=== PATIENT | female | born 1965 | race Caucasian/White ===

== ENCOUNTER → 2016-08-08 | Outpatient (CLI) | payer OTHER ==
[~2016-08-08] MED LIST: ACET-1256 PO; ADVIN25/60 INH; ALBU18002 INH; ASTN NAE; BUSP30TA2 PO; CLN200; CYCL10TA6 PO; EPP3/2 IM; ESCI10TA17 PO; ESCI1TAB18 PO; FLUT0.15 NAE; GABA600T PO; LAMO25TA PO; MULTTAB58 PO; OMEGCAP2 PO; OMEP40CA PO; OXYC-57 PO; QUET1TAB30 PO; QUET1TAB34 PO; QUET5TAB PO; SPRIN/30 INH; SUMA100T15 PO; SYMIN160 INH; TIOTCAP INH; TRAZ50TA35 PO; VALA1TAB31 PO
== END | disposition home or self-care (01) ==
LOC: C.PATHSPEC 17:47
PROVIDERS: ATTEND Obstetrics & Gynecology
DX: N95.0 Postmenopausal bleeding (principal); R87.69 Abnormal cytological findings in specimens from other female genital organs

== ENCOUNTER → 2016-08-27 | Outpatient (CLI) | payer OTHER ==
--- NOTE | 2016-08-27 16:19 | DIAGNOSTIC IMAGING REPORT ---
ABDOMEN 2VIEW W/PA CHEST RTN CLINICAL HISTORY: K59.00 Constipation COMPARISON STUDY: No previous studies for comparison. FINDINGS: The erect chest reveals no free air. There is a right scapular deformity which appears chronic. There are no abnormally dilated loops of large or small bowel. There are no transition zones indicate bowel obstruction. There is mild fecal retention. There is equivocal faint right renal calculus. IMPRESSION: 1. No evidence of bowel obstruction. No evidence of free air 2. Fecal retention 3. Equivocal 3 mm right renal calculus Electronically signed by: Brian Melendrze M.D. 08/27/2016 4:18 PM Dictated Date/Time: 08/27/2016 4:17 PM
== END | disposition home or self-care (01) ==
LOC: C.RAD1850 15:42
PROVIDERS: ATTEND Internal Medicine
DX: K59.00 Constipation, unspecified (principal)

== ENCOUNTER → 2016-08-27 | Outpatient (CLI) | payer OTHER ==
[2016-08-27 17:33] LABS: HEMATOCRIT 39.3 % (37-47); MEAN CORPUSCULAR HEMOGLOBIN 34.3 pg (25-34); MEAN CORPUSCULAR HGB CONC 35.4 g/dl (32-36); MEAN PLATELET VOLUME 9.6 fL (7.4-10.4); PLATELET COUNT 314 K/uL (130-400); RED BLOOD COUNT 4.05 M/uL (4.2-5.4); WHITE BLOOD COUNT 26.96 K/uL (4.8-10.8)
[2016-08-27 18:09] LABS: ALT/SGPT 40 U/L (12-78); AST/SGOT 22 U/L (15-37); BLOOD UREA NITROGEN 28 mg/dl (7-18); BUN/CREATININE RATIO 30.7 (10-20); CALCIUM 9.6 mg/dl (8.5-10.1); CARBON DIOXIDE 25 mmol/L (21-32); CHLORIDE 104 mmol/L (98-107); GLUCOSE 103 mg/dl (70-99); POTASSIUM 3.5 mmol/L (3.5-5.1); SODIUM 140 mmol/L (136-145)
[2016-08-27 18:10] LABS: BASO % 0.1 %; BASO ABS # 0.02 K/uL (0-0.2); COMPLETE YES; IG% 0.6 %; LYMPH % 11.8 %; LYMPH ABS # 3.17 K/uL (1.2-3.4); MONO % 6.2 %; NEUT % 81.3 %; ROULEAUX 1+
[2016-08-27 18:23] LABS: ALB/GLOB RATIO 0.8 (0.9-2); ALKALINE PHOSPHATASE 166 U/L (45-117); THYROID STIMULATING HORMONE 0.884 uIu/ml (0.300-4.500)
== END | disposition home or self-care (01) ==
LOC: C.LAB1850 16:03
PROVIDERS: ATTEND Internal Medicine
DX: K59.00 Constipation, unspecified (principal)

== ENCOUNTER 2016-10-01 09:56 | Observation (INO) | payer OTHER ==
[2016-09-13 14:48] VITALS: BMI 21.0
--- NOTE | 2016-09-13 15:10 | PAT Medication Instructions ---
Service Date Sep 13, 2016. Current Home Medication List Acetaminophen (Tylenol), 2 TAB PO TID PRN for Pain Albuterol Sulfate (Proair Respiclick), 2 PUFF INH TID Azelastine Hcl (Astelin Nasal [place]), 1-2 SPRAYS ROBERTO BID Budesonide/Formoterol Fumarate (Symbicort 160/4.5 Inhaler ), 2 PUFFS INH BID Buspirone Hcl (Buspirone Hcl), 30 MG PO BID Cyclobenzaprine Hcl (Flexeril), 1 TAB PO TID PRN for Pain Epinephrine (Epipen), 0.3 MG IM UD Escitalopram Oxalate (Lexapro), 20 MG PO QAM Fluticasone Propionate (Nasal) (Flonase Allergy Relief), 2 SPRAYS ROBERTO BID Gabapentin (Neurontin), 900 MG PO TID Multiple Vitamin (Multivitamin), 1 TAB PO QAM [place]-3 Fatty Acids (Fish Oil), 1 CAP PO MWF Omeprazole (Prilosec), 40 MG PO QAM Sulindac (Sulindac), BID Sumatriptan Succinate (Imitrex), 1 TAB PO UD PRN for Migraine Tiotropium [place] (Spiriva Handihaler), 1 CAP INH QAM Trazodone Hcl (Trazodone), 50 MG PO HS PRN for Sleep Valacyclovir Hcl (Valtrex), 1 GM PO BID PRN for COLD SORES Medication Instructions For Your Scheduled Surgery - Continue as directed: Epinephrine (Epipen), 0.3 MG IM UD - Hold the following medications 2 weeks prior to surgery: [place]-3 Fatty Acids (Fish Oil), 1 CAP PO MWF - Hold the following medications the morning of surgery: Multiple Vitamin (Multivitamin), 1 TAB PO QAM Sulindac (Sulindac), BID Cyclobenzaprine Hcl (Flexeril), 1 TAB PO TID PRN for Pain - Take the following medications the morning of surgery with a sip of water: Valacyclovir Hcl (Valtrex), 1 GM PO BID PRN for COLD SORES Acetaminophen (Tylenol), 2 TAB PO TID PRN for Pain (may take if needed up to 4 hours prior to surgery) Albuterol Sulfate (Proair Respiclick), 2 PUFF INH TID (use if needed; BRING TO HOSPITAL) Azelastine Hcl (Astelin Nasal [place]), 1-2 SPRAYS ROBERTO BID Budesonide/Formoterol Fumarate (Symbicort 160/4.5 Inhaler ), 2 PUFFS INH BID Escitalopram Oxalate (Lexapro), 20 MG PO QAM Omeprazole (Prilosec), 40 MG PO QAM Fluticasone Propionate (Nasal) (Flonase Allergy Relief), 2 SPRAYS ROBERTO BID Gabapentin (Neurontin), 900 MG PO TID Buspirone Hcl (Buspirone Hcl), 30 MG PO BID Sumatriptan Succinate (Imitrex), 1 TAB PO UD PRN for Migraine Tiotropium [place] (Spiriva Handihaler), 1 CAP INH QAM - Take the following medications as scheduled the night before surgery: Valacyclovir Hcl (Valtrex), 1 GM PO BID PRN for COLD SORES Acetaminophen (Tylenol), 2 TAB PO TID PRN for Pain Albuterol Sulfate (Proair Respiclick), 2 PUFF INH TID Azelastine Hcl (Astelin Nasal [place]), 1-2 SPRAYS ROBERTO BID Budesonide/Formoterol Fumarate (Symbicort 160/4.5 Inhaler ), 2 PUFFS INH BID Fluticasone Propionate (Nasal) (Flonase Allergy Relief), 2 SPRAYS ROBERTO BID Gabapentin (Neurontin), 900 MG PO TID Buspirone Hcl (Buspirone Hcl), 30 MG PO BID Sumatriptan Succinate (Imitrex), 1 TAB PO UD PRN for Migraine Sulindac (Sulindac), BID Trazodone Hcl (Trazodone), 50 MG PO HS PRN for Sleep Cyclobenzaprine Hcl (Flexeril), 1 TAB PO TID PRN for Pain If you have any questions please call us at [phone] or [phone] or [phone]
[2016-09-13 15:55] LABS: HEMATOCRIT 36.2 % (37-47); MEAN CELL VOLUME 94.8 fL (80-100); MEAN CORPUSCULAR HGB CONC 34.8 g/dl (32-36); MEAN PLATELET VOLUME 9.1 fL (7.4-10.4); PLATELET COUNT 270 K/uL (130-400); RED BLOOD COUNT 3.82 M/uL (4.2-5.4); WHITE BLOOD COUNT 8.75 K/uL (4.8-10.8)
--- NOTE | 2016-09-13 15:58 | DIAGNOSTIC IMAGING REPORT ---
CHEST 2 VIEWS ROUTINE CLINICAL HISTORY: pat preoperative evaluation COMPARISON STUDY: 08/27/2016 FINDINGS: The bones soft tissues and hemidiaphragms are normal. The cardiomediastinal silhouette is normal. The lungs are clear. The pulmonary vasculature is normal. IMPRESSION: Negative chest. Electronically signed by: Taras Winters M.D. 09/13/2016 3:57 PM Dictated Date/Time: 09/13/2016 3:56 PM
[2016-09-13 16:17] LABS: BUN/CREATININE RATIO 29.5 (10-20); CREATININE 0.87 mg/dl (0.60-1.20); POTASSIUM 3.9 mmol/L (3.5-5.1)
[2016-09-13 17:03] LABS: BASO % 0.2 %; BASO ABS # 0.02 K/uL (0-0.2); COMPLETE YES; EOS % 1.6 %; IG% 0.6 %; LYMPH ABS # 4.11 K/uL (1.2-3.4); MONO % 8.9 %; NEUT % 41.7 %; TOXIC GRANULATION 1+
[~2016-10-01] VITALS: Ht 154.9 cm; Wt 53.6 kg
[~2016-10-01 09:56] MED LIST changes: -ADVIN25/60 INH; +ATROPINE SULFATE 0.1 MG/ML 5ML SYR IV PRN; +CEFAZOLIN 2000 MG/60 ML D5W 60 ML IV SCH; -ESCI10TA17 PO; +EpHEDrine SULFATE INJ 50 MG/ML AMP IV PRN; +FENTANYL CITRATE INJ 50 MCG/1 ML 2 ML VIAL IV PRN; +HYDROmorphone INJ 1 MG/ML SYR IV PRN; +LABETALOL HCL IV 5 MG/ML 20ML IV PRN; +LACTATED RINGER'S 1000ML IV SCH; -LAMO25TA PO; +MEPERIDINE HCL 25 MG/ML CARP IV PRN; +ONDANSETRON INJ 2 MG/ML 2 ML VIAL IV PRN; -OXYC-57 PO; -QUET1TAB30 PO; -QUET1TAB34 PO; -QUET5TAB PO; -TIOTCAP INH
[2016-10-01] MEDS ORDERED: QUET5TAB PO (10:38)
[2016-10-01] MEDS ORDERED: ADVIN25/60 INH (10:38)
[2016-10-01] MEDS ORDERED: QUET1TAB34 PO (10:38)
[2016-10-01 10:43] VITALS: BP 132/77; PULSE 83; TEMP 36.6; O2SAT 96; Ht 154.9 cm; Wt 53.6 kg
[2016-10-01 11:12] LABS: PREG INTERNAL NEGATIVE QC NEG CLEAR BACKGROUND; PREG INTERNAL POSITIVE QC POS CONTROL LINE
[2016-10-01] MEDS ORDERED: MIDAZOLAM HCL 1 MG/ML 2ML VIAL ONE (12:39)
[2016-10-01] MEDS ORDERED: FENTANYL CITRATE INJ 50 MCG/1 ML 2 ML VIAL ONE ×3 (12:39→16:28)
[2016-10-01] MEDS ORDERED: GLYCOPYRROLATE INJ 0.2 MG/ML VIAL ONE ×2 (12:41→14:44)
[2016-10-01] MEDS ORDERED: ROCURONIUM BROMIDE 10 MG/ML 5 ML VIAL ONE (12:41)
[2016-10-01] MEDS ORDERED: PROPOFOL IV EMULSION 10 MG/ML 20 ML VIAL IV ONE (12:41)
[2016-10-01] MEDS ORDERED: ONDANSETRON INJ 2 MG/ML 2 ML VIAL ONE ×2 (12:41→16:26)
[2016-10-01] MEDS ORDERED: LIDOCAINE HCL 2% 2 ML VIAL (20MG/ML) ONE ×2 (12:41→16:26)
[2016-10-01] MEDS ORDERED: DEXAMETHASONE SOD INJ 4 MG/ML VIAL ONE (12:41)
[2016-10-01] MEDS ORDERED: NEOSTIGMINE METHYLSULFATE 5 MG/5 ML SYR ONE (12:41)
--- NOTE | 2016-10-01 13:38 | History & Physical Bridge Note ---
H&P Re-Evaluation Bridge Note: I have examined the patient, reviewed the History & Physical and in the interval since the performance of the History & Physical I have noted the following changes of clinical significance: No changes noted
[2016-10-01] MEDS ORDERED: METHYLENE BLUE 0.5% 10 ML VIAL ONE (13:40)
[2016-10-01] MEDS ORDERED: BUPIVACAINE 0.5 % 5 MG/1 ML MPF 30ML VIAL ONE (13:40)
--- NOTE | 2016-10-01 14:20 | History & Physical Bridge Note ---
H&P Re-Evaluation Bridge Note: I have examined the patient, reviewed the History & Physical and in the interval since the performance of the History & Physical I have noted the following changes of clinical significance: No changes noted This is a second bridge note. Patient states that she had a laparotomy surrounding one of her prior pregnancies. A 16-20 week demise. She was unable to provide any solid details. I discussed that prior laparotomy might increase risk of adhesions and injury to internal organs. MELANIE
[2016-10-01] MEDS ORDERED: EpHEDrine SULFATE 50MG/5ML SYR ONE (15:08)
[2016-10-01] MEDS ORDERED: PHENYLEPHRINE 100MCG/ML 5ML SYR ONE (15:14)
[2016-10-01] MEDS ORDERED: METHYLENE BLUE 0.5% 10 ML VIAL IV ONE (15:58)
[2016-10-01] MEDS ORDERED: LACTATED RINGER'S 1000ML 1,000 ML IV SCH (16:10)
--- NOTE | 2016-10-01 16:13 | [facility] Post Operative Brief Note ---
Immediate Operative Summary Operative Date Oct 01, 2016. Pre-Operative Diagnosis Pelvic Pain, Postmenopausal Bleeding, Cervical Dysplasia Post-Operative Diagnosis Same as preop Procedure(s) Performed TLH+BSO, lysis of adhesions, cystoscopy, robotic assisted Surgeon Dr. Whitehead Fishing Guide Surgeon(s) Dr. Niño Estimated Blood Loss 20ml Findings anterior abdominal wall adhesions Specimens A. Cervix, Uterus, Bilateral Fallopian Tubes and Ovaries Drains Douglas Anesthesia General Complication(s) None Disposition Recovery Room / PACU
[2016-10-01] MEDS ORDERED: OXYC-57 PO (16:14)
--- NOTE | 2016-10-01 16:14 | Discharge Instructions ---
Discharge Instructions Date of Service Oct 01, 2016. Admission Reason for Admission: Pelvic Pain, PMB Discharge Discharge Diagnosis / Problem: menorrhagia, pelvic pain Discharge Goals Goal(s): Routine recovery after surgery Activity Recommendations Activity Limitations: per Instructions/Follow-up section . Instructions / Follow-Up Instructions / Follow-Up POST OPERATIVE: BOWEL FUNCTION/MEDICATIONS: 1. Constipation pain and discomfort are the most common complaints 5-7 days after surgery. Points 2-6 address the things that can help. 2. Chewing gum can help stimulate the gut and help improve digestion and motility. 3. Milk of Magnesia 1-2 times per day until return of bowel function. 4. Colace is a stool softener that helps. Taking this 2-3 times per day until bowel function returns to normal is highly recommended. 5. Dulcolax is a laxative that may be used if several days have passed without a bowel movement. Alternatively Miralax may be used daily instead. 6. Drink plenty of fluids as this will also reduce constipation. 7. Narcotic pain medications will be prescribed by your physician. They are safe to use and we encourage you to use them. If you are not allergic, ibuprofen will also be prescribed. Many patients will be able to transition off of the narcotic medications to ibuprofen by postoperative day 3. ACTIVITY RECOMMENDATIONS: 1. Get plenty of rest and listen to your body. If you are tired, take a nap. 2. You may shower, but do not take a tub bath until you see your doctor at the 2 week post operative visit. 3. Absolutely NO intercourse and nothing in the vagina until you are examined by your doctor at the 6 week visit. At that visit it will be determined when such activities can be resumed. This can range from 6-12 weeks after your surgery depending on healing time. 4. The main physical activity in the first week should be walking. By the second week you can slowly increase activity. There are no limits on walking up and down stairs. 5. Do not lift more than 5-10 lbs for 4 weeks. Remember the "one-handed rule", i.e. if you can lift something with only one hand it's likely okay. 6. Minimize raise drill operator like vacuuming and exercising for 4 weeks. "Overdoing it" can lead to incisions not healing, pain and vaginal bleeding , so again, listen to your body. 7. Driving can be resumed when you feel able. Do not drive within 24 hours of taking a narcotic medication. EXPECTATIONS: 1. Vaginal spotting, bleeding and discharge are common after surgery. There may even be an odor to the discharge which is often related to sutures used in the vagina. If you experience heavy vaginal bleeding, call the office number day or night [phone]. 2. Bladder discomfort is common after surgery from the catheter. This usually resolves in 1-2 weeks. 3. By the end of the 3rd or 4th week you should be feeling much better. It may take up to 6 weeks for your energy levels to return to normal. 4. Narcotic medications have side effects such as: dizziness, headache, nausea and/or vomiting. If you suspect your pain medication is causing problems, call our office and we may be able to prescribe an alternate medication. 5. The skin incisions are often covered with a liquid bandage. This will gradually peel off over time. CALL THE OFFICE IF YOU HAVE ANY OF THE FOLLOWIN. Temperature of 101 degrees or higher. 2. Severe abdominal or pelvic pain not relieved by pain medication. 3. Persistent nausea or vomiting. 4. Increased pain with urination or difficulty urinating. 5. Bright red bleeding that soaks more than 1 pad per hour. CONTACT PHONE NUMBERS: Main Office: [phone] Surgical Nurse: [phone] extension [phone] Avoid all tobacco products. If you need help to stop smoking, call [place]'s FREE QUITLINE at . This is a free call. Current Hospital Diet Patient's current hospital diet: Discharge Diet Recommended Diet: Regular Diet Procedures Procedures Performed: TLH+BSO, lysis of adhesions, cystoscopy, robotic assisted Pending Studies Studies pending at discharge: no Medical Emergencies . Who to Call and When: Medical Emergencies: If at any time you feel your situation is an emergency, please call 911 immediately. . Non-Emergent Contact Non-Emergency issues call your: Primary Care Provider . . "Provider Documentation" section prepared by Arcadio Whitehead. VTE Core Measure Inpt VTE Proph given/why not?: Belinda Mcgowan, CRYS's
[2016-10-01] MEDS ORDERED: MAGNESIUM HYDROXIDE SUSP 30 ML UDC PO PRN (16:15)
[2016-10-01] MEDS ORDERED: PROMETHAZINE HCL INJ 12.5 MG in SODIUM CHLORIDE 0.9% 50ML 50 ML IV PRN (16:15)
[2016-10-01] MEDS ORDERED: ACETAMINOPHEN 325 MG TAB PO PRN (16:15)
[2016-10-01] MEDS ORDERED: BISACODYL 10 MG SUPP PR PRN (16:15)
[2016-10-01] MEDS ORDERED: MEPERIDINE HCL 75 MG/ML CARP IV PRN (16:15)
[2016-10-01] MEDS ORDERED: SIMETHICONE 80 MG CHEW PO PRN (16:15)
[2016-10-01] MEDS ORDERED: ZOLPIDEM TARTRATE 5 MG TAB PO PRN (16:15)
[2016-10-01] MEDS ORDERED: PROMETHAZINE HCL INJ 25 MG in SODIUM CHLORIDE 0.9% 50ML 50 ML IV PRN (16:15)
[2016-10-01] MEDS ORDERED: MEPERIDINE HCL 50 MG/ML CARP IV PRN (16:15)
[2016-10-01] MEDS ORDERED: OXYCODONE/ACETAMINOPHEN 5-325 TAB PO PRN ×2 (16:15)
[2016-10-01] MEDS ORDERED: ONDANSETRON INJ 2 MG/ML 2 ML VIAL IV PRN (16:15)
[2016-10-01] MEDS ORDERED: KETOROLAC TROMETHAMINE 30 MG/ML VIAL IV. PRN (16:15)
[2016-10-01] MEDS ORDERED: IBUPROFEN 600 MG TAB PO PRN (16:15)
[2016-10-01] MEDS ORDERED: IV FLUIDS COMPLETED PRN (16:30)
[2016-10-01] MEDS ORDERED: ALBUT/IPRATROP 3MG/0.5MG NEB 3 ML VIAL ONE (16:58)
--- NOTE | 2016-10-01 17:00 | Anesthesiology Progress Note ---
Anesthesia Post Op Note Date & Time Oct 01, 2016 at 17:00 Vital Signs Pain Intensity: 3 Vital Signs Past 12 Hours Date Time Temp Pulse Resp B/P Pulse Ox O2 Delivery O2 Flow Rate FiO2 10/01/16 16:50 94 18 129/72 96 Nasal Cannula 2 10/01/16 16:40 97 18 139/75 96 Nasal Cannula 2 10/01/16 16:30 98 17 132/72 95 Nasal Cannula 2 10/01/16 16:24 36.0 110 18 133/73 92 Nasal Cannula 2 10/01/16 10:43 36.6 83 18 132/77 96 Room Air Notes Mental Status: alert / awake / arousable, participated in evaluation Pt Amnestic to Procedure: Yes Nausea / Vomiting: adequately controlled Pain: adequately controlled Airway Patency, RR, SpO2: stable & adequate BP & HR: stable & adequate Hydration State: stable & adequate Anesthetic Complications: no major complications apparent
--- NOTE | 2016-10-01 17:09 | OPERATIVE REPORT ---
DATE OF OPERATION: 10/01/2016 PREOPERATIVE DIAGNOSES: Pelvic pain, postmenopausal bleeding, cervical dysplasia. POSTOPERATIVE DIAGNOSES: Same. PROCEDURE: TLH-BSO, lysis of adhesions, cystoscopy robotically assisted. SURGEON: Arcadio Whitehead MD MAT MAKING MACHINE TENDER: Bhaskar Niño MD ESTIMATED BLOOD LOSS: 20 mL. FINDINGS: Extensive intra-abdominal wall adhesions in the peritoneal cavity. SPECIMENS: Cervix, uterus, bilateral fallopian tubes and ovaries. DRAINS: Douglas catheter. ANESTHETIC: General. COMPLICATIONS: None. DISPOSITION: Recovery room. CLINICAL NOTE: Anat, we reviewed before the surgery she did state she had what sounds like a hysterotomy done at 16-20 weeks prior to surgery, I included this in a bridge note. We did discuss this increased chance of internal organ damage as there could be extensive adhesions. DESCRIPTION OF PROCEDURE: The patient was given general anesthetic, prepped and draped in dorsal lithotomy position. IV Ancef given preop. Douglas catheter placed in the bladder and uterine VCare placed into her cervix and uterus and sewn in place. Gloves changed and a supraumbilical incision made with scalpel using open Katherine technique, we dissected down through subcutaneous fat to the fascia, splitting the rectus muscles and entering the peritoneal cavity. Blunt-tipped Katherine trocar then placed. Balloon inflated and then CO2 gas to insufflate the abdomen. FINDINGS: Upper abdomen normal, no sign of visceral organ injury. After deep Trendelenburg position, I viewed the pelvis. At this stage, I could not see the uterus and anterior abdominal wall adhesions of omentum were present, pictures taken for documentation. These included to the right pelvic sidewall as well in the left pelvic sidewall. Placed 3 robotic arms, 2 on the right and 1 in the left and in the left upper quadrant 11 mm bladeless port was placed as well. Docked the robot. Arm #1 was monopolar jaelyn, arm #2 bipolar [place], arm #3 ProGrasp. Carefully dissecting the adhesions away, these were mainly thin, I was able to dissect away the omental adhesions from the anterior abdominal wall, these have continued to the anterior aspect of the uterus were dissected away using the monopolar jaelyn and the bipolar [place]. Same process on the left side and the right side as well, taking care to avoid any damage to the surrounding structures. Once all the adhesions were away, I was then able to identify her anatomy. She had normal ureter locations in both left and right side. I made a window into the broad ligament and then dissected the ovarian artery and vein and then coagulated this with a bipolar [place] taking care to note that the ureter was well away from this location. This was then cut. Monopolar jaelyn used to skeletonize and then round ligament was coagulated and cut as well. Anterior bladder flap had adhesions consistent with the prior hysterotomy. We resected these very carefully and sharply, identified the uterine artery and vein, coagulated this after dissecting the bladder away fully and cut with monopolar jaelyn. Again, the ureter was well away. Same process continued on the right. Once the bladder flap was fully dissected away and bilaterally the uterine vessels were sealed and cut, I was able to make an anterior colpotomy and continued this around to separate the cervix and the vagina. We stayed medial to our uterine vessel ligations. The uterus was then pulled into the vagina and then removed along with the adnexa. At this stage, we then placed a sponge in a glove to maintain pneumoperitoneum. Instrument exchanges then occurred. Arm #1 became the louisa needle racing driver, arm #2 became the cobra, 12-inch 2-0 90-day V-Loc suture was then passed through the accessory port. IV methylene blue was given by anesthesia, 10 mL. Cup was closed from left to right, back right to left, incorporating at least 1 cm full thickness vaginal mucosa bites. Suture was cut so there was no tail. Needle was removed through the accessory port. I felt the right uterosacral ligament was not as well approximated to the cuff, so I did actually pass a 2-0 Vicryl on an SH needle 6-inch long and then a simple interrupted including the uterosacral into the cuff was done for better pelvic support. This was cut. Needle was then removed through the accessory port. After this generous irrigation and suction, there was no leakage of methylene blue dye and hemostasis was excellent. Robot instruments removed, robot undocked, ports removed, gas allowed to escape. All incisions have been injected with 0.5% Marcaine before the case and irrigated with sterile saline. Fascia closed with 0 Vicryl in the umbilical incision and left upper quadrant. Subcutaneous fat closed with 0 Vicryl and incisions closed with 4-0 subcuticular Monocryl and Dermabond. Sponge and instrument counts correct. Cystoscopy was performed by removing the Douglas catheter. Note the sponge had been removed from the vagina as well. Cystoscope revealed a normal bladder, and no sign of trauma or damage or sutures and good strong jets of blue dye from both left and right ureter openings. Cystoscope removed and a new Douglas catheter placed. There was minimal vaginal bleeding. At the end of the procedure, sponge and instrument counts correct. I attest to the content of the Intraoperative Record and any orders documented therein. Any exceptio ns are noted below.
[2016-10-01] MEDS ORDERED: NURSING VERBAL MED ORDER ONE ×2 (17:15→20:45)
[2016-10-01 17:25] VITALS: O2SAT 93
[2016-10-01 18:00] VITALS: BP 120/77; PULSE 93; TEMP 36.6; O2SAT 93
[2016-10-01 18:50] VITALS: BP 120/75; PULSE 90; TEMP 36.5; O2SAT 98
[2016-10-01 19:25] VITALS: BP 127/77; PULSE 85; TEMP 36.5; O2SAT 98
[2016-10-01 20:25] LABS: HEMATOCRIT 37.3 % (37-47)
[2016-10-01] MEDS ORDERED: DOCUSATE SODIUM 100 MG CAP PO SCH (21:00)
[2016-10-01 21:27] VITALS: BP 127/77; PULSE 85; TEMP 36.5; O2SAT 98
[2016-10-01] MEDS ORDERED: PERCOCET HOME PACK PO SCH (21:30)
--- NOTE | 2016-10-09 10:24 | DISCHARGE SUMMARY ---
HOSPITAL COURSE: Anat had surgery, total laparoscopic hysterectomy, on 10/02/2015. She was discharged several hours after her surgery. SUBJECTIVE: At that time, she was ambulating, tolerating an oral diet, oral pain medication, had minimal bleeding and no extremity pain. PHYSICAL EXAMINATION: Her vital signs are stable. She is afebrile. IMPRESSION AND PLAN: Several hours post total laparoscopic hysterectomy meets discharge criteria, was discharged home on appropriate pain medication and told to follow up in the office and given discharge instructions.
[2017-04-15] MEDS ORDERED: LAMO25TA PO (13:34)
== END 2016-10-01 22:00 | disposition home or self-care (01) ==
LOC: ENRESERVTM → ENRESERVDT → C.ACU 09:56 → C.MS4N 16:12
PROVIDERS: ADMIT Obstetrics & Gynecology; ATTEND Obstetrics & Gynecology
DX: N95.0 Postmenopausal bleeding (principal); N87.9 Dysplasia of cervix uteri, unspecified; K66.0 Peritoneal adhesions (postprocedural) (postinfection); R10.2 Pelvic and perineal pain; J44.9 Chronic obstructive pulmonary disease, unspecified; G89.4 Chronic pain syndrome; K21.9 Gastro-esophageal reflux disease without esophagitis; F17.200 Nicotine dependence, unspecified, uncomplicated
CPT/HCPCS: 58571; S2900

== ENCOUNTER → 2018-02-05 | Outpatient (CLI) | payer OTHER ==
[~2018-02-05] MED LIST changes: +ADVIN25/60 INH; -ATROPINE SULFATE 0.1 MG/ML 5ML SYR IV PRN; -CEFAZOLIN 2000 MG/60 ML D5W 60 ML IV SCH; -EpHEDrine SULFATE INJ 50 MG/ML AMP IV PRN; -FENTANYL CITRATE INJ 50 MCG/1 ML 2 ML VIAL IV PRN; -HYDROmorphone INJ 1 MG/ML SYR IV PRN; -LABETALOL HCL IV 5 MG/ML 20ML IV PRN; -LACTATED RINGER'S 1000ML IV SCH; +LAMO25TA PO; -MEPERIDINE HCL 25 MG/ML CARP IV PRN; -ONDANSETRON INJ 2 MG/ML 2 ML VIAL IV PRN; +OXYC-57 PO; -SYMIN160 INH; -VALA1TAB31 PO
[2018-02-05 17:19] LABS: BASO % 0.4 %; BASO ABS # 0.04 K/uL (0-0.2); EOS % 1.2 %; EOS ABS # 0.12 K/uL (0-0.5); HEMATOCRIT 42.1 % (37-47); HEMOGLOBIN 14.5 g/dL (12.0-16.0); IG# 0.03 K/uL (0.00-0.02); LYMPH % 37.8 %; LYMPH ABS # 3.78 K/uL (1.2-3.4); MEAN CELL VOLUME 96.8 fL (80-100); MEAN CORPUSCULAR HEMOGLOBIN 33.3 pg (25-34); MEAN CORPUSCULAR HGB CONC 34.4 g/dl (32-36); MEAN PLATELET VOLUME 10.4 fL (7.4-10.4); MONO % 5.5 %; MONO ABS # 0.55 K/uL (0.11-0.59); NEUT % 54.8 %; NEUT ABS # 5.47 K/uL (1.4-6.5); PLATELET COUNT 311 K/uL (130-400); RED CELL DISTRIBUTION WIDTH SD 46.2 fL (36.4-46.3); WHITE BLOOD COUNT 9.99 K/uL (4.8-10.8)
[2018-02-05 17:59] LABS: ALBUMIN 3.6 gm/dl (3.4-5.0); ALKALINE PHOSPHATASE 171 U/L (45-117); ALT/SGPT 39 U/L (12-78); AST/SGOT 36 U/L (15-37); BLOOD UREA NITROGEN 26 mg/dl (7-18); CALCIUM 9.5 mg/dl (8.5-10.1); CARBON DIOXIDE 22 mmol/L (21-32); CHOLESTEROL 234 mg/dl (0-200); CREATININE 0.82 mg/dl (0.60-1.20); GLUCOSE 81 mg/dl (70-99); LDL CHOLESTEROL CALCULATED 162 mg/dl; POTASSIUM 3.9 mmol/L (3.5-5.1); SODIUM 140 mmol/L (136-145)
== END | disposition home or self-care (01) ==
LOC: C.LABBFT 14:16
PROVIDERS: ATTEND Nurse Practitioner
DX: R63.4 Abnormal weight loss (principal); Z13.6 Encounter for screening for cardiovascular disorders; Z13.228 Encounter for screening for other metabolic disorders

== ENCOUNTER → 2018-02-25 | Outpatient (CLI) | payer OTHER ==
--- NOTE | 2018-02-25 09:57 | DIAGNOSTIC IMAGING REPORT ---
L-SPINE MIN 4 VIEWS ROUTINE HISTORY: Pain M46.90 [id number] [id number] HLA B27 positi COMPARISON: 06/04/2012 FINDINGS: There is no fracture. No subluxation. Minimal degenerative disc change. Minimal degenerative change posterior elements at L4 and L5. Instill note is made of a 3 mm calcification lower pole right kidney. IMPRESSION: 1. Minimal degenerative change. 2. Mild scoliosis. 3. 3 mm lower pole right renal calcification. The above report was generated using voice recognition software. It may contain grammatical, syntax or spelling errors. Electronically signed by: Taras Winters M.D. 02/25/2018 9:56 AM Dictated Date/Time: 02/25/2018 9:54 AM
--- NOTE | 2018-02-25 09:58 | DIAGNOSTIC IMAGING REPORT ---
R HAND MIN 3 VIEWS ROUTINE CLINICAL HISTORY: Spondyloarthropathy. HLA B27 positive. COMPARISON: Right hand radiographs November 19, 2012. FINDINGS: Alignment of the right hand is anatomic. Severe joint space narrowing with osteophytosis of the right first carpometacarpal joint is noted. No erosions are identified. Note is made of mild joint space narrowing with moderate osteophytosis within several distal interphalangeal joints of the right hand. Osteoarthritis has progressed since exam of November 19, 2012. IMPRESSION: 1. Progression of osteoarthritis within multiple articulations of the right hand and wrist, most pronounced at the right first carpometacarpal joint. 2. No erosions identified. Electronically signed by: Vinny Chiu M.D. 02/25/2018 9:56 AM Dictated Date/Time: 02/25/2018 9:54 AM
--- NOTE | 2018-02-25 09:59 | DIAGNOSTIC IMAGING REPORT ---
L HAND MIN 3 VIEWS ROUTINE CLINICAL HISTORY: M46.90 [id number] [id number] HLA B27 positi pain COMPARISON: None. DISCUSSION: Significant degenerative change first carpometacarpal joint. Remaining osseous structures are unremarkable. There is no evidence for periarticular erosions nor is there evidence for periarticular osteopenia. There is no evidence for soft tissue swelling. IMPRESSION: Rather significant degenerative change first carpometacarpal joint. Otherwise negative study. The above report was generated using voice recognition software. It may contain grammatical, syntax or spelling errors. Electronically signed by: Taras Winters M.D. 02/25/2018 9:58 AM Dictated Date/Time: 02/25/2018 9:56 AM
[2018-02-25 10:44] LABS: TRANSFERRIN 340 mg/dl (200-360)
== END | disposition home or self-care (01) ==
LOC: C.RAD1850 09:11
PROVIDERS: ATTEND Internal Medicine Rheumatology
DX: M54.2 Cervicalgia (principal); Z15.89 Genetic susceptibility to other disease; M46.90 Unspecified inflammatory spondylopathy, site unspecified; E55.9 Vitamin D deficiency, unspecified; N28.89 Other specified disorders of kidney and ureter

== ENCOUNTER 2020-01-06 10:24 | Inpatient (IN) ==
[2020-01-06] MEDS ORDERED: SODIUM CHLORIDE 0.9% 1000ML 2,000 ML IV ONE (11:01)
[2020-01-06] MEDS ORDERED: NYSTATIN SUSP 500,000 U/5 ML UDC PO STA (11:01)
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
--- NOTE | 2020-01-06 11:39 | XRay Report ---
XR chest 1V portable CLINICAL HISTORY: SEPSIS dyspnea COMPARISON STUDY: 08/27/2016 FINDINGS: No significant cardiac enlargement. Diaphragms are smooth. Peripheral atelectasis right mid lung laterally. No acute infiltrate. IMPRESSION: No acute infiltrate. ACT 112: Negative or not required by law. The above report was generated using voice recognition software. It may contain grammatical, syntax or spelling errors. Electronically signed by: Taras Winters M.D. 01/06/2020 11:38 AM
[2020-01-06 13:10] LABS: Basophils # (auto) 0.01 K/uL (0-0.2); Basophils % (auto) 0.1 %; Hematocrit (blood only) 40.6 % (37-47); Hemoglobin 14.4 g/dL (12.0-16.0); Immature Granulocytes # (auto) 0.05 K/uL (0.00-0.02); Immature Granulocytes % (auto) 0.4 %; Lymphocytes # (auto) 1.56 K/uL (1.2-3.4); Lymphocytes % (auto) 11.8 %; Mean Corpuscular Hemoglobin 32.4 pg (25-34); Mean Corpuscular Hgb Conc 35.5 g/dL (32-36); Mean Corpuscular Volume 91.2 fL (80-100); Monocytes # (auto) 2.29 K/uL (0.11-0.59); Monocytes % (auto) 17.3 %; Neutrophils # (auto) 9.34 K/uL (1.4-6.5); Neutrophils % (auto) 70.4 %; Platelet Count 200 K/uL (130-400); RDW Coefficient of Variation 13.5 % (11.5-14.5); RDW Standard Deviation 44.9 fL (36.4-46.3); Red Blood Count 4.45 M/uL (4.2-5.4); White Blood Count 13.25 K/uL (4.8-10.8)
[2020-01-06 13:15] LABS: iSTAT Creatinine 1.1 mg/dl (0.6-1.3); iSTAT Ionized Calcium 1.06 mmol/l (1.12-1.32); iSTAT Potassium 3.4 mmol/L (3.3-5.0)
[2020-01-06 13:21] LABS: Appearance Urine Turbid (Clear); Bacteria Urine Automated 4+ (Negative); Bilirubin Urine Negative (Negative); Blood Urine 3+ (Negative); Color Urine Yellow; Glucose Urine UA Negative (Negative); Ketones Urine 1+ (Negative); Leukocyte Esterase Urine 3+ (Negative); Nitrite Urine Positive (Negative); Protein Urine 2+ (Negative); Specific Gravity Urine 1.018 (1.000-1.030); Urobilinogen Urine Negative (Negative); WBC Urine Automated >30 /hpf (0-5)
[2020-01-06 13:23] LABS: Partial Thromboplastin Ratio 1.2; Partial Thromboplastin Time 32.9 Seconds (21.0-31.0); Prothrombin Time 10.8 Seconds (9.0-12.0)
[2020-01-06 13:29] LABS: Alanine Aminotransferase 19 U/L (12-78); Albumin Level 2.8 gm/dl (3.4-5.0); Aspartate Aminotransferase 26 U/L (15-37); BUN Creatinine Ratio 24.7 (10-20); Blood Urea Nitrogen 26 mg/dl (7-18); Calcium 8.9 mg/dl (8.5-10.1); Carbon Dioxide 25 mmol/L (21-32); Chloride 97 mmol/L (98-107); Creatinine Clr Calc Pharmacy 46.4 ml/min; Est GFR (African American) 67.2; Glucose 95 mg/dl (70-99); Magnesium 2.4 mg/dl (1.8-2.4); Potassium 3.4 mmol/L (3.5-5.1); Sodium 130 mmol/L (136-145)
[2020-01-06 13:34] LABS: Albumin Globulin Ratio 0.5 (0.9-2); Alkaline Phosphatase 58 U/L (45-117); Bilirubin,Total 0.4 mg/dl (0.2-1); Globulin 5.5 gm/dl (2.5-4.0); Total Protein 8.3 gm/dl (6.4-8.2); Troponin I < 0.015 ng/ml (0-0.045)
[2020-01-06] MEDS ORDERED: IOVERSOL 100ml IV PRN (13:40)
[2020-01-06] MEDS ORDERED: cefTRIAXone SODIUM 1,000 MG/50 ML BAG IV STA (13:52)
--- NOTE | 2020-01-06 13:53 | CT Scan Report ---
CT abd pelvis IV con only CT DOSE: 274.67 mGycm HISTORY: Pain diffuse abd pain TECHNIQUE: Multiaxial CT images of the abdomen and pelvis were performed following the use of intrave nous contrast. A dose lowering technique was utilized adhering to the principles of ALARA. COMPARISON STUDY: 12/31/2019 FINDINGS: Lung bases remain clear. Liver spleen and pancreas are unremarkable. The 5 mm calculus of the mid right ureter has now migrated distally approximately 2 cm. There is a moderate interval increase in edematous change of the renal parenchyma of the right kidney . There are findings of mild perinephric infiltrative change. Secondary pyelonephritis is considered. Nonobstructive bowel pattern. Moderate increase in colonic fecal load. Bladder is midline. No free fl uid within the pelvic cul-de-sac. IMPRESSION: 1. Obstructing mid right ureteral calculus measuring 5 mm. The graft 2. This is migrated distally 2 cm compared to the prior study of 12/31/2019. 3. Interval development of edematous change of the right kidney with mild infiltrative change of the right perinephric fat. 4. This would indicate a developing and/or superimposed pyelonephritis superimposed upon the obstruct clinton changes due to the ureteral calculus. ACT 112: Negative or not required by law. The above report was generated using voice recognition software. It may contain grammatical, syntax or spelling errors. Electronically signed by: Taras Winters M.D. 01/06/2020 1:51 PM
[2020-01-06 14:22] LABS: Amorphous Sediment Urine Present (None Prsent)
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
--- NOTE | 2020-01-06 15:33 | Electrocardiogram Report ---
Test Reason : Blood Pressure : / mmHG Vent. Rate : 108 BPM Atrial Rate : 108 BPM P-R Int : 142 ms QRS Dur : 092 ms QT Int : 328 ms P-R-T Axes : 073 060 059 degrees QTc Int : 439 ms Sinus tachycardia Otherwise normal ECG When compared with ECG of 13-SEP-2016 15:09, Vent. rate has increased BY 40 BPM Confirmed by Jeremias Leonard ([id number]) on 01/06/2020 3:32:57 PM Referred By: REFERRED SELF Confirmed By:Dino Leonard
[2020-01-06] MEDS ORDERED: DAPTOMYCIN CONSULT ACTIVE PRN (16:10)
[2020-01-06] MEDS ORDERED: DAPTOmycin 300 MG in SYRINGE 0 ML IV SCH ×2 (16:15→18:00)
[2020-01-06] MEDS ORDERED: ONDANSETRON INJ 2 MG/ML 2 ML VIAL IV PRN ×2 (16:17→17:38)
[2020-01-06] MEDS ORDERED: fentaNYL citrate 100 MCG/2 ML VIAL IV PRN (16:17)
[2020-01-06] MEDS ORDERED: ATROPINE SULFATE 0.1 MG/ML 10ML SYR IV PRN (16:17)
[2020-01-06] MEDS ORDERED: ONDANSETRON INJ 2 MG/ML 2 ML VIAL ONE (16:20)
[2020-01-06] MEDS ORDERED: fentaNYL citrate 100 MCG/2 ML VIAL ONE (16:20)
[2020-01-06] MEDS ORDERED: MIDAZOLAM HCL 1 MG/ML 2ML VIAL ONE (16:20)
[2020-01-06] MEDS ORDERED: PROPOFOL IV EMULSION 10 MG/ML 20 ML VIAL IV ONE ×2 (16:20→16:40)
--- NOTE | 2020-01-06 16:50 | Operative Report ---
PG Post Operative Report Pre & Post Diagnosis Operation Date: 01/06/20 11:15 Pre-Op Diagnosis: Right Nephrolithiasis Post-Op Diagnosis: Right Nephrolithiasis I identified the patient and participated in the time-out.: Yes Procedure Operation Date: 01/06/20 11:15 Actual Procedures p Cystoscopy, Right Ureteral Stent Placement under Sedation(Right) - David Asher MD Surgeon Jeremias Asher MD Professor Of Architecture none Estimated Blood Loss 0 Findings Consistent with Post-Op Diagnosis Specimens None Description of Procedure The patient was identified in the preoperative holding area, appropriate informed consents were reviewed and completed and the patient was transferred to the operative suite. Upon arrival, appropriate antibiotics and anesthesia were administered and the patient was placed in dorsal lithotomy position and prepped and draped in sterile fashion. To begin the case to pass a 22 Macedonian cystoscope with 30 degree lens. Inspection revealed healthy appearing bladder mucosa. Ureteral orifices were in orthotopic position. I turned my attention to the right ureteral orifice and cannulated with a sensor wire 5 Macedonian open-ended catheter. Of note, under fluoroscopic evaluation we could see retained contrast within the right upper tract progressing to the mid ureteral location where there was clearly an obstructing stone. I advanced my wire to this level and I did meet some resistance but was able to bypass the stone with the wire. There was also some proximal tortuosity which was straightened after the wire advanced to the kidney. After advancing the wire and straightening the ureter there is an immediate discharge of cloudy urine. I placed a 6 Macedonian by 24 cm double-J ureteral stent seeing a good upper pole position as well as a good bladder curl. I emptied the bladder and concluded the case. She was reversed of anesthesia and taken to the recovery room in stable condition. There were no complications. I attest to the content of the Intraoperative Record and any orders documented therein. Any exceptions are noted below.
--- NOTE | 2020-01-06 17:17 | Fluoroscopy Report ---
FL retrograde includes kub HISTORY: 54 years-old Female RETROGRADE, CYSTO, RT STENT right-sided cystourethrogram COMPARISON: CT abdomen and pelvis 01/06/2020 TECHNIQUE: 3 spot fluoroscopic images of the right abdomen were obtained utilizing 10.5 seconds fluor oscopy time FINDINGS: A right-sided ureteral stent is noted, distal portion not imaged. The proximal portion of the stent s tent terminates within the superior pole collecting system. Persistent mild hydroureteronephrosis. Pr eviously noted right ureteral calculus is redemonstrated with transitioned area of nondilated ureter seen distally to this. IMPRESSION: Fluoroscopic assistance as above. Please see procedural report for further details. ACT 112: Negative or not required by law. The above report was generated using voice recognition software. It may contain grammatical, syntax o r spelling errors. Electronically signed by: Parker Pathak M.D. 01/06/2020 5:15 PM
--- NOTE | 2020-01-06 17:25 | Anesthesiology Progress Note ---
Date of Service January 06, 2020 Anesthesia Post Procedure Vital Signs Vital Signs: Temp Pulse Pulse Resp BP BP Pulse Ox 01/06/20 17:00 37.7 C H 104 H 18 135/83 98 01/06/20 16:51 37.7 C H 104 H 20 116/72 100 01/06/20 16:18 37.9 C H 107 H 18 141/80 H 97 01/06/20 15:45 109 H 25 H 96 01/06/20 15:30 107 H 20 137/73 96 01/06/20 15:15 108 H 25 H 97 01/06/20 15:00 106 H 30 H 150/82 H 96 01/06/20 14:45 114 H 24 97 01/06/20 14:30 103 H 30 H 132/64 98 01/06/20 14:15 104 H 29 H 94 01/06/20 14:00 105 H 27 H 133/71 96 01/06/20 13:45 104 H 31 H 96 01/06/20 13:15 104 H 27 H 01/06/20 13:00 107 H 30 H 119/74 01/06/20 12:45 112 H 26 H 94 01/06/20 12:31 111 H 36 H 95 01/06/20 12:30 109 H 31 H 116/75 97 01/06/20 12:01 96 01/06/20 12:00 112 H 26 H 126/74 95 01/06/20 10:29 37.8 C H 124 H 20 108/70 97 Transfer of Care Handoff Completed per policy Notes Mental Status: alert / awake / arousable and participated in evaluation Patient Amnestic to Procedure: Yes Nausea / Vomiting: adequately controlled Pain: adequately controlled Airway Patency, RR, SpO2: stable & adequate BP & HR: stable & adequate Hydration State: stable & adequate Anesthetic Complications: no major complications apparent
[2020-01-06] MEDS ORDERED: ALBUTEROL HFA 8 GM INHALER INH PRN (17:38)
[2020-01-06] MEDS ORDERED: MoRPHine SULFATE 2 MG/ML CARP IV PRN (17:38)
[2020-01-06] MEDS ORDERED: EPINEPHRINE ADULT AUTO-INJECT 0.3 MG SYR IM PRN (17:38)
[2020-01-06] MEDS ORDERED: ACETAMINOPHEN 325 MG TAB PO PRN (17:38)
[2020-01-06] MEDS ORDERED: RIZATRIPTAN BENZOATE 10 MG TAB PO PRN (17:38)
[2020-01-06] MEDS: SODIUM CHLORIDE 0.9% 1000ML 1,000 ML IV SCH (17:48)
[2020-01-06] MEDS: ALBUT/IPRATROP 3MG/0.5MG NEB 3 ML VIAL INH SCH (18:35)
[2020-01-06] MEDS: NYSTATIN SUSP 500,000 U/5 ML UDC PO SCH ×2 (20:07→20:18)
[2020-01-06] MEDS: IPRATROPIUM BROMIDE NASAL SPRAY 0.06% 15ML SCH (20:08)
[2020-01-06] MEDS: DULOXETINE HCL 60 MG CAP PO SCH (20:08)
[2020-01-06] MEDS: GABAPENTIN 600 MG TAB PO SCH (20:09)
[2020-01-06] MEDS: guaiFENesin 600 MG TABCR PO SCH (20:10)
[2020-01-06] MEDS: *AZELASTINE*ORDER AWAITING ACTION SCH (23:06)
[2020-01-07] MEDS: SODIUM CHLORIDE 0.9% 1000ML 1,000 ML IV SCH ×4 (02:57→22:16)
[2020-01-07 06:27] LABS: BUN Creatinine Ratio 24.6 (10-20); Calcium 7.9 mg/dl (8.5-10.1); Creatinine Clr Calc Pharmacy 60.6 ml/min; Est GFR (African American) 92.7; Potassium 3.3 mmol/L (3.5-5.1)
[2020-01-07] MEDS: ALBUT/IPRATROP 3MG/0.5MG NEB 3 ML VIAL INH SCH (06:52)
--- NOTE | 2020-01-07 08:08 | Urology Progress Note ---
Date of Service January 07, 2020 Assessment & Plan (1) Hydronephrosis: (2) UTI (urinary tract infection): Postop day #1 status post right ureteral stent placement for obstructing calculus with infection Recovering appropriately Waiting for final culture resultspreliminary urine culture showing gram- negative bacilli Once appropriate antibiotics are determined likely can be discharged home and will follow-up as an outpatient for definitive stone treatment Subjective Subjectively feeling much better She reports drastically decreased pain She did still have tachycardia, temperatures overnight No nausea or vomiting Physical Exam Constitutional: well developed and well nourished Respiratory: no respiratory distress Cardiovascular: Extremities: no pedal edema Gastrointestinal (Abdomen): Inspection/Auscultation: abdomen normal to inspection Results & Data Vital Signs (Past 12 Hours) Vital Signs Temp Pulse Pulse Resp BP Pulse Ox 01/07/20 08:00 36.9 C 104 H 16 101/58 L 91 01/07/20 07:06 101 H 01/07/20 06:52 101 H 17 92 01/07/20 04:06 116 H 01/07/20 03:35 37.6 C H 101 H 20 100/57 L 92 01/07/20 00:00 38.1 C H 111 H 20 114/68 92 PG Care Time/CCT Total # of Minutes Spent Total Time Spent with Patient: Total time spent is greater than 50% in coordination of care (as documented) at patient's floor/unit and/or counseling patient: Coding Level of Care Code 77812 Subseq Hosp Care Lvl 2 Diagnoses Hydronephrosis N13.30 Hydronephrosis type: unspecified UTI (urinary tract infection) N30.01 Urinary tract infection type: acute cystitis Hematuria presence: with hematuria (1) Hydronephrosis Hydronephrosis type: unspecified Qualified Code(s): N13.30 - Unspecified hydronephrosis (2) UTI (urinary tract infection) Urinary tract infection type: acute cystitis Hematuria presence: with hematuria Qualified Code(s): N30.01 - Acute cystitis with hematuria
[2020-01-07] MEDS: *AZELASTINE*ORDER AWAITING ACTION SCH ×3 (08:15→20:45)
[2020-01-07] MEDS: guaiFENesin 600 MG TABCR PO SCH ×2 (08:16→20:39)
[2020-01-07] MEDS: PANTOprazole 40 MG TAB PO SCH (08:16)
[2020-01-07] MEDS: NYSTATIN SUSP 500,000 U/5 ML UDC PO SCH ×4 (08:17→20:39)
[2020-01-07] MEDS: IPRATROPIUM BROMIDE NASAL SPRAY 0.06% 15ML SCH ×3 (08:17→20:39)
[2020-01-07] MEDS: GABAPENTIN 600 MG TAB PO SCH ×2 (08:18→20:39)
[2020-01-07] MEDS: DULOXETINE HCL 60 MG CAP PO SCH ×2 (08:18→20:39)
[2020-01-07] MEDS ORDERED: ALBUT/IPRATROP 3MG/0.5MG NEB 3 ML VIAL INH PRN (08:43)
--- NOTE | 2020-01-07 10:24 | Hospitalist Progress Note ---
Date of Service January 07, 2020 Assessment & Plan (1) Sepsis: Sepsis 2/2 pyelonephritis - SIRS criteria: hypotension, febrile (38.1C @ [place] 10/06), HR 111 - WBC down to 10 from 13.25 on 01/05 - UCx growing E. Coli, awaiting sensitivities - Blood cultures from 01/05 pending - Ceftriaxone and Daptomycin for Gram negative and extended spectrum coverage given immunosuppressed status on Humira - IVNS 125 ml/hr Awaiting sensitivities of urine culture and growth of blood culture for anti biotic specification prior to discharge. Present on Admission?: Yes (2) Renal calculi: - 5 mm calculus found in the right ureter in the emergency department. - Urology evaluated patient in emergency room and took her to the OR for a prompt right ureteral stent placement. Retrograde pyelogram afterwards showed persistent mild hydroureteronephrosis. Antibiotic coverage as above - Creatinine stable at 0.82 (3) Hydronephrosis: See above plan for renal calculi. (4) Ankylosing spondylitis: Patient is chronically on Humira. States she has not had a dose in 3 weeks. She normally takes it every other week but the last dose misfired. DVT ppx: held in setting of urologic procedure FEN/GI: regular diet/IVNS @ 125ml/hr Code status: Full Code Dispo: Home Admission and Anticipated Discharge Date Admission Date: January 06, 2020 Supervising Physician Co-Signing Physician Notes Patient seen and examined with PGY-1 Dr. Quinones. Agree with history, exam findings, assessment and plan of care as outlined by Dr. Quinones with the following updates: In brief, Ms. Costa is a 54 year old female with hx of COPD, GERD, and ankylosis spondy admitted with right hydronephrosis and 5mm obstcution stone + urinary tract infection. Last night, she underwent cysto with right stent placement with urology. Labs, imaging and nursing notes reviewed. Well appearing. Non-toxic. heart with regular rate and rhythm. Lungs are clear to auscultation. 1. sepsis secondary to urinary tract infection due to obstructing renal stone causing right hydronephrosis. See below for management of each issue. 2. urinary tract infection. Continue with rocephin, d/c dapto. Urine culture growing E. coli. Pending sensitivities. blood cultures with no growth to date. WBC 13. 3. right nephrolithiasis with hydronephrosis. s/p right stent placement. strain urine. 4. ATN. resolved. Cr 0.82 5. ankylosing spondylitis. Last humira dose was 3 weeks ago (typically takes it every other week). discussed not re-dosing until she has cleared infection. Follows with rheumatology in [facility]. 6. COPD. scheduled duo nebs 7. GERD. continue ppi. Dispo: pending clinical improvement and urine culture sensitivities. Subjective Feeling well this morning. No complaints of flank or abdominal pain. No nausea or vomiting. Was able to tolerate breakfast without issue this morning. Has not had any burning or pain with urination since stenting yesterday. Denies any fevers or chills or night sweats at this point. Overall feels much improved compared to when she was admitted to the hospital. Review of Systems Constitutional: no fever, no chills, no body aches and no fatigue Respiratory: no cough and no dyspnea Cardiovascular: no chest pain, no dyspnea and no edema Gastrointestinal: no abdominal pain, no nausea, no vomiting, no constipation and no diarrhea/loose stools Genitourinary: no dysuria, no difficulty urinating, no urinary frequency, no urinary hesitancy, no nocturia, no hematuria and no flank pain Physical Exam Constitutional: cooperative; no acute distress and not ill appearing Neck: normal visual inspection Respiratory: normal respiratory effort and able to speak in complete sentences; no respiratory distress, no labored breathing, no retractions, no cough and no audible wheezes Auscultation: lungs clear to auscultation bilaterally; no crackles, no rales, no rhonchi and no wheezes Cardiovascular: Rate/Rhythm: regular rate and regular rhythm Heart Sounds: normal S1 and normal S2; no gallop, no murmur and no cardiac rub Vessels: posterior tibial pulses present Extremities: no pedal edema and no edema Gastrointestinal (Abdomen): Inspection/Auscultation: abdomen normal to inspection and normal bowel sounds; abdomen not distended Percussion/Palpation: abdomen soft; abdomen nontender, no guarding, abdomen not rigid and no abdominal mass Musculoskeletal: no flank pain bilaterally Results & Data Results & Data ([facility]) Vital Signs (Past 12 Hours) Vital Signs Temp Pulse Pulse Resp BP Pulse Ox 01/07/20 08:00 36.9 C 104 H 16 101/58 L 91 01/07/20 07:06 101 H 01/07/20 06:52 101 H 17 92 01/07/20 04:06 116 H 01/07/20 03:35 37.6 C H 101 H 20 100/57 L 92 01/07/20 00:00 38.1 C H 111 H 20 114/68 92 Laboratory Results WBC 10.01 K/uL (4.8-10.8) 01/07/20 05:29 RBC 3.72 M/uL (4.2-5.4) L 01/07/20 05:29 Hgb 11.7 g/dL (12.0-16.0) L 01/07/20 05:29 POC Hgb 15.0 g/dl (12.0-16.0) 01/06/20 13:02 Hct 34.3 % (37-47) L 01/07/20 05:29 POC Hct 44 % (37-47) 01/06/20 13:02 MCV 92.2 fL (80-100) 01/07/20 05:29 MCH 31.5 pg (25-34) 01/07/20 05:29 MCHC 34.1 g/dL (32-36) 01/07/20 05:29 RDW Std Deviation 47.1 fL (36.4-46.3) H 01/07/20 05:29 RDW Coeff of Caleb 13.9 % (11.5-14.5) 01/07/20 05:29 Plt Count 187 K/uL (130-400) 01/07/20 05:29 MPV 10.0 fL (7.4-10.4) 01/07/20 05:29 Immature Gran % (Auto) 0.4 % 01/06/20 12:23 Neut % (Auto) 70.4 % 01/06/20 12:23 Lymph % (Auto) 11.8 % 01/06/20 12:23 [place] % (Auto) 17.3 % 01/06/20 12:23 Eos % (Auto) 0.0 % 01/06/20 12:23 Baso % (Auto) 0.1 % 01/06/20 12:23 Immature Gran # (Auto) 0.05 K/uL (0.00-0.02) H 01/06/20 12:23 Neut # (Auto) 9.34 K/uL (1.4-6.5) H 01/06/20 12:23 Lymph # (Auto) 1.56 K/uL (1.2-3.4) 01/06/20 12:23 Aurora # (Auto) 2.29 K/uL (0.11-0.59) H 01/06/20 12:23 Eos # (Auto) 0.00 K/uL (0-0.5) 01/06/20 12:23 Baso # (Auto) 0.01 K/uL (0-0.2) 01/06/20 12:23 PT 10.8 Seconds (9.0-12.0) 01/06/20 12: INR 1.0 (0.9-1.1) 01/06/20 12: APTT 32.9 Seconds (21.0-31.0) H 01/06/20 12:23 PTT Ratio 1.2 01/06/20 12:23 POC Sodium 130 mmol/L (135-144) L 01/06/20 13:02 Sodium 137 mmol/L (136-145) D 01/07/20 05:31 POC Potassium 3.4 mmol/L (3.3-5.0) 01/06/20 13:02 Potassium 3.3 mmol/L (3.5-5.1) L 01/07/20 05:31 POC Chloride 96 mmol/L (101-112) L 01/06/20 13:02 Chloride 107 mmol/L (98-107) 01/07/20 05:31 Carbon Dioxide 23 mmol/L (21-32) 01/07/20 05:31 POC Total CO2 24 mmol/L (24-31) 01/06/20 13:02 Anion Gap 7.0 (3-11) 01/07/20 05:31 POC Anion Gap 15.0 mmol/L (16-25) L 01/06/20 13:02 POC BUN 26 mg/dl (7-18) H 01/06/20 13:02 BUN 20 mg/dl (7-18) H 01/07/20 05:31 Creatinine 0.82 mg/dl (0.6-1.2) 01/07/20 05:31 POC Creatinine 1.1 mg/dl (0.6-1.3) 01/06/20 13:02 Est Cr Clr Drug Dosing 60.6 ml/min 01/07/20 05:31 Est GFR ( Amer) 92.7 01/07/20 05:31 Est GFR (Non-Af Amer) 80.0 01/07/20 05:31 BUN/Creatinine Ratio 24.6 (10-20) H 01/07/20 05:31 Glucose 85 mg/dl (70-99) 01/07/20 05:31 POC Glucose (other) 97 mg/dl (70-99) 01/06/20 13:02 Lactate 1.0 mmol/L (0.4-2.0) 01/06/20 14:24 Calcium 7.9 mg/dl (8.5-10.1) L 01/07/20 05:31 POC Ioniz Calcium Tj 1.06 mmol/l (1.12-1.32) L 01/06/20 13:02 Magnesium 2.4 mg/dl (1.8-2.4) 01/06/20 12:23 Total Bilirubin 0.4 mg/dl (0.2-1) 01/06/20 12:23 AST 26 U/L (15-37) 01/06/20 12:23 ALT 19 U/L (12-78) 01/06/20 12:23 Alkaline Phosphatase 58 U/L (45-117) 01/06/20 12:23 Troponin I < 0.015 ng/ml (0-0.045) 01/06/20 12:23 Total Protein 8.3 gm/dl (6.4-8.2) H 01/06/20 12:23 Albumin 2.8 gm/dl (3.4-5.0) L 01/06/20 12:23 Globulin 5.5 gm/dl (2.5-4.0) H 01/06/20 12:23 Albumin/Globulin Ratio 0.5 (0.9-2) L 01/06/20 12:23 Urine Color Yellow 01/06/20 12:40 Urine Appearance Turbid (Clear) A 01/06/20 12:40 Urine pH 5.0 (4.5-7.5) 01/06/20 12:40 Ur Specific Thomas 1.018 (1.000-1.030) 01/06/20 12:40 Urine Protein 2+ (Negative) H 01/06/20 12:40 Urine Glucose (UA) Negative (Negative) 01/06/20 12:40 Urine Ketones 1+ (Negative) H 01/06/20 12:40 Urine Blood 3+ (Negative) H 01/06/20 12:40 Urine Nitrite Positive (Negative) A 01/06/20 12:40 Urine Bilirubin Negative (Negative) 01/06/20 12:40 Urine Urobilinogen Negative (Negative) 01/06/20 12:40 Ur Leukocyte Esterase 3+ (Negative) H 01/06/20 12:40 Urine WBC (Auto) >30 /hpf (0-5) H 01/06/20 12:40 Urine RBC (Auto) 10-30 /hpf (0-4) H 01/06/20 12:40 U Hyaline Cast (Auto) 5-10 /lpf (0-5) H 01/06/20 12:40 U Epithel Cells (Auto) 10-20 /lpf (0-5) H 01/06/20 12:40 Urine Bacteria (Auto) 4+ (Negative) H 01/06/20 12:40 Amorphous Sediment Present (None Prsent) A 01/06/20 12:40 Other Casts Mixed Cell Cast /lpf (0) A 01/06/20 12:40 Urine Yeast Not Reportable 01/06/20 12:40 COVID-19 PCR NEGATIVE (Negative) 01/06/20 12:48 SARS-CoV-2 RNA (RT-PCR) Cancelled 01/06/20 12:48 Resident Activity Tracking Resident Involvement: Resident Care Provided Care Provided: Adult Hospital Medicine (1) Hydronephrosis Hydronephrosis type: unspecified Qualified Code(s): N13.30 - Unspecified hydronephrosis (2) Ankylosing spondylitis Ankylosing spondylitis location: unspecified site of spine Qualified Code(s): M45.9 - Ankylosing spondylitis of unspecified sites in spine (3) Sepsis Sepsis acute organ dysfunction status: unspecified Sepsis type: sepsis due to unspecified organism Qualified Code(s): A41.9 - Sepsis, unspecified organism
[2020-01-07 10:54] LABS: Hematocrit (blood only) 34.3 % (37-47); Hemoglobin 11.7 g/dL (12.0-16.0); Mean Corpuscular Hemoglobin 31.5 pg (25-34); Mean Corpuscular Hgb Conc 34.1 g/dL (32-36); Mean Corpuscular Volume 92.2 fL (80-100); Platelet Count 187 K/uL (130-400); RDW Coefficient of Variation 13.9 % (11.5-14.5); RDW Standard Deviation 47.1 fL (36.4-46.3); Red Blood Count 3.72 M/uL (4.2-5.4); White Blood Count 10.01 K/uL (4.8-10.8)
[2020-01-07] MEDS ORDERED: cefTRIAXone SODIUM 2,000 MG in DEXTROSE 5% 50 ML IV SCH (14:00)
[2020-01-08] MEDS: *AZELASTINE*ORDER AWAITING ACTION SCH (07:47)
[2020-01-08 08:01] LABS: Hemoglobin 11.6 g/dL (12.0-16.0); Mean Corpuscular Hemoglobin 31.4 pg (25-34); Mean Corpuscular Hgb Conc 35.2 g/dL (32-36); Mean Corpuscular Volume 89.2 fL (80-100); Mean Platelet Volume 9.7 fL (7.4-10.4); Platelet Count 211 K/uL (130-400); RDW Coefficient of Variation 13.9 % (11.5-14.5); RDW Standard Deviation 45.6 fL (36.4-46.3); White Blood Count 9.04 K/uL (4.8-10.8)
[2020-01-08 08:35] LABS: Calcium 8.3 mg/dl (8.5-10.1); Creatinine Clr Calc Pharmacy 85.7 ml/min; Est GFR (African American) 119.4; Potassium 2.9 mmol/L (3.5-5.1)
[2020-01-08] MEDS: SODIUM CHLORIDE 0.9% 1000ML 1,000 ML IV SCH (09:24)
[2020-01-08] MEDS: POTASSIUM CHLORIDE / WTR 10 MEQ/100 ML PLCT IV SCH ×3 (09:24→11:30)
[2020-01-08] MEDS: DULOXETINE HCL 60 MG CAP PO SCH (09:28)
[2020-01-08] MEDS: PANTOprazole 40 MG TAB PO SCH (09:28)
[2020-01-08] MEDS: IPRATROPIUM BROMIDE NASAL SPRAY 0.06% 15ML SCH (09:28)
[2020-01-08] MEDS: guaiFENesin 600 MG TABCR PO SCH (09:28)
[2020-01-08] MEDS: GABAPENTIN 600 MG TAB PO SCH (09:28)
[2020-01-08] MEDS: NYSTATIN SUSP 500,000 U/5 ML UDC PO SCH (09:29)
--- NOTE | 2020-01-08 09:52 | Discharge Summary ---
Date of Service January 08, 2020 Admission HPI Per Admitting Provider 54yo female with h/o COPD, ankylosing spondylitis on biological agent (humira), and migraines who presents with 1 week of progressive worsening of right flank pain, malodorous urine, dysuria, gross hematuria, frequency/nocturia, subjective fevers & chills, myalgias, anorexia, multiple episodes of emesis, and simply feeling poorly. On 12/31/19 she was sent for a CT of the abdomen/pelvis because of gross hematuria. This showed a 5mm right-sided kidney stone. She presented today because of the worsening back pain/flank pain on the right and the ongoing fevers/chills. Prior to ER arrival she had done a virtual visit with her PCP's office who strongly advised going to the ER. Additionally, she has had cough productive of sputum "for months" but worse in the last week. COVID-19 testing was done in the ER and returned negative. She has known COPD. Admission Exam Per Admitting Provider Constitutional: + ill appearing and + altered mental status (slightly confused ); no acute distress Eyes: PERRL ENMT: Mouth: + oral mucosal abnormality (severe thrush of tongue ) and + dry oral mucous membranes Neck: trachea midline, no thyromegaly Respiratory: no respiratory distress and no labored breathing Auscultation: + wheezes (b/l ); no crackles Cardiovascular: Rate/Rhythm: regular rhythm and + tachycardic Heart Sounds: normal S1 and normal S2; no murmur Vessels: posterior tibial pulses present and dorsalis pedis pulses present; no JVD Extremities: no edema Gastrointestinal (Abdomen): Inspection/Auscultation: normal bowel sounds; abdomen not distended Percussion/Palpation: + abdomen tender (right flank ); no guarding and no hepatosplenomegaly Musculoskeletal: Extremities: + clubbing Skin: no rashes, warm and dry Neurologic: deep tendon reflexes 2+ bilaterally and moves all extremities Psychiatric: Orientation: alert, oriented to person and oriented to place; + not oriented to time (at one point asked "what day is it?") Lymphatic: no cervical lymphadenopathy Principal Diagnosis pyelonephritis, nephrolithiasis Discharge Exam Constitutional cooperative; no acute distress and not ill appearing Neck normal visual inspection Respiratory normal respiratory effort and able to speak in complete sentences; no respiratory distress, no labored breathing, no retractions, no cough and no audible wheezes Auscultation: lungs clear to auscultation bilaterally; no crackles, no rales, no rhonchi and no wheezes Cardiovascular Rate/Rhythm: regular rate and regular rhythm Heart Sounds: normal S1 and normal S2; no gallop, no murmur and no cardiac rub Vessels: posterior tibial pulses present Extremities: no pedal edema and no edema Gastrointestinal (Abdomen) Inspection/Auscultation: abdomen normal to inspection and normal bowel sounds; abdomen not distended Percussion/Palpation: abdomen soft; abdomen nontender, no guarding, abdomen not rigid and no abdominal mass Musculoskeletal mild right flank pain to palpation Discharge Data Allergies Allergy/AdvReac Type Severity Reaction Status Date / Time hornet venom Allergy Severe ANAPHYLAXIS Verified 01/06/20 12:28 mold Allergy Severe SINUS Verified 01/06/20 12:28 SWELLING sulfasalazine Allergy Severe Rash,swelling,difficulty Verified 01/06/20 12:28 breathing codeine Allergy Mild ITCHY Verified 01/06/20 12:28 Consultations 01/06/20 14:14 Consult Urology Stat 01/06/20 14:17 ED Decision to Admit Stat 01/06/20 16:10 Consult Urology Routine Procedures Performed Operation Date: 01/06/20 11:15 Actual Procedures p Right Ureteral Stent Placement under Sedation(Right) - David Asher MD s Cystoscopy(Right) - David Asher MD Ordered Studies 01/06/20 11:01 CT abd pelvis IV con only Stat 01/06/20 16:25 FL retrograde includes kub Routine Hospital Course (1) Sepsis: 54 yo F with hx ankylosing spondylitis on humira, GERD, COPD admitted for pyelonephritis secondary to nephrolithiasis. 1) Septic Pyelonephritis - 5 mm right ureteral stone found on CT abd/pelv, taken urgently to OR for stent placement. Urine culture grew pansensitive E. Coli which was treated with ceftriaxone IV and she was sent home with 8 days of Keflex 500 mg Q6H PO to finish a 10 day course. Blood cultures negative at 24 hours, following to ensure no growth at 48hours. Patient was asymptomatic, and afebrile with normal blood pressures on discharge. She will need to follow up with Urology to have the stent removed in their office. (2) Renal calculi: (3) Hydronephrosis: (4) Ankylosing spondylitis: Total Time Total Time Spent Total Time Spent (In Minutes): see attending attestation Discharge Plan Discharge Items Patient Disposition: Home - Self-Care Reason For Visit: SEPSIS,UTI,PYELONEPHRITIS,OBSTRUCTING KIDNEY STONE Discharge Diagnosis: pyelonephritis Activity: Resume your previous activity Non-emergency contact: Primary Care Provider and Urologist Call non-emergency contact if: you have any medication questions, your symptoms worsen and your temperature is above 101 Follow-up/Referrals: Thai Bills III, MD [Primary Care Provider] - David Asher MD [Physician] - Diet: Regular Addtl Attending Provider Instructions: You were evaluated in the hospital for back pain and nausea found to be secondary to a kidney infection and kidney stone. You were taken to the operating room with Urology for placement of a ureteral stent to aid with urin ation and improved afterwards. Urine cultures showed an E Coli infection susceptible to most antibiotics and your blood cultures were negative at 24 hours. You were switched to oral antibiotics (Keflex 500 mg) that you will need to take 4 times a day for the next 3 days. If you have worsening flank pain, fevers, pain with urination, call your primary care provider or urologist for care instructions. Pending Studies at Discharge: No Stand-Alone Forms: My [facility] [employer], Smoking Cessation Medications and DC Order Prescriptions: New cephalexin 500 mg Capsule 500 mg PO QID 8 Days Qty: 32 RF: 0 Continued cyclobenzaprine 10 mg tablet 10 mg PO BID PRN (Reason: Muscle Pain) 30 Days Qty: 60 RF: 5 albuterol sulfate 90 mcg/actuation HFA aerosol inhaler 2 puffs inhalation QID PRN (Reason: shortness of breath) Qty: 18 RF: 3 ipratropium-albuterol 0.5 mg-3 mg(2.5 mg base)/3 mL solution for nebulization 3 ml INH QID PRN (Reason: wheezing) Qty: 90 RF: 5 duloxetine 60 mg capsule,delayed release(DR/EC) 60 mg PO BID Qty: 60 RF: 5 Humira 40 mg/0.8 mL syringe kit 40 mg SQ Q14D RF: 0 Emgality Pen 120 mg/mL pen injector 240 mg SQ ONCE 30 Days Qty: 2 RF: 0 rizatriptan 10 mg tablet 10 mg PO .COMPLEX PRN (Reason: migraine headache) 30 Days Qty: 9 RF: 5 ondansetron HCl [Zofran] 4 mg tablet 4 mg PO TID PRN (Reason: nausea and vomiting) Qty: 30 RF: 3 gabapentin 600 mg tablet 600 mg PO BID RF: 0 ipratropium bromide 42 mcg (0.06 %) spray,non-aerosol 2 sprays intranasal TID Qty: 1 RF: 0 epinephrine [EpiPen] 0.3 mg/0.3 mL Auto-Injector 0.3 mg IM Q3H PRN (Reason: Allergic Reaction) RF: 0 azelastine 137 mcg (0.1 %) aerosol,spray 2 sprays INTRANASAL DAILY RF: 0 Discharge Orders: Discharge Order (Routine); Ordered 01/08/20 Ordered By: Claudette Quinones Admission Data Admit Date/Time: 01/06/20 16:10 Attending Provider: David Haskins Admit Provider: Marcus Lerma Primary Care Provider: Thai Bills III Other Providers: David Asher ; Marcus Lerma ; Claudette Quinones Other Interventions: Discharge Summary Assessment (RN) Last Done: 01/08/20 11:21 DC Date/Time DO NOT enter until pt leaves facility: 01/08/20 13:52 Supervising Physician Co-Signing Physician Notes Attending attestation Pt seen and examined in concert with Dr. Quinones. In agreement with the documented findings as noted in the resident documentation with any exceptions or additions as noted here. Continued improvement of flank pain following right stent placement. On examination, S1/S2 nl RRR no MCG, CTAB. Abd is mildly TTP on the right flank, subj improved. Sepsis 2/2 obstructive nephrolithiasis with UTI and hydronpehrosis - urology consultation appreciated. Complete course of keflex (per C/S) Ankylosing Spondylitis - holding samantha until cleared infection through urology. Follow with rheumatology. Else see resident documentation as noted. Resident Activity Tracking Resident Involvement: Resident Care Provided Care Provided: Adult [facility] Medicine
[2020-01-08] MEDS: cephALEXin 500 MG CAP PO SCH ×2 (10:05→12:37)
[2020-01-08 12:45] LABS: BUN Creatinine Ratio 16.1 (10-20); Calcium 8.3 mg/dl (8.5-10.1); Creatinine Clr Calc Pharmacy 81.4 ml/min; Est GFR (African American) 117.5; Est GFR (Non-African American) 101.3; Potassium 3.5 mmol/L (3.5-5.1)
== END 2020-01-08 13:52 | disposition home or self-care (01) | DRG 853 ==
LOC: ED 10:24 → OR 16:09 → 2N 16:10 → SUATTDRO 16:10

== ENCOUNTER 2020-11-18 12:38 | Inpatient (IN) ==
[2020-11-18] MEDS ORDERED: PIPERACILL/TAZOBAC CONSULT ACTIVE PRN (12:56)
[2020-11-18] MEDS ORDERED: PATIENT'S HEIGHT AND/OR WEIGHT NEEDED SCH (13:15)
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
[2020-11-18] MEDS ORDERED: OPTIRAY 300 100mL IV ONE (14:20)
--- NOTE | 2020-11-18 14:44 | CT Scan Report ---
CT abd pelvis IV con only CLINICAL HISTORY: Abdominal pain, neutropenic COMPARISON STUDY: None. TECHNIQUE: The patient was scanned in a dynamic helical fashion during intravenous administration of 84 cc of Optiray 320 A dose lowering technique was utilized adhering to the principles of ALARA. CT DOSE: 239.16 mGy.cm FINDINGS: Lower chest: There is pulmonary emphysema. Liver: The contrast-enhanced liver is normal in size, contour, and attenuation. There is no intrahepa tic biliary ductal dilatation. The hepatic veins and portal veins are patent. Gallbladder: There is vicarious excretion within the gallbladder. There is no gallbladder wall thicke andres Spleen: . Pancreas: Unremarkable. Adrenal glands: Unremarkable. Kidneys: There is symmetric renal cortical enhancement. The kidneys are normal in size without hydron ephrosis. Bowel: There is a minimally distended fluid-filled colon. There is no pneumatosis. There is no portal venous gas. There is no pathologic small dilatation. There is bowel wall thickening involving the te rminal ileum. Peritoneum: There is no intraperitoneal free air or abdominal ascites. Vasculature: The abdominal aorta is normal in course and caliber. Adenopathy: None. Pelvic viscera: The uterus appears surgically absent Skeletal structures: No destructive osseous lesions are seen. IMPRESSION: 1. No evidence of bowel obstruction. No evidence of free air 2. Mildly distended colon with multiple air-fluid levels. The findings are suggestive of an enteritis . There is decreased colonic wall thickening when compared the preceding study. 3. Bowel wall thickening involving the terminal ileum consistent with a terminal ileitis. 4. Mildly distended gallbladder with vicarious contrast excretion. No evidence of wall thickening. ACT 112: Negative or not required by law. Electronically signed by: Brian Melendrez M.D. 11/18/2020 2:42 PM
[2020-11-18] MEDS: metroNIDAZOLE 500 MG/100 ML BAG IV SCH ×2 (14:50→22:42)
[2020-11-18] MEDS ORDERED: ACETAMINOPHEN 1,000 MG/100 ML VIAL IV PRN (15:12)
[2020-11-18] MEDS: POTASSIUM CHLORIDE / WTR 10 MEQ/100 ML PLCT IV SCH ×2 (15:21→16:04)
[2020-11-18] MEDS: HYDROmorphone INJ 0.5 MG/0.5 ML SYR IV PRN ×2 (15:25→22:42)
[2020-11-18 15:37] LABS: Influenza A virus by PCR Negative (Neg); Influenza B virus by PCR Negative (Neg); RSV by PCR Negative (Neg); SARS CoV2 RNA(COVID-19) InHosp NEGATIVE (Negative)
[2020-11-18] MEDS ORDERED: FAMOTIDINE 20MG IV PUSH 20 MG/5 ML SYR IV ONE (16:00)
[2020-11-18] MEDS ORDERED: PIPERACILLIN/TAZOBACTAM 3.375 GM in DEXTROSE 5% 100 ML IV SCH (16:00)
[2020-11-18] MEDS: FILGRASTIM 300 MCG/ML VIAL SQ SCH (16:03)
[2020-11-18] MEDS: POTASSIUM CHLORIDE 30 MEQ in SODIUM CHLORIDE 0.45 % 1,000 ML IV SCH (16:03)
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
[2020-11-18] MEDS: VANCOMYCIN HCL 500 MG/10 ML SOLN PO SCH (17:01)
[2020-11-18] MEDS: RASPBERRY SYRUP 5 ML UDP PO SCH (17:01)
[2020-11-18] MEDS ORDERED: VANCOMYCIN HCL 250 MG/5 ML SOLN PO SCH (18:00)
[2020-11-18] MEDS ORDERED: RASPBERRY SYRUP 5 ML UDP PO SCH (18:00)
[2020-11-18 19:46] LABS: Appearance Urine Clear (Clear); Bacteria Urine Automated Negative (Negative); Blood Urine Negative (Negative); Color Urine Dark Yellow; Epithelial Cell Urine Auto >30 /lpf (0-5); Glucose Urine UA Negative (Negative); Ketones Urine 1+ (Negative); Leukocyte Esterase Urine Negative (Negative); Nitrite Urine Negative (Negative); Protein Urine 1+ (Negative); RBC Urine Automated 0-4 /hpf (0-4); Specific Gravity Urine > 1.045 (1.000-1.030); Urobilinogen Urine Negative (Negative); pH Urine 5.5 (4.5-7.5)
[2020-11-18 19:50] LABS: Bilirubin Urine 1+ (Negative)
[2020-11-18 20:20] LABS: Renal Epithelial Cells Urine 0-5 /lpf (0-5)
[2020-11-19] MEDS: POTASSIUM CHLORIDE 30 MEQ in SODIUM CHLORIDE 0.45 % 1,000 ML IV SCH ×3 (00:13→16:37)
[2020-11-19] MEDS: VANCOMYCIN HCL 500 MG/10 ML SOLN PO SCH ×2 (00:14→05:38)
[2020-11-19] MEDS: RASPBERRY SYRUP 5 ML UDP PO SCH ×2 (00:15→05:39)
[2020-11-19] MEDS: PIPERACILLIN/TAZOBACTAM 4.5 GM in DEXTROSE 5% 100 ML IV SCH ×4 (00:19→22:47)
[2020-11-19] MEDS: metroNIDAZOLE 500 MG/100 ML BAG IV SCH ×3 (05:38→22:47)
[2020-11-19] MEDS: HYDROmorphone INJ 0.5 MG/0.5 ML SYR IV PRN ×4 (05:45→22:47)
[2020-11-19 06:23] LABS: BUN Creatinine Ratio 21.6 (10-20); Calcium 8.1 mg/dl (8.5-10.1); Creatinine Clr Calc Pharmacy 83.3 ml/min; Est GFR (Non-African American) 110.4; Phosphorus 2.6 mg/dl (2.5-4.9)
[2020-11-19 06:31] LABS: Hematocrit (blood only) 24.2 % (37-47); Hemoglobin 8.4 g/dL (12.0-16.0); Mean Corpuscular Hemoglobin 32.6 pg (25-34); Mean Corpuscular Hgb Conc 34.7 g/dL (32-36); Mean Corpuscular Volume 93.8 fL (80-100); Mean Platelet Volume 9.1 fL (7.4-10.4); Platelet Count 56 K/uL (130-400); RDW Coefficient of Variation 17.2 % (11.5-14.5); RDW Standard Deviation 59.1 fL (36.4-46.3); Red Blood Count 2.58 M/uL (4.2-5.4); White Blood Count 1.54 K/uL (4.8-10.8)
[2020-11-19 06:32] LABS: Lymphocytes # (auto) 1.29 K/uL (1.2-3.4); Lymphocytes % (auto) 83.8 %; Monocytes # (auto) 0.07 K/uL (0.11-0.59); Monocytes % (auto) 4.5 %; Neutrophils # (auto) 0.18 K/uL (1.4-6.5); Neutrophils % (auto) 11.7 %; Platelet Estimate Decreased (Normal)
[2020-11-19] MEDS: FAMOTIDINE 20 MG in SYRINGE 3 ML IV SCH (08:21)
[2020-11-19] MEDS: FILGRASTIM 300 MCG/ML VIAL SQ SCH (08:21)
[2020-11-19] MEDS: FOLIC ACID 1 MG TAB PO SCH (08:23)
[2020-11-19] MEDS: CETIRIZINE HCL 10 MG TABLET PO SCH (08:23)
[2020-11-19] MEDS: ESCITALOPRAM OXALATE 10 MG TAB PO SCH (08:23)
[2020-11-19] MEDS: UMECLIDINIUM/VILANTEROL 62.5/25MCG 7 PUFFS/INHALER INH SCH (08:24)
--- NOTE | 2020-11-19 08:45 | Gastroenterology Progress Note ---
Date of Service November 19, 2020 Assessment & Plan (1) Typhlitis: Patient admitted with leukopenia and signs and symptoms most consistent with typhlitis. This is most likely related to her recent chemotherapy. I would recommend that a discussion be had with her oncology doctor with regard to long-term treatment goals. With regard to the present admission would recommend that the patient have her antibiotic coverage continued for total of 10 days. Recommendations Continue antibiotic coverage Await stool study results Consider advancing her diet as tolerated Please call with any questions or concerns over the remainder of the weekend otherwise coverage to resume with Dr. Corrigan and Dr. Landrum on Saturday Admission and Anticipated Discharge Date Admission Date: November 18, 2020 Subjective The patient notes that she feels much improved today. Most of her abdominal discomfort has subsided. She denies having any nausea or vomiting this morning and is interested in advancing her diet if possible. Review of Systems Eyes: no diplopia Respiratory: no change in sputum and no hemoptysis Cardiovascular: no chest pain with activity and no dyspnea at rest Physical Exam Constitutional: + thin; + not well nourished and no acute distress Respiratory: no respiratory distress, no labored breathing and no retractions Cardiovascular: Rate/Rhythm: regular rhythm Gastrointestinal (Abdomen): Inspection/Auscultation: abdomen normal to inspection and normal bowel sounds; abdomen not distended Percussion/Palpation: abdomen soft; abdomen nontender Skin: no lesions Results & Data ([facility]) Vital Signs (Past 12 Hours) Vital Signs Temp Pulse Resp BP Pulse Ox 11/19/20 07:32 36.8 C 99 H 18 141/88 H 94 11/19/20 03:14 36.9 C 74 18 126/74 96 11/18/20 23:23 36.8 C 82 16 128/72 95 Laboratory Results Laboratory Results - last 24 hr 11/18/20 11/18/20 11/18/20 14:40 14:40 19:30 WBC RBC Hgb Hct MCV MCH MCHC RDW Std Deviation RDW Coeff of Caleb Plt Count MPV Immature Gran % (Auto) Neut % (Auto) Lymph % (Auto) [place] % (Auto) Eos % (Auto) Baso % (Auto) Neut # (Auto) Lymph # (Auto) [place] # (Auto) Eos # (Auto) Baso # (Auto) Immature Gran # (Auto) Platelet Estimate Sodium Potassium Chloride Carbon Dioxide Anion Gap BUN Creatinine Est Cr Clr Drug Dosing Est GFR ( Amer) Est GFR (Non-Af Amer) BUN/Creatinine Ratio Glucose Calcium Phosphorus Urine Color Urine Appearance Urine pH Ur Specific [place] Urine Protein Urine Glucose (UA) Urine Ketones Urine Blood Urine Nitrite Urine Bilirubin Urine Urobilinogen Ur Leukocyte Esterase Urine WBC (Auto) Urine RBC (Auto) U Hyaline Cast (Auto) U Epithel Cells (Auto) Urine Bacteria (Auto) Ur Renal Epithelial Cell Stl C. diff Tox B Gene Negative Cdiff Gene COVID-19 Eval Order CovFluRsv at [facility] SARS-CoV-2 (PCR) NEGATIVE Influenza Type A (PCR) Negative Influenza Type B (PCR) Negative RSV (RT-PCR) Negative 11/18/20 11/19/20 11/19/20 19:30 05:48 05:48 WBC 1.54 L RBC 2.58 L Hgb 8.4 L Hct 24.2 L MCV 93.8 MCH 32.6 MCHC 34.7 RDW Std Deviation 59.1 H RDW Coeff of Caleb 17.2 H Plt Count 56 L D MPV 9.1 Immature Gran % (Auto) 0.0 Neut % (Auto) 11.7 Lymph % (Auto) 83.8 [place] % (Auto) 4.5 Eos % (Auto) 0.0 Baso % (Auto) 0.0 Neut # (Auto) 0.18 L* Lymph # (Auto) 1.29 [place] # (Auto) 0.07 L Eos # (Auto) 0.00 Baso # (Auto) 0.00 Immature Gran # (Auto) 0.00 Platelet Estimate Decreased L Sodium 134 L Potassium 4.0 D Chloride 106 Carbon Dioxide 22 Anion Gap 6.0 BUN 10 D Creatinine 0.46 L D Est Cr Clr Drug Dosing 83.3 Est GFR ( Amer) 128.0 Est GFR (Non-Af Amer) 110.4 BUN/Creatinine Ratio 21.6 H Glucose 82 Calcium 8.1 L Phosphorus 2.6 Urine Color Dark Yellow Urine Appearance Clear Urine pH 5.5 Ur Specific [place] > 1.045 H Urine Protein 1+ H Urine Glucose (UA) Negative Urine Ketones 1+ H Urine Blood Negative Urine Nitrite Negative Urine Bilirubin 1+ H Urine Urobilinogen Negative Ur Leukocyte Esterase Negative Urine WBC (Auto) 5-10 H Urine RBC (Auto) 0-4 U Hyaline Cast (Auto) 1-5 U Epithel Cells (Auto) >30 H Urine Bacteria (Auto) Negative Ur Renal Epithelial Cell 0-5 Stl C. diff Tox B Gene COVID-19 Eval Order SARS-CoV-2 (PCR) Influenza Type A (PCR) Influenza Type B (PCR) RSV (RT-PCR)
[2020-11-19] MEDS: PANTOprazole 40 MG in SYRINGE 0 ML IV SCH (10:39)
[2020-11-19] MEDS: NICOTINE 21 MG/24 HR TDSY TD SCH (10:40)
[2020-11-19] MEDS: ONDANSETRON INJ 2 MG/ML 2 ML VIAL IV PRN ×2 (17:55→22:49)
--- NOTE | 2020-11-19 22:59 | Hospitalist Progress Note ---
Date of Service November 19, 2020 Assessment & Plan (1) Neutropenic typhlitis: IV Zosyn will stop PO vanco as negative c diff Consult GI On full liquid diet. Advance diet as tolerated. appreciate input. For chest wall pain, ordered lidoderm patch (2) Diarrhea: Stool culture and c. diff toxin testing as above. (3) Esophageal dysphagia: Switch pantoprazole and famotidine to IV Consult GI given history of stenosis (4) Pancytopenia due to chemotherapy: Neupogen 300 mcg SQ daily 3-4 days and follow CBC daily. Ordered ongoing. Neutropenic precautions. (5) Dehydration: NSS with potassium chloride 30 meq @ 125 ml/hr. seems to be improving. will stop fluids in AM. (6) Non-small cell lung cancer with metastasis: Hold further chemotherapy until patient has recovered from this. (7) Failure to thrive: 30lb weight loss since July with cancer and chemotherapy. Will hold off TPN in the setting of acute infection. Discuss with GI regarding nutrition in setting of Typhilitis. (8) Unintentional weight loss: as above. Dietary consult placed, however currently needs to be NPO in setting of Typhilitis. (9) Ankylosing spondylitis: Hold her usual Humira (10) COPD (chronic obstructive pulmonary disease): No current acute exacerbation Continue her usual Bevespi Aerosphere inhaler (11) Depression: Continue her usual Lexapro 10mg PO daily (12) DVT prophylaxis: SCDs Chemical prophylaxis deferred pending stability in hemoglobin overnight. Admission and Anticipated Discharge Date Admission Date: November 18, 2020 Subjective Patient reports feeling better. She is having some pain in her left lower chest wall when she presses on it. Her nurse also confirms this. Overall however, she is feeling better, no SOB, N/V. She has less generalized malaise and less abdominal pain Review of Systems Review of Systems: All systems reviewed & are unremarkable except as noted in HPI & below Physical Exam Physical Exam: Constitutional: well developed and + cachectic; no acute distress Eyes: PERRL, conjunctivae normal, anicteric sclerae ENMT: external ear and nose normal, oropharynx normal Neck: trachea midline Respiratory: normal respiratory effort, lungs clear to auscultation Cardiovascular: RRR, no murmur, no edema/ tenderness to soft palpation on left lower chest wall Gastrointestinal (Abdomen): Inspection/Auscultation: abdomen normal to inspection and normal bowel sounds Percussion/Palpation: + mildly tender on palpation and abdomen soft; no guarding and abdomen not rigid Musculoskeletal: no cyanosis or clubbing, extremities motor strength 5/5 Skin: no rashes, warm and dry Neurologic: awake; + does not move all extremities and not confused Speech / Cognition: normal speech Psychiatric: A+Ox3, euthymic affect Genitourinary: no CVA tenderness Results & Data Results & Data ([facility]) Vital Signs (Past 12 Hours) Vital Signs Temp Pulse Resp BP Pulse Ox 11/19/20 19:20 36.5 C 95 H 19 136/80 99 11/19/20 15:29 36.7 C 97 H 19 169/94 H 97 11/19/20 11:04 36.5 C 87 20 165/89 H 100 PG Care Time/CCT Total # of Minutes Spent Total Time Spent with Patient: Total time spent is greater than 50% in coordination of care (as documented) at patient's floor/unit and/or counseling patient: Coding Level of Care Code 02539 Subseq Hosp Care Lvl 3 Diagnoses Neutropenic typhlitis K37; D70.9 Diarrhea R19.7 Diarrhea type: presumed infectious Esophageal dysphagia R13.10 Pancytopenia due to chemotherapy D61.810 Dehydration E86.0 Non-small cell lung cancer with metastasis C34.90 Failure to thrive R62.7 Failure to thrive age range: in adult Unintentional weight loss R63.4 Ankylosing spondylitis M45.9 Ankylosing spondylitis location: unspecified site of spine COPD (chronic obstructive pulmonary disease) J44.9 COPD type: unspecified COPD Depression F32.9 DVT prophylaxis Z29.9 Time Spent (min) 35 (1) Diarrhea Diarrhea type: presumed infectious Qualified Code(s): R19.7 - Diarrhea, unspecified (2) Failure to thrive Failure to thrive age range: in adult Qualified Code(s): R62.7 - Adult failure to thrive (3) Ankylosing spondylitis Ankylosing spondylitis location: unspecified site of spine Qualified Code(s): M45.9 - Ankylosing spondylitis of unspecified sites in spine (4) COPD (chronic obstructive pulmonary disease) COPD type: unspecified COPD Qualified Code(s): J44.9 - Chronic obstructive pulmonary disease, unspecified
[2020-11-20] MEDS: POTASSIUM CHLORIDE 30 MEQ in SODIUM CHLORIDE 0.45 % 1,000 ML IV SCH (00:06)
[2020-11-20] MEDS: metroNIDAZOLE 500 MG/100 ML BAG IV SCH ×3 (05:22→21:00)
[2020-11-20] MEDS: HYDROmorphone INJ 0.5 MG/0.5 ML SYR IV PRN ×4 (05:31→19:23)
[2020-11-20] MEDS: ONDANSETRON INJ 2 MG/ML 2 ML VIAL IV PRN ×3 (05:31→17:38)
[2020-11-20 08:02] LABS: Hematocrit (blood only) 24.4 % (37-47); Hemoglobin 8.5 g/dL (12.0-16.0); Mean Corpuscular Hemoglobin 32.9 pg (25-34); Mean Corpuscular Hgb Conc 34.8 g/dL (32-36); Mean Corpuscular Volume 94.6 fL (80-100); RDW Coefficient of Variation 17.3 % (11.5-14.5); RDW Standard Deviation 59.2 fL (36.4-46.3); Red Blood Count 2.58 M/uL (4.2-5.4); White Blood Count 1.62 K/uL (4.8-10.8)
[2020-11-20] MEDS: PIPERACILLIN/TAZOBACTAM 4.5 GM in DEXTROSE 5% 100 ML IV SCH ×3 (08:03→22:00)
[2020-11-20] MEDS: FAMOTIDINE 20 MG in SYRINGE 3 ML IV SCH (08:03)
[2020-11-20] MEDS: LIDOCAINE 5% 1 PATCH TD SCH (08:08)
[2020-11-20] MEDS: NICOTINE 21 MG/24 HR TDSY TD SCH (08:11)
[2020-11-20] MEDS: CETIRIZINE HCL 10 MG TABLET PO SCH (08:12)
[2020-11-20] MEDS: ESCITALOPRAM OXALATE 10 MG TAB PO SCH (08:12)
[2020-11-20] MEDS: FOLIC ACID 1 MG TAB PO SCH (08:12)
[2020-11-20] MEDS: UMECLIDINIUM/VILANTEROL 62.5/25MCG 7 PUFFS/INHALER INH SCH (08:14)
[2020-11-20] MEDS: FILGRASTIM 300 MCG/ML VIAL SQ SCH (08:14)
[2020-11-20 08:22] LABS: Creatinine Clr Calc Pharmacy 72.3 ml/min; Est GFR (African American) 122.2; Est GFR (Non-African American) 105.4
[2020-11-20 08:26] LABS: BUN Creatinine Ratio 6.5 (10-20); Calcium 8.4 mg/dl (8.5-10.1); Creatinine Clr Calc Pharmacy 76.6 ml/min; Est GFR (African American) 124.5; Est GFR (Non-African American) 107.4; Potassium 3.2 mmol/L (3.5-5.1)
[2020-11-20 08:29] LABS: Basophils # (auto) 0.01 K/uL (0-0.2); Basophils % (auto) 0.6 %; Immature Granulocytes # (auto) 0.01 K/uL (0.00-0.02); Immature Granulocytes % (auto) 0.6 %; Lymphocytes # (auto) 1.22 K/uL (1.2-3.4); Lymphocytes % (auto) 75.3 %; Mean Platelet Volume 9.1 fL (7.4-10.4); Monocytes # (auto) 0.13 K/uL (0.11-0.59); Neutrophils # (auto) 0.25 K/uL (1.4-6.5); Neutrophils % (auto) 15.5 %; Platelet Count 32 K/uL (130-400)
--- NOTE | 2020-11-20 09:17 | Gastroenterology Progress Note ---
Date of Service November 20, 2020 Assessment & Plan (1) Neutropenic typhlitis: Patient had presented with typhlitis as result of ongoing chemotherapy. As she has worsening symptoms over the last 24 hours since removal of vancomycin I think it would be prudent to restart it this afternoon. Recommendations Restart vancomycin 125 4 times daily Daily KUB please Coverage with [facility] to resume tomorrow Please call with any questions or concerns Admission and Anticipated Discharge Date Admission Date: November 18, 2020 Subjective The patient reports that overnight she began to develop more abdominal discomfort and continues to have loose to liquid stool. This seems to have been worsened since she discontinued the vancomycin yesterday. Review of Systems Constitutional: no fever and no sweats Eyes: no diplopia Respiratory: no cough and no change in sputum Cardiovascular: no chest pain with activity and no dyspnea at rest Physical Exam Constitutional: + thin; no acute distress Eyes: PERRL, conjunctivae normal, anicteric sclerae Respiratory: normal respiratory effort, lungs clear to auscultation Cardiovascular: Rate/Rhythm: not tachycardic Heart Sounds: + murmur Gastrointestinal (Abdomen): Inspection/Auscultation: abdomen not distended Percussion/Palpation: + abdomen tender and abdomen soft Mild nonfocal tenderness without rebound signs Skin: no jaundice Results & Data ([facility]) Vital Signs (Past 12 Hours) Vital Signs Temp Pulse Resp BP BP Pulse Ox 11/20/20 07:52 36.5 C 91 H 16 146/83 H 99 11/19/20 23:08 36.8 C 91 H 18 133/84 98 Laboratory Results Laboratory Results - last 24 hr 11/20/20 11/20/20 11/20/20 07:49 07:49 07:49 WBC 1.62 L RBC 2.58 L Hgb 8.5 L Hct 24.4 L MCV 94.6 MCH 32.9 MCHC 34.8 RDW Std Deviation 59.2 H RDW Coeff of Caleb 17.3 H Plt Count 32 L MPV 9.1 Immature Gran % (Auto) 0.6 Neut % (Auto) 15.5 Lymph % (Auto) 75.3 [place] % (Auto) 8.0 Eos % (Auto) 0.0 Baso % (Auto) 0.6 Neut # (Auto) 0.25 L* Lymph # (Auto) 1.22 [place] # (Auto) 0.13 Eos # (Auto) 0.00 Baso # (Auto) 0.01 Immature Gran # (Auto) 0.01 Sodium 137 Potassium 3.2 L D Chloride 110 H Carbon Dioxide 21 Anion Gap 7.0 BUN 3 L D Creatinine 0.53 L 0.50 L Est Cr Clr Drug Dosing 72.3 76.6 Est GFR ( Amer) 122.2 124.5 Est GFR (Non-Af Amer) 105.4 107.4 BUN/Creatinine Ratio 6.5 L Glucose 74 Calcium 8.4 L
[2020-11-20] MEDS: POTASSIUM CHLORIDE / WTR 20 MEQ/100 ML PLCT IV SCH ×4 (10:42→17:27)
[2020-11-20] MEDS: PANTOprazole 40 MG in SYRINGE 0 ML IV SCH (10:42)
[2020-11-20] MEDS: VANCOMYCIN HCL 125 MG/2.5ML SOLN PO SCH ×3 (12:06→23:07)
[2020-11-20] MEDS: RASPBERRY SYRUP 5 ML UDP PO SCH ×3 (12:06→23:07)
--- NOTE | 2020-11-20 12:53 | Hospitalist Progress Note ---
Date of Service November 20, 2020 Assessment & Plan (1) Neutropenic typhlitis: CT a/p on 11/18 showed bowel wall thickening and with neutropenia, concern for typhlitis. - Continue IV Zosyn - Restarted PO vanc as GI felt that she was worsening despite negative test. - On full liquid diet. - Advance diet as tolerated. (2) Diarrhea: As above. - Stool culture from 11/18 is preliminarily negative, final pending. - C. diff on 11/18 was negative. (3) Esophageal dysphagia: Switched pantoprazole and famotidine to IV. - Consulted GI given history of stenosis: (4) Pancytopenia due to chemotherapy: - Neupogen 300 mcg SQ daily x 3 days (last dose on 11/20/2020) - Neutropenic precautions. - Will discuss with Dr. Servin on 11/21 (5) Non-small cell lung cancer with metastasis: Sees Dr. Servin. - Hold further chemotherapy until patient has recovered from this. (6) Unintentional weight loss: Due to cancer and chemotherapy. - Dietary consult placed, however currently needs to be NPO in setting of typhilitis. (7) Ankylosing spondylitis: No specific joint complaints for me today. - Holding her usual Humira. (8) COPD (chronic obstructive pulmonary disease): No current acute exacerbation. - Continue her usual Bevespi Aerosphere inhaler (or hospital formulary equivalent) (9) Depression: - Continue her usual Lexapro 10mg PO daily (10) DVT prophylaxis: SCDs - Holding heparin given fall in platelets (now < 50k). Admission and Anticipated Discharge Date Admission Date: November 18, 2020 Subjective Still with diarrhea today. Green, watery. No blood. Reports no fevers/chills, chest pain, shortness of breath, or vomiting. Physical Exam Constitutional: WD/WN, vitals as above Eyes: EOM intact bilaterally; no conjunctival abnormality ENMT: external ear and nose normal, oropharynx normal Neck: trachea midline, no thyromegaly normal visual inspection Respiratory: normal respiratory effort, lungs clear to auscultation no respiratory distress Cardiovascular: RRR, no murmur, no edema Gastrointestinal (Abdomen): Inspection/Auscultation: abdomen normal to inspection; abdomen not distended Musculoskeletal: no cyanosis or clubbing, extremities motor strength 5/5 Skin: no rashes, warm and dry Neurologic: moves all extremities and awake Psychiatric: Orientation: alert, oriented to person and cooperative Results & Data Results & Data ([facility]) Vital Signs (Past 12 Hours) Vital Signs Temp Pulse Resp BP Pulse Ox 11/20/20 07:52 36.5 C 91 H 16 146/83 H 99 PG Care Time/CCT Total # of Minutes Spent Total Time Spent with Patient: Total time spent is greater than 50% in coordination of care (as documented) at patient's floor/unit and/or counseling patient: Coding Level of Care Code 92800 Subseq Hosp Care Lvl 3 Diagnoses Neutropenic typhlitis K37; D70.9 Diarrhea R19.7 Diarrhea type: presumed infectious Esophageal dysphagia R13.10 Pancytopenia due to chemotherapy D61.810 Non-small cell lung cancer with metastasis C34.90 Unintentional weight loss R63.4 Ankylosing spondylitis M45.9 Ankylosing spondylitis location: unspecified site of spine COPD (chronic obstructive pulmonary disease) J44.9 COPD type: unspecified COPD Depression F32.9 DVT prophylaxis Z29.9 (1) Diarrhea Diarrhea type: presumed infectious Qualified Code(s): R19.7 - Diarrhea, unspecified (2) Ankylosing spondylitis Ankylosing spondylitis location: unspecified site of spine Qualified Code(s): M45.9 - Ankylosing spondylitis of unspecified sites in spine (3) COPD (chronic obstructive pulmonary disease) COPD type: unspecified COPD Qualified Code(s): J44.9 - Chronic obstructive pulmonary disease, unspecified
[2020-11-20] MEDS: PROCHLORPERAZINE MALEATE 10 MG TAB PO PRN ×2 (13:40→19:40)
[2020-11-20 18:30] LABS: Hematocrit (blood only) 25.8 % (37-47); Mean Corpuscular Hgb Conc 34.9 g/dL (32-36); Mean Corpuscular Volume 94.5 fL (80-100); RDW Coefficient of Variation 17.1 % (11.5-14.5); RDW Standard Deviation 58.9 fL (36.4-46.3); Red Blood Count 2.73 M/uL (4.2-5.4); White Blood Count 1.81 K/uL (4.8-10.8)
[2020-11-20 18:38] LABS: Platelet Count 30 K/uL (130-400)
[2020-11-20] MEDS: HEPARIN 100 UNIT/ML 5ML FLUSH FLUSH PRN (19:27)
--- NOTE | 2020-11-20 20:33 | Electrocardiogram Report ---
Test Reason : Blood Pressure : / mmHG Vent. Rate : 105 BPM Atrial Rate : 105 BPM P-R Int : 136 ms QRS Dur : 078 ms QT Int : 350 ms P-R-T Axes : 081 046 069 degrees QTc Int : 462 ms Sinus tachycardia Otherwise normal ECG When compared with ECG of 15-NOV-2020 17:27, No significant change was found Confirmed by Mannie Hinson ([id number]) on 11/20/2020 8:33:46 PM Referred By: Aneudy Servin Confirmed By:Mannie Hinson
[2020-11-21] MEDS: HEPARIN 100 UNIT/ML 5ML FLUSH FLUSH PRN ×2 (01:55→06:33)
[2020-11-21] MEDS: metroNIDAZOLE 500 MG/100 ML BAG IV SCH ×3 (05:41→22:05)
[2020-11-21] MEDS: RASPBERRY SYRUP 5 ML UDP PO SCH ×4 (05:42→23:18)
[2020-11-21] MEDS: VANCOMYCIN HCL 125 MG/2.5ML SOLN PO SCH ×4 (05:42→23:18)
[2020-11-21] MEDS: HYDROmorphone INJ 0.5 MG/0.5 ML SYR IV PRN ×4 (06:31→20:28)
[2020-11-21] MEDS: ONDANSETRON INJ 2 MG/ML 2 ML VIAL IV PRN ×4 (06:32→20:28)
[2020-11-21 06:52] LABS: Dohle Bodies 1+
[2020-11-21 06:55] LABS: ALC (manual) 1.85 K/uL (1.2-3.4); ANC (manual) 0.35 K/uL (1.4-6.5); Eosinophils # (manual) 0.02 K/uL (0-0.5); Eosinophils % (manual) 0.9 %; Hematocrit (blood only) 26.3 % (37-47); Hemoglobin 9.1 g/dL (12.0-16.0); Lymphocytes # (manual) 1.85 K/uL (1.2-3.4); Lymphocytes % (manual) 78.2 %; Mean Corpuscular Hemoglobin 32.5 pg (25-34); Mean Corpuscular Hgb Conc 34.6 g/dL (32-36); Mean Corpuscular Volume 93.9 fL (80-100); Mean Platelet Volume 10.7 fL (7.4-10.4); Monocytes # (manual) 0.14 K/uL (0.11-0.59); Monocytes % (manual) 6.1 %; Neutrophils # (manual) 0.35 K/uL (1.4-6.5); Neutrophils % (manual) 14.8 %; Platelet Count 28 K/uL (130-400); RDW Standard Deviation 58.2 fL (36.4-46.3); White Blood Count 2.36 K/uL (4.8-10.8)
[2020-11-21 07:05] LABS: Albumin Level 2.5 gm/dl (3.4-5.0); BUN Creatinine Ratio 4.1 (10-20); Calcium 8.8 mg/dl (8.5-10.1); Creatinine Clr Calc Pharmacy 70.9 ml/min; Est GFR (African American) 121.4; Est GFR (Non-African American) 104.8; Magnesium 1.4 mg/dl (1.8-2.4); Potassium 2.9 mmol/L (3.5-5.1)
[2020-11-21 07:22] LABS: Albumin Globulin Ratio 0.6 (0.9-2); Bilirubin,Total 0.5 mg/dl (0.2-1); Globulin 3.9 gm/dl (2.5-4.0); Phosphorus 1.7 mg/dl (2.5-4.9); Total Protein 6.4 gm/dl (6.4-8.2)
[2020-11-21] MEDS: PIPERACILLIN/TAZOBACTAM 4.5 GM in DEXTROSE 5% 100 ML IV SCH ×3 (07:35→23:21)
[2020-11-21] MEDS ORDERED: POTASSIUM PHOS 3 MMOL/1 ML INFUSION IV STA (08:10)
[2020-11-21] MEDS: CETIRIZINE HCL 10 MG TABLET PO SCH (08:41)
[2020-11-21] MEDS: FOLIC ACID 1 MG TAB PO SCH (08:41)
[2020-11-21] MEDS: ESCITALOPRAM OXALATE 10 MG TAB PO SCH (08:41)
[2020-11-21] MEDS: LIDOCAINE 5% 1 PATCH TD SCH (08:41)
[2020-11-21] MEDS: NICOTINE 21 MG/24 HR TDSY TD SCH (08:42)
[2020-11-21] MEDS: FAMOTIDINE 20 MG in SYRINGE 3 ML IV SCH (08:44)
[2020-11-21] MEDS ORDERED: POTASSIUM PHOSPHATE 30 MMOL in SODIUM CHLORIDE 0.9% 500 ML IV ONE ×2 (09:00→17:00)
[2020-11-21] MEDS: UMECLIDINIUM/VILANTEROL 62.5/25MCG 7 PUFFS/INHALER INH SCH (09:14)
[2020-11-21] MEDS: POTASSIUM CHLORIDE / WTR 20 MEQ/100 ML PLCT IV SCH ×4 (09:17→16:03)
[2020-11-21] MEDS: MAGNESIUM SULFATE / D5W 1 GM/100 ML BAG IV SCH ×4 (09:17→16:03)
--- NOTE | 2020-11-21 09:30 | Electrocardiogram Report ---
Test Reason : Blood Pressure : / mmHG Vent. Rate : 117 BPM Atrial Rate : 117 BPM P-R Int : 136 ms QRS Dur : 076 ms QT Int : 326 ms P-R-T Axes : 080 034 079 degrees QTc Int : 454 ms Sinus tachycardia Otherwise normal ECG When compared with ECG of 18-NOV-2020 16:10, No significant change was found Confirmed by Parveen Winkler ([id number]) on 11/21/2020 9:30:19 AM Referred By: Aneudy Servin Confirmed By:Parveen Winkler
[2020-11-21] MEDS: PANTOprazole 40 MG in SYRINGE 0 ML IV SCH (11:35)
--- NOTE | 2020-11-21 13:04 | Hospitalist Progress Note ---
Date of Service November 21, 2020 Assessment & Plan (1) Neutropenic typhlitis: CT a/p on 11/18 showed bowel wall thickening and with neutropenia, concern for typhlitis. - Continue IV Zosyn - Restarted PO vanc on 11/20 as GI felt that she was worsening despite negative test. - On full liquid diet. - Advance to normal diet today given improvement. (2) Diarrhea: As above. - Stool culture from 11/18 is preliminarily negative, final pending. - C. diff on 11/18 was negative. - Improving today. (3) Esophageal dysphagia: Switched pantoprazole and famotidine to IV. - Consulted GI given history of stenosis. (4) Pancytopenia due to chemotherapy: - Neupogen 300 mcg SQ daily x 3 days (last dose on 11/20/2020) - Neutropenic precautions. - Discussed with Dr. Servin on 11/21 (5) Non-small cell lung cancer with metastasis: Sees Dr. Servin. - Hold further chemotherapy until patient has recovered from this. (6) Unintentional weight loss: Due to cancer and chemotherapy. - Dietary consult placed (7) Ankylosing spondylitis: No specific joint complaints for me today. - Holding her usual Humira. (8) COPD (chronic obstructive pulmonary disease): No current acute exacerbation. - Continue her usual Bevespi Aerosphere inhaler (or hospital formulary equivalent) (9) Depression: - Continue her usual Lexapro 10mg PO daily (10) DVT prophylaxis: SCDs - Holding heparin given fall in platelets (now < 50k). Admission and Anticipated Discharge Date Admission Date: November 18, 2020 Subjective Feeling pretty well today. Less pain and less nausea. Diarrhea is improved today so far. Reports no fevers/chills, chest pain, shortness of breath, abdominal pain, nausea, or vomiting. Physical Exam Constitutional: WD/WN, vitals as above Eyes: EOM intact bilaterally; no conjunctival abnormality ENMT: external ear and nose normal, oropharynx normal Neck: trachea midline, no thyromegaly normal visual inspection Respiratory: normal respiratory effort, lungs clear to auscultation no respiratory distress Cardiovascular: Rate/Rhythm: regular rhythm and + tachycardic Heart Sounds: normal S1 and normal S2 Extremities: no edema Gastrointestinal (Abdomen): Inspection/Auscultation: abdomen normal to inspection; abdomen not distended Musculoskeletal: no cyanosis or clubbing, extremities motor strength 5/5 Skin: no rashes, warm and dry Neurologic: moves all extremities and awake Psychiatric: Orientation: alert, oriented to person and cooperative Results & Data Results & Data ([facility]) Vital Signs (Past 12 Hours) Vital Signs Temp Pulse Resp BP Pulse Ox 11/21/20 09:15 121 H 18 127/80 99 11/21/20 07:33 120 H 18 118/81 99 11/21/20 06:55 36.3 C L 130 H 22 119/81 99 PG Care Time/CCT Total # of Minutes Spent Total Time Spent with Patient: Total time spent is greater than 50% in coordination of care (as documented) at patient's floor/unit and/or counseling patient: Coding Level of Care Code 75591 Subseq Hosp Care Lvl 2 Diagnoses Neutropenic typhlitis K37; D70.9 Diarrhea R19.7 Diarrhea type: presumed infectious Esophageal dysphagia R13.10 Pancytopenia due to chemotherapy D61.810 Non-small cell lung cancer with metastasis C34.90 Unintentional weight loss R63.4 Ankylosing spondylitis M45.9 Ankylosing spondylitis location: unspecified site of spine COPD (chronic obstructive pulmonary disease) J44.9 COPD type: unspecified COPD Depression F32.9 DVT prophylaxis Z29.9 (1) Diarrhea Diarrhea type: presumed infectious Qualified Code(s): R19.7 - Diarrhea, unspecified (2) Ankylosing spondylitis Ankylosing spondylitis location: unspecified site of spine Qualified Code(s): M45.9 - Ankylosing spondylitis of unspecified sites in spine (3) COPD (chronic obstructive pulmonary disease) COPD type: unspecified COPD Qualified Code(s): J44.9 - Chronic obstructive pulmonary disease, unspecified
[2020-11-21] MEDS: PROCHLORPERAZINE MALEATE 10 MG TAB PO PRN (23:18)
[2020-11-22] MEDS: ONDANSETRON INJ 2 MG/ML 2 ML VIAL IV PRN ×5 (00:43→23:52)
[2020-11-22] MEDS: HYDROmorphone INJ 0.5 MG/0.5 ML SYR IV PRN ×5 (00:43→22:08)
[2020-11-22] MEDS: HEPARIN 100 UNIT/ML 5ML FLUSH FLUSH PRN (03:41)
[2020-11-22] MEDS: metroNIDAZOLE 500 MG/100 ML BAG IV SCH ×3 (06:30→22:10)
[2020-11-22] MEDS: VANCOMYCIN HCL 125 MG/2.5ML SOLN PO SCH (06:31)
[2020-11-22] MEDS: RASPBERRY SYRUP 5 ML UDP PO SCH (06:31)
[2020-11-22 06:59] LABS: Hematocrit (blood only) 23.5 % (37-47); Hemoglobin 8.3 g/dL (12.0-16.0); Mean Corpuscular Hemoglobin 32.8 pg (25-34); Mean Corpuscular Hgb Conc 35.3 g/dL (32-36); Mean Corpuscular Volume 92.9 fL (80-100); Platelet Count 12 K/uL (130-400); RDW Coefficient of Variation 17.2 % (11.5-14.5); RDW Standard Deviation 58.1 fL (36.4-46.3); Red Blood Count 2.53 M/uL (4.2-5.4); White Blood Count 3.66 K/uL (4.8-10.8)
[2020-11-22 07:19] LABS: Albumin Level 2.4 gm/dl (3.4-5.0); BUN Creatinine Ratio 2.7 (10-20); Calcium 8.6 mg/dl (8.5-10.1); Creatinine Clr Calc Pharmacy 73.7 ml/min; Est GFR (African American) 122.9; Est GFR (Non-African American) 106.1; Magnesium 1.8 mg/dl (1.8-2.4); Potassium 3.7 mmol/L (3.5-5.1)
[2020-11-22 07:22] LABS: Albumin Globulin Ratio 0.6 (0.9-2); Bilirubin,Total 0.3 mg/dl (0.2-1); Globulin 3.7 gm/dl (2.5-4.0); Phosphorus 2.5 mg/dl (2.5-4.9); Total Protein 6.1 gm/dl (6.4-8.2)
[2020-11-22 07:38] LABS: ALC (manual) 2.63 K/uL (1.2-3.4); ANC (manual) 0.32 K/uL (1.4-6.5); Basophils # (manual) 0.03 K/uL (0-0.2); Basophils % (manual) 0.9 %; Eosinophils % (manual) 2.6 %; Lymphocytes # (manual) 2.63 K/uL (1.2-3.4); Lymphocytes % (manual) 71.9 %; Monocytes # (manual) 0.51 K/uL (0.11-0.59); Myelocytes # (manual) 0.07 K/uL (0-0); Myelocytes % (manual) 1.8 %; Neutrophils # (manual) 0.32 K/uL (1.4-6.5); Neutrophils % (manual) 8.8 %
[2020-11-22] MEDS: PIPERACILLIN/TAZOBACTAM 4.5 GM in DEXTROSE 5% 100 ML IV SCH ×3 (07:49→23:47)
[2020-11-22] MEDS: FAMOTIDINE 20 MG in SYRINGE 3 ML IV SCH (07:50)
[2020-11-22] MEDS: LIDOCAINE 5% 1 PATCH TD SCH ×2 (08:07→10:51)
[2020-11-22] MEDS: NICOTINE 21 MG/24 HR TDSY TD SCH (08:09)
[2020-11-22] MEDS ORDERED: POTASSIUM PHOS 3 MMOL/1 ML INFUSION IV STA (08:10)
[2020-11-22] MEDS: ESCITALOPRAM OXALATE 10 MG TAB PO SCH (08:10)
[2020-11-22] MEDS: FOLIC ACID 1 MG TAB PO SCH (08:10)
[2020-11-22] MEDS: UMECLIDINIUM/VILANTEROL 62.5/25MCG 7 PUFFS/INHALER INH SCH (08:10)
[2020-11-22] MEDS: CETIRIZINE HCL 10 MG TABLET PO SCH (08:11)
[2020-11-22] MEDS: POTASSIUM CHLORIDE / WTR 20 MEQ/100 ML PLCT IV SCH ×2 (09:37→12:41)
[2020-11-22] MEDS: MAGNESIUM SULFATE / D5W 1 GM/100 ML BAG IV SCH ×2 (09:38→12:41)
[2020-11-22] MEDS: PROCHLORPERAZINE MALEATE 10 MG TAB PO PRN (10:52)
[2020-11-22] MEDS: PANTOprazole 40 MG in SYRINGE 0 ML IV SCH (12:40)
[2020-11-22] MEDS ORDERED: POTASSIUM PHOSPHATE 21 MMOL in SODIUM CHLORIDE 0.9% 500 ML IV ONE (13:00)
--- NOTE | 2020-11-22 13:06 | Hospitalist Progress Note ---
Date of Service November 22, 2020 Assessment & Plan (1) Neutropenic typhlitis: CT a/p on 11/18 showed bowel wall thickening and with neutropenia, concern for typhlitis. - Restarted PO vanc on 11/20 as GI felt that she was worsening despite negative test. Dropped off on 11/22, but again, given negative test, I'm ok monitoring. - On regular diet and tolerating well. - Continue IV Zosyn - Per UTD, continue abx until 14 days past time of recovery of neutropenia. ANC still 320 on 11/22, so she still has an indefinite time course of antibiotics. - Will consult [facility]. (2) Diarrhea: As above. - Stool culture from 11/18 was negative. - C. diff on 11/18 was negative. - Improving today. (3) Esophageal dysphagia: Switched pantoprazole and famotidine to IV. - Consulted GI given history of stenosis. No plan for EGD presently while neutropenic. (4) Pancytopenia due to chemotherapy: - Neupogen 300 mcg SQ daily x 3 days (last dose on 11/20/2020) - Neutropenic precautions. - Discussed with Dr. Servin on 11/22 - Transfuse 1 unit platelets today (11/22) for platelet count of 12k. No signs of bleeding at present. (5) Non-small cell lung cancer with metastasis: Sees Dr. Servin. Severe protein-calorie malnutrition from the cancer and chemotherapy. Discussed with Dr. Servin on 11/22. Likely plan to stop carboplatin/pemetrexed; will only continue with pembrolizumab from here on out. - Follow up with them outpatient. (6) Unintentional weight loss: Due to cancer and chemotherapy. - Dietary consult placed (7) Ankylosing spondylitis: Some right lower back pain today. - Holding her usual Humira. - Using lidocaine patch for pain. (8) COPD (chronic obstructive pulmonary disease): No current acute exacerbation. - Continue her usual Bevespi Aerosphere inhaler (or hospital formulary equivalent) (9) Depression: - Continue her usual Lexapro 10mg PO daily (10) DVT prophylaxis: SCDs - Holding heparin given fall in platelets (now < 50k). Admission and Anticipated Discharge Date Admission Date: November 18, 2020 Physical Exam Constitutional: WD/WN, vitals as above Eyes: EOM intact bilaterally; no conjunctival abnormality ENMT: external ear and nose normal, oropharynx normal Neck: trachea midline, no thyromegaly normal visual inspection Respiratory: normal respiratory effort, lungs clear to auscultation no respiratory distress Cardiovascular: RRR, no murmur, no edema Rate/Rhythm: regular rhythm and + tachycardic Heart Sounds: normal S1 and normal S2 Extremities: no edema Gastrointestinal (Abdomen): Inspection/Auscultation: abdomen normal to inspection; abdomen not distended Musculoskeletal: no cyanosis or clubbing, extremities motor strength 5/5 Skin: no rashes, warm and dry Neurologic: moves all extremities and awake Psychiatric: Orientation: alert, oriented to person and cooperative Results & Data Results & Data ([facility]) Vital Signs (Past 12 Hours) Vital Signs Temp Pulse Pulse Resp BP BP Pulse Ox 11/22/20 11:57 36.8 C 104 H 18 104/69 96 11/22/20 11:55 36.8 C 106 H 18 106/69 96 11/22/20 11:38 37.0 C 109 H 18 104/73 98 11/22/20 07:04 36.8 C 102 H 18 122/77 97 PG Care Time/CCT Total # of Minutes Spent Total Time Spent with Patient: Total time spent is greater than 50% in coordination of care (as documented) at patient's floor/unit and/or counseling patient: Coding Level of Care Code 36814 Subseq Hosp Care Lvl 3 Diagnoses Neutropenic typhlitis K37; D70.9 Diarrhea R19.7 Diarrhea type: presumed infectious Esophageal dysphagia R13.10 Pancytopenia due to chemotherapy D61.810 Non-small cell lung cancer with metastasis C34.90 Unintentional weight loss R63.4 Ankylosing spondylitis M45.9 Ankylosing spondylitis location: unspecified site of spine COPD (chronic obstructive pulmonary disease) J44.9 COPD type: unspecified COPD Depression F32.9 DVT prophylaxis Z29.9 (1) Diarrhea Diarrhea type: presumed infectious Qualified Code(s): R19.7 - Diarrhea, unspecified (2) Ankylosing spondylitis Ankylosing spondylitis location: unspecified site of spine Qualified Code(s): M45.9 - Ankylosing spondylitis of unspecified sites in spine (3) COPD (chronic obstructive pulmonary disease) COPD type: unspecified COPD Qualified Code(s): J44.9 - Chronic obstructive pulmonary disease, unspecified
[2020-11-23] MEDS: HYDROmorphone INJ 0.5 MG/0.5 ML SYR IV PRN ×4 (03:40→20:44)
[2020-11-23] MEDS: HEPARIN 100 UNIT/ML 5ML FLUSH FLUSH PRN (03:52)
[2020-11-23] MEDS: ONDANSETRON INJ 2 MG/ML 2 ML VIAL IV PRN ×3 (03:52→17:24)
[2020-11-23] MEDS: metroNIDAZOLE 500 MG/100 ML BAG IV SCH ×2 (06:03→14:44)
[2020-11-23] MEDS: NICOTINE 21 MG/24 HR TDSY TD SCH (08:43)
[2020-11-23] MEDS: LIDOCAINE 5% 1 PATCH TD SCH (08:45)
[2020-11-23] MEDS: FOLIC ACID 1 MG TAB PO SCH (08:45)
[2020-11-23] MEDS: ESCITALOPRAM OXALATE 10 MG TAB PO SCH (08:46)
[2020-11-23] MEDS: CETIRIZINE HCL 10 MG TABLET PO SCH (08:46)
[2020-11-23] MEDS: UMECLIDINIUM/VILANTEROL 62.5/25MCG 7 PUFFS/INHALER INH SCH (08:46)
[2020-11-23] MEDS: FAMOTIDINE 20 MG in SYRINGE 3 ML IV SCH (08:53)
[2020-11-23] MEDS: PIPERACILLIN/TAZOBACTAM 4.5 GM in DEXTROSE 5% 100 ML IV SCH ×2 (08:54→16:54)
[2020-11-23] MEDS: PANTOprazole 40 MG in SYRINGE 0 ML IV SCH (11:13)
[2020-11-23 11:17] LABS: Hematocrit (blood only) 24.9 % (37-47); Hemoglobin 8.5 g/dL (12.0-16.0); Mean Corpuscular Hemoglobin 31.8 pg (25-34); Mean Corpuscular Hgb Conc 34.1 g/dL (32-36); Mean Corpuscular Volume 93.3 fL (80-100); Mean Platelet Volume 7.9 fL (7.4-10.4); Platelet Count 23 K/uL (130-400); RDW Coefficient of Variation 17.5 % (11.5-14.5); RDW Standard Deviation 59.3 fL (36.4-46.3); Red Blood Count 2.67 M/uL (4.2-5.4); White Blood Count 8.38 K/uL (4.8-10.8)
[2020-11-23 11:27] LABS: ALC (manual) 3.21 K/uL (1.2-3.4); ANC (manual) 3.34 K/uL (1.4-6.5); Lymphocytes # (manual) 3.21 K/uL (1.2-3.4); Lymphocytes % (manual) 38.3 %; Metamyelocytes # (manual) 0.08 K/uL (0-0); Metamyelocytes % (manual) 0.9 %; Monocytes # (manual) 1.24 K/uL (0.11-0.59); Monocytes % (manual) 14.8 %; Myelocytes # (manual) 0.22 K/uL (0-0); Myelocytes % (manual) 2.6 %; Neutrophils # (manual) 3.34 K/uL (1.4-6.5); Neutrophils % (manual) 39.9 %; Promyelocytes # (manual) 0.29 K/uL (0-0); Promyelocytes % (manual) 3.5 %
[2020-11-23 11:30] LABS: BUN Creatinine Ratio 7.9 (10-20); Calcium 8.8 mg/dl (8.5-10.1); Creatinine Clr Calc Pharmacy 61.8 ml/min; Est GFR (Non-African American) 100.1; Magnesium 1.6 mg/dl (1.8-2.4); Phosphorus 2.6 mg/dl (2.5-4.9); Potassium 3.6 mmol/L (3.5-5.1)
[2020-11-23] MEDS: MAGNESIUM SULFATE / D5W 1 GM/100 ML BAG IV SCH ×3 (14:44→18:53)
--- NOTE | 2020-11-23 14:52 | Hospitalist Progress Note ---
Date of Service November 23, 2020 Assessment & Plan (1) Neutropenic typhlitis: CT a/p on 11/18 showed bowel wall thickening and with neutropenia, concern for typhlitis. - Restarted PO vanc on 11/20 as GI felt that she was worsening despite negative test. Dropped off on 11/22, but again, given negative test, I'm ok monitoring. - On regular diet and tolerating well. - Continue IV Zosyn - Per UTD, continue abx until 14 days past time of recovery of neutropenia. ANC now > 1500 on 11/23, so likely at least 2 more weeks of antibiotics. - Will consult [facility] -> Will see her tomorrow to due scheduling issue. (2) Diarrhea: As above. - Stool culture from 11/18 was negative. - C. diff on 11/18 was negative. - Reports some worsening today, but she is also eating more. (3) Esophageal dysphagia: Switched pantoprazole and famotidine to IV. - Consulted GI given history of stenosis. No plan for EGD presently. (4) Pancytopenia due to chemotherapy: - Neupogen 300 mcg SQ daily x 3 days (last dose on 11/20/2020) - Neutropenic precautions. - Discussed with Dr. Servin on 11/22 - Transfused 1 unit platelets on 11/22 for platelet count of 12k. No signs of bleeding at present. Platelets up to 23k on 11/23. (5) Non-small cell lung cancer with metastasis: Sees Dr. Servin. Severe protein-calorie malnutrition from the cancer and chemotherapy. Discussed with Dr. Servin on 11/22. Likely plan to stop carboplatin/pemetrexed; will only continue with pembrolizumab from here on out. - Follow up with them outpatient. (6) Unintentional weight loss: Due to cancer and chemotherapy. - Dietary consult placed -> She is drinking the peach protein shakes per her report and she feels she is putting on weight. (7) Ankylosing spondylitis: Some right lower back pain today. - Holding her usual Humira. - Using lidocaine patch for pain which is working well. (8) COPD (chronic obstructive pulmonary disease): No current acute exacerbation. - Continue her usual Bevespi Aerosphere inhaler (or hospital formulary equivalent) (9) Depression: - Continue her usual Lexapro 10mg PO daily (10) DVT prophylaxis: SCDs - Holding heparin given low platelets (now < 50k). Admission and Anticipated Discharge Date Admission Date: November 18, 2020 Physical Exam Constitutional: WD/WN, vitals as above Eyes: EOM intact bilaterally; no conjunctival abnormality ENMT: external ear and nose normal, oropharynx normal Neck: trachea midline, no thyromegaly normal visual inspection Respiratory: normal respiratory effort, lungs clear to auscultation no respiratory distress Cardiovascular: RRR, no murmur, no edema Rate/Rhythm: regular rhythm and + tachycardic Heart Sounds: normal S1 and normal S2 Extremities: no edema Gastrointestinal (Abdomen): Inspection/Auscultation: abdomen normal to inspection; abdomen not distended Musculoskeletal: no cyanosis or clubbing, extremities motor strength 5/5 Skin: no rashes, warm and dry Neurologic: moves all extremities and awake Psychiatric: Orientation: alert, oriented to person and cooperative Results & Data Results & Data ([facility]) Vital Signs (Past 12 Hours) Vital Signs Temp Pulse Resp BP Pulse Ox 11/23/20 07:27 37 C 109 H 16 117/77 96 PG Care Time/CCT Total # of Minutes Spent Total Time Spent with Patient: Total time spent is greater than 50% in coordinat ion of care (as documented) at patient's floor/unit and/or counseling patient: Coding Level of Care Code 23360 Subseq Hosp Care Lvl 3 Diagnoses Neutropenic typhlitis K37; D70.9 Diarrhea R19.7 Diarrhea type: presumed infectious Esophageal dysphagia R13.10 Pancytopenia due to chemotherapy D61.810 Non-small cell lung cancer with metastasis C34.90 Unintentional weight loss R63.4 Ankylosing spondylitis M45.9 Ankylosing spondylitis location: unspecified site of spine COPD (chronic obstructive pulmonary disease) J44.9 COPD type: unspecified COPD Depression F32.9 DVT prophylaxis Z29.9 (1) Diarrhea Diarrhea type: presumed infectious Qualified Code(s): R19.7 - Diarrhea, unspecified (2) Ankylosing spondylitis Ankylosing spondylitis location: unspecified site of spine Qualified Code(s): M45.9 - Ankylosing spondylitis of unspecified sites in spine (3) COPD (chronic obstructive pulmonary disease) COPD type: unspecified COPD Qualified Code(s): J44.9 - Chronic obstructive pulmonary disease, unspecified
[2020-11-23] MEDS: PANTOprazole 40 MG TAB PO SCH (20:42)
[2020-11-23] MEDS: PROCHLORPERAZINE MALEATE 10 MG TAB PO PRN (21:09)
[2020-11-24] MEDS: PIPERACILLIN/TAZOBACTAM 4.5 GM in DEXTROSE 5% 100 ML IV SCH ×4 (00:38→23:47)
[2020-11-24] MEDS: HEPARIN 100 UNIT/ML 5ML FLUSH FLUSH PRN ×2 (04:48→20:52)
[2020-11-24 06:11] LABS: BUN Creatinine Ratio 11.8 (10-20); Calcium 8.7 mg/dl (8.5-10.1); Creatinine Clr Calc Pharmacy 75.1 ml/min; Est GFR (African American) 123.7; Est GFR (Non-African American) 106.7; Magnesium 1.8 mg/dl (1.8-2.4); Phosphorus 2.9 mg/dl (2.5-4.9); Potassium 3.1 mmol/L (3.5-5.1)
[2020-11-24 06:29] LABS: Hematocrit (blood only) 22.7 % (37-47); Mean Corpuscular Hemoglobin 32.5 pg (25-34); Mean Corpuscular Hgb Conc 35.2 g/dL (32-36); Mean Corpuscular Volume 92.3 fL (80-100); Mean Platelet Volume 8.7 fL (7.4-10.4); Platelet Count 21 K/uL (130-400); RDW Coefficient of Variation 17.3 % (11.5-14.5); RDW Standard Deviation 58.4 fL (36.4-46.3); Red Blood Count 2.46 M/uL (4.2-5.4); White Blood Count 7.37 K/uL (4.8-10.8)
[2020-11-24 06:30] LABS: ALC (manual) 1.67 K/uL (1.2-3.4); ANC (manual) 3.97 K/uL (1.4-6.5); Dohle Bodies 1+; Lymphocytes # (manual) 1.67 K/uL (1.2-3.4); Lymphocytes % (manual) 22.6 %; Metamyelocytes # (manual) 0.07 K/uL (0-0); Metamyelocytes % (manual) 0.9 %; Monocytes # (manual) 1.28 K/uL (0.11-0.59); Monocytes % (manual) 17.4 %; Myelocytes # (manual) 0.13 K/uL (0-0); Myelocytes % (manual) 1.7 %; Neutrophils # (manual) 3.97 K/uL (1.4-6.5); Neutrophils % (manual) 53.9 %; Platelet Estimate Decreased (Normal); Promyelocytes # (manual) 0.26 K/uL (0-0); Promyelocytes % (manual) 3.5 %; Toxic Granulation 1+
[2020-11-24] MEDS: LIDOCAINE 5% 1 PATCH TD SCH (08:27)
[2020-11-24] MEDS: NICOTINE 21 MG/24 HR TDSY TD SCH (08:28)
[2020-11-24] MEDS: HYDROmorphone INJ 0.5 MG/0.5 ML SYR IV PRN ×4 (08:30→23:47)
[2020-11-24] MEDS: ONDANSETRON INJ 2 MG/ML 2 ML VIAL IV PRN ×4 (08:31→23:47)
[2020-11-24] MEDS: POTASSIUM CHLORIDE / WTR 20 MEQ/100 ML PLCT IV SCH ×4 (08:34→15:00)
[2020-11-24] MEDS: ESCITALOPRAM OXALATE 10 MG TAB PO SCH (08:37)
[2020-11-24] MEDS: FOLIC ACID 1 MG TAB PO SCH (08:37)
[2020-11-24] MEDS: PANTOprazole 40 MG TAB PO SCH ×2 (08:37→20:52)
[2020-11-24] MEDS: CETIRIZINE HCL 10 MG TABLET PO SCH (08:37)
[2020-11-24] MEDS: UMECLIDINIUM/VILANTEROL 62.5/25MCG 7 PUFFS/INHALER INH SCH (08:39)
--- NOTE | 2020-11-24 14:25 | Hospitalist Progress Note ---
Date of Service November 24, 2020 Assessment & Plan (1) Neutropenic typhlitis: CT a/p on 11/18 showed bowel wall thickening and with neutropenia, concern for typhlitis. - Restarted PO vanc on 11/20 as GI felt that she was worsening despite negative test. Dropped off on 11/22, but again, given negative test, I'm ok monitoring. Diarrhea has improved, so no need for vanc. - On regular diet and tolerating well. - Continue IV Zosyn while inpatient. - Per [facility] ID, need a total of 10 days. Plan to switch to Augmentin on discharge for end date of abx of 11/28/2020. (2) Diarrhea: As above. - Stool culture from 11/18 was negative. - C. diff on 11/18 was negative. - Reports better today. Likely related to the typhlitis. (3) Esophageal dysphagia: - Continue PPI PO BID - Consulted GI given history of stenosis. No plan for EGD presently. (4) Pancytopenia due to chemotherapy: - Neupogen 300 mcg SQ daily x 3 days (last dose on 11/20/2020) - Neutropenic precautions. - Discussed with Dr. Servin on 11/24 - Transfused 1 unit platelets on 11/22 for platelet count of 12k. No signs of bleeding at present. Platelets up to 23k on 11/23. Stable today. (5) Non-small cell lung cancer with metastasis: Sees Dr. Servin. Severe protein-calorie malnutrition from the cancer and chemotherapy. Discussed with Dr. Servin on 11/22. Likely plan to stop carboplatin/pemetrexed; will only continue with pembrolizumab from here on out. - Follow up with them outpatient. (6) Unintentional weight loss: Due to cancer and chemotherapy. - Dietary consult placed -> She is drinking the peach protein shakes per her report and she feels she is putting on weight. (7) Ankylosing spondylitis: Some right lower back pain during this admission. - Holding her usual Humira. - Using lidocaine patch for pain which is working well. (8) COPD (chronic obstructive pulmonary disease): No current acute exacerbation. - Continue her usual Bevespi Aerosphere inhaler (or hospital formulary equivalent) (9) Depression: - Continue her usual Lexapro 10mg PO daily (10) DVT prophylaxis: SCDs - Holding heparin given low platelets (now < 50k). Admission and Anticipated Discharge Date Admission Date: November 18, 2020 Subjective Doing better today. Pain is much more controlled in hips and stomach. Reports no fevers/chills, chest pain, shortness of breath, abdominal pain, nausea, or vomiting. Physical Exam Constitutional: WD/WN, vitals as above Eyes: EOM intact bilaterally; no conjunctival abnormality ENMT: external ear and nose normal, oropharynx normal Neck: trachea midline, no thyromegaly normal visual inspection Respiratory: normal respiratory effort, lungs clear to auscultation no respiratory distress Cardiovascular: RRR, no murmur, no edema Heart Sounds: normal S1 and normal S2 Extremities: no edema Gastrointestinal (Abdomen): Inspection/Auscultation: abdomen normal to inspection; abdomen not distended Musculoskeletal: no cyanosis or clubbing, extremities motor strength 5/5 Skin: no rashes, warm and dry Neurologic: moves all extremities and awake Psychiatric: Orientation: alert, oriented to person and cooperative Results & Data Results & Data ([facility]) Vital Signs (Past 12 Hours) Vital Signs Temp Pulse Resp BP Pulse Ox 11/24/20 07:12 37 C 89 16 137/81 95 PG Care Time/CCT Total # of Minutes Spent Total Time Spent with Patient: Total time spent is greater than 50% in coordination of care (as documented) at patient's floor/unit and/or counseling patient: Coding Level of Care Code 29483 Subseq Hosp Care Lvl 2 Diagnoses Neutropenic typhlitis K37; D70.9 Diarrhea R19.7 Diarrhea type: presumed infectious Esophageal dysphagia R13.10 Pancytopenia due to chemotherapy D61.810 Non-small cell lung cancer with metastasis C34.90 Unintentional weight loss R63.4 Ankylosing spondylitis M45.9 Ankylosing spondylitis location: unspecified site of spine COPD (chronic obstructive pulmonary disease) J44.9 COPD type: unspecified COPD Depression F32.9 DVT prophylaxis Z29.9 (1) Diarrhea Diarrhea type: presumed infectious Qualified Code(s): R19.7 - Diarrhea, unspecified (2) Ankylosing spondylitis Ankylosing spondylitis location: unspecified site of spine Qualified Code(s): M45.9 - Ankylosing spondylitis of unspecified sites in spine (3) COPD (chronic obstructive pulmonary disease) COPD type: unspecified COPD Qualified Code(s): J44.9 - Chronic obstructive pulmonary disease, unspecified
[2020-11-24] MEDS: ALUMINUM/MAGNESIUM/SIMETH (MAALOX MAX) 30 ML UDC PO PRN (19:22)
[2020-11-24] MEDS: oxyCODONE HCL IR 5 MG TAB (IMMEDIATE RELEASE) PO PRN (20:59)
[2020-11-25] MEDS: HEPARIN 100 UNIT/ML 5ML FLUSH FLUSH PRN ×3 (03:56→22:07)
[2020-11-25] MEDS: HYDROmorphone INJ 0.5 MG/0.5 ML SYR IV PRN ×5 (05:21→22:07)
[2020-11-25] MEDS: ONDANSETRON INJ 2 MG/ML 2 ML VIAL IV PRN ×4 (05:21→22:07)
[2020-11-25 06:09] LABS: Hematocrit (blood only) 24.7 % (37-47); Hemoglobin 8.6 g/dL (12.0-16.0); Mean Corpuscular Hgb Conc 34.8 g/dL (32-36); Mean Corpuscular Volume 94.6 fL (80-100); Mean Platelet Volume 9.7 fL (7.4-10.4); Platelet Count 23 K/uL (130-400); Platelet Estimate SIGNIFIC DECREASED (Normal); RDW Coefficient of Variation 17.8 % (11.5-14.5); Red Blood Count 2.61 M/uL (4.2-5.4); White Blood Count 10.32 K/uL (4.8-10.8)
[2020-11-25 06:20] LABS: BUN Creatinine Ratio 11.3 (10-20); Calcium 9.5 mg/dl (8.5-10.1); Creatinine Clr Calc Pharmacy 62.8 ml/min; Est GFR (African American) 116.6; Est GFR (Non-African American) 100.6; Magnesium 1.5 mg/dl (1.8-2.4)
[2020-11-25] MEDS: CETIRIZINE HCL 10 MG TABLET PO SCH (07:49)
[2020-11-25] MEDS: FOLIC ACID 1 MG TAB PO SCH (07:50)
[2020-11-25] MEDS: ESCITALOPRAM OXALATE 10 MG TAB PO SCH (07:50)
[2020-11-25] MEDS: PANTOprazole 40 MG TAB PO SCH ×2 (07:50→20:49)
[2020-11-25] MEDS: PROCHLORPERAZINE MALEATE 10 MG TAB PO PRN ×2 (07:51→16:43)
[2020-11-25] MEDS: LIDOCAINE 5% 1 PATCH TD SCH (07:52)
[2020-11-25] MEDS: UMECLIDINIUM/VILANTEROL 62.5/25MCG 7 PUFFS/INHALER INH SCH (07:52)
[2020-11-25] MEDS: NICOTINE 21 MG/24 HR TDSY TD SCH (07:52)
[2020-11-25] MEDS: PIPERACILLIN/TAZOBACTAM 4.5 GM in DEXTROSE 5% 100 ML IV SCH ×2 (07:59→16:41)
[2020-11-25] MEDS ORDERED: SODIUM PHOSPHATE 3 MMOL/1 ML INFUSION IV STA (08:40)
[2020-11-25] MEDS ORDERED: SODIUM PHOSPHATE 24 MMOL in SODIUM CHLORIDE 0.9% 500 ML IV SCH (09:00)
[2020-11-25] MEDS ORDERED: LOPERAMIDE HCL 2 MG CAP PO STA (09:10)
[2020-11-25] MEDS: MAGNESIUM SULFATE / D5W 1 GM/100 ML BAG IV SCH ×2 (09:29→11:36)
[2020-11-25] MEDS: LACTOBACILLUS ACIDOPHILUS 1 GM PACK PO SCH ×2 (12:05→18:09)
--- NOTE | 2020-11-25 22:47 | Hospitalist Progress Note ---
Date of Service November 25, 2020 Assessment & Plan (1) Neutropenic typhlitis: CT a/p on 11/18 showed bowel wall thickening and with neutropenia, concern for typhlitis. - Restarted PO vanc on 11/20 as GI felt that she was worsening despite negative test. Dropped off on 11/22, but again, given negative test, I'm ok monitoring. Diarrhea has improved, so no need for vanc. - On regular diet and tolerating well. - Continue IV Zosyn while inpatient. - Per [facility] ID, need a total of 10 days. Plan to switch to Augmentin on discharge for end date of abx of 11/28/2020. Patient is doing well, however she remains tachycardic. will monitor. May require IVF. (2) Diarrhea: As above. - Stool culture from 11/18 was negative. - C. diff on 11/18 was negative. - Reports better today. Likely related to the typhlitis. (3) Esophageal dysphagia: - Continue PPI PO BID - Consulted GI given history of stenosis. No plan for EGD presently. (4) Pancytopenia due to chemotherapy: - Neupogen 300 mcg SQ daily x 3 days (last dose on 11/20/2020) - Neutropenic precautions. - Discussed with Dr. Servin on 11/24 - Transfused 1 unit platelets on 11/22 for platelet count of 12k. No signs of bleeding at present. Platelets up to 23k on 11/23. Stable today. (5) Non-small cell lung cancer with metastasis: Sees Dr. Servin. Severe protein-calorie malnutrition from the cancer and chemotherapy. Discussed with Dr. Servin on 11/22. Likely plan to stop carboplatin/pemetrexed; will only continue with pembrolizumab from here on out. - Follow up with them outpatient. (6) Unintentional weight loss: Due to cancer and chemotherapy. - Dietary consult placed -> She is drinking the peach protein shakes per her report and she feels she is putting on weight. (7) Ankylosing spondylitis: Some right lower back pain during this admission. - Holding her usual Humira. - Using lidocaine patch for pain which is working well. (8) COPD (chronic obstructive pulmonary disease): No current acute exacerbation. - Continue her usual Bevespi Aerosphere inhaler (or hospital formulary equivalent) (9) Depression: - Continue her usual Lexapro 10mg PO daily (10) DVT prophylaxis: SCDs - Holding heparin given low platelets (now < 50k). Admission and Anticipated Discharge Date Admission Date: November 18, 2020 Subjective Patient reports feeling well. She has no new cymptoms. Review of Systems Review of Systems: All systems reviewed & are unremarkable except as noted in HPI & below Physical Exam Physical Exam: Constitutional: well developed and + cachectic; no acute distress Eyes: PERRL, conjunctivae normal, anicteric sclerae ENMT: external ear and nose normal, oropharynx normal Neck: trachea midline Respiratory: normal respiratory effort, lungs clear to auscultation Cardiovascular: RRR, no murmur, no edema/ tenderness to soft palpation on left lower chest wall Gastrointestinal (Abdomen): Inspection/Auscultation: abdomen normal to inspection and normal bowel sounds Percussion/Palpation: + mildly tender on palpation and abdomen soft; no guarding and abdomen not rigid Musculoskeletal: no cyanosis or clubbing, extremities motor strength 5/5 Skin: no rashes, warm and dry Neurologic: awake; + does not move all extremities and not confused Speech / Cognition: normal speech Psychiatric: A+Ox3, euthymic affect Genitourinary: no CVA tenderness Results & Data Results & Data ([facility]) Vital Signs (Past 12 Hours) Vital Signs Temp Pulse Resp BP Pulse Ox 11/25/20 22:06 37.3 C 117 H 14 143/81 H 97 11/25/20 17:04 36.9 C 95 H 16 144/87 H 95 PG Care Time/CCT Total # of Minutes Spent Total Time Spent with Patient: Total time spent is greater than 50% in coordination of care (as documented) at patient's floor/unit and/or counseling patient: Coding Level of Care Code 72143 Subseq Hosp Care Lvl 3 Diagnoses Neutropenic typhlitis K37; D70.9 Diarrhea R19.7 Diarrhea type: presumed infectious Esophageal dysphagia R13.10 Pancytopenia due to chemotherapy D61.810 Non-small cell lung cancer with metastasis C34.90 Unintentional weight loss R63.4 Ankylosing spondylitis M45.9 Ankylosing spondylitis location: unspecified site of spine COPD (chronic obstructive pulmonary disease) J44.9 COPD type: unspecified COPD Depression F32.9 DVT prophylaxis Z29.9 Time Spent (min) 35 Comment chart review (1) Diarrhea Diarrhea type: presumed infectious Qualified Code(s): R19.7 - Diarrhea, unspecified (2) Ankylosing spondylitis Ankylosing spondylitis location: unspecified site of spine Qualified Code(s): M45.9 - Ankylosing spondylitis of unspecified sites in spine (3) COPD (chronic obstructive pulmonary disease) COPD type: unspecified COPD Qualified Code(s): J44.9 - Chronic obstructive pulmonary disease, unspecified
[2020-11-26] MEDS: PIPERACILLIN/TAZOBACTAM 4.5 GM in DEXTROSE 5% 100 ML IV SCH ×4 (00:43→23:28)
[2020-11-26] MEDS: HEPARIN 100 UNIT/ML 5ML FLUSH FLUSH PRN ×2 (04:44→06:29)
[2020-11-26] MEDS: HYDROmorphone INJ 0.5 MG/0.5 ML SYR IV PRN ×5 (06:29→23:28)
[2020-11-26] MEDS: ONDANSETRON INJ 2 MG/ML 2 ML VIAL IV PRN ×3 (06:29→23:28)
[2020-11-26] MEDS: LACTOBACILLUS ACIDOPHILUS 1 GM PACK PO SCH ×3 (08:15→18:29)
[2020-11-26] MEDS: UMECLIDINIUM/VILANTEROL 62.5/25MCG 7 PUFFS/INHALER INH SCH (09:40)
[2020-11-26] MEDS: ESCITALOPRAM OXALATE 10 MG TAB PO SCH (09:41)
[2020-11-26] MEDS: PANTOprazole 40 MG TAB PO SCH ×2 (09:41→21:48)
[2020-11-26] MEDS: CETIRIZINE HCL 10 MG TABLET PO SCH (09:41)
[2020-11-26] MEDS: FOLIC ACID 1 MG TAB PO SCH (09:42)
[2020-11-26] MEDS: LIDOCAINE 5% 1 PATCH TD SCH (09:42)
[2020-11-26] MEDS: NICOTINE 21 MG/24 HR TDSY TD SCH (09:42)
[2020-11-26] MEDS: ALUMINUM/MAGNESIUM/SIMETH (MAALOX MAX) 30 ML UDC PO PRN (09:51)
[2020-11-26 14:43] LABS: Hematocrit (blood only) 22.7 % (37-47); Hemoglobin 7.5 g/dL (12.0-16.0); Mean Corpuscular Hemoglobin 32.2 pg (25-34); Mean Corpuscular Volume 97.4 fL (80-100); RDW Coefficient of Variation 17.8 % (11.5-14.5); Red Blood Count 2.33 M/uL (4.2-5.4); White Blood Count 10.78 K/uL (4.8-10.8)
[2020-11-26 14:48] LABS: Mean Platelet Volume 9.4 fL (7.4-10.4); Platelet Count 33 K/uL (130-400)
[2020-11-26] MEDS ORDERED: NORMOSOL-R 1,000 ML IV SCH (15:00)
[2020-11-26 15:03] LABS: BUN Creatinine Ratio 13.3 (10-20); Calcium 8.4 mg/dl (8.5-10.1); Creatinine Clr Calc Pharmacy 70.9 ml/min; Est GFR (African American) 121.4; Est GFR (Non-African American) 104.8; Magnesium 1.4 mg/dl (1.8-2.4); Potassium 3.2 mmol/L (3.5-5.1)
[2020-11-26 15:17] LABS: ALC (manual) 3.59 K/uL (1.2-3.4); ANC (manual) 5.58 K/uL (1.4-6.5); Dohle Bodies 1+; Lymphocytes # (manual) 3.59 K/uL (1.2-3.4); Lymphocytes % (manual) 33.3 %; Monocytes # (manual) 1.61 K/uL (0.11-0.59); Monocytes % (manual) 14.9 %; Neutrophils # (manual) 5.58 K/uL (1.4-6.5); Neutrophils % (manual) 51.8 %; Toxic Granulation 1+
[2020-11-26] MEDS ORDERED: SODIUM CHLORIDE 0.9% 250 ML IV PRN (16:04)
[2020-11-26 17:18] LABS: Ferritin 957.4 ng/ml (8-388)
[2020-11-26] MEDS ORDERED: POTASSIUM CHLORIDE CRTAB 20 MEQ TABCR PO SCH (21:00)
[2020-11-26] MEDS: MAGNESIUM OXIDE 400 MG TAB PO SCH (21:48)
--- NOTE | 2020-11-26 22:18 | Hospitalist Progress Note ---
Date of Service November 26, 2020 Assessment & Plan (1) Neutropenic typhlitis: CT a/p on 11/18 showed bowel wall thickening and with neutropenia, concern for typhlitis. - Restarted PO vanc on 11/20 as GI felt that she was worsening despite negative test. Dropped off on 11/22, but again, given negative test, I'm ok monitoring. Diarrhea has improved, so no need for vanc. - On regular diet and tolerating well. - Continue IV Zosyn while inpatient. - Per Rocio ID, need a total of 10 days. Plan to switch to Augmentin on discharge for end date of abx of 11/28/2020. Patient is doing well, however she remains tachycardic. Will give her blood as her hemoglobin has dropped to 7.5 obtained consent for transfusion. will monitor. will repeat CT scan of abd/pelvis on Saturday (2) Diarrhea: As above. - Stool culture from 11/18 was negative. - C. diff on 11/18 was negative. - Reports better today. Likely related to the typhlitis. She had 2 bowel movements today. will monitor her output. (3) Esophageal dysphagia: - Continue PPI PO BID - Consulted GI given history of stenosis. No plan for EGD presently. (4) Pancytopenia due to chemotherapy: - Neupogen 300 mcg SQ daily x 3 days (last dose on 11/20/2020) - Neutropenic precautions. - Discussed with Dr. Servin on 11/24 - Transfused 1 unit platelets on 11/22 for platelet count of 12k. No signs of bleeding at present. Platelets up to 23k on 11/23. Stable today. -transfused 1 PRBC on 11/26 (5) Non-small cell lung cancer with metastasis: Sees Dr. Servin. Severe protein-calorie malnutrition from the cancer and chemotherapy. Discussed with Dr. Servin on 11/22. Likely plan to stop carboplatin/pemetrexed; will only continue with pembrolizumab from here on out. - Follow up with them outpatient. (6) Unintentional weight loss: Due to cancer and chemotherapy. - Dietary consult placed -> She is drinking the peach protein shakes per her report and she feels she is putting on weight. (7) Ankylosing spondylitis: Some right lower back pain during this admission. - Holding her usual Humira. - Using lidocaine patch for pain which is working well. (8) COPD (chronic obstructive pulmonary disease): No current acute exacerbation. - Continue her usual Bevespi Aerosphere inhaler (or hospital formulary equivalent) (9) Depression: - Continue her usual Lexapro 10mg PO daily (10) DVT prophylaxis: SCDs - Holding heparin given low platelets (now < 50k). Admission and Anticipated Discharge Date Admission Date: November 18, 2020 Subjective Patient reports feeling weak, tired. Patient states she has abdominal pain and is requiring pain medications. Review of Systems Review of Systems: All systems reviewed & are unremarkable except as noted in HPI & below Physical Exam Physical Exam: Constitutional: well developed and + cachectic; no acute distress Eyes: PERRL, conjunctivae normal, anicteric sclerae ENMT: external ear and nose normal, oropharynx normal Neck: trachea midline Respiratory: normal respiratory effort, lungs clear to auscultation Cardiovascular: RRR, no murmur, no edema/ tenderness to soft palpation on left lower chest wall Gastrointestinal (Abdomen): Inspection/Auscultation: abdomen normal to inspection and normal bowel sounds Percussion/Palpation: + mildly tender on palpation and abdomen soft; no guarding and abdomen not rigid Musculoskeletal: no cyanosis or clubbing, extremities motor strength 5/5 Skin: no rashes, warm and dry Neurologic: awake; + does not move all extremities and not confused Speech / Cognition: normal speech Psychiatric: A+Ox3, euthymic affect Genitourinary: no CVA tenderness Results & Data Results & Data ([facility]) Vital Signs (Past 12 Hours) Vital Signs Temp Pulse Pulse Resp BP BP Pulse Ox 11/26/20 21:50 36.7 C 109 H 14 132/89 94 11/26/20 18:55 36.9 C 120 H 14 137/84 98 11/26/20 18:40 36.8 C 123 H 18 118/77 98 11/26/20 18:20 37 C 125 H 18 129/87 96 11/26/20 15:16 37.3 C 123 H 22 115/65 96 PG Care Time/CCT Total # of Minutes Spent Total Time Spent with Patient: Total time spent is greater than 50% in coordination of care (as documented) at patient's floor/unit and/or counseling patient: Coding Level of Care Code 98095 Subseq Hosp Care Lvl 3 Diagnoses Neutropenic typhlitis K37; D70.9 Diarrhea R19.7 Diarrhea type: presumed infectious Esophageal dysphagia R13.10 Pancytopenia due to chemotherapy D61.810 Non-small cell lung cancer with metastasis C34.90 Unintentional weight loss R63.4 Ankylosing spondylitis M45.9 Ankylosing spondylitis location: unspecified site of spine COPD (chronic obstructive pulmonary disease) J44.9 COPD type: unspecified COPD Depression F32.9 DVT prophylaxis Z29.9 Time Spent (min) 35 (1) Diarrhea Diarrhea type: presumed infectious Qualified Code(s): R19.7 - Diarrhea, unspecified (2) Ankylosing spondylitis Ankylosing spondylitis location: unspecified site of spine Qualified Code(s): M45.9 - Ankylosing spondylitis of unspecified sites in spine (3) COPD (chronic obstructive pulmonary disease) COPD type: unspecified COPD Qualified Code(s): J44.9 - Chronic obstructive pulmonary disease, unspecified
[2020-11-26 23:25] LABS: Mean Corpuscular Hemoglobin 32.1 pg (25-34); Mean Corpuscular Hgb Conc 34.6 g/dL (32-36); Mean Corpuscular Volume 92.9 fL (80-100); RDW Coefficient of Variation 17.1 % (11.5-14.5); RDW Standard Deviation 57.1 fL (36.4-46.3); White Blood Count 13.38 K/uL (4.8-10.8)
[2020-11-26 23:27] LABS: Mean Platelet Volume 10.2 fL (7.4-10.4); Platelet Count 40 K/uL (130-400)
[2020-11-26 23:45] LABS: Basophils # (auto) 0.03 K/uL (0-0.2); Basophils % (auto) 0.2 %; Dohle Bodies Occasional; Eosinophils # (auto) 0.04 K/uL (0-0.5); Eosinophils % (auto) 0.3 %; Immature Granulocytes # (auto) 0.94 K/uL (0.00-0.02); Lymphocytes # (auto) 3.05 K/uL (1.2-3.4); Lymphocytes % (auto) 22.8 %; Monocytes # (auto) 3.28 K/uL (0.11-0.59); Monocytes % (auto) 24.5 %; Neutrophils # (auto) 6.04 K/uL (1.4-6.5); Neutrophils % (auto) 45.2 %; Toxic Granulation 2+
[2020-11-27] MEDS: HEPARIN 100 UNIT/ML 5ML FLUSH FLUSH PRN ×3 (03:36→19:42)
[2020-11-27 06:28] LABS: Albumin Level 2.2 gm/dl (3.4-5.0); BUN Creatinine Ratio 10.9 (10-20); Calcium 8.9 mg/dl (8.5-10.1); Creatinine Clr Calc Pharmacy 70.9 ml/min; Est GFR (African American) 121.4; Est GFR (Non-African American) 104.8; Magnesium 1.4 mg/dl (1.8-2.4); Potassium 3.3 mmol/L (3.5-5.1)
[2020-11-27 06:30] LABS: Albumin Globulin Ratio 0.5 (0.9-2); Bilirubin,Total 0.4 mg/dl (0.2-1); Globulin 4.4 gm/dl (2.5-4.0); Total Protein 6.6 gm/dl (6.4-8.2)
[2020-11-27] MEDS: UMECLIDINIUM/VILANTEROL 62.5/25MCG 7 PUFFS/INHALER INH SCH (08:36)
[2020-11-27] MEDS: LACTOBACILLUS ACIDOPHILUS 1 GM PACK PO SCH ×3 (08:36→16:04)
[2020-11-27] MEDS: MAGNESIUM OXIDE 400 MG TAB PO SCH ×2 (08:36→21:34)
[2020-11-27] MEDS: POTASSIUM CHLORIDE CRTAB 20 MEQ TABCR PO SCH ×3 (08:36→21:02)
[2020-11-27] MEDS: NICOTINE 21 MG/24 HR TDSY TD SCH (08:41)
[2020-11-27] MEDS: ESCITALOPRAM OXALATE 10 MG TAB PO SCH (08:42)
[2020-11-27] MEDS: PANTOprazole 40 MG TAB PO SCH ×2 (08:42→21:01)
[2020-11-27] MEDS: FOLIC ACID 1 MG TAB PO SCH (08:42)
[2020-11-27] MEDS: MAGNESIUM SULFATE / D5W 1 GM/100 ML BAG IV SCH ×2 (08:43→11:20)
[2020-11-27] MEDS: CETIRIZINE HCL 10 MG TABLET PO SCH (08:43)
[2020-11-27] MEDS: PIPERACILLIN/TAZOBACTAM 4.5 GM in DEXTROSE 5% 100 ML IV SCH ×3 (08:43→23:53)
[2020-11-27] MEDS: LIDOCAINE 5% 1 PATCH TD SCH (08:44)
[2020-11-27] MEDS: HYDROmorphone INJ 0.5 MG/0.5 ML SYR IV PRN (08:56)
[2020-11-27] MEDS: ONDANSETRON INJ 2 MG/ML 2 ML VIAL IV PRN ×3 (08:56→19:42)
[2020-11-27] MEDS ORDERED: OPTIRAY 300 100mL IV ONE (11:10)
[2020-11-27] MEDS ORDERED: CYCLOBENZAPRINE HCL 10 MG TAB PO PRN (13:21)
--- NOTE | 2020-11-27 14:01 | CT Scan Report ---
CT SCAN OF THE ABDOMEN AND PELVIS WITH IV CONTRAST CLINICAL HISTORY: Lower abdominal pain. Typhlitis. COMPARISON STUDY: Abdominal CT dated 11/18/2020. TECHNIQUE: Following the IV administration of 88 cc of Optiray 300, CT scan of the abdomen and pelvi s is performed from the lung bases to the proximal femora. Images are reviewed in the axial, sagittal , and coronal planes. IV contrast was administered without complication. Oral contrast was utilized. A dose lowering technique was utilized adhering to the principles of ALARA. CT DOSE: 253.24 mGy.cm FINDINGS: Lung bases: The heart is normal in size and without pericardial effusion. Advanced and edematous brown ge is noted at the lung bases. There is bibasilar scarring/atelectasis. No airspace consolidation or pleural effusion is seen. There are punctate calcified granulomas. Liver: The contrast-enhanced liver is normal in size, contour, and attenuation. There is no intrahepa tic biliary ductal dilatation. The hepatic veins and portal veins are patent. Gallbladder: Partially contracted and grossly unremarkable. Spleen: Normal in size and attenuation. Pancreas: Unremarkable. Adrenal glands: Unremarkable. Kidneys: The contrast enhanced kidneys are normal in size and without hydronephrosis. The kidneys enh ance symmetrically. Abdominal vasculature: There is advanced atherosclerotic calcification and mild ectasia of the abdomi nal aorta. There is mild stenosis of the proximal superior mesenteric artery. Bowel: There is no bowel obstruction. Enteric contrast reaches the colon. There is no significant col onic wall thickening or pericolonic inflammation. The colon is filled with fluid. The appendix is no t identified and reported surgically absent. Peritoneum: There is no intraperitoneal free air or abdominal ascites. Lymphadenopathy: None. Pelvic viscera: The bladder is partially decompressed and appears mildly thick walled. The uterus is surgically absent. No adnexal lesion is seen. Skeletal structures: The skeletal structures are osteopenic. There is mild lumbosacral spondylosis. N o lytic or blastic lesions are seen. Soft tissues: The patient is cachectic. IMPRESSION: 1. The colon is filled with fluid. There is no significant colonic wall thickening or pericolonic inf iltration. Correlate clinically for evidence of a nonspecific enterocolitis. 2. There is no bowel obstruction. 3. Advanced emphysema. 4. Cachexia. 5. Additional findings as above. ACT 112: Negative or not required by law. Electronically signed by: Naga Bowden M.D. 11/27/2020 2:00 PM
[2020-11-27] MEDS ORDERED: CYCLOBENZAPRINE HCL 10 MG TAB PO ONE (19:30)
--- NOTE | 2020-11-27 22:09 | Hospitalist Progress Note ---
Date of Service November 27, 2020 Assessment & Plan (1) Neutropenic typhlitis: CT a/p on 11/18 showed bowel wall thickening and with neutropenia, concern for typhlitis. - Restarted PO vanc on 11/20 as GI felt that she was worsening despite negative test. Dropped off on 11/22, but again, given negative test, I'm ok monitoring. Diarrhea has improved, so no need for vanc. - On regular diet and tolerating well. - Continue IV Zosyn while inpatient. - Per Christieer ID, need a total of 10 days. Plan to switch to Augmentin on discharge for end date of abx of 11/28/2020. Patient is doing well, however she remains tachycardic. S/P [address] ABD/PELVIS will contnue abx. WILL STOP ON 11/28/20 (2) Diarrhea: As above. - Stool culture from 11/18 was negative. - C. diff on 11/18 was negative. - Reports better today. Likely related to the typhlitis. She had 1 bowel movements today. will monitor her output. (3) Esophageal dysphagia: - Continue PPI PO BID - Consulted GI given history of stenosis. No plan for EGD presently. (4) Pancytopenia due to chemotherapy: - Neupogen 300 mcg SQ daily x 3 days (last dose on 11/20/2020) - Neutropenic precautions. - Discussed with Dr. Servin on 11/24 - Transfused 1 unit platelets on 11/22 for platelet count of 12k. No signs of bleeding at present. Platelets up to 23k on 11/23. Stable today. -transfused 1 PRBC on 11/26 (5) Non-small cell lung cancer with metastasis: Sees Dr. Servin. Severe protein-calorie malnutrition from the cancer and chemotherapy. Discussed with Dr. Servin on 11/22. Likely plan to stop carboplatin/pemetrexed; will only continue with pembrolizumab from here on out. - Follow up with them outpatient. (6) Unintentional weight loss: Due to cancer and chemotherapy. - Dietary consult placed -> She is drinking the peach protein shakes per her report and she feels she is putting on weight. (7) Ankylosing spondylitis: Some right lower back pain during this admission. - Holding her usual Humira. - Using lidocaine patch for pain which is working well. (8) COPD (chronic obstructive pulmonary disease): No current acute exacerbation. - Continue her usual Bevespi Aerosphere inhaler (or hospital formulary equivalent) (9) Depression: - Continue her usual Lexapro 10mg PO daily (10) DVT prophylaxis: SCDs - Holding heparin given low platelets (now < 50k). Admission and Anticipated Discharge Date Admission Date: November 18, 2020 Subjective Patient reports her pain has improved. She continues to have diarrhea. She reports feeling much better after getting blood. Review of Systems Review of Systems: All systems reviewed & are unremarkable except as noted in HPI & below Physical Exam Physical Exam: Constitutional: well developed and + cachectic; no acute distress Eyes: PERRL, conjunctivae normal, anicteric sclerae ENMT: external ear and nose normal, oropharynx normal Neck: trachea midline Respiratory: normal respiratory effort, lungs clear to auscultation Cardiovascular: RRR, no murmur, no edema/ tenderness to soft palpation on left lower chest wall Gastrointestinal (Abdomen): Inspection/Auscultation: abdomen normal to inspection and normal bowel sounds Percussion/Palpation: + mildly tender on palpation and abdomen soft; no guarding and abdomen not rigid Musculoskeletal: no cyanosis or clubbing, extremities motor strength 5/5 Skin: no rashes, warm and dry Neurologic: awake; + does not move all extremities and not confused Speech / Cognition: normal speech Psychiatric: A+Ox3, euthymic affect Genitourinary: no CVA tenderness Results & Data Results & Data ([facility]) Vital Signs (Past 12 Hours) Vital Signs Temp Pulse Resp BP Pulse Ox 11/27/20 15:00 36.9 C 109 H 16 143/85 H 98 PG Care Time/CCT Total # of Minutes Spent Total Time Spent with Patient: Total time spent is greater than 50% in coordination of care (as documented) at patient's floor/unit and/or counseling patient: Coding Level of Care Code 51652 Subseq Hosp Care Lvl 3 Diagnoses Neutropenic typhlitis K37; D70.9 Diarrhea R19.7 Diarrhea type: presumed infectious Esophageal dysphagia R13.10 Pancytopenia due to chemotherapy D61.810 Non-small cell lung cancer with metastasis C34.90 Unintentional weight loss R63.4 Ankylosing spondylitis M45.9 Ankylosing spondylitis location: unspecified site of spine COPD (chronic obstructive pulmonary disease) J44.9 COPD type: unspecified COPD Depression F32.9 DVT prophylaxis Z29.9 Time Spent (min) 35 (1) Diarrhea Diarrhea type: presumed infectious Qualified Code(s): R19.7 - Diarrhea, unspecified (2) Ankylosing spondylitis Ankylosing spondylitis location: unspecified site of spine Qualified Code(s): M45.9 - Ankylosing spondylitis of unspecified sites in spine (3) COPD (chronic obstructive pulmonary disease) COPD type: unspecified COPD Qualified Code(s): J44.9 - Chronic obstructive pulmonary disease, unspecified
[2020-11-27] MEDS: oxyCODONE HCL IR 5 MG TAB (IMMEDIATE RELEASE) PO PRN (23:57)
[2020-11-28] MEDS: HEPARIN 100 UNIT/ML 5ML FLUSH FLUSH PRN ×3 (03:18→14:39)
[2020-11-28] MEDS: PIPERACILLIN/TAZOBACTAM 4.5 GM in DEXTROSE 5% 100 ML IV SCH (07:49)
[2020-11-28] MEDS: oxyCODONE HCL IR 5 MG TAB (IMMEDIATE RELEASE) PO PRN ×2 (07:49→12:28)
[2020-11-28] MEDS: PROCHLORPERAZINE MALEATE 10 MG TAB PO PRN (08:01)
[2020-11-28] MEDS: PANTOprazole 40 MG TAB PO SCH (08:33)
[2020-11-28] MEDS: LACTOBACILLUS ACIDOPHILUS 1 GM PACK PO SCH ×2 (08:33→12:23)
[2020-11-28] MEDS: CETIRIZINE HCL 10 MG TABLET PO SCH (08:33)
[2020-11-28] MEDS: POTASSIUM CHLORIDE CRTAB 20 MEQ TABCR PO SCH ×2 (08:33→14:10)
[2020-11-28] MEDS: FOLIC ACID 1 MG TAB PO SCH (08:33)
[2020-11-28] MEDS: NICOTINE 21 MG/24 HR TDSY TD SCH (08:34)
[2020-11-28] MEDS: ESCITALOPRAM OXALATE 10 MG TAB PO SCH (08:34)
[2020-11-28] MEDS: LIDOCAINE 5% 1 PATCH TD SCH (08:34)
[2020-11-28] MEDS: MAGNESIUM OXIDE 400 MG TAB PO SCH (08:34)
[2020-11-28 08:59] LABS: Albumin Level 2.3 gm/dl (3.4-5.0); Aspartate Aminotransferase 16 U/L (15-37); BUN Creatinine Ratio 9.7 (10-20); Blood Urea Nitrogen 6 mg/dl (7-18); Calcium 9.6 mg/dl (8.5-10.1); Carbon Dioxide 26 mmol/L (21-32); Chloride 105 mmol/L (98-107); Creatinine Clr Calc Pharmacy 61.8 ml/min; Est GFR (Non-African American) 100.1; Glucose 87 mg/dl (70-99); Magnesium 1.6 mg/dl (1.8-2.4); Sodium 138 mmol/L (136-145)
[2020-11-28 09:00] LABS: Hematocrit (blood only) 28.3 % (37-47); Hemoglobin 9.5 g/dL (12.0-16.0); Mean Corpuscular Hemoglobin 32.1 pg (25-34); Mean Corpuscular Hgb Conc 33.6 g/dL (32-36); Mean Corpuscular Volume 95.6 fL (80-100); Mean Platelet Volume 9.9 fL (7.4-10.4); Platelet Count 105 K/uL (130-400); RDW Coefficient of Variation 18.1 % (11.5-14.5); Red Blood Count 2.96 M/uL (4.2-5.4); White Blood Count 11.16 K/uL (4.8-10.8)
[2020-11-28 09:07] LABS: ALC (manual) 2.62 K/uL (1.2-3.4); ANC (manual) 7.09 K/uL (1.4-6.5); Lymphocytes # (manual) 2.62 K/uL (1.2-3.4); Lymphocytes % (manual) 23.5 %; Metamyelocytes # (manual) 0.19 K/uL (0-0); Metamyelocytes % (manual) 1.7 %; Monocytes # (manual) 1.26 K/uL (0.11-0.59); Monocytes % (manual) 11.3 %; Neutrophils # (manual) 7.09 K/uL (1.4-6.5); Neutrophils % (manual) 63.5 %; Rouleaux 1+; Toxic Granulation 1+
[2020-11-28] MEDS: UMECLIDINIUM/VILANTEROL 62.5/25MCG 7 PUFFS/INHALER INH SCH (09:09)
[2020-11-28 09:12] LABS: Alanine Aminotransferase 20 U/L (12-78); Alkaline Phosphatase 59 U/L (45-117); Bilirubin Direct < 0.1 mg/dl (0-0.2); Bilirubin,Total 0.3 mg/dl (0.2-1); Phosphorus 3.3 mg/dl (2.5-4.9); Total Protein 7.2 gm/dl (6.4-8.2)
--- NOTE | 2020-12-04 21:17 | Discharge Summary ---
Date of Service November 28, 2020 Admission HPI Per Admitting Provider Anat Hoang is a 55-year-old female with stage IV non-small cell lung cancer who [facility] due to poor oral intake over the last week, ongoing watery diarrhea (since starting chemotherapy), weight loss and generalized abdominal pain. She recently underwent CT A/P 3 days ago showed a non-specific pancolitis. Suspected possibly secondary to Pembrolizumab which she resumed on 10/20/20 with cycle 4 and she was treated with a course of steroids after this did not make a significant difference. She has had her multiple outpatient IV fluid infusions to maintain her hydration. Prior workup for diarrhea with c. diff and stool cultures negative. She notably underwent EGD by Dr ramos in August that showed esophageal stenosis and was dilated at that time. Principal Diagnosis neutropenic thyphlitis Discharge Exam Constitutional: well developed and + cachectic; no acute distress Eyes: PERRL, conjunctivae normal, anicteric sclerae ENMT: external ear and nose normal, oropharynx normal Neck: trachea midline Respiratory: normal respiratory effort, lungs clear to auscultation Cardiovascular: RRR, no murmur, no edema/ tenderness to soft palpation on left lower chest wall Gastrointestinal (Abdomen): Inspection/Auscultation: abdomen normal to inspection and normal bowel sounds Percussion/Palpation: nontender on palpation and abdomen soft; no guarding and abdomen not rigid Musculoskeletal: no cyanosis or clubbing, extremities motor strength 5/5 Skin: no rashes, warm and dry Neurologic: awake; + does not move all extremities and not confused Speech / Cognition: normal speech Psychiatric: A+Ox3, euthymic affect Genitourinary: no CVA tenderness Discharge Data Allergies Allergy/AdvReac Type Severity Reaction Status Date / Time hornet venom Allergy Severe Anaphylaxis Verified 11/30/20 14:13 mold Allergy Severe Sinus Verified 11/30/20 14:13 swelling sulfasalazine Allergy Severe Rash, Verified 11/30/20 14:13 swelling, dyspnea codeine Allergy Mild Pruritus Verified 11/30/20 14:13 house dust Allergy Unknown Dry Eye Verified 11/30/20 14:13 Consultations 11/18/20 15:16 Consult Gastroenterology Routine 11/22/20 13:09 Consult Infectious Diseases Routine Ordered Studies 11/18/20 12:56 CT abd pelvis IV con only Urgent 11/27/20 10:42 CT abd pelvis oral and IV con Urgent Hospital Course (1) Neutropenic typhlitis: CT a/p on 11/18 showed bowel wall thickening and with neutropenia, concern for typhlitis. - Restarted PO vanc on 11/20 as GI felt that she was worsening despite negative test. Dropped off on 11/22, but again, given negative test, I'm ok monitoring. Diarrhea has improved, so no need for vanc. - On regular diet and tolerating well. - Continue IV Zosyn while inpatient completed course as per Rocio ID. Patient is doing well. S/P [address] ABD/PELVIS: no signs of inflammation (2) Diarrhea: As above. - Stool culture from 11/18 was negative. - C. diff on 11/18 was negative. - Reports better today. Likely related to the typhlitis. She had 1 bowel movements today. will monitor her output. (3) Esophageal dysphagia: - Continue PPI PO BID - Consulted GI given history of stenosis. No plan for EGD presently. (4) Pancytopenia due to chemotherapy: - Neupogen 300 mcg SQ daily x 3 days (last dose on 11/20/2020) - Neutropenic precautions. - Discussed with Dr. Servin on 11/24 - Transfused 1 unit platelets on 11/22 for platelet count of 12k. No signs of bleeding at present. Platelets up to 23k on 11/23. Stable today. -transfused 1 PRBC on 11/26 (5) Non-small cell lung cancer with metastasis: Sees Dr. Servin. Severe protein-calorie malnutrition from the cancer and chemotherapy. Discussed with Dr. Servin on 11/22. Likely plan to stop carboplatin/pemetrexed; will only continue with pembrolizumab from here on out. - Follow up with them outpatient. (6) Unintentional weight loss: Due to cancer and chemotherapy. - Dietary consult placed -> She is drinking the peach protein shakes per her report and she feels she is putting on weight. (7) Ankylosing spondylitis: Some right lower back pain during this admission. - Holding her usual Humira. - Using lidocaine patch for pain which is working well. (8) COPD (chronic obstructive pulmonary disease): No current acute exacerbation. - Continue her usual Bevespi Aerosphere inhaler (or hospital formulary equivalent) (9) Depression: - Continue her usual Lexapro 10mg PO daily (10) DVT prophylaxis: SCDs - Holding heparin given low platelets (now < 50k). Total Time Total Time Spent Total Time Spent (In Minutes): 32 Total Time Includes: Examination of the Patient, Discharge Planning and Medication Reconciliation Discharge Plan Discharge Items Patient Disposition: Home - Home Health Services Reason For Visit: CANCER RELATED PAIN, FAILURE TO THRIVE Discharge Diagnosis: Intestinal infection from low immune system Activity: Resume your previous activity Non-emergency contact: Primary Care Provider and Oncologist Call non-emergency contact if: your symptoms worsen and your temperature is above 101 Follow-up/Referrals: Tani Ramos DO [Physician] - 12/07/20 1:20 pm (Ericka Batista PA-C) Thai Bills III, MD [Primary Care Provider] - Aneudy Servin DO [Physician] - 12/01/20 10:10 am (Please see Dr. Servin next week.) Diet: Regular Addtl Attending Provider Instructions: Ms. Costa, You were admitted to the hospital with stomach pain and weakness. We found that you had an intestinal infection that was due to your weakened immune system. You COMPLETED your antibiotic course. Please disregard the augmentin that was sent to the pharmacy. As your system recovers, you are feeling better, and your diarrhea seems to be improving. Please see Dr. Servin in the office next week to check on your electrolytes and to see how you are feeling. We are also starting a small potassium supplement for you because you seem to be having trouble keeping your potassium up. Dr. Servin can check this in the office next week to be sure it is staying stable. Finally, we sent some pain medication, lidocaine patches, and nausea medication to the pharmacy to help you feel a bit better. Pending Studies at Discharge: No Stand-Alone Forms: [employer], Smoking Cessation Medications and DC Order Prescriptions: New oxycodone 5 mg Tablet 5 mg PO Q4H PRN (Reason: pain) Qty: 20 RF: 0 prochlorperazine maleate 10 mg Tablet 10 mg PO Q6H PRN (Reason: nausea and vomiting) Qty: 30 RF: 0 lidocaine 5 % Adhesive Patch,Medicated 1 patch transdermal QAM PRN (Reason: hip pain) Qty: 30 RF: 0 potassium chloride 20 mEq tablet extended release 20 meq PO DAILY Qty: 30 RF: 0 Continued ipratropium-albuterol 0.5 mg-3 mg(2.5 mg base)/3 mL solution for nebulization 3 ml INH QID PRN (Reason: wheezing) Qty: 90 RF: 5 Emgality Pen 120 mg/mL pen injector 120 mg subcut MONTHLY 90 Days Qty: 3 RF: 1 Bevespi Aerosphere 9-4.8 mcg HFA aerosol inhaler 2 puff inhalation BID Qty: 10.7 RF: 2 epinephrine 0.3 mg/0.3 mL auto-injector 0.3 mg IM Q10M PRN (Reason: anaphylaxis) Qty: 1 RF: 3 Humira 40 mg/0.8 mL syringe kit 40 mg SQ Q14D RF: 0 Hold Instructions: pt holding bc of insurance rizatriptan 10 mg tablet 10 mg PO .COMPLEX PRN (Reason: migraine headache) Qty: 9 RF: 5 famotidine 20 mg tablet 20 mg PO QAM RF: 0 albuterol sulfate 90 mcg/actuation HFA aerosol inhaler 2 puff inhalation BID Qty: 18 RF: 5 folic acid 1 mg Tablet 1 mg PO QAM RF: 0 pantoprazole 40 mg tablet,delayed release (DR/EC) 40 mg PO QAM RF: 0 cetirizine 10 mg tablet 10 mg PO QAM RF: 0 cranberry 500 mg Capsule 1,000 mg PO QAM RF: 0 nystatin 100,000 unit/mL suspension 5 ml PO QID PRN (Reason: Mouth Irritation) RF: 0 ondansetron 4 mg tablet,disintegrating 4 mg PO Q8H PRN (Reason: nausea and vomiting) Qty: 30 RF: 0 Discontinued potassium 99 mg tablet 0 mg PO BID RF: 0 No Action diphenoxylate-atropine 2.5-0.025 mg tablet 1 tab PO QID PRNRF: 0 escitalopram oxalate 10 mg tablet 10 mg PO DAILY Qty: 90 RF: 3 cyclobenzaprine 10 mg tablet 10 mg PO PM Qty: 90 RF: 1 Discharge Orders: Discharge Order (Routine); Ordered 11/28/20 Ordered By: Aquiles Mckeon Admission Data Admit Date/Time: 11/18/20 12:41 Attending Provider: Aquiles Mckeon Admit Provider: Marcus Alvarado Primary Care Provider: Thai Bills III Other Providers: Tani Ramos ; Huang Oviedo ; Dominick Reyna ; Stephan Jaime I. ; Harvey Matute II ; Francy Jones ; Taras Corona Other Interventions: Discharge Summary Assessment (RN) Last Done: 11/28/20 14:50 Coding Level of Care Code D/C Day Management >30 mins Diagnoses Neutropenic typhlitis K37; D70.9 Diarrhea R19.7 Diarrhea type: presumed infectious Esophageal dysphagia R13.10 Pancytopenia due to chemotherapy D61.810 Non-small cell lung cancer with metastasis C34.90 Unintentional weight loss R63.4 Ankylosing spondylitis M45.9 Ankylosing spondylitis location: unspecified site of spine COPD (chronic obstructive pulmonary disease) J44.9 COPD type: unspecified COPD Depression F32.9 DVT prophylaxis Z29.9
== END 2020-11-28 15:02 | disposition home or self-care (01) | DRG 393 ==
LOC: 2W 12:41 → SUATTDRO 12:41 → 3E 11-19 23:56

== ENCOUNTER 2020-12-12 11:57 | Observation (INO) ==
[2020-12-12] MEDS ORDERED: SODIUM CHLORIDE 0.9% 1000ML 1,000 ML IV SCH (13:00)
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
[2020-12-12 13:57] LABS: Basophils # (auto) 0.04 K/uL (0-0.2); Basophils % (auto) 0.5 %; Eosinophils # (auto) 0.05 K/uL (0-0.5); Eosinophils % (auto) 0.7 %; Hematocrit (blood only) 32.1 % (37-47); Hemoglobin 10.9 g/dL (12.0-16.0); Immature Granulocytes # (auto) 0.12 K/uL (0.00-0.02); Immature Granulocytes % (auto) 1.6 %; Lymphocytes # (auto) 1.84 K/uL (1.2-3.4); Lymphocytes % (auto) 24.3 %; Mean Corpuscular Hemoglobin 32.4 pg (25-34); Mean Corpuscular Volume 95.5 fL (80-100); Mean Platelet Volume 8.8 fL (7.4-10.4); Monocytes # (auto) 1.38 K/uL (0.11-0.59); Monocytes % (auto) 18.3 %; Neutrophils # (auto) 4.13 K/uL (1.4-6.5); Neutrophils % (auto) 54.6 %; Platelet Count 413 K/uL (130-400); RDW Coefficient of Variation 18.6 % (11.5-14.5); RDW Standard Deviation 64.5 fL (36.4-46.3); Red Blood Count 3.36 M/uL (4.2-5.4); White Blood Count 7.56 K/uL (4.8-10.8)
--- NOTE | 2020-12-12 14:03 | XRay Report ---
SINGLE VIEW CHEST CLINICAL HISTORY: Seizure. FINDINGS: An AP, portable, upright chest radiograph is compared to chest x-ray and chest CT dated 10/21. The examination is degraded by portable technique and patient rotation. A left-sided central venous infusion port is unchanged in position. The cardiomediastinal silhouette is unremarkable notin g atherosclerotic calcification of the thoracic aorta. Emphysema and chronic interstitial thickening are again noted. Scarlike densities in the right midlung are unchanged from previous. No airspace con solidation or large pleural effusion is identified. No pneumothorax is seen. The skeletal structures are osteopenic. Chronic deformity of the right scapula is unchanged. IMPRESSION: Emphysema and chronic parenchymal changes as above with no acute cardiopulmonary abnormal ity identified. ACT 112: Negative or not required by law. Electronically signed by: Naga Bowden M.D. 12/12/2020 2:02 PM
[2020-12-12 14:07] LABS: Appearance Urine Clear (Clear); Bacteria Urine Automated Negative (Negative); Bilirubin Urine Negative (Negative); Blood Urine Negative (Negative); Color Urine Yellow; Epithelial Cell Urine Auto >30 /lpf (0-5); Glucose Urine UA Negative (Negative); Ketones Urine Negative (Negative); Leukocyte Esterase Urine Negative (Negative); Nitrite Urine Negative (Negative); Protein Urine Trace (Negative); RBC Urine Automated 0-4 /hpf (0-4); Specific Gravity Urine 1.024 (1.000-1.030); Urobilinogen Urine Negative (Negative); pH Urine 5.5 (4.5-7.5)
[2020-12-12 14:14] LABS: Alanine Aminotransferase 18 U/L (12-78); Albumin Level 2.8 gm/dl (3.4-5.0); Aspartate Aminotransferase 22 U/L (15-37); BUN Creatinine Ratio 17.2 (10-20); Blood Urea Nitrogen 15 mg/dl (7-18); Calcium 9.5 mg/dl (8.5-10.1); Carbon Dioxide 23 mmol/L (21-32); Chloride 106 mmol/L (98-107); Est GFR (African American) 82.3 ml/min; Glucose 101 mg/dl (70-99); Magnesium 1.7 mg/dl (1.8-2.4); Potassium 2.8 mmol/L (3.5-5.1); Sodium 138 mmol/L (136-145)
[2020-12-12 14:25] LABS: Albumin Globulin Ratio 0.6 (0.9-2); Alkaline Phosphatase 89 U/L (45-117); Bilirubin,Total 0.2 mg/dl (0.2-1); Globulin 4.6 gm/dl (2.5-4.0); Thyroid Stimulating Hormone 0.999 uIu/ml (0.300-4.500); Total Protein 7.4 gm/dl (6.4-8.2); Troponin I < 0.015 ng/ml (0-0.045)
--- NOTE | 2020-12-12 14:34 | CT Scan Report ---
CT head/brain wo con CLINICAL HISTORY: Possible seizure LUNG CARCINOMA COMPARISON STUDY: MRI the brain dated 12/29/2013 TECHNIQUE: Axial CT of the brain is performed from the vertex to the skull base. IV contrast was not administered for this examination. A dose lowering technique was utilized adhering to the principles of ALARA. CT DOSE: 537.48 mGy.cm FINDINGS: No intra or extra-axial mass lesions are visualized. There is no CT evidence of acute cortical infarc tion. There is no evidence of midline shift. There is no acute hemorrhage. No calvarial fractures ar e visualized. There is no evidence of pathologic ventricular dilatation. There is no evidence of acute sinusitis IMPRESSION: 1. No acute intracranial findings 2. An MRI could be obtained in follow-up as deemed clinically appropriate, to evaluate for a lesion o ccult on CT scanning, given the history of lung carcinoma. ACT 112: Negative or not required by law. Electronically signed by: Brian Melendrez M.D. 12/12/2020 2:33 PM
[2020-12-12] MEDS ORDERED: POTASSIUM CHLORIDE / WTR 10 MEQ/100 ML PLCT IV ONE (14:43)
[2020-12-12] MEDS ORDERED: MAGNESIUM SULFATE / D5W 1 GM/100 ML BAG IV STA (14:43)
--- NOTE | 2020-12-12 14:46 | Electrocardiogram Report ---
Test Reason : Blood Pressure : / mmHG Vent. Rate : 108 BPM Atrial Rate : 108 BPM P-R Int : 138 ms QRS Dur : 084 ms QT Int : 358 ms P-R-T Axes : 086 040 073 degrees QTc Int : 479 ms Sinus tachycardia with Premature atrial complexes Otherwise normal ECG When compared with ECG of 21-NOV-2020 08:15, Premature atrial complexes are now Present Confirmed by Regulo Denis [id number]) on 12/12/2020 2:45:51 PM Referred By: REFERRED SELF Confirmed By:Regulo Denis
[2020-12-12] MEDS ORDERED: SODIUM CHLORIDE 0.9% 1000ML 500 ML IV ONE (15:23)
[2020-12-12] MEDS ORDERED: LIDOCAINE 5% 1 PATCH TD PRN (21:29)
[2020-12-12] MEDS ORDERED: ALBUT/IPRATROP 3MG/0.5MG NEB 3 ML VIAL INH PRN (21:29)
[2020-12-12] MEDS ORDERED: ONDANSETRON 4 MG OD TAB PO PRN (21:29)
[2020-12-12] MEDS ORDERED: RIZATRIPTAN BENZOATE 10 MG TAB PO PRN (21:29)
[2020-12-12] MEDS ORDERED: ONDANSETRON INJ 2 MG/ML 2 ML VIAL IV PRN (21:29)
[2020-12-12] MEDS ORDERED: DIPHENOXYLATE/ATROPINE 2.5/0.025MG TAB PO PRN (21:29)
[2020-12-12] MEDS ORDERED: PROCHLORPERAZINE MALEATE 10 MG TAB PO PRN (21:29)
[2020-12-12] MEDS ORDERED: EPINEPHrine ADULT AUTO-INJECT 0.3 MG SYR IM PRN (21:29)
[2020-12-12] MEDS ORDERED: ACETAMINOPHEN 325 MG TAB PO PRN (21:29)
[2020-12-12] MEDS ORDERED: NON-FORMULARY MEDICATION (Galcanezumab-Gnlm [Emgality Pen] 120 mg/mL pen injector) SQ SCH (21:29)
[2020-12-12] MEDS: SODIUM CHLORIDE 0.9% 1000ML 1,000 ML IV SCH (22:16)
[2020-12-12] MEDS: CYCLOBENZAPRINE HCL 10 MG TAB PO SCH (22:17)
[2020-12-12] MEDS: PANTOprazole 40 MG TAB PO SCH (22:18)
[2020-12-13 07:31] LABS: Basophils # (auto) 0.02 K/uL (0-0.2); Basophils % (auto) 0.3 %; Eosinophils # (auto) 0.13 K/uL (0-0.5); Hematocrit (blood only) 26.9 % (37-47); Hemoglobin 9.1 g/dL (12.0-16.0); Immature Granulocytes # (auto) 0.09 K/uL (0.00-0.02); Immature Granulocytes % (auto) 1.4 %; Lymphocytes % (auto) 42.5 %; Mean Corpuscular Hemoglobin 32.6 pg (25-34); Mean Corpuscular Hgb Conc 33.8 g/dL (32-36); Mean Corpuscular Volume 96.4 fL (80-100); Mean Platelet Volume 8.6 fL (7.4-10.4); Monocytes # (auto) 1.03 K/uL (0.11-0.59); Monocytes % (auto) 15.6 %; Neutrophils # (auto) 2.52 K/uL (1.4-6.5); Neutrophils % (auto) 38.2 %; Platelet Count 373 K/uL (130-400); RDW Coefficient of Variation 18.4 % (11.5-14.5); RDW Standard Deviation 65.2 fL (36.4-46.3); Red Blood Count 2.79 M/uL (4.2-5.4); White Blood Count 6.59 K/uL (4.8-10.8)
[2020-12-13 07:55] LABS: Albumin Level 2.2 gm/dl (3.4-5.0); BUN Creatinine Ratio 23.8 (10-20); Calcium 8.2 mg/dl (8.5-10.1); Est GFR (African American) 124.5 ml/min; Est GFR (Non-African American) 107.4 ml/min; Potassium 2.8 mmol/L (3.5-5.1)
[2020-12-13 08:08] LABS: Albumin Globulin Ratio 0.6 (0.9-2); Bilirubin,Total 0.3 mg/dl (0.2-1); Globulin 3.8 gm/dl (2.5-4.0)
[2020-12-13] MEDS: SODIUM CHLORIDE 0.9% 1000ML 1,000 ML IV SCH (08:34)
[2020-12-13] MEDS: FAMOTIDINE 20 MG TAB PO SCH (08:36)
[2020-12-13] MEDS: CETIRIZINE HCL 10 MG TABLET PO SCH (08:36)
[2020-12-13] MEDS: FOLIC ACID 1 MG TAB PO SCH (08:36)
[2020-12-13] MEDS: PANTOprazole 40 MG TAB PO SCH ×2 (08:36→20:14)
[2020-12-13] MEDS: ESCITALOPRAM OXALATE 10 MG TAB PO SCH (08:36)
[2020-12-13] MEDS: UMECLIDINIUM/VILANTEROL 62.5/25MCG 7 PUFFS/INHALER INH SCH (08:37)
[2020-12-13] MEDS ORDERED: POTASSIUM CHLORIDE CRTAB 20 MEQ TABCR PO SCH (09:00)
[2020-12-13] MEDS ORDERED: NON-FORMULARY MEDICATION (Cranberry 500 mg Capsule) PO SCH (09:00)
[2020-12-13] MEDS ORDERED: POTASSIUM CHLORIDE / WTR 20 MEQ/100 ML PLCT IV ONE (12:06)
[2020-12-13] MEDS: NICOTINE 14 MG/24 HR PATCH TD SCH (12:12)
[2020-12-13] MEDS: POTASSIUM CHLORIDE 40 MEQ in SODIUM CHLORIDE 0.9% 1000ML 1,000 ML IV SCH (12:12)
[2020-12-13] MEDS: THIAMINE HCL 100 MG TAB PO SCH (12:13)
[2020-12-13] MEDS: POTASSIUM CHLORIDE 10 MEQ TABCR PO SCH ×2 (14:22→20:15)
[2020-12-13] MEDS: DIPHENOXYLATE/ATROPINE 2.5/0.025MG TAB PO PRN (14:22)
[2020-12-13] MEDS ORDERED: oxyCODONE HCL IR 5 MG TAB (IMMEDIATE RELEASE) PO PRN (17:59)
[2020-12-13] MEDS: CYCLOBENZAPRINE HCL 10 MG TAB PO SCH (20:14)
[2020-12-13] MEDS ORDERED: MoRPHine SULFATE 4 MG/ML 1 ML CARP\\VIAL IV PRN (21:05)
[2020-12-13] MEDS ORDERED: MoRPHine SULFATE 2 MG/ML CARP IV PRN (21:05)
[2020-12-13] MEDS ORDERED: ACETAMINOPHEN 500 MG TAB PO PRN (21:06)
--- NOTE | 2020-12-13 23:46 | Hospitalist Progress Note ---
Date of Service December 13, 2020 Assessment & Plan (1) Orthostasis: will try adding Florinef 0.1mg qAM try to increase sodium intake follow vitals tomorrow AM (2) Near syncope: likely from volume depletion from excessive diarrhea poor nutritional status orthostatic changes feeling much better now, no near falls (3) Hypomagnesemia: replaced in the ED, now stable (4) Neutropenic typhlitis: ongoing issue, follows with [facility] did not respond to steroids so will not try them use Lomotil PRN, can use up to 8 times a day she admits that it makes stools more consisent (5) Non-small cell lung cancer metastatic to bone: all treatment on hold due to nutritional status (6) COPD (chronic obstructive pulmonary disease): no distress, diminished breath sounds overall (7) Diarrhea: due to typhlitis Lomotil PRN (8) Hypokalemia: low at 2.8 will add 40mEq to IV fluids, give 20mEq via port, add 10mEq PO TID repeat level in the morning Admission and Anticipated Discharge Date Admission Date: December 12, 2020 Subjective patient doing a little better today, says she is eating more still with diarrhea, has gone several times today reviewed outpatient notes from GI, diagnosed with neutropenic tephlitis, prescribed Lomotil for symptoms discussed with patient she can take every 3 hours as needed reviewed labs, K low at 2.8, Cr stable, albumin low at 2.2 WBC normal, Hb 9.1, plts 373k she admits that things have been more difficult recently, she has not been able to get treatment for her cancer due to poor nutritional status she does not have much quality of life with being on the toilet all the time she has constant pain, needs Oxycodone she admits that she has thought "just screw it" on several occasions she really wants to go home at this time, told her that K is too low, need to get labs tomorrow, she understands Review of Systems Review of Systems: All systems reviewed & are unremarkable except as noted in Subjective Constitutional: + fatigue and + weakness; no fever Respiratory: + dyspnea on exertion; no cough and no dyspnea Cardiovascular: no chest pain, no palpitations, no syncope and no edema Gastrointestinal: + abdominal pain and + diarrhea/loose stools; no nausea, no vomiting, no constipation and no blood in stools Physical Exam Constitutional: well developed, + thin and + frail appearing; no acute distress Neck: trachea midline, no thyromegaly Respiratory: normal respiratory effort, lungs clear to auscultation Cardiovascular: RRR, no murmur, no edema Gastrointestinal (Abdomen): normal bowel sounds, soft, nontender, no hepatosplenomegaly Musculoskeletal: no cyanosis or clubbing, extremities motor strength 5/5 Skin: no rashes, warm and dry Neurologic: patellar DTR's 2+ bilat, sensation intact and PERRL, EOMI, accommodation nl, no face palsy, no dysarthria Psychiatric: A+Ox3, euthymic affect Lymphatic: no cervical or axillary lymphadenopathy Results & Data Results & Data ([facility]) Vital Signs (Past 12 Hours) Vital Signs Temp Pulse Resp BP Pulse Ox 12/13/20 22:57 36.6 C 97 H 19 112/73 99 12/13/20 19:05 36.5 C 98 H 18 116/74 99 12/13/20 16:37 36.6 C 102 H 18 112/62 96 12/13/20 11:46 37.2 C 82 18 121/63 98 Laboratory Results Laboratory Results - last 24 hr 12/13/20 12/13/20 06:47 06:47 WBC 6.59 RBC 2.79 L Hgb 9.1 L Hct 26.9 L MCV 96.4 MCH 32.6 MCHC 33.8 RDW Std Deviation 65.2 H RDW Coeff of Caleb 18.4 H Plt Count 373 MPV 8.6 Immature Gran % (Auto) 1.4 Neut % (Auto) 38.2 Lymph % (Auto) 42.5 [place] % (Auto) 15.6 Eos % (Auto) 2.0 Baso % (Auto) 0.3 Neut # (Auto) 2.52 Lymph # (Auto) 2.80 [place] # (Auto) 1.03 H Eos # (Auto) 0.13 Baso # (Auto) 0.02 Immature Gran # (Auto) 0.09 H Sodium 142 Potassium 2.8 L Chloride 112 H Carbon Dioxide 23 Anion Gap 7.0 BUN 12 Creatinine 0.50 L D Est Cr Clr Drug Dosing 127.0 Est GFR ( Amer) 124.5 Est GFR (Non-Af Amer) 107.4 BUN/Creatinine Ratio 23.8 H Glucose 72 Calcium 8.2 L Magnesium 2.0 Total Bilirubin 0.3 AST 23 ALT 15 Alkaline Phosphatase 70 Total Protein 6.0 L Albumin 2.2 L Globulin 3.8 Albumin/Globulin Ratio 0.6 L Medications Administered Current Inpatient Medications Acetaminophen (Acetaminophen 500 Mg Tab) 1,000 mg PO Q8H PRN PRN Reason: Pain or Fever Stop: 01/11/21 21:28 Albuterol (Albut/Ipratrop 3mg/0.5mg Neb 3 Ml Vial) 3 ml INH QID PRN PRN Reason: wheezing Stop: 01/11/21 21:28 Cetirizine HCl (Cetirizine Hcl 10 Mg Tablet) 10 mg PO QAM [facility] Stop: 01/12/21 08:59 Last Admin: 12/13/20 08:36 Dose: 10 mg Documented by: Cyclobenzaprine HCl (Cyclobenzaprine Hcl 10 Mg Tab) 10 mg PO PM [facility] Stop: 01/11/21 21:28 Last Admin: 12/13/20 20:14 Dose: 10 mg Documented by: Diphenoxylate HCl/Atropine (Diphenoxylate/Atropine 2.5/0.025mg Tab) 1 tab PO Q3H PRN PRN Reason: diarrhea Stop: 01/11/21 21:28 Last Admin: 12/13/20 14:22 Dose: 1 tab Documented by: Escitalopram Oxalate (Escitalopram Oxalate 10 Mg Tab) 10 mg PO DAILY [facility] Stop: 01/12/21 08:59 Last Admin: 12/13/20 08:36 Dose: 10 mg Documented by: Famotidine (Famotidine 20 Mg Tab) 20 mg PO QAM [facility] Stop: 01/12/21 08:59 Last Admin: 12/13/20 08:36 Dose: 20 mg Documented by: Folic Acid (Folic Acid 1 Mg Tab) 1 mg PO QAM [facility] Stop: 01/12/21 08:59 Last Admin: 12/13/20 08:36 Dose: 1 mg Documented by: Potassium Chloride 40 meq/ (Sodium Chloride) 1,020 mls @ 80 mls/hr IV .[id number] [facility] Stop: 01/12/21 11:59 Last Admin: 12/13/20 12:12 Dose: 80 mls/hr Documented by: Lidocaine (Lidocaine 5% 1 Patch) 1 patch TD QAM PRN PRN Reason: hip pain Stop: 01/11/21 21:28 Miscellaneous (Remove Lidoderm Patch) 1 ea N/A DAILY@2100 [facility] Stop: 01/11/21 21:28 Last Admin: 12/13/20 21:28 Dose: Not Given Documented by: Miscellaneous (Remove Nicoderm Patch) 1 ea N/A DAILY@0859 [facility] Stop: 01/13/21 08:58 Morphine Sulfate (Morphine Sulfate 2 Mg/Ml Carp) 2 mg IV Q3H PRN PRN Reason: Pain (1,2,3,4,5) & Pre PT Stop: 12/27/20 21:04 Last Admin: 12/13/20 21:25 Dose: 2 mg Documented by: Morphine Sulfate (Morphine Sulfate 4 Mg/Ml 1 Ml Carp\\Vial) 4 mg IV Q3H PRN PRN Reason: Pain (6,7,8,9,10) Stop: 12/27/20 21:04 Nicotine (Nicotine 14 Mg/24 Hr Patch) 14 mg TD QAM [facility] Stop: 01/12/21 11:59 Last Admin: 12/13/20 12:12 Dose: 14 mg Documented by: Ondansetron HCl (Ondansetron 4 Mg Od Tab) 4 mg PO Q8H PRN PRN Reason: nausea and vomiting Stop: 01/11/21 21:28 Ondansetron HCl (Ondansetron Inj 2 Mg/Ml 2 Ml Vial) 4 mg IV Q6H PRN PRN Reason: Nausea Stop: 01/11/21 21:28 Last Admin: 12/13/20 17:37 Dose: 4 mg Documented by: Oxycodone HCl (Oxycodone Hcl Ir 5 Mg Tab (Immediate Release)) 5 mg PO Q6H PRN PRN Reason: Pain Stop: 12/27/20 17:58 Last Admin: 12/13/20 20:12 Dose: 5 mg Documented by: Pantoprazole Sodium (Pantoprazole 40 Mg Tab) 40 mg PO BID [facility] Stop: 01/11/21 21:28 Last Admin: 12/13/20 20:14 Dose: 40 mg Documented by: Potassium Chloride (Potassium Chloride 10 Meq Tabcr) 10 meq PO TID [facility] Stop: 01/12/21 13:59 Last Admin: 12/13/20 20:15 Dose: 10 meq Documented by: Prochlorperazine (Prochlorperazine Maleate 10 Mg Tab) 10 mg PO Q6H PRN PRN Reason: nausea and vomiting Stop: 01/11/21 21:28 Rizatriptan Benzoate (Rizatriptan Benzoate 10 Mg Tab) 10 mg PO UD PRN PRN Reason: migraine headache Stop: 01/11/21 21:28 Thiamine HCl (Thiamine Hcl 100 Mg Tab) 100 mg PO QAM [facility] Stop: 01/12/21 11:44 Last Admin: 12/13/20 12:13 Dose: 100 mg Documented by: Umeclidinium/Vilanterol (Umeclidinium/Vilanterol 62.5/25mcg 7 Puffs/Inhaler) 1 puffs INH DAILY [facility] Stop: 01/12/21 08:59 Last Admin: 12/13/20 08:37 Dose: 1 puffs Documented by: PG Care Time/CCT Total # of Minutes Spent Total Time Spent with Patient: Total time spent is greater than 50% in coordination of care (as documented) at patient's floor/unit and/or counseling patient: Coding Level of Care Code 60712 Subseq Hosp Care Lvl 3 Diagnoses Orthostasis I95.1 Near syncope R55 Hypomagnesemia E83.42 Neutropenic typhlitis K37; D70.9 Non-small cell lung cancer metastatic to bone C34.90; C79.51 COPD (chronic obstructive pulmonary disease) J44.9 COPD type: unspecified COPD Diarrhea R19.7 Diarrhea type: presumed infectious Hypokalemia E87.6 (1) COPD (chronic obstructive pulmonary disease) COPD type: unspecified COPD Qualified Code(s): J44.9 - Chronic obstructive pulmonary disease, unspecified (2) Diarrhea Diarrhea type: presumed infectious Qualified Code(s): R19.7 - Diarrhea, unspecified
[2020-12-14] MEDS: POTASSIUM CHLORIDE 40 MEQ in SODIUM CHLORIDE 0.9% 1000ML 1,000 ML IV SCH (00:03)
[2020-12-14] MEDS: DIPHENOXYLATE/ATROPINE 2.5/0.025MG TAB PO PRN ×2 (00:06→08:06)
[2020-12-14] MEDS ORDERED: HEPARIN 100 UNIT/ML 5ML FLUSH FLUSH PRN (00:27)
[2020-12-14 06:23] LABS: Basophils # (auto) 0.02 K/uL (0-0.2); Basophils % (auto) 0.4 %; Eosinophils # (auto) 0.08 K/uL (0-0.5); Eosinophils % (auto) 1.6 %; Hematocrit (blood only) 25.1 % (37-47); Hemoglobin 8.1 g/dL (12.0-16.0); Immature Granulocytes # (auto) 0.11 K/uL (0.00-0.02); Immature Granulocytes % (auto) 2.1 %; Lymphocytes # (auto) 2.22 K/uL (1.2-3.4); Mean Corpuscular Hemoglobin 31.8 pg (25-34); Mean Corpuscular Hgb Conc 32.3 g/dL (32-36); Mean Corpuscular Volume 98.4 fL (80-100); Mean Platelet Volume 8.7 fL (7.4-10.4); Monocytes # (auto) 0.77 K/uL (0.11-0.59); Monocytes % (auto) 14.9 %; Neutrophils # (auto) 1.96 K/uL (1.4-6.5); Platelet Count 353 K/uL (130-400); RDW Coefficient of Variation 18.4 % (11.5-14.5); Red Blood Count 2.55 M/uL (4.2-5.4); White Blood Count 5.16 K/uL (4.8-10.8)
[2020-12-14 06:54] LABS: BUN Creatinine Ratio 16.7 (10-20); Calcium 8.3 mg/dl (8.5-10.1); Creatinine Clr Calc Pharmacy 139.1 ml/min; Est GFR (African American) 147.3 ml/min; Est GFR (Non-African American) 127.1 ml/min; Magnesium 1.5 mg/dl (1.8-2.4); Potassium 4.4 mmol/L (3.5-5.1)
[2020-12-14 06:56] LABS: Albumin Globulin Ratio 0.6 (0.9-2); Bilirubin,Total 0.2 mg/dl (0.2-1); Globulin 3.5 gm/dl (2.5-4.0); Total Protein 5.5 gm/dl (6.4-8.2)
[2020-12-14] MEDS: FOLIC ACID 1 MG TAB PO SCH (08:06)
[2020-12-14] MEDS: PANTOprazole 40 MG TAB PO SCH (08:07)
[2020-12-14] MEDS: FAMOTIDINE 20 MG TAB PO SCH (08:07)
[2020-12-14] MEDS: CETIRIZINE HCL 10 MG TABLET PO SCH (08:07)
[2020-12-14] MEDS: NICOTINE 14 MG/24 HR PATCH TD SCH (08:07)
[2020-12-14] MEDS: ESCITALOPRAM OXALATE 10 MG TAB PO SCH (08:07)
[2020-12-14] MEDS: THIAMINE HCL 100 MG TAB PO SCH (08:07)
[2020-12-14] MEDS: UMECLIDINIUM/VILANTEROL 62.5/25MCG 7 PUFFS/INHALER INH SCH (08:08)
[2020-12-14] MEDS: MAGNESIUM SULFATE / D5W 1 GM/100 ML BAG IV SCH ×2 (08:59→10:48)
[2020-12-14] MEDS ORDERED: FLUDROCORTISONE ACETATE 0.1 MG TAB PO SCH (09:00)
[2020-12-14] MEDS ORDERED: SODIUM CHLORIDE 0.9% 250 ML IV PRN (10:23)
[2020-12-14] MEDS ORDERED: oxyCODONE HCL IR 5 MG TAB (IMMEDIATE RELEASE) PO PRN (10:26)
--- NOTE | 2020-12-14 16:25 | Discharge Summary ---
Date of Service December 14, 2020 Admission HPI Per Admitting Provider There is a 55-year-old female with a past medical history of non-small cell lung carcinoma with mets to the bone that presents today complaining of "seizures ". Patient is pleasant but somewhat limited historian. Patient is apparently having ongoing diarrhea, initially attributed to her chemotherapy regimen. She says this has been ongoing for several weeks now. Approximately 1 week ago, she started having difficulty with ambulation. Namely, she had trouble standing and ambulating for long periods of time. She also finds that she gets winded very easily. At least 1 situation, patient had near syncopal episode after standing for a period of time. Patient was concerned as these episodes start with numbness in her head that drips down to her body and then she gets very dizzy, thought that they may represent seizures. Patient did not lose consciousness or have any observed tonic-clonic activity. Patient was evaluated by the ER physician, reportedly the patient had very significantly positive orthostatics which is likely the etiology of her episodes. At time of evaluation, patient was asleep but easily arousable. She denied any chest pain, shortness of breath, fever, chills. She did note extreme weight loss at approximately 60 pounds in the beginning of the year but this is likely attributed to her ongoing neoplastic process and chemotherapy. Principal Diagnosis Orthostatic hypotenstion, dehydration Discharge Exam Constitutional well developed, + thin and + frail appearing; no acute distress Neck trachea midline, no thyromegaly Respiratory normal respiratory effort, lungs clear to auscultation Cardiovascular RRR, no murmur, no edema Gastrointestinal (Abdomen) normal bowel sounds, soft, nontender, no hepatosplenomegaly Musculoskeletal no cyanosis or clubbing, extremities motor strength 5/5 Skin no rashes, warm and dry Neurologic patellar DTR's 2+ bilat, sensation intact and PERRL, EOMI, accommodation nl, no face palsy, no dysarthria Psychiatric A+Ox3, euthymic affect Lymphatic no cervical or axillary lymphadenopathy Discharge Data Allergies Allergy/AdvReac Type Severity Reaction Status Date / Time hornet venom Allergy Severe Anaphylaxis Verified 12/12/20 13:58 mold Allergy Severe Sinus Verified 12/12/20 13:58 swelling sulfasalazine Allergy Severe Rash, Verified 12/12/20 13:58 swelling, dyspnea codeine Allergy Mild Pruritus Verified 12/12/20 13:58 house dust Allergy Unknown Dry Eye Verified 12/12/20 13:58 Consultations 12/12/20 15:36 ED Decision to Admit Stat Ordered Studies 12/12/20 12:58 CT head/brain wo con Stat Hospital Course (1) Orthostasis: good response to Florinef 0.1mg PO qAM feels better, blood pressures up will continue on discharge, follow up with Dr. Bills try to increase salt in diet (2) Near syncope: likely from volume depletion from excessive diarrhea, orthostatic hypotension poor nutritional status feeling much better now, no near falls, ambulating independently use imodium to decrease diarrhea, replace what you lose (3) Hypomagnesemia: replaced in the ED, now stable (4) Neutropenic typhlitis: ongoing issue, follows with [facility] did not respond to steroids as outpatient use Lomotil PRN, can use up to 8 times a day she admits that it makes stools more consistent (5) Non-small cell lung cancer metastatic to bone: all treatment on hold due to nutritional status (6) COPD (chronic obstructive pulmonary disease): no distress, diminished breath sounds overall (7) Diarrhea: due to typhlitis Lomotil PRN (8) Hypokalemia: low at 2.8 aggressive replacement, K is normal Total Time Total Time Spent Total Time Spent (In Minutes): 32 Total Time Includes: Examination of the Patient, Discharge Planning and Medication Reconciliation Discharge Plan Discharge Items Patient Disposition: Home - Self-Care Reason For Visit: ORTHOSTASIS Discharge Diagnosis: Orthostatic hypotension Hypokalemia Hypmagnesemia Anemia Condition on Discharge: Good Goals: follow up with PCP stay well nourished and well hydrated treat diarrhea with Lomotil Activity: Resume your previous activity Weightbearing: Full weightbearing Non-emergency contact: Primary Care Provider Call non-emergency contact if: you have any medication questions Follow-up/Referrals: Thai Bills III, MD [Primary Care Provider] - (keep previous appointment) Diet: Regular Addtl Attending Provider Instructions: Medications: - FLUDROCORTISONE: started for orthostatic hypotension, take in the morning, see how you tolerate and follow up with Dr. Bills - THIAMINE: 100mg daily, can obtain over the counter, take for the next month Weakness, orthostatic hypotension, anemia (likely from poor nutrition, cancer, chemotherapy), low potassium and magnesium given IV fluids, potassium now normal and magnesium replaced transfused one unit of packed red blood cells today started on Florinef 0.1mg daily, tolerating well, follow up with Dr. Bills Diarrhea: continue to use Lomotil every time you have a loose stool, can take up to 8 times a day follow up with Ericka Batista as needed Pending Studies at Discharge: No Stand-Alone Forms: My [facility], Smoking Cessation Medications and DC Order Prescriptions: New thiamine HCl (vitamin B1) [Vitamin B-1] 100 mg Tablet 100 mg PO QAM 30 Days Qty: 30 RF: 1 fludrocortisone 0.1 mg Tablet 0.1 mg PO QAM 30 Days Qty: 30 RF: 1 Continued ipratropium-albuterol 0.5 mg-3 mg(2.5 mg base)/3 mL solution for nebulization 3 ml INH QID PRN (Reason: wheezing) Qty: 90 RF: 5 Emgality Pen 120 mg/mL pen injector 120 mg subcut MONTHLY 90 Days Qty: 3 RF: 1 Bevespi Aerosphere 9-4.8 mcg HFA aerosol inhaler 2 puff inhalation BID Qty: 10.7 RF: 2 epinephrine 0.3 mg/0.3 mL auto-injector 0.3 mg IM Q10M PRN (Reason: anaphylaxis) Qty: 1 RF: 3 Humira 40 mg/0.8 mL syringe kit 40 mg SQ Q14D RF: 0 Hold Instructions: pt holding bc of insurance famotidine 20 mg tablet 20 mg PO QAM RF: 0 pantoprazole 40 mg tablet,delayed release (DR/EC) 40 mg PO BID Qty: 60 RF: 11 diphenoxylate-atropine 2.5-0.025 mg tablet 1 tab PO QID PRN (Reason: diarrhea) Qty: 120 RF: 5 escitalopram oxalate 10 mg tablet 10 mg PO DAILY Qty: 90 RF: 3 cyclobenzaprine 10 mg tablet 10 mg PO PM Qty: 90 RF: 1 albuterol sulfate 90 mcg/actuation HFA aerosol inhaler 2 puff inhalation BID Qty: 18 RF: 5 folic acid 1 mg Tablet 1 mg PO QAM RF: 0 cetirizine 10 mg tablet 10 mg PO QAM RF: 0 rizatriptan 10 mg tablet 10 mg PO UD PRN (Reason: migraine headache) RF: 0 cranberry 500 mg Capsule 1,000 mg PO QAM RF: 0 nystatin 100,000 unit/mL suspension 5 ml PO QID PRN (Reason: Mouth Irritation) RF: 0 ondansetron 4 mg tablet,disintegrating 4 mg PO Q8H PRN (Reason: nausea and vomiting) Qty: 30 RF: 0 oxycodone 5 mg Tablet 5 mg PO Q4H PRN (Reason: pain) Qty: 20 RF: 0 prochlorperazine maleate 10 mg Tablet 10 mg PO Q6H PRN (Reason: nausea and vomiting) Qty: 30 RF: 0 lidocaine 5 % Adhesive Patch,Medicated 1 patch transdermal QAM PRN (Reason: hip pain) Qty: 30 RF: 0 potassium chloride 20 mEq tablet extended release 20 meq PO DAILY Qty: 30 RF: 0 Discharge Orders: Discharge Order (Routine); Ordered 12/14/20 Ordered By: Darvin Devlin Admission Data Admit Date/Time: 12/12/20 19:48 Attending Provider: Darvin Devlin Admit Provider: Dennis Phillips Primary Care Provider: Thai Bills III Other Providers: Dennis Phillips Other Interventions: Discharge Summary Assessment (RN) Last Done: 12/14/20 16:26 Coding Level of Care Code D/C Day Management >30 mins Diagnoses Orthostasis I95.1 Near syncope R55 Hypomagnesemia E83.42 Neutropenic typhlitis K37; D70.9 Non-small cell lung cancer metastatic to bone C34.90; C79.51 COPD (chronic obstructive pulmonary disease) J44.9 COPD type: unspecified COPD Diarrhea R19.7 Diarrhea type: presumed infectious Hypokalemia E87.6
== END 2020-12-14 17:10 | disposition home or self-care (01) ==
LOC: ED 11:57 → 2S 11:57 → SUATTDRO 19:48 → 2S 20:51

== ENCOUNTER 2021-05-01 12:24 | Inpatient (IN) ==
[2021-05-01] MEDS ORDERED: MAGNESIUM SULFATE / D5W 1 GM/100 ML BAG IV STA (12:54)
[2021-05-01] MEDS ORDERED: SODIUM CHLORIDE 0.9% 1000ML 1,000 ML IV SCH (13:00)
[2021-05-01] MEDS: POTASSIUM CHLORIDE / WTR 10 MEQ/100 ML PLCT IV SCH ×6 (13:23→21:10)
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
[2021-05-01] MEDS ORDERED: POTASSIUM CHLORIDE / WTR 10 MEQ/100 ML PLCT IV STA (14:50)
[2021-05-01] MEDS ORDERED: ALBUT/IPRATROP 3MG/0.5MG NEB 3 ML VIAL INH PRN (17:57)
[2021-05-01] MEDS ORDERED: RIZATRIPTAN BENZOATE 10 MG TAB PO PRN (17:57)
[2021-05-01] MEDS ORDERED: BENZONATATE 100 MG CAPSULE PO PRN (17:57)
[2021-05-01] MEDS ORDERED: ONDANSETRON INJ 2 MG/ML 2 ML VIAL IV PRN (17:57)
[2021-05-01] MEDS ORDERED: POTASSIUM CHLORIDE CRTAB 20 MEQ TABCR PO SCH (18:30)
[2021-05-01] MEDS ORDERED: ONDANSETRON 8MG OD TAB PO PRN (18:33)
[2021-05-01] MEDS ORDERED: POTASSIUM CHLORIDE / WTR 10 MEQ/100 ML PLCT IV SCH (20:45)
[2021-05-01] MEDS ORDERED: CHOLESTYRAMINE LIGHT 4 GM PKT PO SCH (21:00)
[2021-05-01] MEDS: MIDODRINE HCL 2.5 MG TAB PO SCH (21:00)
[2021-05-01] MEDS: NSS + 20MEQ KCL 20 MEQ/1,000 ML BAG IV SCH (21:00)
[2021-05-01] MEDS: CHOLESTYRAMINE LIGHT 4 GM PKT PO SCH (21:02)
[2021-05-01] MEDS: ENOXAPARIN INJ 40 MG/0.4 ML SYR SQ SCH (21:16)
[2021-05-01] MEDS: oxyCODONE HCL IR 5 MG TAB (IMMEDIATE RELEASE) PO PRN (21:22)
[2021-05-01] MEDS ORDERED: Nursing to Pharmacy Communication SCH (22:15)
[2021-05-02] MEDS: ALBUTEROL HFA 8 GM INHALER INH SCH ×3 (00:17→19:20)
[2021-05-02] MEDS: oxyCODONE HCL IR 5 MG TAB (IMMEDIATE RELEASE) PO PRN ×5 (03:22→23:59)
[2021-05-02] MEDS: MIDODRINE HCL 2.5 MG TAB PO SCH ×2 (05:16→17:08)
[2021-05-02 06:42] LABS: Basophils # (auto) 0.01 K/uL (0-0.2); Basophils % (auto) 0.1 %; Eosinophils # (auto) 0.03 K/uL (0-0.5); Eosinophils % (auto) 0.3 %; Hematocrit (blood only) 31.3 % (37-47); Hemoglobin 10.8 g/dL (12.0-16.0); Immature Granulocytes # (auto) 0.04 K/uL (0.00-0.02); Immature Granulocytes % (auto) 0.4 %; Lymphocytes # (auto) 2.43 K/uL (1.2-3.4); Lymphocytes % (auto) 25.5 %; Mean Corpuscular Hgb Conc 34.5 g/dL (32-36); Mean Corpuscular Volume 92.9 fL (80-100); Mean Platelet Volume 8.7 fL (7.4-10.4); Monocytes # (auto) 0.73 K/uL (0.11-0.59); Monocytes % (auto) 7.7 %; Neutrophils # (auto) 6.28 K/uL (1.4-6.5); Platelet Count 321 K/uL (130-400); RDW Standard Deviation 50.6 fL (36.4-46.3); Red Blood Count 3.37 M/uL (4.2-5.4); White Blood Count 9.52 K/uL (4.8-10.8)
[2021-05-02 07:16] LABS: BUN Creatinine Ratio 11.6 (10-20); Calcium 7.7 mg/dl (8.5-10.1); Creatinine Clr Calc Pharmacy 89.7 ml/min; Est GFR (African American) 136.3 ml/min; Est GFR (Non-African American) 117.6 ml/min; Magnesium 2.3 mg/dl (1.8-2.4); Potassium 2.4 mmol/L (3.5-5.1)
--- NOTE | 2021-05-02 07:43 | Hospitalist Progress Note ---
Date of Service May 02, 2021 Assessment & Plan (1) Hypokalemia: Plan: Anat is a 55-year-old female with a past medical history of lung cancer on Keytruda, HLA-B27 positivity, COPD, GERD, Schatzki's ring, tobacco use, failure to thrive, ankylosing spondylitis, and migraine who has been admitted for the management of severe hypokalemia of 1.9 on admission in the setting of increased diarrhea and poor p.o. intake. Hypokalemia 2/2 diarrhea with chronically poor p.o. intake Repleted with total of 70 meq of IV potassium between ER/admission orders Potassium gradually rising, 2.4 today. Additional riders ordered Magnesium repleted, 2.4 GI consulted on admission for evaluation of G-tube for chronically poor nutrition which has been considered previously by patient Additional K riders x4, p.o. 20 M EQ 3 times daily ordered Calcium level, supplements ordered with one-time gluconate Repeat BMP pending (2) Adenocarcinoma, lung: Plan: [facility] Per 04/10/2021 note review: Non-small cell lung cancer started carbo/Alimta and pembrolizumab 08/11/2020. 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 CTA/P at that time showed moderate stool within the colon and rectum. Ultimately she was admitted 11/18-11/28 for neutropenic typhlitis and was noted to be significantly pancytopenic requiring Neupogen and packed red blood cell transfusion, was converted to single agent pembrolizumab therapy. (3) Chronic diarrhea: Plan: No leukocytosis See above, patient experiences previously with chemotherapy treatment although CTA/P was not consistent. Was treated with prednisone and 10/09 with no improvement History of neutropenic typhlitis EGD 04/27/2021 for Schatzki's ring/GERD/dysphagia: Benign esophageal stenosis, dilated esophagus. Normal stomach, normal duodenum GI consulted on admission (4) Ankylosing spondylitis: (5) Chronic pain syndrome: Plan: Continue oxycodone 5 mg every 4 hours as needed, cyclobenzaprine 10 mg p.o. 3 times daily as needed (6) COPD (chronic obstructive pulmonary disease): Plan: Umeclidinium/Vilanterol 1 puff daily Albuterol 4 times daily as needed (7) Depression: Plan: Psych consulted, prefers PCP management of her psych meds and to continue Lexapro. Continue Lexapro 30 mg daily Patient will consider adjunct Remeron 15 mg p.o. nightly after her surgery, recommended that Lexapro be decreased to 20 mg if Remeron pursued as outpatient Appreciate recommendations (8) Diarrhea: Plan: Continue cholestyramine twice daily Stools not completely liquid No history of C. difficile History of typhlitis, patient does not appear toxic and currently reports symptoms feel much less severe than this past episode Follow clinically this time (9) Hypotension: Plan: Continue midodrine, fludrocortisone Plan: DVT PPx: Lovenox 40 daily Admission and Anticipated Discharge Date Admission Date: May 01, 2021 Subjective Patient seen at the bedside this morning. She reports she feels better, but was very worried about her low potassium. She reports that she does have difficulty eating large amounts and has had loose bowels, and trouble with hypokalemia before but never this bad. Tolerating repletion well. Has had PEG tube discussed with her by her providers and GI, is anticipating PEG placement tomorrow. No questions or concerns about this procedure at time of bedside visit. Denies fever, chills, sweats, chest pain, shortness of breath, difficulty breathing, lightheadedness, dizziness at time of assessment. Reports she is currently on Keytruda and tolerating it well, this was narrowed from a multiple regimen previously. She has required Neupogen in the past twice, none recently. Did have an episode of typhilitis in the past, which did feel much more severe than her current episode. Review of Systems Review of Systems: Constitutional: Denies fever, chills. Endorses chronic difficulty with appetite/nutrition Eyes: Denies double vision, vision change, eye pain ENT: Denies ear pain, sore throat, sinus pain Cardiovascular: Denies Chest pain, chest pressure, palpitations, extremity swelling Respiratory: Denies shortness of breath, cough, sputum production, difficulty breathing Gastrointestinal: Denies abdominal pain, nausea, vomiting, constipation, diarrhea Genitourinary: Denies pain with urination, urinary urgency, urinary frequency Musculoskeletal: Denies weakness, muscle aches/pain, joint aches/pain Integumentary:Denies rash, lesions, bruising Neurological: Denies headache Physical Exam Physical Exam: General: A&Ox3. NAD. Cooperative. Appears cachectic/thin HEENT: Atraumatic, normocephalic. Visual acuity and hearing grossly intact Pulm: CTAB A&P. -wheezes, -rales, -rhonchi. Symmetrical chest rise. No increase work of breathing. No respiratory distress. Cardiac: RRR, -mrg. Radial pulses intact and symmetrical. Abdominal: Nontender, nondistended, soft. BS present. Results & Data Results & Data ([facility]) Vital Signs (Past 12 Hours) Vital Signs Temp Pulse Pulse Resp BP Pulse Ox 05/02/21 07:31 36.5 C 88 16 118/67 97 05/02/21 07:20 78 05/02/21 04:55 36.6 C 81 18 120/64 95 05/02/21 04:40 90 05/01/21 23:51 36.8 C 75 18 110/68 97 05/01/21 20:00 36.7 C 85 16 146/84 H 100 PG Care Time/CCT Total # of Minutes Spent Total Time Spent with Patient: Total time spent is greater than 50% in coordination of care (as documented) at patient's floor/unit and/or counseling patient: Coding Level of Care Code 33282 Subseq Hosp Care Lvl 3 Diagnoses Hypokalemia E87.6 Adenocarcinoma, lung C34.90 Chronic diarrhea K52.9 Ankylosing spondylitis M45.9 Ankylosing spondylitis location: unspecified site of spine Chronic pain syndrome G89.4 COPD (chronic obstructive pulmonary disease) J44.9 COPD type: unspecified COPD Depression F32.9 Diarrhea R19.7 Diarrhea type: presumed infectious Hypotension I95.9 Hypotension type: unspecified hypotension type (1) Diarrhea Diarrhea type: presumed infectious Qualified Code(s): R19.7 - Diarrhea, unspecified (2) Ankylosing spondylitis Ankylosing spondylitis location: unspecified site of spine Qualified Code(s): M45.9 - Ankylosing spondylitis of unspecified sites in spine (3) COPD (chronic obstructive pulmonary disease) COPD type: unspecified COPD Qualified Code(s): J44.9 - Chronic obstructive pulmonary disease, unspecified (4) Hypotension Hypotension type: unspecified hypotension type Qualified Code(s): I95.9 - Hypotension, unspecified
[2021-05-02] MEDS ORDERED: CALCIUM GLUCONATE 10% 1,000 MG in SODIUM CHLORIDE 0.9% 50 ML IV ONE (08:00)
[2021-05-02] MEDS: POTASSIUM CHLORIDE CRTAB 20 MEQ TABCR PO SCH ×3 (08:40→20:50)
[2021-05-02] MEDS: CETIRIZINE HCL 10 MG TABLET PO SCH (08:41)
[2021-05-02] MEDS: ESCITALOPRAM OXALATE 20 MG TAB PO SCH (08:41)
[2021-05-02] MEDS: THIAMINE HCL 100 MG TAB PO SCH (08:41)
[2021-05-02] MEDS: FLUDROCORTISONE ACETATE 0.1 MG TAB PO SCH (08:42)
[2021-05-02] MEDS: FOLIC ACID 1 MG TAB PO SCH (08:42)
[2021-05-02] MEDS: FAMOTIDINE 20 MG TAB PO SCH (08:42)
[2021-05-02] MEDS: PANTOprazole 40 MG TAB PO SCH (08:43)
[2021-05-02] MEDS: NICOTINE 21 MG/24 HR TDSY TD SCH (08:48)
[2021-05-02] MEDS: POTASSIUM CHLORIDE / WTR 10 MEQ/100 ML PLCT IV SCH ×7 (08:51→21:56)
[2021-05-02] MEDS: UMECLIDINIUM/VILANTEROL 62.5/25MCG 7 PUFFS/INHALER INH SCH (08:53)
[2021-05-02] MEDS ORDERED: CALCIUM CARBONATE 1,250 MG/5 ML UDC PO SCH (09:00)
[2021-05-02] MEDS ORDERED: NON-FORMULARY MEDICATION (Cranberry 500 mg Capsule) PO SCH (09:00)
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
[2021-05-02] MEDS: CHOLESTYRAMINE LIGHT 4 GM PKT PO SCH ×2 (10:00→20:51)
[2021-05-02] MEDS: NSS + 20MEQ KCL 20 MEQ/1,000 ML BAG IV SCH ×2 (11:04→23:06)
--- NOTE | 2021-05-02 14:58 | Electrocardiogram Report ---
Test Reason : Blood Pressure : / mmHG Vent. Rate : 084 BPM Atrial Rate : 084 BPM P-R Int : 154 ms QRS Dur : 094 ms QT Int : 384 ms P-R-T Axes : 088 052 083 degrees QTc Int : 453 ms Normal sinus rhythm Possible Left atrial enlargement Borderline ECG When compared with ECG of 12-DEC-2020 13:08, Premature atrial complexes are no longer Present Nonspecific T wave abnormality now evident in Anterior leads Confirmed by Regulo Denis ([id number]) on 05/02/2021 2:57:40 PM Referred By: REFERRED SELF Confirmed By:Regulo Denis
--- NOTE | 2021-05-02 16:20 | Communication Note ---
Date of Service: May 02, [address] Gutierrez. Patient to undergo EGD with PEG placement by Dr. Landrum tomorrow 05/03/21.
[2021-05-02] MEDS: PROCHLORPERAZINE MALEATE 10 MG TAB PO PRN (17:07)
[2021-05-02 18:08] LABS: BUN Creatinine Ratio 8.6 (10-20); Calcium 7.9 mg/dl (8.5-10.1); Creatinine Clr Calc Pharmacy 75.8 ml/min; Est GFR (African American) 128.9 ml/min; Est GFR (Non-African American) 111.2 ml/min; Potassium 2.7 mmol/L (3.5-5.1)
[2021-05-02] MEDS: ENOXAPARIN INJ 40 MG/0.4 ML SYR SQ SCH (18:41)
[2021-05-02] MEDS: CALCIUM CARBONATE 1250MG TAB PO SCH (20:50)
[2021-05-02] MEDS: ACETAMINOPHEN 325 MG TAB PO PRN (20:57)
[2021-05-03 00:18] LABS: BUN Creatinine Ratio 6.8 (10-20); Calcium 8.2 mg/dl (8.5-10.1); Creatinine Clr Calc Pharmacy 85.2 ml/min; Est GFR (Non-African American) 115.6 ml/min; Magnesium 1.5 mg/dl (1.8-2.4); Potassium 3.1 mmol/L (3.5-5.1)
[2021-05-03] MEDS ORDERED: MAGNESIUM SULFATE / D5W 1 GM/100 ML BAG IV ONE ×2 (03:06→12:00)
[2021-05-03] MEDS: POTASSIUM CHLORIDE / WTR 10 MEQ/100 ML PLCT IV SCH ×7 (03:21→15:55)
[2021-05-03] MEDS: MIDODRINE HCL 2.5 MG TAB PO SCH ×2 (06:19→17:02)
[2021-05-03] MEDS: ALBUTEROL HFA 8 GM INHALER INH SCH ×2 (07:32→19:40)
[2021-05-03] MEDS ORDERED: HEPARIN 100 UNIT/ML 5ML FLUSH ONE (08:18)
[2021-05-03] MEDS: NICOTINE 21 MG/24 HR TDSY TD SCH (09:00)
[2021-05-03] MEDS: UMECLIDINIUM/VILANTEROL 62.5/25MCG 7 PUFFS/INHALER INH SCH (09:00)
[2021-05-03 09:13] LABS: Basophils # (auto) 0.01 K/uL (0-0.2); Basophils % (auto) 0.1 %; Eosinophils # (auto) 0.03 K/uL (0-0.5); Eosinophils % (auto) 0.3 %; Hematocrit (blood only) 32.3 % (37-47); Hemoglobin 11.1 g/dL (12.0-16.0); Immature Granulocytes # (auto) 0.04 K/uL (0.00-0.02); Immature Granulocytes % (auto) 0.5 %; Lymphocytes # (auto) 2.12 K/uL (1.2-3.4); Mean Corpuscular Hemoglobin 32.2 pg (25-34); Mean Corpuscular Hgb Conc 34.4 g/dL (32-36); Mean Corpuscular Volume 93.6 fL (80-100); Mean Platelet Volume 8.9 fL (7.4-10.4); Monocytes # (auto) 0.92 K/uL (0.11-0.59); Monocytes % (auto) 10.4 %; Neutrophils # (auto) 5.73 K/uL (1.4-6.5); Neutrophils % (auto) 64.7 %; Platelet Count 316 K/uL (130-400); RDW Coefficient of Variation 14.8 % (11.5-14.5); RDW Standard Deviation 50.4 fL (36.4-46.3); Red Blood Count 3.45 M/uL (4.2-5.4); White Blood Count 8.85 K/uL (4.8-10.8)
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
[2021-05-03 09:33] LABS: BUN Creatinine Ratio 3.3 (10-20); Calcium 7.9 mg/dl (8.5-10.1); Creatinine Clr Calc Pharmacy 83.1 ml/min; Est GFR (African American) 131.9 ml/min; Est GFR (Non-African American) 113.8 ml/min; Potassium 3.2 mmol/L (3.5-5.1)
[2021-05-03] MEDS ORDERED: ceFAZolin 2000MG 2,000 MG/15 ML SYR IV ONE (10:30)
[2021-05-03] MEDS ORDERED: ePHEDrine sulfate 50 MG/ML AMP IV PRN (11:37)
[2021-05-03] MEDS ORDERED: ONDANSETRON INJ 2 MG/ML 2 ML VIAL IV PRN (11:37)
[2021-05-03] MEDS ORDERED: ATROPINE SULFATE 0.1 MG/ML 10ML SYR IV PRN (11:37)
--- NOTE | 2021-05-03 11:53 | Hospitalist Progress Note ---
Date of Service May 03, 2021 Assessment & Plan (1) Hypokalemia: Plan: Anat is a 55-year-old female with a past medical history of lung cancer on Keytruda, HLA-B27 positivity, COPD, GERD, Schatzki's ring, tobacco use, failure to thrive, ankylosing spondylitis, and migraine who has been admitted for the management of severe hypokalemia of 1.9 on admission in the setting of increased diarrhea and poor p.o. intake. Hypokalemia 2/2 diarrhea with chronically poor p.o. intake Repleted with total of 70 meq of IV potassium between ER/admission orders Potassium gradually rising, 2.4 today. Additional riders ordered Magnesium repleted, 2.4 GI consulted on admission for evaluation of G-tube for chronically poor nutrition which has been considered previously by patient Additional K riders x4, p.o. 20 M EQ 3 times daily ordered 05/02 Calcium level, supplements ordered with one-time gluconate Potassium up trended, not yet normalized today. Resume p.o. repletion following PEG procedure. Magnesium 2.3-1.5, Mag-Ox twice daily Anticipate PEG placement this morning, observe for 24 hours for function, and initiate feeds per nutrition recommendation (2) Adenocarcinoma, lung: Plan: followed by [facility] Per 04/10/2021 note review: Non-small cell lung cancer started carbo/Alimta and pembrolizumab 08/11/2020. 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 CTA/P at that time showed moderate stool within the colon and rectum. Ultimately she was admitted 11/18-11/28 for neutropenic typhlitis and was noted to be significantly pancytopenic requiring Neupogen and packed red blood cell transfusion, was converted to single agent pembrolizumab therapy. (3) Chronic diarrhea: Plan: No leukocytosis See above, patient experiences previously with chemotherapy treatment although CTA/P was not consistent. Was treated with prednisone and 10/09 with no improvement History of neutropenic typhlitis EGD 04/27/2021 for Schatzki's ring/GERD/dysphagia: Benign esophageal stenosis, dilated esophagus. Normal stomach, normal duodenum GI consulted on admission (4) Ankylosing spondylitis: (5) Chronic pain syndrome: Plan: Continue oxycodone 5 mg every 4 hours as needed, cyclobenzaprine 10 mg p.o. 3 times daily as needed (6) COPD (chronic obstructive pulmonary disease): Plan: Umeclidinium/Vilanterol 1 puff daily Albuterol 4 times daily as needed (7) Depression: Plan: Psych consulted, prefers PCP management of her psych meds and to continue Lexapro. Continue Lexapro 30 mg daily Patient will consider adjunct Remeron 15 mg p.o. nightly after her surgery, recommended that Lexapro be decreased to 20 mg if Remeron pursued as outpatient Appreciate recommendations (8) Diarrhea: Plan: Continue cholestyramine twice daily Stools not completely liquid No history of C. difficile History of typhlitis, patient does not appear toxic and currently reports symptoms feel much less severe than this past episode Follow clinically this time (9) Hypotension: Plan: Continue midodrine, fludrocortisone Plan: DVT PPx: Lovenox 40 daily Admission and Anticipated Discharge Date Admission Date: May 01, 2021 Subjective Anat is seen at the bedside this morning. She is slightly anxious about her PEG procedure this morning, otherwise feels well. She reports she had a "good "night, and slept decently. No fever, chills, sweats. She has noticed some slight cramping in her left hand this morning intermittently, not at time of assessment. Otherwise no muscle aches/body aches. Tolerating IV repletion of electrolytes well. Has not had anything to eat today as is n.p.o. for her procedure. Reports she is peeing normally. No additional questions or concerns at time of assessment Review of Systems Review of Systems: 10 point review of systems negative except as noted in subjective Physical Exam Physical Exam: General: A&Ox3. NAD. Cooperative. Appears cachectic/thin HEENT: Atraumatic, normocephalic. Visual acuity and hearing grossly intact Pulm: CTAB A&P. -wheezes, -rales, -rhonchi. Symmetrical chest rise. No increase work of breathing. No respiratory distress. Cardiac: RRR, -mrg. Radial pulses intact and symmetrical. Abdominal: Nontender, nondistended, soft. BS present. Results & Data Results & Data ([facility]) Vital Signs (Past 12 Hours) Vital Signs Temp Pulse Pulse Resp BP Pulse Ox 10/13/21 11:28 36.7 C 94 H 18 138/84 100 05/03/21 11:24 36.7 C 96 H 16 135/82 98 05/03/21 07:44 97 H 05/03/21 07:41 36.7 C 89 18 131/74 96 05/03/21 07:32 80 16 96 05/03/21 03:03 36.7 C 80 16 121/73 97 PG Care Time/CCT Total # of Minutes Spent Total Time Spent with Patient: Total time spent is greater than 50% in coordination of care (as documented) at patient's floor/unit and/or counseling patient: Coding Level of Care Code 05735 Subseq Hosp Care Lvl 3 Diagnoses Hypokalemia E87.6 Adenocarcinoma, lung C34.90 Chronic diarrhea K52.9 Ankylosing spondylitis M45.9 Ankylosing spondylitis location: unspecified site of spine Chronic pain syndrome G89.4 COPD (chronic obstructive pulmonary disease) J44.9 COPD type: unspecified COPD Depression F32.9 Diarrhea R19.7 Diarrhea type: presumed infectious Hypotension I95.9 Hypotension type: unspecified hypotension type (1) Ankylosing spondylitis Ankylosing spondylitis location: unspecified site of spine Qualified Code(s): M45.9 - Ankylosing spondylitis of unspecified sites in spine (2) COPD (chronic obstructive pulmonary disease) COPD type: unspecified COPD Qualified Code(s): J44.9 - Chronic obstructive pulmonary disease, unspecified (3) Diarrhea Diarrhea type: presumed infectious Qualified Code(s): R19.7 - Diarrhea, unspecified (4) Hypotension Hypotension type: unspecified hypotension type Qualified Code(s): I95.9 - Hypotension, unspecified
--- NOTE | 2021-05-03 12:31 | GI REPORT ---
Patient Name: Anat Costa Procedure Date: 05/03/2021 11:52 AM Date of : 1965 Admit Type: Inpatient Age: 55 Gender: Female Attending MD: Tani Landrum DO Procedure: Upper GI endoscopy Providers: Tani Landrum DO Referring MD: Josh Gutierrez Md Indications: Dysphagia Medicines: Monitored Anesthesia Care Complications: No immediate complications. Estimated Blood Loss: Estimated blood loss: none. Procedure: Pre-Anesthesia Assessment: - Prior to the procedure, a History and Physical was performed, and patient medications and allergies were reviewed. The patient's tolerance of previous anesthesia was also reviewed. The risks and benefits of the procedure and the sedation options and risks were discussed with the patient. All questions were answered, and informed consent was obtained. Prior Anticoagulants: The patient has taken Lovenox (enoxaparin), last dose was 1 day prior to procedure. ASA Grade Assessment: III - A patient with severe systemic disease. After reviewing the risks and benefits, the patient was deemed in satisfactory condition to undergo the procedure. After obtaining informed consent, the endoscope was passed under direct vision. Throughout the procedure, the patient's blood pressure, pulse, and oxygen saturations were monitored continuously. The Endoscope was introduced through the mouth, and advanced to the second part of duodenum. After obtaining informed consent, the endoscope was passed under direct vision. Throughout the procedure, the patient's blood pressure, pulse, and oxygen saturations were monitored continuously. The upper GI endoscopy was accomplished without difficulty. The patient tolerated the procedure well. Findings: The esophagus was normal. A small hiatal hernia was present. Placement of an externally removable PEG with no T-fasteners was successfully completed. The external bumper was at the 2.0 cm marking on the tube. The examined duodenum was normal. Impression: - Normal esophagus. - Small hiatal hernia. - Normal examined duodenum. - An externally removable PEG placement was successfully completed. - No specimens collected. Recommendation: - Resume previous diet. - Continue present medications. - Return patient to [facility] for ongoing care. - Refer to a dietitian today. - Please follow the post-PEG recommendations including: may use PEG today for meds and water. Tani Landrum DO 05/03/2021 12:30:47 PM This report has been signed electronically. Note Initiated On: 05/03/2021 11:52 AM Number of Addenda: 0 I attest to the content of the Intraoperative Record and orders documented therein, exceptions below {[id number]}
--- NOTE | 2021-05-03 13:21 | Anesthesiology Progress Note ---
Date of Service May 03, 2021 Anesthesia Post Procedure Vital Signs Vital Signs: Temp Pulse Pulse Resp BP Pulse Ox 05/03/21 13:00 88 16 131/84 99 05/03/21 12:45 83 16 135/79 99 05/03/21 12:32 82 16 118/73 99 05/03/21 11:28 98.1 F 94 H 18 138/84 100 05/03/21 11:24 98.1 F 96 H 16 135/82 98 05/03/21 07:44 97 H 05/03/21 07:41 98.1 F 89 18 131/74 96 05/03/21 07:32 80 16 96 05/03/21 03:03 98.1 F 80 16 121/73 97 05/02/21 23:00 98.4 F 97 H 18 133/79 96 05/02/21 22:19 96 H 05/02/21 19:22 90 18 97 05/02/21 19:04 99.0 F 101 H 18 119/68 95 05/02/21 15:04 87 Pain Intensity Bilateral Abdomen: Pain Intensity: 5 Transfer of Care Handoff Completed per policy Notes Mental Status: alert / awake / arousable and participated in evaluation Patient Amnestic to Procedure: Yes Nausea / Vomiting: adequately controlled Pain: adequately controlled Airway Patency, RR, SpO2: stable & adequate BP & HR: stable & adequate Hydration State: stable & adequate Anesthetic Complications: no major complications apparent and Pt Satisfied with anesthetic care
[2021-05-03] MEDS ORDERED: HYDROmorphone INJ 0.5 MG/0.5 ML SYR IV STA (13:41)
[2021-05-03] MEDS: CETIRIZINE HCL 10 MG TABLET PO SCH (14:45)
[2021-05-03] MEDS: ESCITALOPRAM OXALATE 20 MG TAB PO SCH (14:45)
[2021-05-03] MEDS: CALCIUM CARBONATE 1250MG TAB PO SCH ×2 (14:45→21:45)
[2021-05-03] MEDS: FAMOTIDINE 20 MG TAB PO SCH (14:46)
[2021-05-03] MEDS: FLUDROCORTISONE ACETATE 0.1 MG TAB PO SCH (14:46)
[2021-05-03] MEDS: POTASSIUM CHLORIDE CRTAB 20 MEQ TABCR PO SCH ×3 (14:47→21:47)
[2021-05-03] MEDS: PANTOprazole 40 MG TAB PO SCH (14:47)
[2021-05-03] MEDS: FOLIC ACID 1 MG TAB PO SCH (14:47)
[2021-05-03] MEDS: THIAMINE HCL 100 MG TAB PO SCH (14:48)
[2021-05-03] MEDS: NSS + 20MEQ KCL 20 MEQ/1,000 ML BAG IV SCH (15:56)
[2021-05-03] MEDS: CHOLESTYRAMINE LIGHT 4 GM PKT PO SCH ×2 (15:58→21:48)
[2021-05-03] MEDS: oxyCODONE HCL IR 5 MG TAB (IMMEDIATE RELEASE) PO PRN ×2 (17:01→21:51)
[2021-05-03] MEDS: CYCLOBENZAPRINE HCL 10 MG TAB PO PRN (17:06)
[2021-05-03] MEDS: DICYCLOMINE HCL 20 MG TAB PO PRN (19:48)
[2021-05-03] MEDS: MAGNESIUM OXIDE 400 MG TAB PO SCH (21:47)
[2021-05-04] MEDS: ACETAMINOPHEN 325 MG TAB PO PRN ×2 (01:01→09:58)
[2021-05-04] MEDS: NSS + 20MEQ KCL 20 MEQ/1,000 ML BAG IV SCH ×2 (04:59→16:27)
[2021-05-04] MEDS: oxyCODONE HCL IR 5 MG TAB (IMMEDIATE RELEASE) PO PRN ×3 (05:01→20:36)
[2021-05-04] MEDS: MIDODRINE HCL 2.5 MG TAB PO SCH ×2 (05:28→17:22)
[2021-05-04 05:56] LABS: Eosinophils # (auto) 0.02 K/uL (0-0.5); Eosinophils % (auto) 0.3 %; Hematocrit (blood only) 29.7 % (37-47); Hemoglobin 10.2 g/dL (12.0-16.0); Immature Granulocytes # (auto) 0.03 K/uL (0.00-0.02); Immature Granulocytes % (auto) 0.4 %; Lymphocytes # (auto) 2.29 K/uL (1.2-3.4); Lymphocytes % (auto) 29.5 %; Mean Corpuscular Hemoglobin 32.3 pg (25-34); Mean Corpuscular Hgb Conc 34.3 g/dL (32-36); Mean Platelet Volume 8.8 fL (7.4-10.4); Monocytes # (auto) 1.01 K/uL (0.11-0.59); Neutrophils # (auto) 4.41 K/uL (1.4-6.5); Neutrophils % (auto) 56.8 %; Platelet Count 271 K/uL (130-400); RDW Coefficient of Variation 14.6 % (11.5-14.5); Red Blood Count 3.16 M/uL (4.2-5.4); White Blood Count 7.76 K/uL (4.8-10.8)
[2021-05-04 06:22] LABS: BUN Creatinine Ratio 3.6 (10-20); Calcium 8.1 mg/dl (8.5-10.1); Creatinine Clr Calc Pharmacy 96.9 ml/min; Est GFR (African American) 138.7 ml/min; Est GFR (Non-African American) 119.7 ml/min; Potassium 2.6 mmol/L (3.5-5.1)
--- NOTE | 2021-05-04 07:34 | Hospitalist Progress Note ---
Date of Service May 04, 2021 Assessment & Plan (1) Hypokalemia: Plan: Anat is a 55-year-old female with a past medical history of lung cancer on Keytruda, HLA-B27 positivity, COPD, GERD, Schatzki's ring, tobacco use, failure to thrive, ankylosing spondylitis, and migraine who has been admitted for the management of severe hypokalemia of 1.9 on admission in the setting of increased diarrhea and poor p.o. intake. Hypokalemia 2/2 diarrhea with chronically poor p.o. intake Repleted with total of 70 meq of IV potassium between ER/admission orders Potassium gradually rising, 2.4 today. Additional riders ordered Magnesium initially repleted, 2.4 Additional K riders x4, p.o. 20 M EQ 3 times daily ordered 05/02 Calcium level, supplements ordered with one-time gluconate Potassium up trended, not yet normalized today. Resume p.o. repletion following PEG procedure. Potassium downtrending 05/04-2.6, magnesium repeat pending, additional K riders ordered Status post PEG placement. Anticipate starting tube feeds if okay by GI PEG feed goal: Per nutrition, goal Peptamen 1.5 at 75 cc/h, run over 10 hours. Will provide total of 1125 kcal, 51 g protein, 575 mL free water daily. Begin at rate of 20 mL per night on night 1 and increase by 10 cc per night until goal. Flush with 100 mL free water before and after each nocturnal feet. Daily multivitamin. 1 packet of Prosource daily in addition. (2) Adenocarcinoma, lung: Plan: [facility] Per 04/10/2021 note review: Non-small cell lung cancer started carbo/Alimta and pembrolizumab 08/11/2020. 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 CTA/P at that time showed moderate stool within the colon and rectum. Ultimately she was admitted 11/18-11/28 for oriana tropenic typhlitis and was noted to be significantly pancytopenic requiring Neupogen and packed red blood cell transfusion, was converted to single agent pembrolizumab therapy. (3) PEG (percutaneous endoscopic gastrostomy) status: Plan: PEG placed for unintentional weight loss and failure to thrive Per GI recommend resuming previous diet, continue meds, dietitian referral, and may use PEG for meds/water Patient with good pain control immediately postop, increased pain and spasm following meal. Pain relieved with gentle pressure at PEG with some epigastric spasm appreciated. Trial baclofen/Bentyl/hydromorphone for pain, pain this morning resolved. Anticipate starting tube feeds with goal rate of 75 if okay per GI (4) Chronic diarrhea: Plan: No leukocytosis See above, patient experiences previously with chemotherapy treatment although CTA/P was not consistent. Was treated with prednisone and 10/09 with no improvement History of neutropenic typhlitis EGD 04/27/2021 for Schatzki's ring/GERD/dysphagia: Benign esophageal stenosis, dilated esophagus. Normal stomach, normal duodenum C. difficile negative May use loperamide as needed ? Underlying pancreatic insufficiency versus acute illness. Consider trial of Creon if not improving (5) Ankylosing spondylitis: (6) Chronic pain syndrome: Plan: Continue oxycodone 5 mg every 4 hours as needed, cyclobenzaprine 10 mg p.o. 3 times daily as needed (7) COPD (chronic obstructive pulmonary disease): Plan: Umeclidinium/Vilanterol 1 puff daily Albuterol 4 times daily as needed (8) Depression: Plan: Psych consulted, prefers PCP management of her psych meds and to continue Lexapro. Lexapro decreased to 20 mg daily Added adjunct Remeron nightly for sleep Appreciate recommendations (9) Diarrhea: Plan: Continue cholestyramine twice daily Stools not completely liquid No history of C. difficile History of typhlitis, patient does not appear toxic and currently reports symptoms feel much less severe than this past episode Follow clinically this time (10) Hypotension: Plan: Continue midodrine, fludrocortisone (11) Severe protein-calorie malnutrition: Plan: Chronic, fairly thrive, history of malignancy as previously noted PEG tube placed P.o. feeds as tolerated, PEG nutrition as noted above Plan: DVT PPx: Lovenox 40 daily Admission and Anticipated Discharge Date Admission Date: May 01, 2021 Subjective Anat is seen at the bedside this morning. She reports that her abdominal pain resolved around 2 in the morning and she was able to get some rest after that. She has not had abdominal pain this morning. Feels fatigued, but otherwise "doing okay ". No chest pain/chest pressure/lightheadedness/dizziness. Has not yet seen GI today, anticipating starting PEG feeds with goal rate of 75. No questions or concerns at time of visit. Review of Systems Review of Systems: All systems reviewed & are unremarkable except as noted in Subjective Physical Exam Physical Exam: General: A&Ox3. NAD. Cooperative. Appears cachectic/thin HEENT: Atraumatic, normocephalic. Visual acuity and hearing grossly intact Pulm: CTAB A&P. -wheezes, -rales, -rhonchi. Symmetrical chest rise. No increase work of breathing. No respiratory distress. Cardiac: RRR, -mrg. Radial pulses intact and symmetrical. Abdominal: PEG tube in place, surgical overlying dressing C/D/I. Dressing removed for exam, tube in place without surrounding erythema/discharge. Remaining abdomen soft, nontender, nonrigid. Extremities: Thin. Moving all extremities equally. Distal pulses intact, skin warm and dry. Results & Data Results & Data ([facility]) Vital Signs (Past 12 Hours) Vital Signs Temp Pulse Pulse Resp BP Pulse Ox 05/04/21 06:15 85 05/04/21 04:00 37.0 C 85 18 138/78 95 05/03/21 23:00 36.9 C 85 18 135/85 94 05/03/21 22:19 94 H 05/03/21 20:21 36.5 C 86 18 128/85 98 05/03/21 19:40 96 H 16 98 PG Care Time/CCT Total # of Minutes Spent Total Time Spent with Patient: Total time spent is greater than 50% in coordination of care (as documented) at patient's floor/unit and/or counseling patient: Coding Level of Care Code 34993 Subseq Hosp Care Lvl 3 Diagnoses Hypokalemia E87.6 Adenocarcinoma, lung C34.90 Chronic diarrhea K52.9 Ankylosing spondylitis M45.9 Ankylosing spondylitis location: unspecified site of spine Chronic pain syndrome G89.4 COPD (chronic obstructive pulmonary disease) J44.9 COPD type: unspecified COPD Depression F32.9 Diarrhea R19.7 Diarrhea type: presumed infectious Hypotension I95.9 Hypotension type: unspecified hypotension type PEG (percutaneous endoscopic gastrostomy) status Z93.1 Severe protein-calorie malnutrition E43 (1) Diarrhea Diarrhea type: presumed infectious Qualified Code(s): R19.7 - Diarrhea, unspecified (2) Ankylosing spondylitis Ankylosing spondylitis location: unspecified site of spine Qualified Code(s): M45.9 - Ankylosing spondylitis of unspecified sites in spine (3) COPD (chronic obstructive pulmonary disease) COPD type: unspecified COPD Qualified Code(s): J44.9 - Chronic obstructive pulmonary disease, unspecified (4) Hypotension Hypotension type: unspecified hypotension type Qualified Code(s): I95.9 - Hypotension, unspecified
[2021-05-04] MEDS: ALBUTEROL HFA 8 GM INHALER INH SCH ×2 (07:43→19:32)
[2021-05-04] MEDS: CALCIUM CARBONATE 1250MG TAB PO SCH ×2 (08:43→20:32)
[2021-05-04] MEDS: POTASSIUM CHLORIDE / WTR 10 MEQ/100 ML PLCT IV SCH ×6 (08:43→14:27)
[2021-05-04] MEDS: CETIRIZINE HCL 10 MG TABLET PO SCH (08:43)
[2021-05-04] MEDS: FLUDROCORTISONE ACETATE 0.1 MG TAB PO SCH (08:44)
[2021-05-04] MEDS: ESCITALOPRAM OXALATE 20 MG TAB PO SCH (08:44)
[2021-05-04] MEDS: FOLIC ACID 1 MG TAB PO SCH (08:44)
[2021-05-04] MEDS: FAMOTIDINE 20 MG TAB PO SCH (08:44)
[2021-05-04] MEDS: NICOTINE 21 MG/24 HR TDSY TD SCH (08:45)
[2021-05-04] MEDS: MAGNESIUM OXIDE 400 MG TAB PO SCH ×2 (08:45→20:33)
[2021-05-04] MEDS: DICYCLOMINE HCL 20 MG TAB PO PRN ×2 (08:45→20:24)
[2021-05-04] MEDS: THIAMINE HCL 100 MG TAB PO SCH (08:45)
[2021-05-04] MEDS: PANTOprazole 40 MG TAB PO SCH (08:45)
[2021-05-04] MEDS: UMECLIDINIUM/VILANTEROL 62.5/25MCG 7 PUFFS/INHALER INH SCH (08:45)
[2021-05-04] MEDS: DIPHENOXYLATE/ATROPINE 2.5/0.025MG TAB PO PRN ×2 (11:59→17:21)
[2021-05-04] MEDS: CHOLESTYRAMINE LIGHT 4 GM PKT PO SCH ×2 (14:27→22:23)
[2021-05-04 16:28] LABS: BUN Creatinine Ratio 4.2 (10-20); Calcium 8.1 mg/dl (8.5-10.1); Creatinine Clr Calc Pharmacy 80.7 ml/min; Est GFR (African American) 130.9 ml/min; Est GFR (Non-African American) 112.9 ml/min
[2021-05-04] MEDS ORDERED: PEPTAMEN 1.5 CAL 1,000 ML BAG PO SCH (17:00)
[2021-05-04] MEDS: POTASSIUM CHLORIDE CRTAB 20 MEQ TABCR PO SCH ×2 (17:21→20:33)
[2021-05-04] MEDS: CYCLOBENZAPRINE HCL 10 MG TAB PO PRN (17:21)
[2021-05-04] MEDS: PROCHLORPERAZINE MALEATE 10 MG TAB PO PRN (17:26)
[2021-05-04] MEDS: MAGNESIUM SULFATE / D5W 1 GM/100 ML BAG IV SCH ×2 (18:05→20:09)
[2021-05-04] MEDS: PEPTAMEN 1.5 CAL 1,000 ML BAG PO SCH (20:25)
[2021-05-04] MEDS: TUBE FEEDING WATER FLUSH PEG SCH (20:25)
[2021-05-04] MEDS ORDERED: TUBE FEEDING WATER FLUSH PEG SCH (21:00)
[2021-05-04] MEDS: HEPARIN 100 UNIT/ML 5ML FLUSH FLUSH PRN (22:25)
[2021-05-05] MEDS: ACETAMINOPHEN 325 MG TAB PO PRN ×3 (00:21→15:13)
[2021-05-05] MEDS: MIDODRINE HCL 2.5 MG TAB PO SCH ×2 (06:41→17:50)
[2021-05-05] MEDS: [UNRECOGNIZED DRUG - REMARK] SCH (06:41)
[2021-05-05] MEDS: TUBE FEEDING WATER FLUSH PEG SCH ×2 (06:41→20:30)
[2021-05-05] MEDS: ALBUTEROL HFA 8 GM INHALER INH SCH ×2 (07:37→19:08)
[2021-05-05 08:41] LABS: Basophils # (auto) 0.01 K/uL (0-0.2); Basophils % (auto) 0.1 %; Eosinophils # (auto) 0.03 K/uL (0-0.5); Eosinophils % (auto) 0.4 %; Hematocrit (blood only) 33.6 % (37-47); Hemoglobin 11.3 g/dL (12.0-16.0); Immature Granulocytes # (auto) 0.02 K/uL (0.00-0.02); Immature Granulocytes % (auto) 0.3 %; Lymphocytes % (auto) 29.6 %; Mean Corpuscular Hemoglobin 32.5 pg (25-34); Mean Corpuscular Hgb Conc 33.6 g/dL (32-36); Mean Corpuscular Volume 96.6 fL (80-100); Monocytes # (auto) 1.04 K/uL (0.11-0.59); Neutrophils # (auto) 4.14 K/uL (1.4-6.5); Neutrophils % (auto) 55.6 %; Platelet Count 327 K/uL (130-400); RDW Coefficient of Variation 14.6 % (11.5-14.5); RDW Standard Deviation 51.5 fL (36.4-46.3); Red Blood Count 3.48 M/uL (4.2-5.4); White Blood Count 7.44 K/uL (4.8-10.8)
[2021-05-05 09:20] LABS: BUN Creatinine Ratio 6.5 (10-20); Calcium 9.2 mg/dl (8.5-10.1); Creatinine Clr Calc Pharmacy 88.7 ml/min; Est GFR (African American) 131.9 ml/min; Est GFR (Non-African American) 113.8 ml/min; Potassium 3.1 mmol/L (3.5-5.1)
[2021-05-05] MEDS: CETIRIZINE HCL 10 MG TABLET PO SCH (09:24)
[2021-05-05] MEDS: FAMOTIDINE 20 MG TAB PO SCH (09:24)
[2021-05-05] MEDS: FLUDROCORTISONE ACETATE 0.1 MG TAB PO SCH (09:24)
[2021-05-05] MEDS: CALCIUM CARBONATE 1250MG TAB PO SCH ×2 (09:24→20:21)
[2021-05-05] MEDS: ESCITALOPRAM OXALATE 20 MG TAB PO SCH (09:24)
[2021-05-05] MEDS: MAGNESIUM OXIDE 400 MG TAB PO SCH ×2 (09:25→20:21)
[2021-05-05] MEDS: NICOTINE 21 MG/24 HR TDSY TD SCH (09:25)
[2021-05-05] MEDS: FOLIC ACID 1 MG TAB PO SCH (09:25)
[2021-05-05] MEDS: PROCHLORPERAZINE MALEATE 10 MG TAB PO PRN ×2 (09:25→20:20)
[2021-05-05] MEDS: THIAMINE HCL 100 MG TAB PO SCH (09:25)
[2021-05-05] MEDS: POTASSIUM CHLORIDE CRTAB 20 MEQ TABCR PO SCH ×2 (09:25→20:22)
[2021-05-05] MEDS: PANTOprazole 40 MG TAB PO SCH (09:26)
[2021-05-05] MEDS: PROSOURCE NO CARB 30 ML/PKT PEG SCH (09:26)
[2021-05-05] MEDS: UMECLIDINIUM/VILANTEROL 62.5/25MCG 7 PUFFS/INHALER INH SCH (09:26)
[2021-05-05] MEDS: CHOLESTYRAMINE LIGHT 4 GM PKT PO SCH ×2 (09:26→21:56)
[2021-05-05] MEDS: oxyCODONE HCL IR 5 MG TAB (IMMEDIATE RELEASE) PO PRN ×2 (09:32→20:19)
[2021-05-05] MEDS: POTASSIUM CHLORIDE / WTR 10 MEQ/100 ML PLCT IV SCH ×8 (11:48→20:10)
--- NOTE | 2021-05-05 12:47 | Discharge Summary ---
Date of Service May 06, 2021 Admission HPI Per Admitting Provider Is a 55-year-old female with past medical history of metastatic lung cancer on Keytruda presents today with hypokalemia. Patient is pleasant with historian. Patient tells me that she has been having ongoing issues with adequate p.o. intake. That she has been doing well on her chemotherapy but is gone to the point that she was scheduled for a G-tube replaced by Dr. Landrum on 05/03. Patient was seen last week in the cancer center and had some saline infused. Today she arrived for her next chemotherapy. Lab work was taken at that time and found a potassium of 1.9 and the patient was sent to the emergency room for further evaluation. Patient is on oral supplementation, tells me she takes 3 tablets daily and I do see a 20 mEq potassium chloride on her medication list. She has been compliant with this. Patient has had a hypokalemia in the past though this is low for her even compared to previous episodes of hypokalemia. Patient is now being admitted for potassium supplementation and telemetry monitoring. Consideration to having G-tube placed during this admission. Admission Exam Per Admitting Provider Constitutional: cooperative and + underweight; no acute distress Neck: trachea midline, no thyromegaly Respiratory: normal respiratory effort Auscultation: lungs clear to auscultation bilaterally; no crackles, no rales, no rhonchi and no wheezes Cardiovascular: Rate/Rhythm: regular rate and regular rhythm Heart Sounds: normal S1 and normal S2 Gastrointestinal (Abdomen): Inspection/Auscultation: abdomen normal to inspection Percussion/Palpation: abdomen soft; abdomen nontender, no guarding, abdomen not rigid and no hepatosplenomegaly Skin: no rashes, warm and dry Principal Diagnosis Failure to Thrive Protein Calorie Malnutrition Discharge Exam General: A&Ox3. NAD. Cooperative. Appears cachectic/thin HEENT: Atraumatic, normocephalic. Visual acuity and hearing grossly intact Pulm: CTAB A&P. -wheezes, -rales, -rhonchi. Symmetrical chest rise. No increase work of breathing. No respiratory distress. Cardiac: RRR, -mrg. Radial pulses intact and symmetrical. Abdominal: PEG tube in place, surgical overlying dressing C/D/I. Dressing removed for exam, tube in place without surrounding erythema/discharge. Remaining abdomen soft, nontender, nonrigid. Extremities: Thin. Moving all extremities equally. Distal pulses intact, skin warm and dry. Discharge Data Allergies Allergy/AdvReac Type Severity Reaction Status Date / Time hornet venom Allergy Severe Anaphylaxis Verified 05/01/21 14:32 mold Allergy Severe Sinus Verified 05/01/21 14:32 swelling morphine Allergy Severe decreases Verified 05/01/21 14:32 respirations sulfasalazine Allergy Severe Rash, Verified 05/01/21 14:32 swelling, dyspnea codeine Allergy Mild Pruritus Verified 05/01/21 14:32 house dust Allergy Mild Dry Eye Verified 05/01/21 14:32 Consultations 05/01/21 13:26 ED Decision to Admit Stat 05/01/21 16:06 Consult Psychiatry Routine 05/01/21 17:57 Consult Gastroenterology Routine Procedures Performed Operation Date: 05/02/21 17:15 <No data on this case meets the specified criteria> Operation Date: 05/03/21 11:40 Actual Procedures p EGD Gastric Tube Placement - Tani Browne Case, DO Hospital Course (1) Hypokalemia: Anat is a 55-year-old female with a past medical history of lung cancer on Keytruda, HLA-B27 positivity, COPD, GERD, Schatzki's ring, tobacco use, failure to thrive, ankylosing spondylitis, and migraine who has been admitted f or the management of severe hypokalemia of 1.9 on admission in the setting of increased diarrhea and poor p.o. intake. To do as outpatient: 1. Uptitrate evening feeds to goal of 10-hour overnight feeds at rate of 75 cc/h. Patient tolerating 30 cc/h x 10 hours at time of discharge, with instructions to increase by 10 cc per night. 2. Follow-up BMP to ensure stability of potassium. Patient with poor intake and additional losses from diarrhea. Diarrhea had improved on day of discharge, and potassium was repleted. Recommend recheck in approximately 72 hours and repletion as needed. 3. Routine PCP, oncology, gastroenterology follow-up Hypokalemia 2/2 diarrhea with chronically poor p.o. intake Repleted with total of 70 meq of IV potassium between ER/admission orders Potassium gradually rising, 2.4 today. Additional riders ordered Magnesium initially repleted, 2.4 Additional K riders x4, p.o. 20 M EQ 3 times daily ordered 05/02 Calcium level, supplements ordered with one-time gluconate Potassium was repleted, low in the setting of diarrhea and poor intake. Magnesium was repleted as needed, potassium normalized at time of discharge Status post PEG placement. PEG feed goal: Per nutrition, goal Peptamen 1.5 at 75 cc/h, run over 10 hours. Will provide total of 1125 kcal, 51 g protein, 575 mL free water daily. Began at rate of 20 mL per night on night 1 and increasing by 10 cc per night until goal. Flush with 100 mL free water before and after each nocturnal feet. Daily multivitamin. 1 packet of Prosource daily in addition. Patient tolerated 30 cc/h rate evening prior to discharge. Instructed to increase by 10 cc/h per night, may hold/decrease if symptoms develop (2) Adenocarcinoma, lung: followed by cancer [facility] Per 04/10/2021 note review: Non-small cell lung cancer started carbo/Alimta and pembrolizumab 08/11/2020. 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 CTA/P at that time showed moderate stool within the colon and rectum. Ultimately she was admitted 11/18-11/28 for neutropenic typhlitis and was noted to be significantly pancytopenic requiring Neupogen and packed red blood cell transfusion, was converted to single agent pembrolizumab therapy. (3) PEG (percutaneous endoscopic gastrostomy) status: PEG placed for unintentional weight loss and failure to thrive Per GI recommend resuming previous diet, continue meds, dietitian referral, and may use PEG for meds/water Patient with good pain control immediately postop, increased pain and spasm following meal. Pain relieved with gentle pressure at PEG with some epigastric spasm appreciated. Trial baclofen/Bentyl/hydromorphone for pain, pain resolved next morning. No pain at time of discharge (4) Chronic diarrhea: No leukocytosis See above, patient experiences previously with chemotherapy treatment although CTA/P was not consistent. Was treated with prednisone and 10/09 with no improvement History of neutropenic typhlitis EGD 04/27/2021 for Schatzki's ring/GERD/dysphagia: Benign esophageal stenosis, dilated esophagus. Normal stomach, normal duodenum C. difficile negative May use loperamide as needed Clinically improved at time of discharge with firm stool morning of discharge (5) Ankylosing spondylitis: (6) Chronic pain syndrome: Continue oxycodone 5 mg every 4 hours as needed, cyclobenzaprine 10 mg p.o. 3 times daily as needed (7) COPD (chronic obstructive pulmonary disease): Umeclidinium/Vilanterol 1 puff daily Albuterol 4 times daily as needed (8) Depression: Psych consulted, prefers PCP management of her psych meds and to continue Lexapro. Lexapro decreased to 20 mg daily Added adjunct Remeron nightly for sleep Appreciate recommendations (9) Diarrhea: See chronic diarrhea above, improved at time of discharge (10) Hypotension: Continue midodrine, fludrocortisone (11) Severe protein-calorie malnutrition: Chronic, failure thrive, history of malignancy as previously noted PEG tube placed P.o. feeds as tolerated, PEG nutrition as noted above DVT PPx: Lovenox 40 daily admission, no signs of DVT were appreciated during admission Total Time Total Time Spent Total Time Spent (In Minutes): Time spent preparing discharge on day of discharge including direct patient care, documentation, coordination of care, and review of labs and images 35 minutes. Discharge Plan Discharge Items Patient Disposition: Home - Home Health Services Reason For Visit: HYPOKALEMIA Discharge Diagnosis: Failure to thrive Hypokalemia Protein calorie malnutrition Activity: Resume your previous activity Non-emergency contact: Primary Care Provider Call non-emergency contact if: you have any medication questions Follow-up/Referrals: [facility] [Outside] (Appointment 05/12/2021 @ 1130 ) Tani Landrum, [Physician] - Thai Bills III, MD [Primary Care Provider] - Diet: Other - See Diet Comment Addtl Attending Provider Instructions: You are seen in the hospital for hypokalemia and protein calorie malnutrition. You had a PEG tube placed and were tolerating initial feeds well at time of discharge. Your PEG feeds should be gradually increased to goal as noted below. You experienced diarrhea which likely also contributed to your hypokalemia. Your diarrhea improved on day of discharge, your potassium improved over admission and was repleted with IV and p.o. potassium. Have your potassium rechecked as noted below, and you have had medications prescribed as noted below. You have had a PEG tube placed for nutrition. Please take Peptamen 1.5 at a rate of 40 cc/h for 10 hours overnight as instructed. Increase this rate by 10 cc each night if well tolerated to a goal rate of 75 cc/h for 10 hours overnight. If you experience symptoms including pain, reflux, or nausea you may decrease this by 10, and delay an increase for a day or 2 before trying an increase again. Flushed with 100 mL free water before and after each nocturnal feed. If you continue to have pain or intolerance of feeds prior to reaching your goal rate, please discuss further management with gastroenterology or your primary care physician at follow-up. Your goal rate will provide a total of 1125 kcals, 51 g of protein, and 575 mL of free water daily. A follow-up appointment is being made for you with your primary care provider, Dr. Bills. You should be seen within 1 week. If you do not receive a call to confirm your appointment, or need to change your appointment, please call his office directly at the number above. A follow-up appointment is being scheduled for you with gastroenterology, Dr. Landrum. You should be seen within 2 weeks. If you do not receive a call to confirm your appointment within 48 hours of discharge, please contact his office directly at the number above You have been prescribed a potassium supplement. Please take potassium chloride 40 M EQ by mouth daily. Please have your potassium levels rechecked within 1 week of discharge, your primary care provider may choose to adjust, add, or limited potassium supplementation based on these levels. If you develop any new or worsening symptoms including fever, chills, sweats, chest pain, chest pressure, difficulty breathing, uncontrolled nausea/vomiting, rash, wheezing, passing out or nearly passing out, bleeding, black/bloody bowel movements, or other new or concerning symptoms please call your primary care physician, or call 911 for re-evaluation in the emergency department if you are very concerned. Pending Studies at Discharge: No Stand-Alone Forms: My [employer], Smoking Cessation Medications and DC Order Prescriptions: New mirtazapine 15 mg Tablet 15 mg PO HS PRN (Reason: sleep) Qty: 30 RF: 0 potassium chloride 20 mEq Tablet,Er Particles/Crystals 40 meq PO DAILY 20 Days Qty: 40 RF: 0 Continued ipratropium-albuterol 0.5 mg-3 mg(2.5 mg base)/3 mL solution for nebulization 3 ml INH QID PRN (Reason: wheezing) Qty: 90 RF: 5 Emgality Pen 120 mg/mL pen injector 120 mg subcut MONTHLY 90 Days Qty: 3 RF: 1 epinephrine 0.3 mg/0.3 mL auto-injector 0.3 mg IM Q10M PRN (Reason: anaphylaxis) Qty: 1 RF: 3 cetirizine 10 mg tablet 10 mg PO QAM Qty: 30 RF: 5 diphenoxylate-atropine 2.5-0.025 mg tablet 1 tab PO QID PRN (Reason: diarrhea) Qty: 120 RF: 5 nicotine 21 mg/24 hr patch 24 hour 1 patch transdermal DAILY Qty: 28 RF: 3 thiamine HCl (vitamin B1) [Vitamin B-1] 100 mg tablet 100 mg PO DAILY Qty: 30 RF: 2 cholestyramine (with sugar) 4 gram powder 4 g PO BID Qty: 378 RF: 2 rizatriptan 10 mg tablet 10 mg PO .COMPLEX PRN (Reason: migraine headache) Qty: 9 RF: 5 cyclobenzaprine 10 mg tablet 10 mg PO TID PRN (Reason: muscle spasm) Qty: 90 RF: 1 Bevespi Aerosphere 9-4.8 mcg HFA aerosol inhaler 2 puff inhalation BID Qty: 10.7 RF: 2 pantoprazole 40 mg tablet,delayed release (DR/EC) See Rx Instructions .ROUTE .COMPLEX Qty: 30 RF: 2 potassium chloride 20 mEq tablet extended release 20 meq PO DAILY RF: 0 prochlorperazine maleate 10 mg tablet 10 mg PO Q6H PRN (Reason: nausea and vomiting) Qty: 30 RF: 2 famotidine 20 mg tablet 20 mg PO QAM Qty: 90 RF: 3 albuterol sulfate 90 mcg/actuation HFA aerosol inhaler 2 puff inhalation BID Qty: 18 RF: 5 benzonatate 100 mg capsule 100 mg PO TID PRN (Reason: cough) Qty: 90 RF: 1 fludrocortisone 0.1 mg tablet 0.2 mg PO DAILY Qty: 60 RF: 5 escitalopram oxalate 20 mg tablet 30 mg PO DAILY Qty: 135 RF: 3 folic acid 1 mg Tablet 1 mg PO QAM RF: 0 cranberry 500 mg Capsule 1,000 mg PO QAM RF: 0 nystatin 100,000 unit/mL suspension 5 ml PO QID PRN (Reason: Mouth Irritation) RF: 0 oxycodone 5 mg Tablet 5 mg PO Q4H PRN (Reason: pain) Qty: 20 RF: 0 ondansetron HCl [Zofran] 4 mg tablet 8 mg PO Q8H PRN (Reason: nausea and vomiting) Qty: 60 RF: 2 midodrine 2.5 mg Tablet 2.5 mg PO BID RF: 0 Discharge Orders: Discharge Order (Routine); Ordered 05/06/21 Ordered By: Josh Trujillo/Other Patient Handouts: Understanding PEG Tube Feeding Admission Data Admit Date/Time: 05/01/21 14:50 Attending Provider: Josh Gutierrez Admit Provider: Dennis Phillips Primary Care Provider: Thai Bills III Other Providers: Narcisa Jo ; Lore Ellis ; Coby Correa ; Josh Pena ; Dennis Phillips ; Tani Landrum ; [facility] Other Interventions: PSY Interdisciplinary Discharge Planning Last Done: 05/05/21 10:00 Discharge Summary Assessment (RN) Last Done: 05/06/21 07:25 Coding Level of Care Code D/C DAY MANAGEMENT >30 MINS Diagnoses Hypokalemia E87.6 Adenocarcinoma, lung C34.90 PEG (percutaneous endoscopic gastrostomy) status Z93.1 Chronic diarrhea K52.9 Ankylosing spondylitis M45.9 Ankylosing spondylitis location: unspecified site of spine Chronic pain syndrome G89.4 COPD (chronic obstructive pulmonary disease) J44.9 COPD type: unspecified COPD Depression F32.9 Diarrhea R19.7 Diarrhea type: presumed infectious Hypotension I95.9 Hypotension type: unspecified hypotension type Severe protein-calorie malnutrition E43
[2021-05-05 14:33] LABS: BUN Creatinine Ratio 15.8 (10-20); Calcium 8.8 mg/dl (8.5-10.1); Creatinine Clr Calc Pharmacy 79.2 ml/min; Est GFR (African American) 127.1 ml/min; Est GFR (Non-African American) 109.6 ml/min; Magnesium 1.8 mg/dl (1.8-2.4); Potassium 3.2 mmol/L (3.5-5.1)
--- NOTE | 2021-05-05 15:34 | Hospitalist Progress Note ---
Date of Service May 05, 2021 Assessment & Plan (1) Hypokalemia: Plan: Anat is a 55-year-old female with a past medical history of lung cancer on Keytruda, HLA-B27 positivity, COPD, GERD, Schatzki's ring, tobacco use, failure to thrive, ankylosing spondylitis, and migraine who has been admitted for the management of severe hypokalemia of 1.9 on admission in the setting of increased diarrhea and poor p.o. intake. Discussed with case management, home health unable to set up patient for PEG infusions till tomorrow. In addition potassium repletion still requiring IV infusion, although uptrending. Patient originally to be discharged earlier in the day, given need for additional IV potassium repletion, services unable to be set up until the next day, and concern for missed PEG with history of pain when advanced to quickly will watch overnight and anticipate discharge tomorrow. Hypokalemia 2/2 diarrhea with chronically poor p.o. intake Repleted with total of 70 meq of IV potassium between ER/admission orders Potassium gradually rising, Additional riders ordered Magnesium initially repleted, continue Mag-Ox Calcium level, supplements ordered with one-time gluconate during admission Potassium was repleted, low in the setting of diarrhea and poor intake. Magnesium was repleted as needed, potassium uptrending at time of discharge and diarrhea had improved. Status post PEG placement. PEG feed goal: Per nutrition, goal Peptamen 1.5 at 75 cc/h, run over 10 hours. Will provide total of 1125 kcal, 51 g protein, 575 mL free water daily. Begin at rate of 20 mL per night on night 1 and increase by 10 cc per night until goal. Flush with 100 mL free water before and after each nocturnal feet. Daily multivitamin. 1 packet of Prosource daily in addition. Patient tolerated 20 cc/h rate evening prior to discharge. Instructed to increase by 10 cc/h per night, may hold/decrease if symptoms develop (2) Adenocarcinoma, lung: Plan: followed by cancer [facility] Per 04/10/2021 note review: Non-small cell lung cancer started carbo/Alimta and pembrolizumab 08/11/2020. 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 CTA/P at that time showed moderate stool within the colon and rectum. Ultimately she was admitted 11/18-11/28 for neutropenic typhlitis and was noted to be significantly pancytopenic requiring Neupogen and packed red blood cell transfusion, was converted to single agent pembrolizumab therapy. (3) PEG (percutaneous endoscopic gastrostomy) status: Plan: PEG placed for unintentional weight loss and failure to thrive Per GI recommend resuming previous diet, continue meds, dietitian referral, and may use PEG for meds/water Patient with good pain control immediately postop, increased pain and spasm following meal. Pain relieved with gentle pressure at PEG with some epigastric spasm appreciated. Trial baclofen/Bentyl/hydromorphone for pain, pain resolved next morning. No pain at time of discharge (4) Chronic diarrhea: Plan: No leukocytosis See above, patient experiences previously with chemotherapy treatment although CTA/P was not consistent. Was treated with prednisone and 10/09 with no improvement History of neutropenic typhlitis EGD 04/27/2021 for Schatzki's ring/GERD/dysphagia: Benign esophageal stenosis, dilated esophagus. Normal stomach, normal duodenum C. difficile negative May use loperamide as needed Clinically improved (5) Ankylosing spondylitis: (6) Chronic pain syndrome: Plan: Continue oxycodone 5 mg every 4 hours as needed, cyclobenzaprine 10 mg p.o. 3 times daily as needed (7) COPD (chronic obstructive pulmonary disease): Plan: Umeclidinium/Vilanterol 1 puff daily Albuterol 4 times daily as needed (8) Depression: Plan: Psych consulted, prefers PCP management of her psych meds and to continue Lexapro. Lexapro decreased to 20 mg daily Added adjunct Remeron nightly for sleep Appreciate recommendations (9) Diarrhea: Plan: See chronic diarrhea above, improved at time of discharge (10) Hypotension: Plan: Continue midodrine, fludrocortisone (11) Severe protein-calorie malnutrition: Plan: Chronic, failure thrive, history of malignancy as previously noted PEG tube placed P.o. feeds as tolerated, PEG nutrition as noted above Plan: DVT PPx: Lovenox 40 daily admission, no signs of DVT Admission and Anticipated Discharge Date Admission Date: May 01, 2021 Subjective Symptomatic today. Patient feeling dramatically improved, diarrhea has improved and she is having formed stool today. Minimal to no pain this morning. Tolerated PEG feeds last night at a rate of 20 well with no symptoms. No fever/chills/sweats. Overall appreciative of care. Discussed with case management, home health unable to set up patient for PEG infusions till tomorrow. In addition potassium repletion still requiring IV infusion, although uptrending. Patient originally to be discharged earlier in the day, given need for additional IV potassium repletion, services unable to be set up until the next day, and concern for missed PEG with history of pain when advanced to quickly will watch overnight and anticipate discharge tomorrow. Review of Systems Review of Systems: All systems reviewed & are unremarkable except as noted in Subjective Physical Exam Physical Exam: General: A&Ox3. NAD. Cooperative. Appears cachectic/thin HEENT: Atraumatic, normocephalic. Visual acuity and hearing grossly intact Pulm: CTAB A&P. -wheezes, -rales, -rhonchi. Symmetrical chest rise. No increase work of breathing. No respiratory distress. Cardiac: RRR, -mrg. Radial pulses intact and symmetrical. Abdominal: PEG tube in place, surgical overlying dressing C/D/I. Dressing re moved for exam, tube in place without surrounding erythema/discharge. Remaining abdomen soft, nontender, nonrigid. Extremities: Thin. Moving all extremities equally. Distal pulses intact, skin warm and dry. Results & Data Results & Data ([facility]) Vital Signs (Past 12 Hours) Vital Signs Temp Pulse Pulse Resp BP Pulse Ox 05/05/21 11:35 90 05/05/21 11:15 90 05/05/21 10:56 36.7 C 101 H 20 146/80 H 93 05/05/21 07:37 87 16 97 05/05/21 07:00 36.8 C 90 17 98/71 L 99 05/05/21 04:00 36.8 C 95 H 18 145/63 H 93 PG Care Time/CCT Total # of Minutes Spent Total Time Spent with Patient: Total time spent is greater than 50% in coordination of care (as documented) at patient's floor/unit and/or counseling patient: Coding Level of Care Code 00894 Subseq Hosp Care Lvl 3 Diagnoses Hypokalemia E87.6 Adenocarcinoma, lung C34.90 PEG (percutaneous endoscopic gastrostomy) status Z93.1 Chronic diarrhea K52.9 Ankylosing spondylitis M45.9 Ankylosing spondylitis location: unspecified site of spine Chronic pain syndrome G89.4 COPD (chronic obstructive pulmonary disease) J44.9 COPD type: unspecified COPD Depression F32.9 Diarrhea R19.7 Diarrhea type: presumed infectious Hypotension I95.9 Hypotension type: unspecified hypotension type Severe protein-calorie malnutrition E43 (1) Ankylosing spondylitis Ankylosing spondylitis location: unspecified site of spine Qualified Code(s): M45.9 - Ankylosing spondylitis of unspecified sites in spine (2) COPD (chronic obstructive pulmonary disease) COPD type: unspecified COPD Qualified Code(s): J44.9 - Chronic obstructive pulmonary disease, unspecified (3) Diarrhea Diarrhea type: presumed infectious Qualified Code(s): R19.7 - Diarrhea, unspecified (4) Hypotension Hypotension type: unspecified hypotension type Qualified Code(s): I95.9 - Hypotension, unspecified
[2021-05-05] MEDS: PEPTAMEN 1.5 CAL 1,000 ML BAG PO SCH (20:24)
[2021-05-05] MEDS ORDERED: MIRTAZAPINE TAB 15 MG TAB PO SCH (21:00)
[2021-05-06] MEDS: oxyCODONE HCL IR 5 MG TAB (IMMEDIATE RELEASE) PO PRN ×2 (00:19→08:03)
[2021-05-06] MEDS: MIDODRINE HCL 2.5 MG TAB PO SCH (06:08)
[2021-05-06] MEDS: [UNRECOGNIZED DRUG - REMARK] SCH (06:09)
[2021-05-06] MEDS: TUBE FEEDING WATER FLUSH PEG SCH (06:09)
[2021-05-06 06:37] LABS: Hematocrit (blood only) 33.7 % (37-47); Hemoglobin 11.4 g/dL (12.0-16.0); Mean Corpuscular Hemoglobin 32.5 pg (25-34); Mean Corpuscular Hgb Conc 33.8 g/dL (32-36); Platelet Count 349 K/uL (130-400); RDW Coefficient of Variation 14.5 % (11.5-14.5); RDW Standard Deviation 50.9 fL (36.4-46.3); Red Blood Count 3.51 M/uL (4.2-5.4); White Blood Count 7.58 K/uL (4.8-10.8)
[2021-05-06 07:15] LABS: BUN Creatinine Ratio 16.3 (10-20); Creatinine Clr Calc Pharmacy 78.2 ml/min; Est GFR (African American) 126.2 ml/min; Est GFR (Non-African American) 108.9 ml/min; Potassium 3.7 mmol/L (3.5-5.1)
[2021-05-06] MEDS: ALBUTEROL HFA 8 GM INHALER INH SCH (07:27)
[2021-05-06] MEDS: NICOTINE 21 MG/24 HR TDSY TD SCH (07:50)
[2021-05-06] MEDS: PROSOURCE NO CARB 30 ML/PKT PEG SCH (07:50)
[2021-05-06] MEDS: THIAMINE HCL 100 MG TAB PO SCH (07:51)
[2021-05-06] MEDS: UMECLIDINIUM/VILANTEROL 62.5/25MCG 7 PUFFS/INHALER INH SCH (07:51)
[2021-05-06] MEDS: PANTOprazole 40 MG TAB PO SCH (07:51)
[2021-05-06] MEDS: POTASSIUM CHLORIDE CRTAB 20 MEQ TABCR PO SCH (07:51)
[2021-05-06] MEDS: MAGNESIUM OXIDE 400 MG TAB PO SCH (07:51)
[2021-05-06] MEDS: FOLIC ACID 1 MG TAB PO SCH (07:51)
[2021-05-06] MEDS: FLUDROCORTISONE ACETATE 0.1 MG TAB PO SCH (07:51)
[2021-05-06] MEDS: CETIRIZINE HCL 10 MG TABLET PO SCH (07:51)
[2021-05-06] MEDS: FAMOTIDINE 20 MG TAB PO SCH (07:51)
[2021-05-06] MEDS: ESCITALOPRAM OXALATE 20 MG TAB PO SCH (07:51)
[2021-05-06] MEDS: CALCIUM CARBONATE 1250MG TAB PO SCH (07:51)
[2021-05-06] MEDS: CHOLESTYRAMINE LIGHT 4 GM PKT PO SCH (07:58)
[2021-05-06] MEDS: HEPARIN 100 UNIT/ML 5ML FLUSH FLUSH PRN (08:04)
[2021-05-06 08:14] LABS: Basophils # (auto) 0.01 K/uL (0-0.2); Basophils % (auto) 0.1 %; Eosinophils # (auto) 0.04 K/uL (0-0.5); Eosinophils % (auto) 0.5 %; Immature Granulocytes # (auto) 0.02 K/uL (0.00-0.02); Immature Granulocytes % (auto) 0.3 %; Lymphocytes # (auto) 2.36 K/uL (1.2-3.4); Lymphocytes % (auto) 31.1 %; Monocytes # (auto) 1.19 K/uL (0.11-0.59); Monocytes % (auto) 15.7 %; Neutrophils # (auto) 3.96 K/uL (1.4-6.5); Neutrophils % (auto) 52.3 %
== END 2021-05-06 09:36 | disposition home health service (06) | DRG 640 ==
LOC: ED 12:24 → EDINP 14:50 → SUATTDRO 14:50 → 2W 18:41

== ENCOUNTER 2021-05-17 13:32 | Inpatient (IN) ==
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
[2021-05-17] MEDS ORDERED: SODIUM CHLORIDE 0.9% 1000ML 1,000 ML IV STA (16:16)
[2021-05-17] MEDS ORDERED: fentaNYL citrate 100 MCG/2 ML VIAL IV STA ×2 (16:16→17:42)
[2021-05-17] MEDS ORDERED: ONDANSETRON INJ 2 MG/ML 2 ML VIAL IV STA (16:16)
[2021-05-17 16:39] LABS: Basophils # (auto) 0.01 K/uL (0-0.2); Basophils % (auto) 0.1 %; Eosinophils # (auto) 0.04 K/uL (0-0.5); Eosinophils % (auto) 0.3 %; Hematocrit (blood only) 36.3 % (37-47); Hemoglobin 12.5 g/dL (12.0-16.0); Immature Granulocytes # (auto) 0.06 K/uL (0.00-0.02); Immature Granulocytes % (auto) 0.4 %; Mean Corpuscular Hgb Conc 34.4 g/dL (32-36); Mean Corpuscular Volume 95.8 fL (80-100); Mean Platelet Volume 8.5 fL (7.4-10.4); Monocytes # (auto) 1.47 K/uL (0.11-0.59); Monocytes % (auto) 9.6 %; Neutrophils # (auto) 11.41 K/uL (1.4-6.5); Neutrophils % (auto) 74.6 %; Platelet Count 489 K/uL (130-400); RDW Coefficient of Variation 14.9 % (11.5-14.5); RDW Standard Deviation 51.5 fL (36.4-46.3); Red Blood Count 3.79 M/uL (4.2-5.4); White Blood Count 15.29 K/uL (4.8-10.8)
[2021-05-17 17:02] LABS: Alanine Aminotransferase 17 U/L (12-78); Albumin Globulin Ratio 0.6 (0.9-2); Albumin Level 3.1 gm/dl (3.4-5.0); Alkaline Phosphatase 83 U/L (45-117); Aspartate Aminotransferase 18 U/L (15-37); BUN Creatinine Ratio 33.4 (10-20); Bilirubin,Total 0.4 mg/dl (0.2-1); Blood Urea Nitrogen 22 mg/dl (7-18); Calcium 10.7 mg/dl (8.5-10.1); Carbon Dioxide 33 mmol/L (21-32); Chloride 90 mmol/L (98-107); Est GFR (African American) 113.1 ml/min; Est GFR (Non-African American) 97.6 ml/min; Globulin 5.3 gm/dl (2.5-4.0); Glucose 112 mg/dl (70-99); Lipase 99 U/L (73-393); Magnesium 2.1 mg/dl (1.8-2.4); Phosphorus 3.8 mg/dl (2.5-4.9); Potassium 2.2 mmol/L (3.5-5.1); Sodium 133 mmol/L (136-145); Total Protein 8.4 gm/dl (6.4-8.2)
[2021-05-17] MEDS ORDERED: SODIUM CHLORIDE 0.9% 1000ML 1,000 ML IV ONE (17:02)
[2021-05-17] MEDS: POTASSIUM CHLORIDE / WTR 10 MEQ/100 ML PLCT IV SCH ×4 (17:36→22:23)
[2021-05-17] MEDS ORDERED: NICOTINE 21 MG/24 HR TDSY TD STA (17:42)
[2021-05-17] MEDS ORDERED: OPTIRAY 320 100ml IV ONE (17:50)
--- NOTE | 2021-05-17 18:01 | CT Scan Report ---
ABDOMEN AND PELVIS CT WITH IV CONTRAST CT DOSE: 246.61 mGy.cm HISTORY: recent G tube placement, nausea, vomiting, diarrhea. TECHNIQUE: Multiaxial CT images of the abdomen and pelvis were performed following the use of intrave nous contrast. A dose lowering technique was utilized adhering to the principles of ALARA. COMPARISON STUDY: Abdomen and pelvis CT 04/28/2021. FINDINGS: Emphysema again noted at the lung bases. No pneumoperitoneum. No pneumatosis. Left femoral head avascular necrosis is again noted. The liver, spleen, adrenal glands, pancreas, and kidneys are unremarkable. No hydronephrosis. The main portal vein is patent. Normal caliber abdominal aorta with moderate calcified plaque. No retroperitoneal lymphadenopathy. The bladder is unremarkable. The gallb ladder is distended. However, no gallbladder wall thickening. Normal caliber common bile duct. Interv al placement of a percutaneous gastrostomy tube which appears in good position. No loculated fluid co llections within the anterior abdominal wall to suggest an abscess. The stomach and majority of the l arge and small bowel are distended and filled with fluid. The rectum is also distended and filled wit h fluid and gas. No clear transition point to suggest a bowel obstruction. Small bowel loops are dist ended up to 3.6 cm. IMPRESSION: 1. Interval placement of a percutaneous gastrostomy tube which appears in good position. 2. The stomach and majority of the small and large bowel are distended and filled with fluid. No glenna r transition point to suggest a bowel obstruction. Therefore, this could represent an ileus or gastro enteritis. 3. Emphysema. 4. Stable avascular necrosis of the left femoral head. ACT 112: Negative or not required by law. Electronically signed by: Delta Lugo M.D. 05/17/2021 6:00 PM
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
[2021-05-17] MEDS ORDERED: FAMOTIDINE 20MG IV PUSH 20 MG/5 ML SYR IV STA (20:35)
[2021-05-17] MEDS ORDERED: SODIUM CHLORIDE 0.9% 1000ML 500 ML IV ONE (20:35)
[2021-05-17 21:11] LABS: Appearance Urine Clear (Clear); Bacteria Urine Automated Negative (Negative); Bilirubin Urine Negative (Negative); Blood Urine Negative (Negative); Color Urine Yellow; Epithelial Cell Urine Auto >30 /lpf (0-5); Glucose Urine UA Negative (Negative); Ketones Urine Negative (Negative); Leukocyte Esterase Urine Negative (Negative); Nitrite Urine Negative (Negative); Protein Urine Trace (Negative); RBC Urine Automated 0-4 /hpf (0-4); Specific Gravity Urine > 1.045 (1.000-1.030); Urobilinogen Urine Negative (Negative); pH Urine 6.5 (4.5-7.5)
[2021-05-18] MEDS ORDERED: POTASSIUM CHLORIDE 10 MEQ in SODIUM CHLORIDE 0.9% 1000ML 1,000 ML IV SCH (00:30)
[2021-05-18 00:44] LABS: BUN Creatinine Ratio 39.5 (10-20); Calcium 9.1 mg/dl (8.5-10.1); Creatinine Clr Calc Pharmacy 75.5 ml/min; Est GFR (African American) 127.1 ml/min; Est GFR (Non-African American) 109.6 ml/min; Potassium 2.7 mmol/L (3.5-5.1)
[2021-05-18 05:54] LABS: Basophils # (auto) 0.01 K/uL (0-0.2); Basophils % (auto) 0.1 %; Eosinophils # (auto) 0.08 K/uL (0-0.5); Eosinophils % (auto) 0.8 %; Hematocrit (blood only) 30.9 % (37-47); Hemoglobin 10.7 g/dL (12.0-16.0); Immature Granulocytes # (auto) 0.03 K/uL (0.00-0.02); Immature Granulocytes % (auto) 0.3 %; Lymphocytes # (auto) 2.77 K/uL (1.2-3.4); Lymphocytes % (auto) 27.7 %; Mean Corpuscular Hgb Conc 34.6 g/dL (32-36); Mean Corpuscular Volume 98.1 fL (80-100); Mean Platelet Volume 8.4 fL (7.4-10.4); Monocytes # (auto) 0.95 K/uL (0.11-0.59); Monocytes % (auto) 9.5 %; Neutrophils # (auto) 6.16 K/uL (1.4-6.5); Neutrophils % (auto) 61.6 %; Platelet Count 359 K/uL (130-400); Red Blood Count 3.15 M/uL (4.2-5.4)
[2021-05-18] MEDS ORDERED: ENOXAPARIN INJ 40 MG/0.4 ML SYR SQ SCH (06:00)
[2021-05-18 06:02] LABS: Base Excess VBG 6.7 mEq/L; pH VBG 7.49 (7.36-7.41)
[2021-05-18 06:29] LABS: Creatinine Urine Random 68.6 mg/dl; Potassium Random Urine 12.7 mmol/L
[2021-05-18 06:36] LABS: Albumin Globulin Ratio 0.5 (0.9-2); Albumin Level 2.3 gm/dl (3.4-5.0); BUN Creatinine Ratio 42.9 (10-20); Bilirubin,Total 0.4 mg/dl (0.2-1); Calcium 8.3 mg/dl (8.5-10.1); Creatinine Clr Calc Pharmacy 93.3 ml/min; Est GFR (African American) 136.3 ml/min; Est GFR (Non-African American) 117.6 ml/min; Globulin 4.3 gm/dl (2.5-4.0); Magnesium 1.9 mg/dl (1.8-2.4); Phosphorus 2.4 mg/dl (2.5-4.9); Potassium 2.3 mmol/L (3.5-5.1); Total Protein 6.6 gm/dl (6.4-8.2)
[2021-05-18] MEDS ORDERED: LEVALBUTEROL HCL 0.63 MG/3 ML NEB NEB SCH (07:00)
[2021-05-18] MEDS ORDERED: POTASSIUM CHLORIDE / WTR 10 MEQ/100 ML PLCT IV SCH (07:00)
[2021-05-18] MEDS: SODIUM CHLORIDE 0.9% 1000ML 1,000 ML IV SCH ×2 (08:04→20:36)
[2021-05-18] MEDS: FLUDROCORTISONE ACETATE 0.1 MG TAB PO SCH (08:06)
[2021-05-18] MEDS: HEPARIN SOD 5,000 UNIT/0.5 ML VIAL SQ SCH ×2 (08:06→20:29)
[2021-05-18] MEDS: ACETAMINOPHEN 1000 MG/100 ML IV IV PRN ×2 (08:07→16:19)
[2021-05-18] MEDS: NYSTATIN SUSP 500,000 U/5 ML UDC PO SCH ×4 (08:07→20:29)
[2021-05-18] MEDS: NICOTINE 21 MG/24 HR TDSY TD SCH (08:07)
[2021-05-18] MEDS: FAMOTIDINE 20 MG in SYRINGE 3 ML IV SCH ×2 (08:22→20:28)
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
[2021-05-18] MEDS: POTASSIUM CHLORIDE / WTR 20 MEQ/100 ML PLCT IV SCH ×4 (10:01→16:20)
--- NOTE | 2021-05-18 10:43 | XRay Report ---
XR abdomen 2V w PA chest CLINICAL HISTORY: ?ileus on CT severe left lower abdominal pain TECHNIQUE: 2 views of the abdomen were obtained. A single view of the chest was obtained. Comparison: Comparison is made to chest one view 12/12/[address] abdomen pelvis 05/17/2021 FINDINGS: A port catheter and gastrostomy tube are seen. The cardiomediastinal silhouette is normal. The lungs are clear. No evidence of pleural effusion or pneumothorax. The osseous structures are grossly unremarkable. Multiple air-fluid levels and distended loops of lar ge and small bowel are seen measuring up to 4.4 cm per small bowel and 6.3 cm a large bowel. No signi ficant stool burden is noted. IMPRESSION: Multiple dilated loops of bowel with air-fluid levels are compatible with ileus versus obstruction. ACT 112: Negative or not required by law. Electronically signed by: Darvin Basurto M.D. 05/18/2021 10:41 AM
--- NOTE | 2021-05-18 14:10 | Hospitalist Progress Note ---
Date of Service May 18, 2021 Assessment & Plan (1) Nausea and vomiting: Plan: Presented for pain, nausea, and vomiting. Resolved by my interview on 05/18. - CT a/p 05/17 showed "stomach and majority of the small and large bowel are distended and filled with fluid" representing ileus vs. gastroenteritis. SBO considered less likely. - Treating with PEG to low-intermittent suction - GI consulted - Appreciate recs (2) Gastrostomy tube in place: Plan: Inserted due to malnutrition and not eating. - Presently appears without complications - GI following (3) Lung cancer: Plan: Diagnosed in 06/2020. With bilateral pulmonary disease, mediastinal lymphadenopathy, and skeletal lesions. Treated with carboplatin, pemetrexed, and pembrolizumab from 08/11/20 - 11/10/2020, then single-agent pembrolizumab in 02/06/2021. - Presently not on therapy - CTA chest on 04/28/2021 without present disease. - Monitor (4) Chronic obstructive pulmonary disease: Plan: Presently breathing comfortably on room air. - DuoNebs PRN (5) Severe protein-calorie malnutrition: Plan: Due to cancer and chemotherapy. - Improve dietary intake as able once ileus resolved (6) DVT prophylaxis: Plan: Heparin 5,000 units SQ Q12h Admission and Anticipated Discharge Date Admission Date: May 17, 2021 Subjective Feels very well this morning. No further nausea or vomiting. Has an appetite. Reports no fevers/chills, chest pain, shortness of breath, abdominal pain, nausea, or vomiting. Physical Exam Constitutional: + thin; no acute distress Eyes: EOM intact bilaterally; no conjunctival abnormality ENMT: external ear and nose normal, oropharynx normal Neck: trachea midline, no thyromegaly normal visual inspection Respiratory: normal respiratory effort, lungs clear to auscultation no respiratory distress Cardiovascular: RRR, no murmur, no edema Gastrointestinal (Abdomen): Inspection/Auscultation: abdomen not distended PEG tube in place without erythema or drainage Musculoskeletal: no cyanosis or clubbing, extremities motor strength 5/5 Skin: no rashes, warm and dry Neurologic: moves all extremities and awake Psychiatric: Orientation: alert, oriented to person and cooperative Results & Data Results & Data ([facility]) Vital Signs (Past 12 Hours) Vital Signs Temp Pulse Pulse Resp BP BP Pulse Ox 10/28/21 11:40 36.7 C 103 H 18 141/89 H 97 05/18/21 07:37 98 H 05/18/21 07:30 36.9 C 98 H 18 151/71 H 94 05/18/21 07:22 99 H 18 94 05/18/21 04:00 36.8 C 97 H 18 125/70 95 PG Care Time/CCT Total # of Minutes Spent Total Time Spent with Patient: Total time spent is greater than 50% in coordination of care (as documented) at patient's floor/unit and/or counseling patient: Coding Level of Care Code 82639 Subseq Hosp Care Lvl 3 Diagnoses Nausea and vomiting R11.[address] Z93.1 Lung cancer C34.90 Chronic obstructive pulmonary disease J44.9 Severe protein-calorie malnutrition E43 DVT prophylaxis Z29.9
[2021-05-18] MEDS ORDERED: POTASSIUM PHOS 3 MMOL/1 ML INFUSION IV STA (14:18)
[2021-05-18] MEDS ORDERED: POTASSIUM PHOSPHATE 24 MMOL in SODIUM CHLORIDE 0.9% 500 ML IV ONE (15:00)
[2021-05-18] MEDS: ALBUTEROL HFA 8 GM INHALER INH SCH (19:08)
[2021-05-19] MEDS: ACETAMINOPHEN 1000 MG/100 ML IV IV PRN ×3 (00:13→18:32)
[2021-05-19 06:09] LABS: Hematocrit (blood only) 34.9 % (37-47); Hemoglobin 11.5 g/dL (12.0-16.0); Mean Corpuscular Hemoglobin 32.2 pg (25-34); Mean Corpuscular Volume 97.8 fL (80-100); Mean Platelet Volume 8.6 fL (7.4-10.4); Platelet Count 446 K/uL (130-400); RDW Coefficient of Variation 14.7 % (11.5-14.5); RDW Standard Deviation 52.5 fL (36.4-46.3); Red Blood Count 3.57 M/uL (4.2-5.4); White Blood Count 11.57 K/uL (4.8-10.8)
--- NOTE | 2021-05-19 06:20 | Billing Data ---
Date of Service May 19, 2021 Coding Level of Care Code INT OBSERVATION CARE 70M LVL 3
--- NOTE | 2021-05-19 06:41 | Electrocardiogram Report ---
Test Reason : Blood Pressure : / mmHG Vent. Rate : 097 BPM Atrial Rate : 097 BPM P-R Int : 144 ms QRS Dur : 080 ms QT Int : 398 ms P-R-T Axes : 080 034 070 degrees QTc Int : 505 ms Normal sinus rhythm Prolonged QT Abnormal ECG When compared with ECG of 01-MAY-2021 13:37, QT has lengthened Confirmed by Aram Barreto ([id number]) on 05/19/2021 6:40:47 AM Referred By: REFERRED SELF Confirmed By:Aram Barreto
[2021-05-19 07:04] LABS: BUN Creatinine Ratio 31.7 (10-20); Calcium 8.6 mg/dl (8.5-10.1); Creatinine Clr Calc Pharmacy 100.2 ml/min; Est GFR (African American) 138.7 ml/min; Est GFR (Non-African American) 119.7 ml/min; Magnesium 1.7 mg/dl (1.8-2.4); Phosphorus 2.3 mg/dl (2.5-4.9); Potassium 2.7 mmol/L (3.5-5.1)
[2021-05-19] MEDS ORDERED: POTASSIUM PHOS 3 MMOL/1 ML INFUSION IV STA (07:31)
[2021-05-19] MEDS: ALBUTEROL HFA 8 GM INHALER INH SCH ×2 (07:41→18:26)
[2021-05-19] MEDS: FAMOTIDINE 20 MG in SYRINGE 3 ML IV SCH ×2 (07:58→21:03)
[2021-05-19] MEDS: POTASSIUM CHLORIDE / WTR 20 MEQ/100 ML PLCT IV SCH ×4 (08:02→14:10)
[2021-05-19] MEDS: FLUDROCORTISONE ACETATE 0.1 MG TAB PO SCH (08:04)
[2021-05-19] MEDS: HEPARIN SOD 5,000 UNIT/0.5 ML VIAL SQ SCH ×2 (08:04→21:03)
[2021-05-19] MEDS: NYSTATIN SUSP 500,000 U/5 ML UDC PO SCH ×4 (08:05→21:03)
[2021-05-19] MEDS: NICOTINE 21 MG/24 HR TDSY TD SCH (08:05)
[2021-05-19] MEDS: MAGNESIUM SULFATE / D5W 1 GM/100 ML BAG IV SCH ×2 (08:37→10:36)
--- NOTE | 2021-05-19 09:54 | XRay Report ---
KUB HISTORY: Acute generalized abdominal pain with possible ileus ileus vs obstruction COMPARISON: Acute abdominal series radiographs 05/18/2021 CT abdomen and pelvis 05/17/2021 FINDINGS: Gastrostomy tube is again noted projecting over the stomach. There is decreased gaseous dis tention of the large and small bowel. No renal calculi. No ureteral calculi. No pneumoperitoneum or pneumatosis. Avascular necrosis of the left femoral head. No fracture. IMPRESSION: 1. Mild persistent yet decreased gaseous distention of the large and small bowel suggests resolving i leus. 2. Unchanged positioning of the gastrostomy tube. 3. Avascular necrosis of the left femoral head. ACT 112: Negative or not required by law. The above report was generated using voice recognition software. It may contain grammatical, syntax o r spelling errors. Electronically signed by: Eddie Pathak M.D. 05/19/2021 9:52 AM
[2021-05-19] MEDS: SODIUM CHLORIDE 0.9% 1000ML 1,000 ML IV SCH ×2 (10:06→23:23)
--- NOTE | 2021-05-19 10:20 | Gastroenterology Progress Note ---
Date of Service May 19, 2021 Assessment & Plan (1) Gastrostomy tube in place: (2) Ileus: (3) Avascular necrosis of bone of left hip: Plan: Pt is a 55 y.o. female with a history of metastatic non-small cell lung CA s/p PEG placement on 05/03 admitted with n/v/d and abnormal KUB with resolving ileus and avascular necrosis of the left hip. * Clamp G tube. * Okay to start clear liquids. * Consult orthopedics regarding imaging and hip pain. * Continue supportive care. Thank you for allowing us to participating in the care of this pleasant patient. If you have any questions or concerns, please do not hesitate to contact us. Admission and Anticipated Discharge Date Admission Date: May 17, 2021 Subjective Patient is status post KUB this morning which demonstrated resolving ileus and avascular necrosis of left femoral head. She endorses hip pain. No abdominal pain, nausea or vomiting. Resolved distention. +diarrhea. G-tube continues to LIW suction with small amount of bilious output noted. Review of Systems Constitutional: no fever and no chills Gastrointestinal: as per Subjective / HPI Musculoskeletal: as per Subjective / HPI Physical Exam 2 Constitutional: + cachectic; no acute distress Eyes: EOM intact bilaterally Respiratory: normal respiratory effort, lungs clear to auscultation Cardiovascular: Rate/Rhythm: regular rate and regular rhythm Gastrointestinal (Abdomen): Inspection/Auscultation: normal bowel sounds Percussion/Palpation: abdomen soft; abdomen nontender G-tube intact as skin line 2 cm. Psychiatric: A+Ox3, euthymic affect Results & Data Results & Data ([facility]) Vital Signs (Past 12 Hours) Vital Signs Temp Pulse Pulse Resp BP Pulse Ox 05/19/21 08:00 36.4 C L 94 H 18 142/75 H 96 05/19/21 07:41 99 H 18 98 05/19/21 07:38 82 05/19/21 02:48 36.6 C 102 H 17 166/82 H 97 05/18/21 22:41 36.7 C 91 H 17 144/87 H 96 Diagnostic Findings KUB X-Ray 05/19/21 08:00 KUB HISTORY: Acute generalized abdominal pain with possible ileus ileus vs obstruction COMPARISON: Acute abdominal series radiographs 05/18/2021 CT abdomen and pelvis 05/17/2021 FINDINGS: Gastrostomy tube is again noted projecting over the stomach. There is decreased gaseous distention of the large and small bowel. No renal calculi. No ureteral calculi. No pneumoperitoneum or pneumatosis. Avascular necrosis of the left femoral head. No fracture. IMPRESSION: 1. Mild persistent yet decreased gaseous distention of the large and small bowel suggests resolving ileus. 2. Unchanged positioning of the gastrostomy tube. 3. Avascular necrosis of the left femoral head. ACT 112: Negative or not required by law. The above report was generated using voice recognition software. It may contain grammatical, syntax or spelling errors. Electronically signed by: Eddie Pathak M.D. 05/19/2021 9:52 AM PG Care Time/CCT Total # of Minutes Spent Total Time Spent with Patient: Total time spent is greater than 50% in coordination of care (as documented) at patient's floor/unit and/or counseling patient: Coding Level of Care Code 21277 Subseq Hosp Care Lvl 3 Diagnoses Gastrostomy tube in place Z93.1 Ileus K56.7 Avascular necrosis of bone of left hip M87.052
--- NOTE | 2021-05-19 13:04 | Hospitalist Progress Note ---
Date of Service May 19, 2021 Assessment & Plan (1) Nausea and vomiting: Plan: Presented for pain, nausea, and vomiting. Resolved by my interview on 05/18. - CT a/p 05/17 showed "stomach and majority of the small and large bowel are distended and filled with fluid" representing ileus vs. gastroenteritis. SBO considered less likely. - Treated with PEG to low-intermittent suction - GI consulted - Appreciate recs -> Better today. Moved to clear liquids by GI. Having BMs again. (2) Gastrostomy tube in place: Plan: Inserted due to malnutrition and not eating. - Presently appears without complications - GI following (3) Lung cancer: Plan: Diagnosed in 06/2020. With bilateral pulmonary disease, mediastinal lymphadenopathy, and skeletal lesions. Treated with carboplatin, pemetrexed, and pembrolizumab from 08/11/20 - 11/10/2020, then single-agent pembrolizumab in 02/06/2021. - Presently not on therapy - CTA chest on 04/28/2021 without present disease. - Monitor (4) Chronic obstructive pulmonary disease: Plan: Presently breathing comfortably on room air. - DuoNebs PRN (5) Severe protein-calorie malnutrition: Plan: Due to cancer and chemotherapy. - Improve dietary intake as able once ileus resolved Dietary recs: * Boost Breeze TID * Peptamen 1.5 @ 50 mL/hr for 8 hours * Thiamine 100 mg PO BID x 7 days * 1 high protein snack per day (6) DVT prophylaxis: Plan: Heparin 5,000 units SQ Q12h Admission and Anticipated Discharge Date Admission Date: May 17, 2021 Subjective Doing some better today. Upset with the slow pace of improvement. Reports no fevers/chills, chest pain, shortness of breath, abdominal pain, nausea, or vomiting. Physical Exam Constitutional: + thin; no acute distress Eyes: EOM intact bilaterally; no conjunctival abnormality ENMT: external ear and nose normal, oropharynx normal Neck: trachea midline, no thyromegaly normal visual inspection Respiratory: normal respiratory effort, lungs clear to auscultation no respiratory distress Cardiovascular: RRR, no murmur, no edema Gastrointestinal (Abdomen): Inspection/Auscultation: abdomen not distended Musculoskeletal: no cyanosis or clubbing, extremities motor strength 5/5 Skin: no rashes, warm and dry Neurologic: moves all extremities and awake Psychiatric: Orientation: alert, oriented to person and cooperative Results & Data Results & Data ([facility]) Vital Signs (Past 12 Hours) Vital Signs Temp Pulse Pulse Resp BP Pulse Ox 05/19/21 12:00 36.5 C 91 H 18 150/63 H 97 05/19/21 08:00 36.4 C L 94 H 18 142/75 H 96 05/19/21 07:41 99 H 18 98 05/19/21 07:38 82 05/19/21 02:48 36.6 C 102 H 17 166/82 H 97 PG Care Time/CCT Total # of Minutes Spent Total Time Spent with Patient: Total time spent is greater than 50% in coordination of care (as documented) at patient's floor/unit and/or counseling patient: Coding Level of Care Code 70525 Subseq Hosp Care Lvl 3 Diagnoses Nausea and vomiting R11.[address] Z93.1 Lung cancer C34.90 Chronic obstructive pulmonary disease J44.9 Severe protein-calorie malnutrition E43 DVT prophylaxis Z29.9
[2021-05-19] MEDS: CYCLOBENZAPRINE HCL 10 MG TAB PO PRN ×2 (14:13→21:04)
[2021-05-19] MEDS: ESCITALOPRAM OXALATE 10 MG TAB PO SCH (14:13)
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
[2021-05-19] MEDS ORDERED: POTASSIUM PHOSPHATE 40 MMOL in SODIUM CHLORIDE 0.9% 1000ML 1,000 ML IV ONE (16:00)
--- NOTE | 2021-05-19 21:01 | Magnetic Resonance Report ---
MR hip LT wo con CLINICAL HISTORY: hip pain numbness down left leg. Left hip pain for one year. No known injury or humberto or surgery. TECHNIQUE: Multisequence, multiplanar images of the right hip were obtained without the administratio n of intravenous gadolinium. Comparison: None available at the time of this dictation. FINDINGS: The visualized pelvic bones demonstrate normal marrow signal without focal abnormality. The femoral h ead is without fracture, dislocation, or evidence of avascular necrosis. There are no findings to suggest iliopsoas or trochanteric bursitis and the capsular structures are f ree of tear. The iliopsoas, hamstring, and gluteus tendinous attachments are normal. There is no soft tissue mass or muscular atrophy. There is moderate to severe thinning of the articular cartilage with underlying bony edema. Serpigino us T2 hypointense band is seen in the left femoral head. The visualized portions of the intraperitoneal structures and pelvic sidewalls are normal. IMPRESSION: 1. Serpiginous T2 hypointense line in the left femoral head compatible with avascular necrosis. 2. Moderate to severe thinning of the articular cartilage bilaterally. ACT 112: Negative or not required by law. Electronically signed by: Darvin Basurto M.D. 05/19/2021 8:59 PM
[2021-05-19] MEDS: THIAMINE HCL 100 MG TAB PO SCH (21:03)
[2021-05-20] MEDS: ACETAMINOPHEN 1000 MG/100 ML IV IV PRN (01:32)
[2021-05-20] MEDS ORDERED: HEPARIN 100 UNIT/ML 5ML FLUSH FLUSH PRN (04:03)
[2021-05-20] MEDS: ALBUTEROL HFA 8 GM INHALER INH SCH ×2 (07:09→19:47)
[2021-05-20] MEDS: ESCITALOPRAM OXALATE 10 MG TAB PO SCH (08:01)
[2021-05-20] MEDS: FLUDROCORTISONE ACETATE 0.1 MG TAB PO SCH (08:01)
[2021-05-20] MEDS: HEPARIN SOD 5,000 UNIT/0.5 ML VIAL SQ SCH ×2 (08:02→20:30)
[2021-05-20] MEDS: NYSTATIN SUSP 500,000 U/5 ML UDC PO SCH ×4 (08:03→20:30)
[2021-05-20] MEDS: NICOTINE 21 MG/24 HR TDSY TD SCH (08:04)
[2021-05-20 08:09] LABS: Hematocrit (blood only) 31.8 % (37-47); Hemoglobin 10.7 g/dL (12.0-16.0); Mean Corpuscular Hemoglobin 32.5 pg (25-34); Mean Corpuscular Hgb Conc 33.6 g/dL (32-36); Mean Corpuscular Volume 96.7 fL (80-100); Mean Platelet Volume 8.5 fL (7.4-10.4); Platelet Count 351 K/uL (130-400); RDW Coefficient of Variation 14.9 % (11.5-14.5); RDW Standard Deviation 52.3 fL (36.4-46.3); Red Blood Count 3.29 M/uL (4.2-5.4); White Blood Count 7.62 K/uL (4.8-10.8)
[2021-05-20] MEDS: FAMOTIDINE 20 MG in SYRINGE 3 ML IV SCH ×2 (08:21→20:29)
[2021-05-20 08:33] LABS: Albumin Level 2.2 gm/dl (3.4-5.0); BUN Creatinine Ratio 6.5 (10-20); Calcium 8.4 mg/dl (8.5-10.1); Creatinine Clr Calc Pharmacy 96.1 ml/min; Est GFR (African American) 137.5 ml/min; Est GFR (Non-African American) 118.6 ml/min; Magnesium 1.6 mg/dl (1.8-2.4); Potassium 2.8 mmol/L (3.5-5.1)
[2021-05-20 08:38] LABS: Albumin Globulin Ratio 0.5 (0.9-2); Bilirubin,Total 0.3 mg/dl (0.2-1); Phosphorus 1.9 mg/dl (2.5-4.9); Total Protein 6.2 gm/dl (6.4-8.2)
[2021-05-20] MEDS: THIAMINE HCL 100 MG TAB PO SCH ×2 (08:48→20:31)
[2021-05-20] MEDS ORDERED: POTASSIUM CHLORIDE CRTAB 20 MEQ TABCR PO STA (09:51)
[2021-05-20] MEDS ORDERED: POTASSIUM PHOS 3 MMOL/1 ML INFUSION IV STA (09:51)
--- NOTE | 2021-05-20 09:57 | Progress Notes ---
DATE OF SERVICE: 05/20/2021. SUBJECTIVE: A 55-year-old female with host of medical issues, we were consulted for evaluation of bi lateral hip pain and possible AVN of the left hip. There has been no interval change in symptoms. S he describes pain in both hips. The left side is a bit worse than the right. Positive both just sit ting as well as weightbearing. OBJECTIVE: VITAL SIGNS: Temperature 36.5. Vital signs are stable. GENERAL: Physical examination shows a pleasant, cachectic middle-aged female. She is lying in bed, looks completely comfortable. EXTREMITIES: Examination of both legs reveals very thin soft tissue envelope. Both leg lengths are equal. She can do a straight leg raise on both sides. She has no particular pain with passive hip m otion. She is neurologically intact. IMAGING DATA: MRI was reviewed. It does show a small area of avascular necrosis of the superior asp ect of the left femoral head. There is no collapse and there is no significant joint effusion. Very mild degenerative changes. ASSESSMENT: A 55-year-old white female with multiple medical comorbidities with left hip avascular n ecrosis. There are no signs of collapse or fracture or significant hip joint effusion. Based on her symptom location, I am not really sure she is even having symptoms from this. It may be an incident al finding. She does have a history of some steroid use in the past, which may be the source. PLAN: At this point, no intervention is warranted. She can weightbear as tolerated. I should check her back in about 3 months for a repeat exam. If something changes, let us know. I can be contacte d at [phone]. Once again, she can weight bear as tolerated. No restrictions. Orthopedic daniel souza in 3 months. Job ID: [id number]
[2021-05-20] MEDS ORDERED: CALCIUM GLUCONATE 10% 1,000 MG in SODIUM CHLORIDE 0.9% 50 ML IV STA (09:58)
[2021-05-20] MEDS: PEPTAMEN 1.5 CAL 1,000 ML BAG PEG SCH (09:59)
[2021-05-20] MEDS: ACETAMINOPHEN 325 MG TAB PO PRN ×2 (10:05→19:45)
[2021-05-20] MEDS ORDERED: POTASSIUM PHOSPHATE 30 MMOL in SODIUM CHLORIDE 0.9% 500 ML IV ONE ×4 (10:15→19:00)
[2021-05-20] MEDS: MAGNESIUM SULFATE / D5W 1 GM/100 ML BAG IV SCH ×4 (10:28→17:04)
[2021-05-20] MEDS: POTASSIUM CHLORIDE / WTR 20 MEQ/100 ML PLCT IV SCH ×6 (10:33→23:45)
[2021-05-20] MEDS: CYCLOBENZAPRINE HCL 10 MG TAB PO PRN ×2 (11:31→20:41)
--- NOTE | 2021-05-20 15:59 | Hospitalist Progress Note ---
Date of Service May 20, 2021 Assessment & Plan (1) Nausea and vomiting: Plan: Presented for pain, nausea, and vomiting. Likely from narcotic ileus. Resolved by my interview on 05/18. - CT a/p 05/17 showed "stomach and majority of the small and large bowel are distended and filled with fluid" representing ileus vs. gastroenteritis. SBO considered less likely. - Treated with PEG to low-intermittent suction - GI consulted - Appreciate recs -> Better today. Moved to full liquids. Will advance diet as tolerated and start slow tube feeds. (2) Gastrostomy tube in place: Plan: Inserted due to malnutrition and not eating. - Presently appears without complications - GI following (3) Lung cancer: Plan: Diagnosed in 06/2020. With bilateral pulmonary disease, mediastinal lymphadenopathy, and skeletal lesions. Treated with carboplatin, pemetrexed, and pembrolizumab from 08/11/20 - 11/10/2020, then single-agent pembrolizumab in 02/06/2021. - Presently not on therapy - CTA chest on 04/28/2021 without present disease. - Monitor (4) Chronic obstructive pulmonary disease: Plan: Presently breathing comfortably on room air. - DuoNebs PRN (5) Severe protein-calorie malnutrition: Plan: Due to cancer and chemotherapy. - Improve dietary intake as able once ileus resolved Dietary recs: * Boost Breeze TID * Peptamen 1.5 @ 50 mL/hr for 8 hours * Thiamine 100 mg PO BID x 7 days * 1 high protein snack per day (6) DVT prophylaxis: Plan: Heparin 5,000 units SQ Q12h Admission and Anticipated Discharge Date Admission Date: May 20, 2021 Subjective Doing well today. Hungry overall. No nausea or vomiting. Stool is somewhat firmer actually at this time. Reports no fevers/chills, chest pain, shortness of breath, abdominal pain, nausea, or vomiting. Physical Exam Constitutional: + thin; no acute distress Eyes: EOM intact bilaterally; no conjunctival abnormality ENMT: external ear and nose normal, oropharynx normal Neck: trachea midline, no thyromegaly normal visual inspection Respiratory: normal respiratory effort, lungs clear to auscultation no respiratory distress Cardiovascular: RRR, no murmur, no edema Gastrointestinal (Abdomen): Inspection/Auscultation: abdomen not distended Musculoskeletal: no cyanosis or clubbing, extremities motor strength 5/5 Skin: no rashes, warm and dry Neurologic: moves all extremities and awake Psychiatric: Orientation: alert, oriented to person and cooperative Results & Data Results & Data ([facility]) Vital Signs (Past 12 Hours) Vital Signs Temp Pulse Pulse Resp BP Pulse Ox 05/20/21 15:29 36.7 C 93 H 18 151/89 H 97 05/20/21 14:18 92 H 05/20/21 10:58 36.8 C 92 H 18 157/83 H 97 05/20/21 07:15 88 20 95 05/20/21 06:17 87 PG Care Time/CCT Total # of Minutes Spent Total Time Spent with Patient: Total time spent is greater than 50% in coordination of care (as documented) at patient's floor/unit and/or counseling patient: Coding Level of Care Code 39080 Subseq Hosp Care Lvl 2 Diagnoses Nausea and vomiting R11.[address] Z93.1 Lung cancer C34.90 Chronic obstructive pulmonary disease J44.9 Severe protein-calorie malnutrition E43 DVT prophylaxis Z29.9
[2021-05-20] MEDS: ONDANSETRON INJ 2 MG/ML 2 ML VIAL IV PRN (19:36)
[2021-05-21] MEDS: ACETAMINOPHEN 325 MG TAB PO PRN (00:23)
[2021-05-21 06:49] LABS: Hematocrit (blood only) 30.9 % (37-47); Hemoglobin 10.1 g/dL (12.0-16.0); Mean Corpuscular Hemoglobin 32.3 pg (25-34); Mean Corpuscular Hgb Conc 32.7 g/dL (32-36); Mean Corpuscular Volume 98.7 fL (80-100); Mean Platelet Volume 8.7 fL (7.4-10.4); Platelet Count 362 K/uL (130-400); RDW Coefficient of Variation 15.1 % (11.5-14.5); RDW Standard Deviation 53.9 fL (36.4-46.3); Red Blood Count 3.13 M/uL (4.2-5.4); White Blood Count 9.62 K/uL (4.8-10.8)
[2021-05-21 07:24] LABS: BUN Creatinine Ratio 10.5 (10-20); Calcium 8.3 mg/dl (8.5-10.1); Creatinine Clr Calc Pharmacy 83.4 ml/min; Est GFR (African American) 128.9 ml/min; Est GFR (Non-African American) 111.2 ml/min; Magnesium 2.1 mg/dl (1.8-2.4); Phosphorus 2.6 mg/dl (2.5-4.9); Potassium 3.6 mmol/L (3.5-5.1)
[2021-05-21] MEDS: ALBUTEROL HFA 8 GM INHALER INH SCH (07:30)
[2021-05-21] MEDS ORDERED: POTASSIUM CHLORIDE CRTAB 20 MEQ TABCR PO STA (08:33)
[2021-05-21] MEDS: HEPARIN SOD 5,000 UNIT/0.5 ML VIAL SQ SCH (09:07)
[2021-05-21] MEDS: NYSTATIN SUSP 500,000 U/5 ML UDC PO SCH ×2 (09:07→12:43)
[2021-05-21] MEDS: FLUDROCORTISONE ACETATE 0.1 MG TAB PO SCH (09:08)
[2021-05-21] MEDS: ESCITALOPRAM OXALATE 10 MG TAB PO SCH (09:09)
[2021-05-21] MEDS: THIAMINE HCL 100 MG TAB PO SCH (09:09)
[2021-05-21] MEDS: FAMOTIDINE 20 MG in SYRINGE 3 ML IV SCH (09:17)
[2021-05-21] MEDS: PEPTAMEN 1.5 CAL 1,000 ML BAG PEG SCH (09:19)
[2021-05-21] MEDS: NICOTINE 21 MG/24 HR TDSY TD SCH (09:22)
[2021-05-21] MEDS: ONDANSETRON INJ 2 MG/ML 2 ML VIAL IV PRN (11:44)
--- NOTE | 2021-05-21 16:28 | Discharge Summary ---
Date of Service May 21, 2021 Admission HPI Per Admitting Provider Anat Costa is a 55 y/o female w/ PMHx of distant etoh use disorder, current 1 PPD smoker, asthma, copd, Schatzki ring, chronic diarrhea, GERD, metastatic lung cancer, migraines, EMIL, and multiple hospital admissions w/ hypokalemia, and PEG tube placement at last admission (05/05/21 discharbe) who presents w/ abdominal pain and severe N/V (several hours of intractable yesterday, projectile, tube-feed appearance, 4 eps today; nonbloody. + mucousy) since yesterday, feels different from her usual. She has had a lot of new belching since the PEG tube was placed. She had abd spasms, flexeril helped. Her current main complaint is general discomfort from the intractable V episodes yesterday. She currently feels a lot better than earlier since PEG tube put on low intermittent suction (entire contained filled). The fentanyl did not help. She has been on pain medicine since Jul 2020 (since lung cancer dx). States her narcotic use has not increased recently. PDMP reviewed. currently 67.5 MME/day. Has lots of oxycodone prescriptions. Prior to PEG placement, had baseline dysphagia from Schatzki ring w/ frequent N/V. Today, she took her home Lexapro and Florinef. ED course: nicotine patch, kcl 40meq IV, fentanyl 50, [id number], zofran, fentanyl 25. ct abd/pelv: shows peg tube. small and large bowel loops dilated and filled a/ fluid. no transition point. ileus vs gastroenteritis. emphysema. 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 home meds: albuterol, cholestyramine, flexeril, lexapro. famotidine, fludrocortisone, Emgality (migraines. ran out, has not used recently.), megace (new rx, hasn't started yet), midodrine (not on it), mirtazapine (unsure if taking), oxycodone, pantoprazole, rizatriptan (took yesterday). Last chemo was months ago. fhx: father and brother also have severe hypokalemia issues. social: not covid vaccinated. Lives alone, able to take care of self. Uses medical marijuana. Current smoker < 1ppd, cutting down Principal Diagnosis Narcotic-induced ileus Discharge Exam Constitutional + thin; no acute distress Eyes EOM intact bilaterally; no conjunctival abnormality ENMT external ear and nose normal, oropharynx normal Neck trachea midline, no thyromegaly normal visual inspection Respiratory normal respiratory effort, lungs clear to auscultation no respiratory distress Cardiovascular RRR, no murmur, no edema Gastrointestinal (Abdomen) Inspection/Auscultation: abdomen not distended Musculoskeletal no cyanosis or clubbing, extremities motor strength 5/5 Skin no rashes, warm and dry Neurologic moves all extremities and awake Psychiatric Orientation: alert, oriented to person and cooperative Discharge Data Allergies Allergy/AdvReac Type Severity Reaction Status Date / Time hornet venom Allergy Severe Anaphylaxis Verified 05/17/21 17:25 mold Allergy Severe Sinus Verified 05/17/21 17:25 swelling morphine Allergy Severe decreases Verified 05/17/21 17:25 respirations sulfasalazine Allergy Severe Rash, Verified 05/17/21 17:25 swelling, dyspnea codeine Allergy Mild Pruritus Verified 05/17/21 17:25 house dust Allergy Mild Dry Eye Verified 05/17/21 17:25 Consultations 05/17/21 19:33 ED Decision to Admit Stat 05/18/21 07:00 Consult Gastroenterology Routine 05/19/21 10:12 Consult Orthopedic Surgery Routine Ordered Studies 05/17/21 16:16 CT abd pelvis IV con only Stat 05/19/21 14:49 MR hip LT wo con Routine Hospital Course (1) Nausea and vomiting: Presented for pain, nausea, and vomiting. Likely from narcotic ileus. Resolved by my interview on 05/18. - CT a/p 05/17 showed "stomach and majority of the small and large bowel are distended and filled with fluid" representing ileus vs. gastroenteritis. SBO con sidered less likely. - Treated with PEG to low-intermittent suction - GI consulted - Appreciate recs -> Better today. Moved to normal diet. Stopped opioids on discharge. Encouraged alcohol cessation. Tolerated tube feeds well. Return to home recs. (2) Diarrhea: Long-standing issue. Interesting, the diarrhea resolved in the hospital. Likely from too many Boost shakes (lots of sugar) vs. alcohol consumption. - Encouraged to only drink 2-3 Boost Breezes per day. - Encouraged alcohol cessation. (3) Gastrostomy tube in place: Inserted due to malnutrition and not eating. - Presently appears without complications - GI following (4) Lung cancer: Diagnosed in 06/2020. With bilateral pulmonary disease, mediastinal lymphadenopathy, and skeletal lesions. Treated with carboplatin, pemetrexed, and pembrolizumab from 08/11/20 - 11/10/2020, then single-agent pembrolizumab in 02/06/2021. - Presently not on therapy - CTA chest on 04/28/2021 without present disease. - Monitor (5) Chronic obstructive pulmonary disease: Presently breathing comfortably on room air. - DuoNebs PRN (6) Severe protein-calorie malnutrition: Due to cancer and chemotherapy. - Improve dietary intake as able once ileus resolved Dietary recs: * Boost Breeze TID * Peptamen 1.5 @ 50 mL/hr for 8 hours * Thiamine 100 mg PO BID x 7 days * 1 high protein snack per day (7) Avascular necrosis of bone of left hip: Seen by Dr. Jaime in the hospital. WBAT. - F/u in 3 months. (8) DVT prophylaxis: Heparin 5,000 units SQ Q12h I certify that this patient is under my care and that I, or a physicians assistant child care teacher working with me, had a face to-face encounter that meets the home health [id number] encounter requirements with this patient. The encounter with the patient was in whole, or in part, for the following medical condition, which is the primary reason for home health care (list medical condition): I certify that, based on my findings, the following services are medically necessary home health services: My clinical findings support the need for the above services because: Caregiver Instruct Med Mgmt, Safety, Disease Process, Signs to Report Daily Weights Hydration / Nutrition Medication Compliance and Monitoring Effective of New Medications Skilled Nsg Assessment Vital Signs Further, I certify that my clinical findings support that this patient is homebound (i.e. absences from home require considerable and taxing effort and a re for medical reasons or confucianist services or infrequently or of short duration when for other reasons) because: Poor Endurance; SOB Minimal Exertion Certification for Home Health Services: Based on the above findings, I certify that this patient is confined to the home and needs intermittent prison care, physical therapy and/or speech therapy or continues to need occupational therapy. The patient is under my care, and I have initiated the establishment of the plan of care. This patient will be followed by a physician who will periodically review the plan of care. Total Time Total Time Spent Total Time Spent (In Minutes): 35 Discharge Plan Discharge Items Patient Disposition: Home - Home Health Services Reason For Visit: ABD PAIN, NAUSEA, AND VOMITING Discharge Diagnosis: Narcotic-related ileus Activity: Resume your previous activity Non-emergency contact: Primary Care Provider and Oncologist Call non-emergency contact if: your symptoms worsen Follow-up/Referrals: Thai Bills III, MD [Primary Care Provider] - 05/31/21 3:00 pm Aneudy Servin DO [Physician] - Aneudy Jaime MD [Physician] - (Please see Dr. Jaime in 3 months.) Diet: Regular Addtl Attending Provider Instructions: Ms. Costa, Ugo were admitted for nausea, vomiting, and stomach pain. This was due to a narcotic-related ileus (slow down) of your bowels. Holding the opioid medications almost immediately helped resolve this issue, and you were eating regular food and taking the tube feeds without any issue by discharge. Please stop taking the oxycodone any more as this issue could come back if you start using it again. Additionally, you felt this wasn't improving your pain in any event, so it was not really providing any benefit. The grinder dresser recommended the following: * Drink only 2-3 Boost Breezes per day (they have lots of sugar and can cause diarrhea) * One can of Peptamen in the evenings before bed * 1 high protein snack per day (think peanut butter, eggs, nuts, etc). Interesting, your diarrhea improved while in the hospital. I think this may be related to drinking fewer Boost drinks, pruning a few medications (the midodrine and cholestyramine), or possibly reduced alcohol consumption. Alcohol can cause diarrhea as well, so please avoid any alcohol intake until your diarrhea is resolved. Pending Studies at Discharge: No Stand-Alone Forms: My [employer], Smoking Cessation Medications and DC Order Prescriptions: Continued ipratropium-albuterol 0.5 mg-3 mg(2.5 mg base)/3 mL solution for nebulization 3 ml INH QID PRN (Reason: wheezing) Qty: 90 RF: 5 Emgality Pen 120 mg/mL pen injector 120 mg subcut MONTHLY 90 Days Qty: 3 RF: 1 epinephrine 0.3 mg/0.3 mL auto-injector 0.3 mg IM Q10M MDD 2 doses PRN (Reason: anaphylaxis) Qty: 1 RF: 3 cetirizine 10 mg tablet 10 mg PO QAM Qty: 30 RF: 5 diphenoxylate-atropine 2.5-0.025 mg tablet 1 tab PO QID PRN (Reason: diarrhea) Qty: 120 RF: 5 nicotine 21 mg/24 hr patch 24 hour 1 patch transdermal DAILY Qty: 28 RF: 3 thiamine HCl (vitamin B1) [Vitamin B-1] 100 mg tablet 100 mg PO DAILY Qty: 30 RF: 2 rizatriptan 10 mg tablet 10 mg PO .COMPLEX PRN (Reason: migraine headache) Qty: 9 RF: 5 cyclobenzaprine 10 mg tablet 10 mg PO TID PRN (Reason: muscle spasm) Qty: 90 RF: 1 Bevespi Aerosphere 9-4.8 mcg HFA aerosol inhaler 2 puff inhalation BID Qty: 10.7 RF: 2 megestrol 400 mg/10 mL (40 mg/mL) suspension 400 mg PO DAILY Qty: 480 RF: 5 potassium chloride 20 mEq tablet extended release 20 meq PO DAILY RF: 0 prochlorperazine maleate 10 mg tablet 10 mg PO Q6H PRN (Reason: nausea and vomiting) Qty: 30 RF: 2 famotidine 20 mg tablet 20 mg PO QAM Qty: 90 RF: 3 albuterol sulfate 90 mcg/actuation HFA aerosol inhaler 2 puff inhalation BID Qty: 18 RF: 5 benzonatate 100 mg capsule 100 mg PO TID PRN (Reason: cough) Qty: 90 RF: 1 fludrocortisone 0.1 mg tablet 0.2 mg PO DAILY Qty: 60 RF: 5 folic acid 1 mg Tablet 1 mg PO QAM RF: 0 cranberry 500 mg Capsule 1,000 mg PO QAM RF: 0 nystatin 100,000 unit/mL suspension 5 ml PO QID PRN (Reason: Mouth Irritation) RF: 0 ondansetron HCl [Zofran] 4 mg tablet 8 mg PO Q8H PRN (Reason: nausea and vomiting) Qty: 60 RF: 2 mirtazapine 15 mg Tablet 15 mg PO HS PRN (Reason: sleep) Qty: 30 RF: 0 pantoprazole 40 mg tablet,delayed release (DR/EC) 40 mg PO DAILY RF: 0 Changed escitalopram oxalate 20 mg tablet 20 mg PO DAILY Qty: 135 RF: 3 Discontinued cholestyramine (with sugar) 4 gram powder 4 g PO BID Qty: 378 RF: 2 oxycodone 5 mg Tablet 5 mg PO Q4H PRN (Reason: pain) Qty: 20 RF: 0 midodrine 2.5 mg Tablet 2.5 mg PO BID RF: 0 potassium chloride 20 mEq Tablet,Er Particles/Crystals 40 meq PO DAILY 20 Days Qty: 40 RF: 0 Discharge Orders: Discharge Order (Routine); Ordered 05/21/21 Ordered By: Bennie Meyer Admission Data Admit Date/Time: 05/20/21 07:58 Attending Provider: Bennie Meyer Admit Provider: Markos Sebastian Primary Care Provider: Thai Bills III Other Providers: Tomas Beverly ; Bennie Meyer ; [facility] ; Perry Karimi ; Nestor Tello ; Bruce Marie ; Palmira Peace ; Denilson Araujo ; Sandra Barbosa ; Jean Michelle ; Cheyanne Lazaro ; Aneudy Jaime ; Orion Colin ; Gelacio Akins ; Gelacio Hernández Other Interventions: Discharge Summary Assessment (RN) Last Done: 05/21/21 14:25 Coding Level of Care Code D/C DAY MANAGEMENT >30 MINS Diagnoses Nausea and vomiting R11.[address] Z93.1 Lung cancer C34.90 Chronic obstructive pulmonary disease J44.9 Severe protein-calorie malnutrition E43 DVT prophylaxis Z29.9 Avascular necrosis of bone of left hip M87.052 Diarrhea R19.7 Diarrhea type: presumed infectious
== END 2021-05-21 16:09 | disposition home health service (06) | DRG 388 ==
LOC: ED 13:32 → 2N 13:32 → SUATTDRO 22:38 → 2N 23:15

== ENCOUNTER 2021-08-11 06:19 | Observation (INO) ==
[2021-08-11] MEDS ORDERED: SODIUM CHLORIDE 0.9% 1000ML 500 ML IV ONE (06:39)
[2021-08-11] MEDS ORDERED: ALBUT/IPRATROP 3MG/0.5MG NEB 3 ML VIAL NEB STA (06:39)
[2021-08-11] MEDS ORDERED: HYDROcodone/HOMATROPINE SYRUP 5MG/1.5MG 5ML UDP PO STA (06:39)
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
--- NOTE | 2021-08-11 07:07 | XRay Report ---
XR chest 1V portable CLINICAL HISTORY: shob, lung ca. COMPARISON STUDY: 05/18/2021 TECHNIQUE: 1 view of the chest FINDINGS: Single frontal view of the chest demonstrates the cardiomediastinal silhouette to be within normal li mits. A Port-A-Cath is in place. There is asymmetric diffuse prominence of the interstitial markings involving the left hemithorax when compared to the right. In a patient with a history of lung cancer, these findings are highly suspicious for lymphangitic spread of carcinoma. No pulmonary nodules are identified. The right hemithorax is clear. There is also evidence for small left pleural effusion and left basilar atelectasis. There is no righ t pleural effusion. There is no evidence for vascular congestion. There is no acute osseous pathology . IMPRESSION: Radiographic findings highly suspicious for lymphangitic spread of carcinoma involving th e left hemithorax. Small left pleural effusion and left basilar atelectasis are also present. ACT 112: Negative or not required by law. Electronically signed by: Jacques Diaz M.D. 08/11/2021 7:06 AM
[2021-08-11 07:26] LABS: Hematocrit (blood only) 31.6 % (37-47); Hemoglobin 10.8 g/dL (12.0-16.0); Mean Corpuscular Hemoglobin 33.1 pg (25-34); Mean Corpuscular Hgb Conc 34.2 g/dL (32-36); Mean Corpuscular Volume 96.9 fL (80-100); Mean Platelet Volume 8.8 fL (7.4-10.4); Platelet Count 376 K/uL (130-400); RDW Standard Deviation 53.8 fL (36.4-46.3); Red Blood Count 3.26 M/uL (4.2-5.4); White Blood Count 19.17 K/uL (4.8-10.8)
[2021-08-11 07:35] LABS: Prothrombin Time 10.5 Seconds (9.0-12.0)
[2021-08-11 08:00] LABS: Albumin Level 2.9 gm/dl (3.4-5.0); BUN Creatinine Ratio 31.1 (10-20); Bilirubin,Total 0.2 mg/dl (0.2-1.0); Calcium 8.3 mg/dl (8.5-10.1); Creatinine Clr Calc Pharmacy 133.7 ml/min; Est GFR (Non-African American) 110.4 ml/min; Magnesium 1.5 mg/dl (1.7-2.4); Potassium 3.5 mmol/L (3.5-5.1); Total Protein 5.9 gm/dl (6.0-8.3)
[2021-08-11 08:05] LABS: Basophils # (auto) 0.02 K/uL (0-0.2); Basophils % (auto) 0.1 %; Eosinophils # (auto) 0.05 K/uL (0-0.5); Eosinophils % (auto) 0.3 %; Immature Granulocytes % (auto) 0.5 %; Lymphocytes # (auto) 1.99 K/uL (1.2-3.4); Lymphocytes % (auto) 10.4 %; Monocytes # (auto) 1.56 K/uL (0.11-0.59); Monocytes % (auto) 8.1 %; Neutrophils # (auto) 15.45 K/uL (1.4-6.5); Neutrophils % (auto) 80.6 %
[2021-08-11 08:11] LABS: Influenza A virus by PCR Negative (Neg); Influenza B virus by PCR Negative (Neg); RSV by PCR Negative (Neg); SARS CoV2 RNA(COVID-19) InHosp NEGATIVE (Negative)
[2021-08-11 08:13] LABS: Troponin I 0.14 ng/ml (0-0.04)
[2021-08-11] MEDS ORDERED: OPTIRAY 320 125ml IV ONE (08:37)
--- NOTE | 2021-08-11 08:57 | CT Scan Report ---
CT angio chest PE protocol CLINICAL HISTORY: Shortness of breath and cough. Mid chest pain. History of lung CA, right leg swelli ng . Evaluate for pulmonary embolus COMPARISON STUDY: 08/04/2021 and portable chest from 08/11/2021 CT DOSE: 238.07 mGy.cm TECHNIQUE: CT Angio of the chest was performed.followed by image post processing with coronal, and s agittal MIP reformats. Contrast Volume: Optiray 320, 110 ml FINDINGS: Vasculature: There is homogeneous perfusion of the pulmonary vasculature bilaterally. No intraluminal filling defects or evidence for pulmonary embolus is seen. Airway: The airway is clear. No endobronchial lesion is identified. However, there is narrowing of t he left upper lobe bronchus related to left hilar mass. Lungs and pleural: Compared to the previous examination, mild to moderate centrilobular emphysematous changes are again seen. However, there has been interval development of diffuse prominence of the in terstitial markings localized to the left upper lobe with the findings characteristic of lymphangitic spread of carcinoma is suggested radiographically. No other prominence of the interstitial markings is seen bilaterally supporting this diagnosis. There is also been interval development of a moderate-sized left pleural effusion and left lower lobe atelectasis/collapse. These findings also support the malignant degeneration present. Mediastinum: There is again evidence for left hilar mass which is unchanged. Prevascular, AP window a nd paratracheal lymph nodes are again seen and also essentially unchanged. Asymmetric left axillary l ymph nodes and supraclavicular lymph nodes are also again seen and unchanged. Heart size is within normal limits. There has been interval development of a very small pericardial e ffusion. The thoracic aorta is within normal limits. Port-A-Cath is in place. Upper abdomen:The adrenal glands are normal bilaterally. Osseous structures: There is no acute osseous pathology. Impression: 1. No CTA evidence for pulmonary embolus. 2. Compared to the previous examination and is seen radiographically, there has been interval develop ment of lymphangitic spread of carcinoma within the left upper lobe as described above. 3. This is in association with left hilar mass. 4. Mild to moderate centrilobular emphysematous changes are again seen throughout both lungs. 5. Stable lymphadenopathy. 6. Interval development of moderate-sized left pleural effusion with compressive atelectasis/collapse of the left lower lobe. This was not appreciated radiographically. 7. Interval development of very small pericardial effusion. ACT 112: Negative or not required by law. Electronically signed by: Jacques Diaz M.D. 08/11/2021 8:55 AM
[2021-08-11 10:54] LABS: Appearance Urine Clear (Clear); Bilirubin Urine Negative (Negative); Blood Urine Negative (Negative); Color Urine Yellow; Glucose Urine UA Negative (Negative); Ketones Urine Negative (Negative); Leukocyte Esterase Urine Negative (Negative); Nitrite Urine Negative (Negative); Protein Urine Negative (Negative); Specific Gravity Urine > 1.045 (1.000-1.030); Urobilinogen Urine Negative (Negative)
[2021-08-11] MEDS ORDERED: ALBUT/IPRATROP 3MG/0.5MG NEB 3 ML VIAL INH PRN (12:31)
[2021-08-11] MEDS ORDERED: PROCHLORPERAZINE MALEATE 10 MG TAB PO PRN (12:31)
[2021-08-11] MEDS ORDERED: BENZONATATE 100 MG CAPSULE PO PRN (12:31)
[2021-08-11] MEDS: POTASSIUM CHLORIDE CRTAB 20 MEQ TABCR PO SCH (13:49)
[2021-08-11] MEDS: FLUDROCORTISONE ACETATE 0.1 MG TAB PO SCH (13:50)
[2021-08-11] MEDS: RIZATRIPTAN BENZOATE 10 MG TAB PO PRN (15:22)
[2021-08-11] MEDS ORDERED: AZITHROMYCIN 250 MG TAB PO ONE ×2 (18:09→20:45)
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
--- NOTE | 2021-08-11 18:40 | Billing Data ---
Date of Service August 11, 2021 Coding Level of Care Code 46569 Initial Inpt Care Lvl 3
[2021-08-11] MEDS ORDERED: CETIRIZINE HCL 10 MG TABLET PO PRN (20:43)
[2021-08-11] MEDS: PEPTAMEN 1.5 CAL 1,000 ML BAG PEG SCH (20:57)
[2021-08-11] MEDS: methylPREDNISolone 40 MG in SYRINGE 0 ML IV SCH (21:07)
[2021-08-11] MEDS: FLUTICASONE/VILANTEROL 200/25MCG 14 PUFFS/INHALER INH SCH (21:08)
[2021-08-11] MEDS: ONDANSETRON 8MG OD TAB PO PRN (21:14)
--- NOTE | 2021-08-11 21:21 | Electrocardiogram Report ---
Test Reason : Blood Pressure : / mmHG Vent. Rate : 129 BPM Atrial Rate : 129 BPM P-R Int : 126 ms QRS Dur : 074 ms QT Int : 316 ms P-R-T Axes : 077 049 070 degrees QTc Int : 462 ms Sinus tachycardia Otherwise normal ECG When compared with ECG of 18-MAY-2021 16:01, QT has shortened Confirmed by Aram Barreto ([id number]) on 08/11/2021 9:20:53 PM Referred By: Confirmed By:Aram Barreto
[2021-08-12 07:38] LABS: Basophils # (auto) 0.01 K/uL (0-0.2); Basophils % (auto) 0.1 %; Hemoglobin 10.6 g/dL (12.0-16.0); Immature Granulocytes # (auto) 0.06 K/uL (0.00-0.02); Immature Granulocytes % (auto) 0.5 %; Lymphocytes # (auto) 0.84 K/uL (1.2-3.4); Lymphocytes % (auto) 7.2 %; Mean Corpuscular Hemoglobin 32.2 pg (25-34); Mean Corpuscular Hgb Conc 33.1 g/dL (32-36); Mean Corpuscular Volume 97.3 fL (80-100); Monocytes # (auto) 0.14 K/uL (0.11-0.59); Monocytes % (auto) 1.2 %; Neutrophils # (auto) 10.62 K/uL (1.4-6.5); Platelet Count 466 K/uL (130-400); RDW Standard Deviation 53.7 fL (36.4-46.3); Red Blood Count 3.29 M/uL (4.2-5.4); White Blood Count 11.67 K/uL (4.8-10.8)
[2021-08-12] MEDS: PANTOprazole 40 MG TAB PO SCH (07:53)
[2021-08-12] MEDS: methylPREDNISolone 40 MG in SYRINGE 0 ML IV SCH ×2 (07:56→20:33)
[2021-08-12] MEDS: ENOXAPARIN INJ 40 MG/0.4 ML SYR SQ SCH (07:56)
[2021-08-12] MEDS: UMECLIDINIUM BROMIDE 62.5MCG/BLISTER 7 PUFFS/INHALER INH SCH (07:56)
[2021-08-12 08:02] LABS: BUN Creatinine Ratio 35.6 (10-20); Calcium 8.5 mg/dl (8.5-10.1); Creatinine Clr Calc Pharmacy 95.5 ml/min; Est GFR (Non-African American) 110.4 ml/min; Potassium 3.7 mmol/L (3.5-5.1)
[2021-08-12] MEDS: FAMOTIDINE 20 MG TAB PO SCH (08:38)
[2021-08-12] MEDS: FOLIC ACID 1 MG TAB PO SCH (08:38)
[2021-08-12] MEDS: ESCITALOPRAM OXALATE 20 MG TAB PO SCH (08:38)
[2021-08-12] MEDS: FLUDROCORTISONE ACETATE 0.1 MG TAB PO SCH (08:38)
[2021-08-12] MEDS: POTASSIUM CHLORIDE CRTAB 20 MEQ TABCR PO SCH (08:38)
[2021-08-12] MEDS ORDERED: CETIRIZINE HCL 10 MG TABLET PO SCH (09:00)
[2021-08-12] MEDS ORDERED: LIDOCAINE 5% 1 PATCH TD SCH (09:00)
--- NOTE | 2021-08-12 09:22 | XCELERA ---
[id number] \\[id number]___[id number]
[2021-08-12] MEDS: NICOTINE 14 MG/24 HR PATCH TD SCH (09:41)
[2021-08-12] MEDS ORDERED: POTASSIUM CHLORIDE CRTAB 20 MEQ TABCR PO STA (12:54)
[2021-08-12] MEDS ORDERED: METOPROLOL TARTRATE 25 MG TAB PO ONE (13:03)
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
[2021-08-12] MEDS: cefTRIAXone SODIUM 2,000 MG in DEXTROSE 5% 50 ML IV SCH (13:36)
--- NOTE | 2021-08-12 14:22 | Consultation Report ---
ONCOLOGY CONSULTATION NOTE DATE OF SERVICE: 08/12/2021. REASON FOR CONSULT: Metastatic lung cancer. HISTORY OF PRESENT ILLNESS: The patient is a 56-year-old female with history of stage IV adenocarcinoma of the lungs, for which she received treatment with Carboplatin, Alimta and pembrolizumab x4 cycles followed by maintenance pembrolizumab. Chemotherapy was discontinued on 11/10/2020 and she was subsequently started on maintenance pembrolizumab, which she remained on up until 04/10/2021. She subsequently missed about 2 cycles of treatment due to inpatient hospitalization as well as scheduling reasons and resumed Keytruda on 08/09/2021. Patient presented to the emergency room on 08/11/2021 with complaints of worsening shortness of breath and cough. CT chest obtained on 08/11/2021 revealed interval development of lymphangitic spread of carcinoma within the left upper lobe, moderate sized left pleural effusion with compressive atelectasis/collapse of the left upper lobe, stable lymphadenopathy and stable left hilar mass. Of note, patient had had restaging CT chest on 08/04/2021 just a week prior to admission, which revealed conglomerate pathologic necrotic subcarinal/left hilar adenopathy measuring 5 cm, but there was no evidence at that time of lymphangitic spread or pleural effusion. During my evaluation of patient today, she states that she has noticed some improvement in shortness of breath since admission. Endorses cough and also endorses some chest pain. She denies abdominal pain, nausea or vomiting. Endorses chronic diarrhea. PAST MEDICAL HISTORY: 1. COPD. 2. Chronic diarrhea. 3. Depression. 4. GERD. 5. Metastatic lung cancer. 6. Osteoporosis. SURGICAL HISTORY: 1. History of SHARRON/BSO. 2. PEG tube placement. 3. History of chest tube placement. 4. Status post appendectomy. MEDICATIONS PRIOR TO ADMISSION: 1. Folic acid 1 mg p.o. daily. 2. Rizatriptan 10 mg p.o. p.r.n. 3. Vitamin B12 subcutaneous injection 1000 mcg monthly. 4. Famotidine 20 mg p.o. daily. 5. Zofran 4 mg p.r.n. ALLERGIES: MORPHINE, SULFASALAZINE, AND CODEINE. SOCIAL HISTORY: Smokes 1 pack of cigarettes per day and has been smoking for more than 40 years. Denies alcohol use. FAMILY HISTORY: Nonsignificant. REVIEW OF SYSTEMS: CONSTITUTIONAL: Negative for weight loss, night sweats or fevers. EYES: Negative for change in vision. ENT: Negative for epistaxis, sore throat or nasal discharge. CARDIOVASCULAR: Negative for palpitations, dizziness, or diaphoresis. RESPIRATORY: Endorses dyspnea with exertion, cough. GASTROINTESTINAL: Endorses diarrhea. Denies constipation, hematemesis, melena, nausea, vomiting. GENITOURINARY: Negative for urinary frequency, hematuria or dysuria. NEUROLOGICAL: Negative for weakness, blurry vision. Positive for headaches. LYMPHATICS/HEMATOLOGIC: Negative for abnormal bleeding/bruising or new adenopathy. PHYSICAL EXAMINATION: VITAL SIGNS: Blood pressure 130/81, heart rate 108, respiratory rate 18, temperature 36.8, oxygen saturation 92% on 2 liters per minute nasal cannula. EYES: Without conjunctiva, erythema or icterus. ENT: External examination was negative for masses. RESPIRATORY: Decreased breath sounds bilaterally. CARDIOVASCULAR: Tachycardic. Without significant murmur, gallops, or rubs. GASTROINTESTINAL: PEG tube noted. ABDOMEN: Was soft with normal bowel sounds. LYMPHATIC SYSTEM: There was no palpable peripheral lymphadenopathy. EXTREMITIES: Negative for edema or erythema. LABORATORY DATA: CBC from 08/12/2021, white cell count 11.67, hemoglobin 10.6, hematocrit 32, platelet count 66,000. Chemistry was unrevealing. IMAGING STUDIES: CT angio chest PE protocol Impression: 1. No CTA evidence for pulmonary embolus. 2. Compared to the previous examination and is seen radiographically, there has been interval development of lymphangitic spread of carcinoma within the left upper lobe as described above. 3. This is in association with left hilar mass. 4. Mild to moderate centrilobular emphysematous changes are again seen throughout both lungs. 5. Stable lymphadenopathy. 6. Interval development of moderate-sized left pleural effusion with compressive atelectasis/collapse of the left lower lobe. This was not appreciated radiographically. 7. Interval development of very small pericardial effusion. IMPRESSION: 1. Metastatic lung cancer, currently on maintenance pembrolizumab. 2. Chronic obstructive pulmonary disease with possible exacerbation. 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 4. Cachexia, status post PEG tube placement. Very pleasant female with metastatic lung cancer for which she is status post 4 cycles of combination chemoimmunotherapy completed in 10/2020 followed by maintenance pembrolizumab, which she most recently received on 08/09/2021. Imaging studies suggestive of disease progression. It is interesting, however, that she developed pleural effusion pretty quickly as she had a CT scan about a week ago prior to recent admission, which did not reveal significant effusion. Most recent CT scan obtained on admission did, however, reveal moderate-sized left pleural effusion. Given the sudden development of changes in the lungs in less than 1 week, I would be concerned about infection/inflammation. As such, we would recommend treating for both. She is currently on Solu-Medrol as well as azithromycin for COPD exacerbation, which should cover both infection as well as immunotherapy related pneumonitis. We would recommend close followup chest imaging in about 1 to 2 weeks to assess for improvement in lung imaging. If this is not seen with steroids and antibiotics, would assume this represents disease progression. Thank you for this consult. Patient will be seen upon discharge from a hospital in Oncology clinic. Please feel free to call if you have any further questions. Job ID: [id number] [facility] HOSPITALNajma
--- NOTE | 2021-08-12 17:35 | Hospitalist Progress Note ---
Date of Service August 12, 2021 Assessment & Plan (1) Shortness of breath: Plan: 56F with hx metastatic non-small cell lung cancer (on Keytruda), COPD who presents with acute worsening shortness of breath x2 days. Shortness of breath/cough -CTA on admission: Moderate left pleural effusion, evidence of lymphangitic infiltration of carcinoma to the left pleura -Currently managing as COPD exacerbation: -Two step home oxygen requirement assessment complete * Azithromycin to 50 mg every 24 p.o. * IV Solu-Medrol 40 mg twice daily * Breo Ellipta * Incruse Ellipta * Benzonatate as needed for cough * Trend CBC, CMP * Plan to add Flovent to patient's home meds upon discharge; plan to use Bevespi twice daily scheduled in addition to newly prescribed inhaler * Likely discharge tomorrow Elevated troponin: Trended to peak, down trended, echocardiogram findings nonconcerning; consider resolved Chronic conditions GERD: Pepcid, Protonix Migraine headaches: Rizatriptan 10 mg as needed Dispo: MedSurg telemetry Code: Full code FEN/GI: Regular diet; PEG tube feeds (Peptamen 1.5) DVT Prophylaxis: Lovenox 40 mg SQ every morning Case Mgmt: N/A PT/OT: N/A (2) Bilateral pleural effusion: (3) Elevated troponin: (4) COPD (chronic obstructive pulmonary disease): (5) GERD (gastroesophageal reflux disease): (6) Migraine without aura, not intractable, without status migrainosus: (7) Non-small cell lung cancer with metastasis: (8) Lung cancer: Admission and Anticipated Discharge Date Admission Date: August 11, 2021 Supervising Physician Co-Signing Physician Notes I personally examined the patient and verified all begum points of history and exam, discussed case, and agree with decision making with Dr Boyd Generally feeling a bit better than yesterday, although quite nervous about going homeshe had just gotten back from the bathroomwalked to and from the bathroom without oxygen, and then had significant dyspnea and a coughing fit afterwards it took quite a while to calm down. Now she is feeling better again. She takes bivespi twice a day reasonably regularlybut not 2 puffs twice a day, and it sounds like not like clockwork. Otherwise she uses albuterol as needed vitals noted nad heent nc at mmm lungs surprisingly clear compared to yesterdaystill coarse, but far less wheezing a little bit better air entry good effort dyspnea - likely mostly progressive cancer, but with new cough/GARCIA - enough of a nidus for possible COPD exacerbation - will treat as such to try to effect as much improvement as possible. Inhaler regimen clarifiedwe will utilize Bevespi twice daily completely scheduled, and at discharge will need to add inhaled steroid. conitnue current care, will need home O2 hopefully home tomorrow elevated troponin - demand ischemia from above. echo reassuring DVT proph - lovenox otherwise as above Subjective No acute events overnight. Patient resting in bed comfortably. She reports she just had a coughing spell brought on by walking to the bathroom without nasal cannula. ROS + headaches. Review of Systems Review of Systems: All systems reviewed & are unremarkable except as noted in HPI & below Physical Exam Constitutional: WD/WN, vitals as above Eyes: PERRL, conjunctivae normal, anicteric sclerae Respiratory: Auscultation: + crackles, + rhonchi and + wheezes Cardiovascular: Rate/Rhythm: regular rhythm and + tachycardic Gastrointestinal (Abdomen): normal bowel sounds, soft, nontender, no hepatosplenomegaly Results & Data Results & [facility] ([facility]) Vital Signs (Past 12 Hours) Vital Signs Temp Pulse Pulse Pulse Pulse Pulse Pulse 08/12/21 16:21 117 H 08/12/21 15:33 36.7 C 118 H 08/12/21 11:26 36.7 C 116 H 08/12/21 11:17 120 H 121 H 121 H 117 H 08/12/21 07:42 36.8 C 108 H 08/12/21 07:25 113 H Resp Resp Resp Resp Resp BP Pulse Ox 08/12/21 16:21 08/12/21 15:33 20 157/81 H 90 08/12/21 11:26 16 136/84 90 08/12/21 11:17 22 22 20 08/12/21 07:42 18 130/81 92 08/12/21 07:25 Pulse Ox Pulse Ox Pulse Ox Pulse Ox 08/12/21 16:21 08/12/21 15:33 08/12/21 11:26 08/12/21 11:17 90 84 L 91 90 08/12/21 07:42 08/12/21 07:25 Resident Activity Tracking Resident Involvement: Resident Care Provided Care Provided: Adult Hospital Medicine (1) COPD (chronic obstructive pulmonary disease) COPD type: unspecified COPD Qualified Code(s): J44.9 - Chronic obstructive pulmonary disease, unspecified (2) GERD (gastroesophageal reflux disease) Esophagitis presence: esophagitis presence not specified Qualified Code(s): K21.9 - Gastro-esophageal reflux disease without esophagitis
[2021-08-12] MEDS: ONDANSETRON 8MG OD TAB PO PRN (17:37)
[2021-08-12] MEDS ORDERED: AZITHROMYCIN 250 MG TAB PO SCH (18:00)
--- NOTE | 2021-08-12 18:39 | Billing Data ---
Date of Service August 12, 2021 Coding Level of Care Code 42976 Subseq Hosp Care Lvl 3
[2021-08-12] MEDS: PEPTAMEN 1.5 CAL 1,000 ML BAG PEG SCH (20:32)
[2021-08-12] MEDS: MAGNESIUM SULFATE / D5W 1 GM/100 ML BAG IV SCH ×2 (20:32→22:43)
[2021-08-12] MEDS: METOPROLOL TARTRATE 25 MG TAB PO SCH (20:39)
[2021-08-12] MEDS: FLUTICASONE/VILANTEROL 200/25MCG 14 PUFFS/INHALER INH SCH (20:41)
--- NOTE | 2021-08-12 21:12 | Communication Note ---
Date of Service: August 12, 2021 Messaged about patient requested home med of flexeril 10mg qhs. Reviewed chart records and is on meds list from 06/2021 PCP visit.
[2021-08-12] MEDS ORDERED: CYCLOBENZAPRINE HCL 10 MG TAB PO SCH (21:30)
[2021-08-13] MEDS: PANTOprazole 40 MG TAB PO SCH (06:36)
[2021-08-13] MEDS: UMECLIDINIUM BROMIDE 62.5MCG/BLISTER 7 PUFFS/INHALER INH SCH (08:31)
[2021-08-13] MEDS: NICOTINE 14 MG/24 HR PATCH TD SCH (08:31)
[2021-08-13] MEDS: FLUDROCORTISONE ACETATE 0.1 MG TAB PO SCH (08:32)
[2021-08-13] MEDS: METOPROLOL TARTRATE 25 MG TAB PO SCH (08:32)
[2021-08-13] MEDS: FOLIC ACID 1 MG TAB PO SCH (08:32)
[2021-08-13] MEDS: FAMOTIDINE 20 MG TAB PO SCH (08:32)
[2021-08-13] MEDS: ESCITALOPRAM OXALATE 20 MG TAB PO SCH (08:33)
[2021-08-13] MEDS: ENOXAPARIN INJ 40 MG/0.4 ML SYR SQ SCH (08:35)
[2021-08-13] MEDS: methylPREDNISolone 40 MG in SYRINGE 0 ML IV SCH (08:35)
[2021-08-13 08:38] LABS: Hematocrit (blood only) 29.4 % (37-47); Hemoglobin 9.6 g/dL (12.0-16.0); Mean Corpuscular Hemoglobin 32.3 pg (25-34); Mean Corpuscular Hgb Conc 32.7 g/dL (32-36); Mean Platelet Volume 8.8 fL (7.4-10.4); Platelet Count 477 K/uL (130-400); RDW Coefficient of Variation 15.1 % (11.5-14.5); RDW Standard Deviation 54.9 fL (36.4-46.3); Red Blood Count 2.97 M/uL (4.2-5.4)
[2021-08-13 08:39] LABS: Basophils # (auto) 0.01 K/uL (0-0.2); Immature Granulocytes % (auto) 0.5 %; Lymphocytes # (auto) 1.61 K/uL (1.2-3.4); Lymphocytes % (auto) 7.7 %; Monocytes # (auto) 0.97 K/uL (0.11-0.59); Monocytes % (auto) 4.6 %; Neutrophils # (auto) 18.21 K/uL (1.4-6.5); Neutrophils % (auto) 87.2 %
[2021-08-13] MEDS: HEPARIN 100 UNIT/ML 5ML FLUSH FLUSH PRN ×2 (08:43→08:51)
[2021-08-13 08:44] LABS: BUN Creatinine Ratio 38.8 (10-20); Calcium 8.2 mg/dl (8.5-10.1); Creatinine Clr Calc Pharmacy 91.1 ml/min; Est GFR (African American) 124.5 ml/min; Est GFR (Non-African American) 107.4 ml/min; Potassium 3.8 mmol/L (3.5-5.1)
[2021-08-13] MEDS: RIZATRIPTAN BENZOATE 10 MG TAB PO PRN (08:50)
[2021-08-13] MEDS: POTASSIUM CHLORIDE CRTAB 20 MEQ TABCR PO SCH (10:34)
[2021-08-13] MEDS ORDERED: AZITHROMYCIN 250 MG TAB PO ONE (14:00)
[2021-08-13] MEDS: cefTRIAXone SODIUM 2,000 MG in DEXTROSE 5% 50 ML IV SCH (14:29)
--- NOTE | 2021-08-13 14:36 | Pulmonology Progress Note ---
Date of Service August 13, 2021 Assessment & Plan (1) Shortness of breath: (2) Community acquired pneumonia: (3) Metastatic lung cancer (metastasis from lung to other site): (4) Pleural effusion, left: Plan: Differential for the left upper lobe opacities is broad and includes pneumonia, pneumonitis related to Keytruda/chemotherapy and/or lymphangitic carcinomatosis. She also has a left-sided pleural effusion and the differential for this includes parapneumonic effusion or malignant effusion. Thus far, she has had a good response to antibiotics and steroids. Patient is eager to go home. I did business and financial counsel the patient that I am concerned that she may bounce back to the hospital as she is still wheezing, coughing and having significant dyspnea with moderate exertion. I also spoke with the hospitalist. The patient still wishes to go home despite my counseling her. I agree with the prednisone taper and outpatient antibiotics. I encouraged her to call our pulmonary office should she continue to have shortness of breath and we can reevaluate the need for thoracentesis as an outpatient. Continue supplemental oxygen to maintain sats above 88% as this is a medical necessity. She will be discharged home with supplemental oxygen. Appreciate medical oncology input while inpatient. She will follow-up with them as an outpatient as she has been doing. Thank you for the consultation. Please call with questions. Admission and Anticipated Discharge Date Admission Date: August 11, 2021 Subjective Patient seen and examined this afternoon. She is eager to go home. She notes that she slept very poorly yesterday and is having insomnia related to steroids. She also was upset yesterday that she did not get her Flexeril in a timely fashion. She reports that she continues to have dyspnea with exertion such as walking a few feet around her room. She is currently on 2 L of oxygen. She is going to be sent home with an oxygen concentrator. She continues to have a nonproductive cough. She has occasional wheezing. Review of Systems Review of Systems: All systems reviewed & are unremarkable except as noted in HPI & below Physical Exam Physical Exam: Constitutional: Thin patient appears to be of their stated age. Patient is in no apparent distress. Patient is well-developed. Eyes: Pupils are equal round and reactive to light. Conjunctivae are normal. Anicteric sclera. Ears nose, mouth and throat: No obvious deformities. Neck: Trachea is midline. Visual inspection is normal. Respiratory: Prolonged phase of exhalation. Wheezing predominantly in the left upper lobe Cardiovascular: Regular rate and rhythm. No murmurs. No edema. Gastrointestinal: Normal bowel sounds, soft, nontender and nondistended. No hepatosplenomegaly noted. Musculoskeletal: No cyanosis. Patient is able to move all extremities. Skin: No rashes, warm dry and intact. Neurologic: No obvious focal neurological deficits seen. Psychiatric: Alert and oriented x3 with a euthymic affect. Results & Data Results & Data ([facility]) Vital Signs (Past 12 Hours) Vital Signs Temp Pulse Pulse Resp BP Pulse Ox 08/13/21 10:18 107 H 08/13/21 07:39 37.0 C 104 H 18 163/84 H 98 08/13/21 02:43 104 H Vital signs, labs and imaging personally reviewed PG Care Time/CCT Total # of Minutes Spent Total Time Spent with Patient: Total time spent is greater than 50% in coordination of care (as documented) at patient's floor/unit and/or counseling patient: Coding Level of Care Code 51729 Subseq Hosp Care Lvl 2 Diagnoses Shortness of breath R06.02 Community acquired pneumonia J18.9 Metastatic lung cancer (metastasis from lung to other site) C34.90 Pleural effusion, left J90
--- NOTE | 2021-08-13 16:50 | Discharge Summary ---
Date of Service August 13, 2021 Admission HPI Per Admitting Provider Anat is a 56-year-old woman with non-small cell lung cancer (on Keytruda), and associated COPD, who presented to the emergency room after 2 days of sudden, progressively worsening shortness of breath and cough. ROS + headache (the patient has history of migraines), rhinorrhea, dysuria, and chest tightness. She denies any recent infection, sick contacts, fevers, no prior episodes of shortness of breath. She reports that her symptoms began suddenly, with dyspnea and progressively worsening coughing spells at rest that progressed to dyspnea on exertion. She does not have a home oxygen requirement. Of note, she had chemotherapy 2 days ago. She has a PEG tube for feeding. In the ED, she was found to have an O2 saturation of 88 to 90%. She was put on 2 L nasal cannula after which her O2 saturation increased to 95%. Principal Diagnosis Dyspnea hypoxiamultifactorial Discharge Exam In general she is awake and alert pleasant no distress. HEENT normocephalic atraumatic mucous membranes moist. Cardio is very mildly tachycardic. Lungs show better air entry than on prior days, still diffuse wheezing, but less coarse, and better air movement. No conversational dyspnea no accessory muscles. Cranial nerves II through XII are grossly intact gross motor and sensory intact. Musculoskeletal without gross lesions or deformities Discharge Data Allergies Allergy/AdvReac Type Severity Reaction Status Date / Time hornet venom Allergy Severe Anaphylaxis Verified 08/11/21 07:52 mold Allergy Severe Sinus Verified 08/11/21 07:52 swelling morphine Allergy Severe decreases Verified 08/11/21 07:52 respirations sulfasalazine Allergy Severe Rash, Verified 08/11/21 07:52 swelling, dyspnea codeine Allergy Mild Pruritus Verified 08/11/21 07:52 house dust Allergy Mild Dry Eye Verified 08/11/21 07:52 Consultations 08/11/21 09:27 ED Decision to Admit Stat 08/11/21 11:35 Consult Pulmonology Stat 08/11/21 13:40 Consult Oncology Routine Ordered Studies 08/11/21 08:14 CT angio chest PE protocol Stat Hospital Course (1) Shortness of breath: 56F with hx metastatic non-small cell lung cancer (on Keytruda), COPD who presents with acute worsening shortness of breath x2 days. Shortness of breath/cough -Probably multifactorial: COPDher baseline COPD is likely quite severe, but it did not sound like she was using baseline inhaler regimen purely routinely. Is on Bivespi which will include anticholinergic and long-acting beta agonist. Encouraged/instructed to use twice daily routinely. Add Flovent routinely twice daily for inhaled steroid. Continue albuterol as needed. Home oxygen set up as well, patient educated on following pulse ox and goals of treatment with that COPD exacerbationin addition to what appeared to be under control to baseline COPD, she had signs and symptoms consistent with an exacerbationwas treated with Zithromax, Rocephin, steroids while in the hospitaland will discharge on Zithromax/cefdinir/prolonged steroid taper with prednisone progressive lung cancerher CT is concerning for progressive lung canceroncology was consulted and they will continue to follow the patient close ly in the outpatient setting. They noted it may be progression of cancer versus an ADR to Keytruda that would likely respond to steroids Elevated troponin - low-level demand ischemia with no signs or symptoms of ACS, and a reassuring echo DVT proph -lovenox stable for home as above, close outpt f/u (2) Bilateral pleural effusion: (3) Elevated troponin: (4) COPD (chronic obstructive pulmonary disease): (5) GERD (gastroesophageal reflux disease): (6) Migraine without aura, not intractable, without status migrainosus: (7) Non-small cell lung cancer with metastasis: (8) Lung cancer: Total Time Total Time Spent Total Time Spent (In Minutes): >30 Discharge Plan Discharge Items Patient Disposition: Home - Home Health Services Reason For Visit: SHORTNESS OF BREATH Discharge Diagnosis: multifactorial shortness of breath (see below) Activity: Resume your previous activity Non-emergency contact: Primary Care Provider Call non-emergency contact if: you have any medication questions and your symptoms worsen Follow-up/Referrals: Darya Chiu MD [Primary Care Provider] - Diet: Regular Addtl Attending Provider Instructions: shortness of breath - multifactorial COPD (baseline) -As we have been discussing, fairly severe COPD does better with a solid foundation of a baseline inhaler regimen -There are 3 main classes of inhalers were used for COPDanticholinergics, long- acting beta agonist, and inhaled steroids. -Your Bivespi has 2 of those inhalers and it (it has an anticholinergic and a long-acting beta agonist)so it is a good one, but you definitely should take 2 puffs twice a day, every day like clockwork -Since the Bivespi does not have an inhaled steroid, we will add one of thoseFloventand you will take 2 puffs of that twice a day, every day like clockwork at the same time. Since it is a steroid, I recommend using mouthwash afterwards, so that you do not get thrush -On top of that, then you can continue to use your albuterol as a rescue inhaler as needed for shortness of breath. Like we have been discussing, and a "perfect world" we are able to manage the baseline COPD down to where somebody needs their rescue inhaler once a week or less. As we discussed, unfortunately I doubt this is realistic with you, but hopefully we can get things to where you do not really feel like you are living from dose to dose of albuterol just to keep your lungs open. I think if we can get you to where you only need the albuterol 2-3 times a day, that would probably be a pretty big win COPD exacerbation -In addition to improving the baseline management of your COPD, the wheezing, change in your cough, etc. definitely looked consistent with what we would call a COPD exacerbation. Think of this essentially as an infectious bronchitis superimposed on your baseline of COPD -We usually treat these with steroids and antibioticswe have been doing this in the hospitaland we will continue to do so after discharge -We will finish out antibiotics with Zithromax (you will be able to finish out a course of that with a dose tomorrow, and Saturday), and cefdinirtake that twice a day for 3 more days (6 more doses) with your next dose at bedtime tonight -Additionally, we will do a long taper of steroids with prednisonestarting tomorrowwith 60 mg for 3 days, 50 mg for 3 days, 40 mg for 3 days, 30 mg for 3 days, 20 mg for 3 days, 10 mg for 3 daysand then stop. Like we discussed, at higher dosing steroids definitely can make people feel hungry and hyperso it will be better to take the dosing earlier in the day. It will be a large bottle of 10 mg pills, so that you can adjust the dosing as the prescription directs possible progression of cancer -In addition to the above, it does look most like the cancer has progressedDr. Jazzy did note that sometimes an inflammatory side effect to the Keytruda could look similarand the steroids would take care of thatso we will treat as above, and then at the cancer center they will repeat imaging in a few weeks to a month to look for changes oxygen -He definitely will benefit from having supplemental oxygenlike we have been discussing, you will want to use it with activity, but at rest you probably do not need it as much. Follow your pulse ox readings, as you will not want to use oxygen to treat yourself to a "totally normal" pulse oxrather, it would be better to use the oxygen to keep your pulse ox in the range of 90 to 92%, not really higher. If you are finding that you are always greater than 90 to 92%, even with exertion, it is possible that the need for the oxygen was temporary related to the COPD exacerbation. On the other hand, if you find that you are always dipping lower, then that would be a hint that you might need more oxygenand you would want to discuss things further with your PCP and pulmonary doctor Pending Studies at Discharge: No Stand-Alone Forms: My [facility], Smoking Cessation Medications and DC Order Prescriptions: New Bevespi Aerosphere 9-4.8 mcg HFA aerosol inhaler 2 inh inhalation BID Qty: 10.7 RF: 0 Flovent HFA 220 mcg/actuation HFA aerosol inhaler 2 inh inhalation BID Qty: 12 RF: 0 azithromycin [Zithromax] 250 mg tablet 250 mg PO DAILY Qty: 2 RF: 0 cefdinir 300 mg capsule 300 mg PO BID Qty: 6 RF: 0 prednisone 10 mg tablet 10 mg PO UD Qty: 63 RF: 0 Continued epinephrine 0.3 mg/0.3 mL auto-injector 0.3 mg IM Q10M MDD 2 doses PRN (Reason: anaphylaxis) Qty: 1 RF: 3 rizatriptan 10 mg tablet 10 mg PO .COMPLEX PRN (Reason: migraine headache) Qty: 9 RF: 5 lidocaine 5 % adhesive patch,medicated 1 patch topical DAILY Qty: 30 RF: 5 cetirizine 10 mg tablet 10 mg PO QAM Qty: 90 RF: 3 (DME) BD SafetyGlide Syringe 3 mL 25 gauge x 1" syringe See Rx Instructions .Route Qty: 4 RF: 6 cyanocobalamin (vitamin B-12) 1,000 mcg/mL solution 1,000 mcg IM .COMPLEX 30 Days Qty: 4 RF: 4 famotidine 20 mg tablet 20 mg PO QAM Qty: 90 RF: 3 benzonatate 100 mg capsule 100 mg PO TID PRN (Reason: cough) Qty: 90 RF: 1 ipratropium-albuterol 0.5 mg-3 mg(2.5 mg base)/3 mL solution for nebulization 3 ml INH QID PRN (Reason: wheezing) Qty: 90 RF: 5 ondansetron HCl 4 mg tablet See Rx Instructions .ROUTE .COMPLEX Qty: 60 RF: 2 prochlorperazine maleate 10 mg tablet 10 mg PO Q6H PRN (Reason: nausea and vomiting) Qty: 30 RF: 2 potassium chloride 20 mEq tablet extended release 20 meq PO DAILY RF: 0 albuterol sulfate 90 mcg/actuation HFA aerosol inhaler 2 puff inhalation Q6H Qty: 18 RF: 5 folic acid 1 mg Tablet 1 mg PO QAM RF: 0 pantoprazole 40 mg tablet,delayed release (DR/EC) 40 mg PO DAILYBB RF: 0 fludrocortisone 0.1 mg tablet 0.2 mg PO QAM RF: 0 escitalopram oxalate 20 mg tablet 20 mg PO QAM RF: 0 Keytruda 25 mg/mL Solution 0 mg IV .Q3W RF: 0 Discharge Orders: Discharge Order (Routine); Ordered 08/13/21 Ordered By: Jabari Hoover Admission Data Admit Date/Time: 08/11/21 09:57 Attending Provider: Jabari Hoover Admit Provider: Lalo Boyd Primary Care Provider: Darya Chiu Other Providers: José Donahue ; Darvin Devlin ; Aneudy Servin V. ; Palmira Knutson ; Tiara Gupta ; Farzad Duron ; Perry Mcguire ; Dale Driscoll ; Ruby Purcell ; [email or web address],No Attending Other Interventions: Discharge Summary Assessment (RN) Last Done: 08/13/21 14:57 Coding Level of Care Code D/C DAY MANAGEMENT >30 MINS Diagnoses Shortness of breath R06.02 Bilateral pleural effusion J90 Elevated troponin R77.8 COPD (chronic obstructive pulmonary disease) J44.9 COPD type: unspecified COPD GERD (gastroesophageal reflux disease) K21.9 Esophagitis presence: esophagitis presence not specified Migraine without aura, not intractable, without status migrainosus G43.009 Non-small cell lung cancer with metastasis C34.90 Lung cancer C34.90
== END 2021-08-13 15:43 | disposition home health service (06) ==
LOC: ED 06:19 → EDINP 09:57 → INTOOBSV 09:57 → 2N 18:30

== ENCOUNTER 2021-09-08 17:48 | Inpatient (IN) ==
[2021-09-08] MEDS ORDERED: methylPREDNISolone 125 MG/2 ML VIAL IV STA (18:17)
[2021-09-08] MEDS ORDERED: ALBUT/IPRATROP 3MG/0.5MG NEB 3 ML VIAL NEB ONE (18:17)
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
[2021-09-08 18:55] LABS: Hematocrit (blood only) 32.9 % (37-47); Hemoglobin 10.6 g/dL (12.0-16.0); Mean Corpuscular Hemoglobin 31.5 pg (25-34); Mean Corpuscular Hgb Conc 32.2 g/dL (32-36); Mean Corpuscular Volume 97.9 fL (80-100); Mean Platelet Volume 8.7 fL (7.4-10.4); Platelet Count 389 K/uL (130-400); RDW Coefficient of Variation 15.5 % (11.5-14.5); RDW Standard Deviation 55.7 fL (36.4-46.3); Red Blood Count 3.36 M/uL (4.2-5.4); White Blood Count 15.48 K/uL (4.8-10.8)
[2021-09-08 19:00] LABS: Base Excess VBG -1.3 mEq/L; Oxygen Saturation VBG 60.6 %; pH VBG 7.42 (7.36-7.41)
[2021-09-08 19:08] LABS: Partial Thromboplastin Ratio 1.6; Partial Thromboplastin Time 43.1 Seconds (21.0-31.0); Prothrombin Time 10.4 Seconds (9.0-12.0)
[2021-09-08 19:14] LABS: ALC (manual) 2.32 K/uL (1.2-3.4); ANC (manual) 12.74 K/uL (1.4-6.5); Lymphocytes # (manual) 2.32 K/uL (1.2-3.4); Monocytes # (manual) 0.42 K/uL (0.11-0.59); Monocytes % (manual) 2.7 %; Neutrophils # (manual) 12.74 K/uL (1.4-6.5); Neutrophils % (manual) 82.3 %; RBC Morphology Unremarkable
[2021-09-08 19:17] LABS: Anion Gap 8 (3-11); BUN Creatinine Ratio 31.1 (10-20); Blood Urea Nitrogen 19 mg/dl (6-23); Calcium 9.2 mg/dl (8.5-10.1); Carbon Dioxide 22 mmol/L (21-32); Chloride 109 mmol/L (98-107); Est GFR (African American) 115.8 ml/min; Est GFR (Non-African American) 99.9 ml/min; Glucose 107 mg/dl (70-99(Fasting)); Potassium 3.5 mmol/L (3.5-5.1); Sodium 139 mmol/L (136-145)
--- NOTE | 2021-09-08 19:25 | XRay Report ---
XR chest 1V portable HISTORY: 56 years-old Female sob acute shortness of breath COMPARISON: Chest radiograph and CTA chest 08/11/2021 TECHNIQUE: Portable AP view of the chest FINDINGS: Cardiac silhouette is within normal limits. Unchanged left hilar prominence. Unchanged positioning of the [id number] catheter. No pneumothorax or large pleural effusion. Resolution of the previously described left pleural effusion. Mildly improved aeration of the lungs. Emphysema with chronic inters titial coarsening. Degenerative changes of the shoulders and spine. IMPRESSION: 1. There are persistent left greater than right interstitial opacities which have mildly improved fro m prior. 2. Emphysema. 3. Resolved left pleural effusion. 4. Left perihilar opacity correlating with the patient's known pathologic adenopathy redemonstrated. ACT 112: Negative or not required by law. The above report was generated using voice recognition software. It may contain grammatical, syntax o r spelling errors. Electronically signed by: Eddie Pathak M.D. 09/08/2021 7:23 PM
[2021-09-08 19:43] LABS: Influenza A virus by PCR Negative (Neg); Influenza B virus by PCR Negative (Neg); RSV by PCR Negative (Neg); SARS CoV2 RNA(COVID-19) InHosp NEGATIVE (Negative)
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
[2021-09-08] MEDS ORDERED: OPTIRAY 320 125ml IV ONE (20:50)
--- NOTE | 2021-09-08 21:17 | CT Scan Report ---
CT angio chest PE protocol CT DOSE: 242.51 mGy.cm HISTORY: 56 years-old Female with PE. Acute shortness of breath with history of COPD and lung cance r TECHNIQUE: Multiple CTA images of the chest were obtained after the intravenous administration of 118 ml Optiray. Coronal and sagittal MIPS were obtained from the axial data set and were submitted for review. All measurements were obtained according to NASCET criteria. A dose lowering technique was u tilized adhering to the principles of ALARA. COMPARISON: Chest radiograph of same day, CTA chest 08/11/2021, 08/04/2021 FINDINGS: CTA: The heart is normal in size without pericardial effusion. Mild coronary artery calcifications. Left s ubclavian Pnecqu-w-Qecr catheter distal tip terminates within the right atrium. No thoracic aortic an eurysm. Unremarkable pulmonary artery. No pulmonary emboli. CT CHEST: Unremarkable thyroid. Pathologic conglomerate subcarinal/left hilar lymph node with peripheral enhanc ement and central necrosis measures redemonstrated measuring up to approximate 5.3 cm. This mass agai n narrows the adjacent pulmonary veins and bronchi. There are a few prominent subcentimeter left supr aclavicular and left subpectoral lymph nodes measuring up to 7 mm which are stable. Paratracheal lymp h nodes measure up to 8 mm. Severe emphysema with chronic fibrotic changes. Trace left pleural effusion has decreased in size fro m prior hardware was previously moderate. Irregular and somewhat spiculated 10 mm solid nodule of the left upper lobe on image 198 appears unchanged. Linear conglomerate nodular densities of the right u pper lobe on image 177 measuring up to 1.4 cm are also stable. There are no new or enlarging pulmonar y nodules identified. Minimal groundglass densities of the basal right lower lobe favor atelectasis/s carring. There is progressively worsened left-sided bronchial wall thickening with multifocal mucus p lugging. There is improved aeration of the left lung compared to the prior study. Mild residual intra lobular septal thickening of the left upper lobe and lingula. Unremarkable soft tissues. No acute fra cture or suspicious bone lesion. Nonspecific circumferential wall thickening of the distal esophagus. Heterogeneity of the spleen is likely secondary to contrast bolus timing. IMPRESSION: 1. No pulmonary emboli. 2. Conglomerate pathologic necrotic subcarinal and left hilar adenopathy measuring over 5 cm compatib le with malignancy is redemonstrated. Again noted is resultant narrowing of the adjacent pulmonary ve ins and bronchi. This likely accounts for the asymmetric left upper lobe and lingular pulmonary edema seen on the study from 08/11/2021 which has moderately improved. 3. Trace left pleural effusion has decreased in size from prior. 4. Progressively worsened left-sided bronchial wall thickening with tracheobronchial secretions and l eft lower lobe predominant mucous plugging. 5. Severe emphysema. 6. Additional findings as above. ACT 112: Negative or not required by law. The above report was generated using voice recognition software. It may contain grammatical, syntax o r spelling errors. Electronically signed by: Eddie Pathak M.D. 09/08/2021 9:16 PM
[2021-09-08] MEDS ORDERED: PIPERACILL/TAZOBAC CONSULT ACTIVE PRN (21:37)
[2021-09-08] MEDS ORDERED: PIPERACILLIN/TAZOBACTAM 4.5 GM in DEXTROSE 5% 100 ML IV SCH (21:45)
[2021-09-08] MEDS ORDERED: POLYETHYLENE (MIRALAX) 17 GM PACK PO PRN (23:13)
[2021-09-08] MEDS ORDERED: BENZONATATE 100 MG CAPSULE PO PRN (23:13)
[2021-09-08] MEDS ORDERED: ACETAMINOPHEN 325 MG TAB PO PRN (23:13)
[2021-09-08] MEDS ORDERED: ONDANSETRON INJ 2 MG/ML 2 ML VIAL IV PRN (23:13)
[2021-09-08] MEDS ORDERED: ALBUT/IPRATROP 3MG/0.5MG NEB 3 ML VIAL NEB PRN (23:13)
[2021-09-09] MEDS: ALBUT/IPRATROP 3MG/0.5MG NEB 3 ML VIAL INH SCH ×4 (00:27→19:50)
[2021-09-09] MEDS ORDERED: PEPTAMEN 1.5 CAL 1,000 ML BAG PO SCH (01:15)
[2021-09-09] MEDS ORDERED: Nursing to Pharmacy Communication SCH (01:15)
[2021-09-09] MEDS: guaiFENesin 600 MG TABCR PO SCH ×3 (01:23→20:27)
[2021-09-09] MEDS: ENOXAPARIN INJ 40 MG/0.4 ML SYR SQ SCH ×2 (01:23→23:30)
[2021-09-09] MEDS: methylPREDNISolone 40 MG in SYRINGE 0 ML IV SCH ×3 (01:44→18:13)
[2021-09-09] MEDS: PANTOprazole 40 MG TAB PO SCH (04:47)
[2021-09-09 05:34] LABS: Hematocrit (blood only) 30.7 % (37-47); Mean Corpuscular Hemoglobin 31.8 pg (25-34); Mean Corpuscular Hgb Conc 32.6 g/dL (32-36); Mean Corpuscular Volume 97.8 fL (80-100); Mean Platelet Volume 8.9 fL (7.4-10.4); Platelet Count 363 K/uL (130-400); RDW Coefficient of Variation 15.4 % (11.5-14.5); RDW Standard Deviation 54.8 fL (36.4-46.3); Red Blood Count 3.14 M/uL (4.2-5.4); White Blood Count 12.95 K/uL (4.8-10.8)
[2021-09-09] MEDS ORDERED: PIPERACILLIN/TAZOBACTAM 3.375 GM in DEXTROSE 5% 100 ML IV SCH (06:00)
[2021-09-09 06:03] LABS: Basophils # (auto) 0.02 K/uL (0-0.2); Basophils % (auto) 0.2 %; Immature Granulocytes # (auto) 0.15 K/uL (0.00-0.02); Immature Granulocytes % (auto) 1.2 %; Lymphocytes # (auto) 0.91 K/uL (1.2-3.4); Monocytes # (auto) 0.26 K/uL (0.11-0.59); Neutrophils # (auto) 11.61 K/uL (1.4-6.5); Neutrophils % (auto) 89.6 %; RBC Morphology Unremarkable
[2021-09-09] MEDS: FOLIC ACID 1 MG TAB PO SCH (09:19)
[2021-09-09] MEDS: FAMOTIDINE 20 MG TAB PO SCH (09:19)
[2021-09-09] MEDS: CETIRIZINE HCL 10 MG TABLET PO SCH (09:19)
[2021-09-09] MEDS: FLUDROCORTISONE ACETATE 0.1 MG TAB PO SCH (09:19)
[2021-09-09] MEDS: POTASSIUM CHLORIDE CRTAB 20 MEQ TABCR PO SCH (09:19)
[2021-09-09] MEDS: ESCITALOPRAM OXALATE 20 MG TAB PO SCH (09:20)
[2021-09-09] MEDS: FLUTICASONE FUROATE 200MCG 14 PUFFS/INHALER INH SCH (09:20)
[2021-09-09] MEDS: UMECLIDINIUM/VILANTEROL 62.5/25MCG 7 PUFFS/INHALER INH SCH (09:20)
--- NOTE | 2021-09-09 09:24 | Hospitalist Progress Note ---
Date of Service September 09, 2021 Assessment & Plan (1) COPD exacerbation: Plan: 56-year-old female history significant for metastatic lung cancer and COPD with a baseline oxygen requirement who was admitted for acute on chronic hypoxic respiratory failure. Acute hypoxic respiratory failure - etiology likely COPD exacerbation secondary to a post-obstructive pneumonia - currently satting 97% on 4 L O2 via NC, baseline O2 requirement 3L. Wean O2 as tolerated. - Respiratory alkalosis present on admission with proper metabolic compensation COPD - in acute exacerbation, likely due to post obstructive PNA - Solumedrol 40mg IV q8 - Duonebs q6h scheduled and q2h prn. - Azithromycin 500mg IV daily for 3 days - Mucinex 1200 BID - continue home inhaler regimen - Incentive spirometer and flutter valve. Post-obstructive PNA - CT scan chest showed narrowing of the left pulmonary veins and bronchi (secondary to necrotic subcarinal and left hilar adenopathy) with left lower lobe mucous plugging - WBC elevated to 15.4 on admission, down to 12 today - blood cultures and sputum cultures pending - Procal not elevated - Lactate not elevated - COVID-19, influenza, RSV negative. - Nasal MRSA neg, no need for MRSA coverage - continue azithromax; zosyn started on admission but de-escalated to Rocephin today (pseudomonal coverage likley unnecessary, typical gram neg coverage acceptable). - trend CBC Tachycardia - EKG showing sinus tach - etiology uncertain: CTA showed no evidence of PE. No evidence of dehydration on labs. Patient not in any pain. May be presenting sign of sepsis from PNA vs. secondary to albuterol neb - K at 3.5, 40meQ KCl ordered. Goal K > 4.0 - check mag level, goal > 2.0 - continue cardiac monitoring Metastatic lung cancer: - Known history of stage IV adenocarcinoma of the lungs, on monthly maintenance Keytruda. - No evidence of worsening lung lesions on admission Chest CTA - [facility] - associated poor oral intake and malnutrition, as PEG tube in place for supplemental feeds Hypotension: -History of, on daily fludrocortisone therapy. continue current dose. GERD: - Continue famotidine, PPI. Depression: - Continue Escitalopram. CODE STATUS: Full code FEN: PEG feedings and heart healthy diet DVT ppx: Lovenox Dispo: Med/Surg with Telemetry (2) Pneumonia: (3) Acute on chronic respiratory failure with hypoxia: (4) Metastatic lung cancer (metastasis from lung to other site): (5) GERD (gastroesophageal reflux disease): Admission and Anticipated Discharge Date Admission Date: September 08, 2021 Supervising Physician Co-Signing Physician Notes I personally examined the patient and verified all begum points of history and exam, discussed case, and agree with decision making with Dr Flores breathing still feels lousy. notes never really got better after last admission. also separate complaint of diarrhea - frequent but irregular. sometimes small chunks, sometimes watery. ~4x/day avg. headache improved vitals noted nad heent nc at mmm lungs diffuse wheeze no r/r good effort hypoxia/dyspnea -COPD exac possible small post obstructive pneumonia vs just worsening of cancer --> abx, steroids, supportive care. hopefully will show improvement. if not, then have to consider if this is just new/worse baseline due to cancer progression diarrhea - review of CT from july shows a fair amount of what appears to be solid stool - given that her diarrhea dates back to last summer and was going on at time of CT - suspect this is likely overflow. in discussing this with pt she ntoes that she recalls dr ramos saying something similar, and remembers at least talking about miralax, although it's unclear if she ever truly took any kind of a bowel regimen and certainly does not appear to be on a chronic one. miralax 51g now then 17g daily - titrate if/as needed DVT proph - lovenox tachycardia does appear sinus, but faster than what appears fitting with her physiologic degree of distress - reasonable that R3 physician has ordered trial of beta mary - will follow otherwise as above Subjective No acute events overnight. Patient states she is feeling well - breathing has somewhat improved. On further history, she was having ongoing issues with cough and dyspnea since her previous hospital admission 1 month ago. She was scheduled to be seen by her associate professor of communication - but the appointment was canceled and rescheduled twice. Review of Systems Review of Systems: All systems reviewed & are unremarkable except as noted in HPI & below Physical Exam Constitutional: WD/WN, vitals as above cooperative and comfortable Eyes: + anicteric sclerae ENMT: external ear and nose normal, oropharynx normal Neck: trachea midline Respiratory: normal respiratory effort and + cough; no respiratory distress and no labored breathing Auscultation: + rhonchi and + wheezes Cardiovascular: Rate/Rhythm: regular rhythm and + tachycardic Heart Sounds: normal S1 and normal S2 Gastrointestinal (Abdomen): normal bowel sounds, soft, nontender, no hepato splenomegaly + feeding tube in place Musculoskeletal: Head/Neck/Chest: normocephalic and head atraumatic Skin: no rashes, warm and dry Psychiatric: A+Ox3, euthymic affect Results & Data Results & Data ([facility]) Vital Signs (Past 12 Hours) Vital Signs Temp Pulse Pulse Resp BP BP Pulse Ox 09/09/21 08:00 37.0 C 110 H 22 138/84 99 09/09/21 07:13 108 H 18 97 09/09/21 03:21 103 H 24 126/67 97 09/09/21 00:27 108 H 16 100 09/09/21 00:00 111 H 26 H 149/86 H 97 09/08/21 23:10 111 H 25 H 97 09/08/21 23:00 110 H 20 142/83 H 98 09/08/21 22:50 110 H 23 99 09/08/21 22:40 110 H 19 99 09/08/21 22:30 111 H 23 100 09/08/21 22:20 108 H 21 99 09/08/21 22:10 110 H 21 100 09/08/21 22:00 107 H 20 141/83 H 99 09/08/21 21:50 112 H 21 99 09/08/21 21:40 110 H 19 98 09/08/21 21:30 108 H 16 100 09/08/21 21:20 110 H 26 H 98 Resident Activity Tracking Resident Involvement: Resident Care Provided Care Provided: Adult Hospital Medicine
[2021-09-09] MEDS ORDERED: POTASSIUM CHLORIDE CRTAB 20 MEQ TABCR PO STA (09:25)
--- NOTE | 2021-09-09 09:35 | Electrocardiogram Report ---
Test Reason : Blood Pressure : / mmHG Vent. Rate : 108 BPM Atrial Rate : 108 BPM P-R Int : 130 ms QRS Dur : 072 ms QT Int : 340 ms P-R-T Axes : 062 027 077 degrees QTc Int : 455 ms Sinus tachycardia Otherwise normal ECG When compared with ECG of 11-AUG-2021 06:27, No significant change was found Confirmed by Jean Vasquez ([id number]) on 09/09/2021 9:35:25 AM Referred By: REFERRED SELF Confirmed By:Jean Vasquez
[2021-09-09] MEDS: AZITHROMYCIN 500 MG in DEXTROSE 5% 250 ML IV SCH (09:41)
--- NOTE | 2021-09-09 09:51 | Electrocardiogram Report ---
Test Reason : Blood Pressure : / mmHG Vent. Rate : 110 BPM Atrial Rate : 110 BPM P-R Int : 140 ms QRS Dur : 076 ms QT Int : 350 ms P-R-T Axes : 069 042 084 degrees QTc Int : 473 ms Sinus tachycardia Otherwise normal ECG When compared with ECG of 08-SEP-2021 18:31, (unconfirmed) No significant change was found Confirmed by Jean Vasquez ([id number]) on 09/09/2021 9:50:59 AM Referred By: REFERRED SELF Confirmed By:Jean Vasquez
[2021-09-09] MEDS ORDERED: RIZATRIPTAN BENZOATE 10 MG TAB PO STA (12:40)
[2021-09-09] MEDS ORDERED: METOPROLOL TARTRATE 25 MG TAB PO STA (13:32)
[2021-09-09] MEDS ORDERED: MAGNESIUM SULFATE / D5W 1 GM/100 ML BAG IV ONE (13:34)
[2021-09-09] MEDS: cefTRIAXone SODIUM 1,000 MG in DEXTROSE 5% 50 ML IV SCH (14:03)
[2021-09-09] MEDS ORDERED: METOPROLOL TARTRATE 1 MG/ML VIAL IV PRN (14:30)
--- NOTE | 2021-09-09 16:45 | Billing Data ---
Date of Service September 09, 2021 Coding Level of Care Code 18008 Subseq Hosp Care Lvl 3
[2021-09-09] MEDS ORDERED: POLYETHYLENE (MIRALAX) 17 GM PACK PO ONE (16:50)
[2021-09-09] MEDS: PEPTAMEN 1.5 CAL 1,000 ML BAG PEG SCH (20:25)
--- NOTE | 2021-09-09 21:19 | Billing Data ---
Date of Service September 09, 2021 Coding Level of Care Code 52307 Initial Inpt Care Lvl 3
[2021-09-10] MEDS: ALBUT/IPRATROP 3MG/0.5MG NEB 3 ML VIAL INH SCH ×6 (00:04→22:12)
[2021-09-10] MEDS ORDERED: HEPARIN 100 UNIT/ML 5ML FLUSH FLUSH PRN (01:24)
[2021-09-10] MEDS: methylPREDNISolone 40 MG in SYRINGE 0 ML IV SCH ×3 (01:53→17:54)
[2021-09-10] MEDS ORDERED: ALBUT/IPRATROP 3MG/0.5MG NEB 3 ML VIAL NEB STA (04:59)
[2021-09-10] MEDS ORDERED: DEXTROMETHORPHAN POLYMR COMPLX 60 MG/10 ML UDP PO PRN (05:10)
[2021-09-10 05:30] LABS: BUN Creatinine Ratio 29.9 (10-20); Calcium 9.1 mg/dl (8.5-10.1); Creatinine Clr Calc Pharmacy 72.4 ml/min; Est GFR (African American) 112.3 ml/min; Est GFR (Non-African American) 96.9 ml/min; Magnesium 2.1 mg/dl (1.7-2.4); Potassium 3.9 mmol/L (3.5-5.1)
[2021-09-10 05:35] LABS: Basophils # (auto) 0.04 K/uL (0-0.2); Basophils % (auto) 0.2 %; Hematocrit (blood only) 36.3 % (37-47); Hemoglobin 11.5 g/dL (12.0-16.0); Immature Granulocytes # (auto) 0.59 K/uL (0.00-0.02); Immature Granulocytes % (auto) 2.3 %; Lymphocytes % (auto) 13.8 %; Mean Corpuscular Hemoglobin 31.6 pg (25-34); Mean Corpuscular Hgb Conc 31.7 g/dL (32-36); Mean Corpuscular Volume 99.7 fL (80-100); Mean Platelet Volume 8.8 fL (7.4-10.4); Monocytes # (auto) 1.89 K/uL (0.11-0.59); Monocytes % (auto) 7.2 %; Neutrophils # (auto) 19.95 K/uL (1.4-6.5); Neutrophils % (auto) 76.5 %; Platelet Count 516 K/uL (130-400); RDW Coefficient of Variation 15.3 % (11.5-14.5); RDW Standard Deviation 55.8 fL (36.4-46.3); Red Blood Count 3.64 M/uL (4.2-5.4); White Blood Count 26.07 K/uL (4.8-10.8)
[2021-09-10] MEDS: [UNRECOGNIZED DRUG - REMARK] SCH (05:42)
[2021-09-10] MEDS ORDERED: POTASSIUM CHLORIDE CRTAB 20 MEQ TABCR PO STA (06:38)
[2021-09-10] MEDS: PANTOprazole 40 MG TAB PO SCH (07:26)
[2021-09-10] MEDS ORDERED: SODIUM CHLORIDE 0.9% 1000ML 1,000 ML IV ONE (07:29)
[2021-09-10] MEDS ORDERED: METOPROLOL TARTRATE 25 MG TAB PO STA (07:48)
--- NOTE | 2021-09-10 08:44 | Hospitalist Progress Note ---
Date of Service September 10, 2021 Assessment & Plan (1) COPD exacerbation: Plan: 56-year-old female history significant for metastatic lung cancer and COPD with a baseline oxygen requirement who was admitted for acute on chronic hypoxic respiratory failure. Acute hypoxic respiratory failure - improving - etiology likely COPD exacerbation secondary to a post-obstructive pneumonia - currently satting 97% on 2 L O2 via NC, baseline O2 requirement 3L. - Respiratory alkalosis present on admission with proper metabolic compensation COPD - in acute exacerbation, likely due to post obstructive PNA vs. progression of lung malignancy - Solumedrol 40mg IV q8 - Duonebs q4h scheduled and q2h prn. - Azithromycin 500mg IV daily for 3 days - Mucinex 1200 BID - continue home inhaler regimen - Incentive spirometer and flutter valve. Post-obstructive PNA - CT scan chest showed narrowing of the left pulmonary veins and bronchi (secondary to necrotic subcarinal and left hilar adenopathy) with left lower lobe mucous plugging - WBC elevated to 15.4 on admission --> up to 26 today. - blood cultures- no growth to date. sputum culture negative. - Procal not elevated - Lactate elevated to 2.1 --> 2.4. Continue to trend - COVID-19, influenza, RSV negative. - Nasal MRSA neg, no need for MRSA coverage - continue azithromax; zosyn started on admission but de-escalated to Rocephin on 09/09/21 Leukocytosis - WBC was increased from 15 to 26k today - unsure if this represents progression of infection vs. induced by IV steroids - although patient now has a bumped lactate, she has not been febrile and has an improved (lower) oxygen requirement. Thus progressive infection seemingly less likely, although low threshold to escalate antibiotics back to zosyn - trend CBC Tachycardia - EKG showing sinus tach - etiology uncertain: CTA showed no evidence of PE. No evidence of dehydration on labs. Patient not in any pain. Does not seem to worsen after albuterol nebs. May be presenting sign of sepsis from PNA vs. reactive to ongoing cardiopu lmonary strife - K at 3.9, 40meQ KCl ordered. Goal K > 4.0 - check mag level, goal > 2.0 - continue cardiac monitoring - Lopressor prn Metastatic lung cancer: - Known history of stage IV adenocarcinoma of the lungs, on monthly maintenance Keytruda. - unclear if Chest CT results repsent post-obstructive PNA vs. progression of malignancy - [facility] - associated poor oral intake and malnutrition, as PEG tube in place for supplemental feeds Hypotension: -History of, on daily fludrocortisone therapy. continue current dose. GERD: - Continue famotidine, PPI. Depression: - Continue Escitalopram. CODE STATUS: Full code FEN: PEG feedings and heart healthy diet DVT ppx: Lovenox Dispo: Med/Surg with Telemetry (2) Pneumonia: (3) Acute on chronic respiratory failure with hypoxia: (4) Metastatic lung cancer (metastasis from lung to other site): (5) GERD (gastroesophageal reflux disease): Admission and Anticipated Discharge Date Admission Date: September 08, 2021 Supervising Physician Co-Signing Physician Notes I personally examined the patient and verified all begum points of history and exam, discussed case, and agree with decision making with Dr Flores feeling up and down. nebs definitely help. sob w exertion still bad all the time though. vitals noted nad heent nc at mmm lungs actually as clear as i have ever heard her - faintly coarse on exhalation but actually no wheeze, no r/r/w, no accessory muscles, no conversational dyspnea, although is still mildly tachypnic. hypoxia/dyspnea -COPD exac possible small post obstructive pneumonia vs just worsening of cancer --> abx, steroids, supportive care. up/down worsening/improvement likely mucous/plugging/etc - continue more aggressive nebs. continue current care otherwise. big picture concerning, but at least in the "here and now" i suspect she will start to show some improvement diarrhea - review of CT from july shows a fair amount of what appears to be solid stool - given that her diarrhea dates back to last summer and was going on at time of CT - suspect this is likely overflow. miralax - gently overall since we don't want to provoke too much exertion getting up and down to bathroom - but titrate as possible DVT proph - lovenox tachycardia does appear sinus, but faster than what appears fitting with her physiologic degree of distress - and slows down some when sleeping - suspect anxiety playing a role as well. counselled at bedside on techniques to try to help with this otherwise as above Subjective Overnight patient desatted and experienced tachypnea and tachycardia after getting out of bed and walking to the bathroom. Of note, respiratory therapy did not give scheduled overnight neb treatment because patient had been sleeping. Night team order a 1 hour duoneb. Review of Systems Respiratory: + cough, + chest congestion and + dyspnea Physical Exam Constitutional: WD/WN, vitals as above cooperative and comfortable Eyes: + anicteric sclerae ENMT: external ear and nose normal, oropharynx normal Neck: trachea midline Respiratory: normal respiratory effort and + cough; no respiratory distress and no labored breathing Auscultation: + rhonchi and + wheezes Improved from yesterday Cardiovascular: Rate/Rhythm: regular rhythm and + tachycardic Heart Sounds: normal S1 and normal S2 Gastrointestinal (Abdomen): normal bowel sounds, soft, nontender, no hepatosplenomegaly Musculoskeletal: Head/Neck/Chest: normocephalic and head atraumatic Skin: no rashes, warm and dry Psychiatric: A+Ox3, euthymic affect Results & Data Results & Data ([facility]) Vital Signs (Past 12 Hours) Vital Signs Temp Pulse Pulse Resp BP Pulse Ox 09/10/21 07:47 118 H 25 H 91 09/10/21 05:15 36.7 C 141 H 141 H 40 H 98/55 L 85 L 09/10/21 04:56 100 09/10/21 04:00 36.6 C 102 H 102 H 20 101/58 L 92 09/10/21 00:04 103 H Resident Activity Tracking Resident Involvement: Resident Care Provided Care Provided: Adult Hospital Medicine
[2021-09-10] MEDS ORDERED: MELATONIN 3 MG TAB PO PRN (08:45)
[2021-09-10] MEDS: AZITHROMYCIN 500 MG in DEXTROSE 5% 250 ML IV SCH (08:51)
[2021-09-10] MEDS: CETIRIZINE HCL 10 MG TABLET PO SCH (08:52)
[2021-09-10] MEDS: FLUDROCORTISONE ACETATE 0.1 MG TAB PO SCH (08:52)
[2021-09-10] MEDS: FAMOTIDINE 20 MG TAB PO SCH (08:52)
[2021-09-10] MEDS: ESCITALOPRAM OXALATE 20 MG TAB PO SCH (08:52)
[2021-09-10] MEDS: FOLIC ACID 1 MG TAB PO SCH (08:53)
[2021-09-10] MEDS: FLUTICASONE FUROATE 200MCG 14 PUFFS/INHALER INH SCH (08:53)
[2021-09-10] MEDS: POLYETHYLENE (MIRALAX) 17 GM PACK PO SCH (08:53)
[2021-09-10] MEDS: guaiFENesin 600 MG TABCR PO SCH ×2 (08:53→21:31)
[2021-09-10] MEDS: UMECLIDINIUM/VILANTEROL 62.5/25MCG 7 PUFFS/INHALER INH SCH (08:54)
[2021-09-10] MEDS: POTASSIUM CHLORIDE CRTAB 20 MEQ TABCR PO SCH (08:55)
[2021-09-10] MEDS ORDERED: SODIUM CHLORIDE 0.9% 500 ML IV SCH (09:00)
--- NOTE | 2021-09-10 11:32 | Electrocardiogram Report ---
Test Reason : Blood Pressure : / mmHG Vent. Rate : 111 BPM Atrial Rate : 111 BPM P-R Int : 118 ms QRS Dur : 076 ms QT Int : 330 ms P-R-T Axes : 079 039 073 degrees QTc Int : 448 ms Poor data quality, interpretation may be adversely affected Sinus tachycardia Otherwise normal ECG When compared with ECG of 09-SEP-2021 04:42, No significant change was found Confirmed by Jean Vasquez ([id number]) on 09/10/2021 11:31:46 AM Referred By: REFERRED SELF Confirmed By:Jean Vasquez
--- NOTE | 2021-09-10 13:08 | Billing Data ---
Date of Service September 10, 2021 Coding Level of Care Code 96897 Subseq Hosp Care Lvl 3
[2021-09-10] MEDS: NICOTINE 21 MG/24 HR TDSY TD SCH (15:06)
[2021-09-10] MEDS: cefTRIAXone SODIUM 1,000 MG in DEXTROSE 5% 50 ML IV SCH (17:53)
[2021-09-10] MEDS: PEPTAMEN 1.5 CAL 1,000 ML BAG PEG SCH (21:32)
[2021-09-10] MEDS: CYCLOBENZAPRINE HCL 10 MG TAB PO PRN (21:32)
[2021-09-11] MEDS: ENOXAPARIN INJ 40 MG/0.4 ML SYR SQ SCH ×2 (00:14→23:57)
[2021-09-11] MEDS: methylPREDNISolone 40 MG in SYRINGE 0 ML IV SCH ×3 (02:05→18:30)
[2021-09-11] MEDS: ALBUT/IPRATROP 3MG/0.5MG NEB 3 ML VIAL INH SCH ×3 (02:21→11:21)
[2021-09-11 05:21] LABS: Hematocrit (blood only) 29.5 % (37-47); Hemoglobin 9.8 g/dL (12.0-16.0); Mean Corpuscular Hemoglobin 32.7 pg (25-34); Mean Corpuscular Hgb Conc 33.2 g/dL (32-36); Mean Corpuscular Volume 98.3 fL (80-100); Mean Platelet Volume 8.6 fL (7.4-10.4); Platelet Count 375 K/uL (130-400); RDW Coefficient of Variation 15.4 % (11.5-14.5); RDW Standard Deviation 55.4 fL (36.4-46.3); White Blood Count 14.88 K/uL (4.8-10.8)
[2021-09-11 05:48] LABS: BUN Creatinine Ratio 29.6 (10-20); Calcium 8.6 mg/dl (8.5-10.1); Creatinine Clr Calc Pharmacy 89.8 ml/min; Est GFR (African American) 120.6 ml/min; Magnesium 1.8 mg/dl (1.7-2.4); Potassium 3.6 mmol/L (3.5-5.1)
[2021-09-11 06:05] LABS: ALC (manual) 1.86 K/uL (1.2-3.4); ANC (manual) 11.81 K/uL (1.4-6.5); Lymphocytes # (manual) 1.86 K/uL (1.2-3.4); Lymphocytes % (manual) 12.5 %; Metamyelocytes # (manual) 0.13 K/uL (0-0); Metamyelocytes % (manual) 0.9 %; Monocytes % (manual) 5.4 %; Myelocytes # (manual) 0.27 K/uL (0-0); Myelocytes % (manual) 1.8 %; Neutrophils # (manual) 11.81 K/uL (1.4-6.5); Neutrophils % (manual) 79.4 %; Rouleaux 1+
[2021-09-11] MEDS: [UNRECOGNIZED DRUG - REMARK] SCH (06:13)
[2021-09-11] MEDS ORDERED: POTASSIUM CHLORIDE CRTAB 20 MEQ TABCR PO STA ×2 (07:05→09:19)
--- NOTE | 2021-09-11 07:20 | Hospitalist Progress Note ---
Date of Service September 11, 2021 Assessment & Plan (1) COPD exacerbation: Plan: 56-year-old female history significant for metastatic lung cancer and COPD with a baseline oxygen requirement who was admitted for acute on chronic hypoxic respiratory failure. Acute hypoxic respiratory failure - improving - etiology likely COPD exacerbation secondary to a post-obstructive pneumonia - currently satting 97% on 2 L O2 via NC, baseline O2 requirement 2L. - Respiratory alkalosis present on admission with proper metabolic compensation COPD - in acute exacerbation, likely due to post obstructive PNA vs. progression of lung malignancy - Solumedrol 40mg IV q8h -- continue for now and consider transitioning to oral if continuing to improve this PM - Duonebs q4h scheduled and q2h prn discontinued in favor of Xopenex to attempt decreasing tachycardia - Azithromycin 500mg IV daily for 3 days (day #3 today) - Mucinex 1200 BID - continue home inhaler regimen - Incentive spirometer and flutter valve. Post-obstructive PNA - CT scan chest showed narrowing of the left pulmonary veins and bronchi (secondary to necrotic subcarinal and left hilar adenopathy) with left lower lobe mucous plugging - WBC elevated to 15.4 on admission --> up to 26 today. - blood cultures- no growth to date. sputum culture negative. - Procal not elevated - Lactate elevated to 2.1 --> 2.4 --> 2.2 - COVID-19, influenza, RSV negative. - Nasal MRSA neg, no need for MRSA coverage - continue azithromax; zosyn started on admission but de-escalated to Rocephin on 09/09/21 (currently total day 4) Leukocytosis - improving - WBC now downtrending from 26K to 14.88K today - unsure if this represents progression of infection vs. induced by IV steroids - although patient now has a bumped lactate, she has not been febrile and has an improved (lower) oxygen requirement. Thus progressive infection seemingly less likely, although low threshold to escalate antibiotics back to zosyn - trend CBC Tachycardia - EKG showing sinus tach - etiology uncertain: CTA showed no evidence of PE. No evidence of dehydration on labs. Patient not in any pain. Does not seem to worsen after albuterol nebs. May be presenting sign of sepsis from PNA vs. reactive to ongoing cardiopulmonary strife vs. inhalers/steroids - K at 3.6, 40meQ KCl ordered. Goal K > 4.0 - check mag level, goal > 2.0 -- today at 1.8, will replete with 2g IV mag sulfate - continue cardiac monitoring - Nebulizers changed as above - Lopressor prn Metastatic lung cancer - Known history of stage IV adenocarcinoma of the lungs, on monthly maintenance Keytruda. - unclear if Chest CT results represent post-obstructive PNA vs. progression of malignancy - follows with Dr. Servin at [facility] - associated poor oral intake and malnutrition, as PEG tube in place for supplemental feeds Hypotension -History of, on daily fludrocortisone therapy. continue current dose. GERD - Continue famotidine, PPI. Depression - Continue Escitalopram. CODE STATUS: Full code FEN: PEG feedings and heart healthy diet DVT ppx: Lovenox Dispo: Med/Surg with Telemetry (2) Pneumonia: (3) Acute on chronic respiratory failure with hypoxia: (4) Metastatic lung cancer (metastasis from lung to other site): (5) GERD (gastroesophageal reflux disease): Admission and Anticipated Discharge Date Admission Date: September 08, 2021 Supervising Physician Co-Signing Physician Notes I personally examined the patient and verified all begum points of history and exam, discussed case, and agree with decision making with Dr Perez. Upon exam, she is sleeping but awakens easily. She reports feeling much better at rest in terms of her breathing, but still significantly short of breath with activity in the room. Exam 129/71, 116, 18, 36.9, 100% on nasal cannula at 2 L/min [place]. Alert. No acute distress. Heart regular but mildly tachycardic Respirations nonlabored. Good inspiratory air movement, mid and expiratory wheezing throughout. Data White blood cell count 14.88. This is downtrending compared to 26.07 yesterday. Hemoglobin 9.8. BUN 16, creatinine 0.54. Impression and plan hypoxia/dyspnea Some symptomatic improvement and less wheezing/greater air movement upon examination today Continue IV Solu-Medrol, consider transition to p.o. prednisone tomorrow if continues to improve Change albuterol to Xopenex given persistent tachycardia Tachycardia Suspect secondary to albuterol, steroids, and some element of anxiety As noted above, switch to levoalbuterol Transition to PO steroids, when indicated, may also help Leukocytosis Suspect secondary to IV Solu-Medrol Continue ceftriaxone Additional per resident documentation Subjective Patient seen at bedside this AM. Reports feeling overall better but does still feel short of breath and has ongoing cough. She does not feel that she is at her baseline yet -- says she usually uses 2L NC at home and is now on 3L NC but saturating up to 100% when I am in the room. She denies f/c, n/v, abd pain, CP, palp. Review of Systems Review of Systems: per subjective Physical Exam Physical Exam: GENERAL: A&Ox3. NAD. HEENT: PERRL, EOMI. Moist mucous membranes. CHEST/LUNGS: Non-labored, no respiratory distress. Bilateral expiratory wheezes, but good air entry bilaterally. HEART: Tachycardic, regular rhythm. No m/g/r. No carotid bruits. ABDOMEN: NT/ND, soft. BS+ x4 EXTREMITIES: No cyanosis, no clubbing, no edema SKIN: Warm and dry. No rashes or lesions. PSYCHIATRIC: Euthymic affect, no SI, no pressured speech, no hallucinations NEUROLOGIC: No FND. CN II-XII grossly intact. Results & Data Results & Data ([facility]) Vital Signs (Past 12 Hours) Vital Signs Temp Pulse Pulse Resp BP Pulse Ox 09/11/21 07:12 111 H 24 96 09/11/21 02:21 105 H 20 99 09/10/21 22:12 119 H 22 98 09/10/21 20:00 36.9 C 111 H 111 H 20 129/71 92 Resident Activity Tracking Resident Involvement: Resident Care Provided Care Provided: Adult Hospital Medicine
[2021-09-11] MEDS: guaiFENesin 600 MG TABCR PO SCH ×2 (08:16→20:47)
[2021-09-11] MEDS: NICOTINE 21 MG/24 HR TDSY TD SCH (08:16)
[2021-09-11] MEDS: FLUDROCORTISONE ACETATE 0.1 MG TAB PO SCH (08:16)
[2021-09-11] MEDS: FAMOTIDINE 20 MG TAB PO SCH (08:17)
[2021-09-11] MEDS: PANTOprazole 40 MG TAB PO SCH (08:17)
[2021-09-11] MEDS: UMECLIDINIUM/VILANTEROL 62.5/25MCG 7 PUFFS/INHALER INH SCH (08:17)
[2021-09-11] MEDS: FLUTICASONE FUROATE 200MCG 14 PUFFS/INHALER INH SCH (08:17)
[2021-09-11] MEDS: CETIRIZINE HCL 10 MG TABLET PO SCH (08:17)
[2021-09-11] MEDS: FOLIC ACID 1 MG TAB PO SCH (08:17)
[2021-09-11] MEDS: ESCITALOPRAM OXALATE 20 MG TAB PO SCH (08:17)
[2021-09-11] MEDS: POLYETHYLENE (MIRALAX) 17 GM PACK PO SCH (08:18)
[2021-09-11] MEDS: MAGNESIUM CHLORIDE 64MG DELAYED REL TAB PO SCH (08:18)
[2021-09-11] MEDS: POTASSIUM CHLORIDE CRTAB 20 MEQ TABCR PO SCH (08:26)
[2021-09-11] MEDS ORDERED: MAGNESIUM SULFATE / D5W 1 GM/100 ML BAG IV STA (09:19)
[2021-09-11] MEDS: CYCLOBENZAPRINE HCL 10 MG TAB PO PRN (10:45)
[2021-09-11] MEDS: LEVALBUTEROL HCL 0.63 MG/3 ML NEB NEB SCH ×3 (13:17→20:19)
[2021-09-11] MEDS: cefTRIAXone SODIUM 1,000 MG in DEXTROSE 5% 50 ML IV SCH (15:19)
[2021-09-11] MEDS: PEPTAMEN 1.5 CAL 1,000 ML BAG PEG SCH (20:44)
[2021-09-12] MEDS: LEVALBUTEROL HCL 0.63 MG/3 ML NEB NEB SCH ×2 (00:11→07:21)
[2021-09-12] MEDS: methylPREDNISolone 40 MG in SYRINGE 0 ML IV SCH ×2 (02:46→10:19)
[2021-09-12] MEDS: LEVALBUTEROL HCL 0.63 MG/3 ML NEB NEB PRN ×3 (03:59→22:48)
[2021-09-12 05:55] LABS: Hemoglobin 10.5 g/dL (12.0-16.0); Mean Corpuscular Hemoglobin 31.9 pg (25-34); Mean Corpuscular Hgb Conc 32.8 g/dL (32-36); Mean Corpuscular Volume 97.3 fL (80-100); Mean Platelet Volume 8.9 fL (7.4-10.4); Nucleated RBC # (auto) 0.04 K/uL (0-0); Nucleated RBC % (auto) 0.3 %; Platelet Count 409 K/uL (130-400); RDW Coefficient of Variation 15.2 % (11.5-14.5); RDW Standard Deviation 54.5 fL (36.4-46.3); Red Blood Count 3.29 M/uL (4.2-5.4); White Blood Count 14.96 K/uL (4.8-10.8)
[2021-09-12 06:25] LABS: Basophils # (auto) 0.04 K/uL (0-0.2); Basophils % (auto) 0.3 %; Immature Granulocytes # (auto) 1.04 K/uL (0.00-0.02); Lymphocytes # (auto) 1.81 K/uL (1.2-3.4); Lymphocytes % (auto) 12.1 %; Monocytes # (auto) 1.33 K/uL (0.11-0.59); Monocytes % (auto) 8.9 %; Neutrophils # (auto) 10.74 K/uL (1.4-6.5); Neutrophils % (auto) 71.7 %; RBC Morphology Unremarkable
[2021-09-12 06:26] LABS: BUN Creatinine Ratio 44.8 (10-20); Calcium 8.8 mg/dl (8.5-10.1); Creatinine Clr Calc Pharmacy 83.6 ml/min; Est GFR (African American) 117.8 ml/min; Est GFR (Non-African American) 101.6 ml/min; Phosphorus 2.5 mg/dl (2.5-4.9); Potassium 4.5 mmol/L (3.5-5.1)
[2021-09-12] MEDS: [UNRECOGNIZED DRUG - REMARK] SCH (06:30)
[2021-09-12] MEDS: PANTOprazole 40 MG TAB PO SCH (06:30)
--- NOTE | 2021-09-12 06:56 | Hospitalist Progress Note ---
Date of Service September 12, 2021 Assessment & Plan (1) COPD exacerbation: Plan: 56-year-old female history significant for metastatic lung cancer and COPD with a baseline oxygen requirement who was admitted for acute on chronic hypoxic respiratory failure. Acute hypoxic respiratory failure - improving - etiology likely COPD exacerbation secondary to a post-obstructive pneumonia - currently satting 97% on 2 L O2 via NC, baseline O2 requirement 2L. - Respiratory alkalosis present on admission with proper metabolic compensation COPD - in acute exacerbation, likely due to post obstructive PNA vs. progression of lung malignancy - DC Solumedrol 40mg IV q8h -- transition to oral prednisone 40mg daily - Xopenex prn - Azithromycin 500mg IV daily for 3 days -- now completed - Mucinex 1200 BID - continue home inhaler regimen - Incentive spirometer and flutter valve. - Continues to have significant SOB despite improvement in O2 sat and reassuring physical exam -- she is an established patient with [facility] - Consult Pulm for further eval/recs regarding recurrent SOB Post-obstructive PNA - CT scan chest showed narrowing of the left pulmonary veins and bronchi (secondary to necrotic subcarinal and left hilar adenopathy) with left lower lobe mucous plugging - WBC elevated to 15.4 on admission --> peaked at 26K and now downtrending to around 14-15; not surprising if it does increase somewhat given steroid treatment - blood cultures- no growth to date. sputum culture negative. - Procal not elevated - Lactate elevated to 2.1 --> 2.4 --> 2.2 - COVID-19, influenza, RSV negative. - Nasal MRSA neg, no need for MRSA coverage - Zithromax completed; Zosyn started on admission but de-escalated to Rocephin on 09/09/21 (currently total day 5) Leukocytosis - improving - WBC now downtrending -- as above, patient on steroids so would not be surprised with somewhat of an increase again - unsure if this represents progression of infection vs. induced by IV steroids - although patients had a bumped lactate, she has not been febrile and has an improved (lower) oxygen requirement. Thus progressive infection seemingly less likely, although low threshold to escalate antibiotics back to zosyn - trend CBC Tachycardia - EKG showing sinus tach - etiology uncertain: CTA showed no evidence of PE. No evidence of dehydration on labs. Patient not in any pain. Does not seem to worsen after albuterol nebs. May be presenting sign of sepsis from PNA vs. reactive to ongoing cardiopulmonary strife vs. inhalers/steroids - K at 4.5 Goal K > 4.0 - check mag level, goal > 2.0 -- today at 2.0 - continue cardiac monitoring - Nebulizers changed as above - Lopressor prn Metastatic lung cancer - Known history of stage IV adenocarcinoma of the lungs, on monthly maintenance Keytruda. - unclear if Chest CT results represent post-obstructive PNA vs. progression of malignancy - follows with Dr. Servin at [facility] - associated poor oral intake and malnutrition, as PEG tube in place for supplemental feeds Hypotension -History of, on daily fludrocortisone therapy. continue current dose. GERD - Continue famotidine, PPI. Depression - Continue Escitalopram. CODE STATUS: Full code FEN: PEG feedings and heart healthy diet DVT ppx: Lovenox Dispo: Med/Surg with Telemetry (2) Pneumonia: (3) Acute on chronic respiratory failure with hypoxia: (4) Metastatic lung cancer (metastasis from lung to other site): (5) GERD (gastroesophageal reflux disease): Admission and Anticipated Discharge Date Admission Date: September 08, 2021 Supervising Physician Co-Signing Physician Notes I personally examined the patient and verified all begum points of history and exam, discussed case, and agree with decision making with Dr Perez. She generally feels better at rest and her lung sounds this morning are clear - essentially her baseline I suspect. However, she has significant shortness of breath with activity. O2 sats are good on essentially her home O2 demand. Exam 169/102, 117, 20, 94% 3 lpm [place]. Alert. No acute distress. Heart regular but mildly tachycardic Respirations nonlabored. Good inspiratory air movement, no wheezing noted today. Data White blood cell count 14.96. Hemoglobin 10.5. BUN 26, creatinine 0.58. Impression and plan hypoxia/dyspnea Marked improvement in lung exam today, although with increased dyspnea with activity (more than baseline). Transition to p.o. prednisone Change nebs to PRN CXR Will have pulmonary medicine see her Tachycardia Suspect secondary to albuterol, steroids, and some element of anxiety As noted above, switch to levoalbuterol Transition to PO steroids may also help Her BUN:Cr ratio is elevated today, although she does not look dry; could consider some fluids. Leukocytosis Suspect secondary steroids Continue ceftriaxone Additional per resident documentation Subjective No acute events overnight. She feels overall better but continues to report significant dyspnea, especially on exertion. Denies f/c, significant cough, CP, palp, abd pain n/v, diarrhea, constipation. Review of Systems Review of Systems: per subjective Physical Exam Physical Exam: GENERAL: A&Ox3. NAD. HEENT: PERRL, EOMI. Moist mucous membranes. CHEST/LUNGS: Non-labored, no respiratory distress. CTAB, -w/r/r. HEART: Tachycardic, regular rhythm. No m/g/r. No carotid bruits. ABDOMEN: NT/ND, soft. BS+ x4 EXTREMITIES: No cyanosis, no clubbing, no edema SKIN: Warm and dry. No rashes or lesions. PSYCHIATRIC: Euthymic affect, no SI, no pressured speech, no hallucinations NEUROLOGIC: No FND. CN II-XII grossly intact. Results & Data Results & Data ([facility]) Vital Signs (Past 12 Hours) Vital Signs Temp Pulse Pulse Resp BP Pulse Ox 09/12/21 03:59 112 H 16 96 09/12/21 00:11 118 H 22 96 09/11/21 20:20 120 H 22 98 09/11/21 20:00 37 C 120 H 120 H 20 158/93 H 97 Resident Activity Tracking Resident Involvement: Resident Care Provided Care Provided: Adult [facility] Medicine
[2021-09-12] MEDS: NICOTINE 21 MG/24 HR TDSY TD SCH (07:42)
[2021-09-12] MEDS: FLUDROCORTISONE ACETATE 0.1 MG TAB PO SCH (07:43)
[2021-09-12] MEDS: FAMOTIDINE 20 MG TAB PO SCH (07:43)
[2021-09-12] MEDS: CETIRIZINE HCL 10 MG TABLET PO SCH (07:43)
[2021-09-12] MEDS: ESCITALOPRAM OXALATE 20 MG TAB PO SCH (07:43)
[2021-09-12] MEDS: FLUTICASONE FUROATE 200MCG 14 PUFFS/INHALER INH SCH (07:44)
[2021-09-12] MEDS: FOLIC ACID 1 MG TAB PO SCH (07:44)
[2021-09-12] MEDS: guaiFENesin 600 MG TABCR PO SCH ×2 (07:44→20:13)
[2021-09-12] MEDS: MAGNESIUM CHLORIDE 64MG DELAYED REL TAB PO SCH (07:44)
[2021-09-12] MEDS: POLYETHYLENE (MIRALAX) 17 GM PACK PO SCH (07:45)
[2021-09-12] MEDS: UMECLIDINIUM/VILANTEROL 62.5/25MCG 7 PUFFS/INHALER INH SCH (07:45)
[2021-09-12] MEDS: POTASSIUM CHLORIDE CRTAB 20 MEQ TABCR PO SCH (07:48)
[2021-09-12] MEDS ORDERED: SODIUM CHLORIDE 0.65% NA SOLN 45 ML (OCEAN) ONE (07:59)
[2021-09-12] MEDS: predniSONE 20 MG TAB PO SCH (11:45)
--- NOTE | 2021-09-12 12:29 | XRay Report ---
XR chest 1V portable HISTORY: Shortness of breath. COPD. COMPARISON: Chest 09/08/2021. FINDINGS: No pneumothorax. No pleural effusions. The heart is normal in size. Left jugular Port-A-Cat h terminates at the distal SVC. Left greater than right interstitial/vascular thickening persists. No new focal lung consolidations identified. Emphysema. Left hilar prominence corresponds the patient's known lymphadenopathy. IMPRESSION: 1. Left greater than right interstitial thickening, unchanged. 2. No new focal lung consolidations. 3. No pleural effusions. 4. Left hilar prominence corresponds to the patient's known hilar lymphadenopathy. 5. Emphysema. ACT 112: Negative or not required by law. Electronically signed by: Delta Lugo M.D. 09/12/2021 12:28 PM
[2021-09-12] MEDS: cefTRIAXone SODIUM 1,000 MG in DEXTROSE 5% 50 ML IV SCH (14:43)
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
[2021-09-12] MEDS: CYCLOBENZAPRINE HCL 10 MG TAB PO PRN (20:13)
[2021-09-12] MEDS: PEPTAMEN 1.5 CAL 1,000 ML BAG PEG SCH (20:17)
[2021-09-12] MEDS ORDERED: RIZATRIPTAN BENZOATE 10 MG TAB PO ONE (23:02)
[2021-09-12] MEDS: ENOXAPARIN INJ 40 MG/0.4 ML SYR SQ SCH (23:55)
[2021-09-13] MEDS ORDERED: HYDROcodone/HOMATROPINE SYRUP 5MG/1.5MG 5ML UDP PO STA (01:30)
[2021-09-13] MEDS: PANTOprazole 40 MG TAB PO SCH (05:40)
[2021-09-13 05:43] LABS: Hematocrit (blood only) 34.5 % (37-47); Hemoglobin 11.2 g/dL (12.0-16.0); Mean Corpuscular Hemoglobin 31.5 pg (25-34); Mean Corpuscular Hgb Conc 32.5 g/dL (32-36); Mean Corpuscular Volume 97.2 fL (80-100); Mean Platelet Volume 8.7 fL (7.4-10.4); Nucleated RBC # (auto) 0.13 K/uL (0-0); Nucleated RBC % (auto) 0.7 %; Platelet Count 445 K/uL (130-400); RDW Coefficient of Variation 15.4 % (11.5-14.5); RDW Standard Deviation 54.5 fL (36.4-46.3); Red Blood Count 3.55 M/uL (4.2-5.4); White Blood Count 18.38 K/uL (4.8-10.8)
[2021-09-13 06:02] LABS: BUN Creatinine Ratio 45.7 (10-20); Creatinine Clr Calc Pharmacy 69.3 ml/min; Est GFR (African American) 110.7 ml/min; Est GFR (Non-African American) 95.5 ml/min; Potassium 4.2 mmol/L (3.5-5.1)
[2021-09-13 06:18] LABS: ALC (manual) 3.55 K/uL (1.2-3.4); ANC (manual) 13.05 K/uL (1.4-6.5); Lymphocytes # (manual) 3.55 K/uL (1.2-3.4); Lymphocytes % (manual) 19.3 %; Metamyelocytes # (manual) 0.33 K/uL (0-0); Metamyelocytes % (manual) 1.8 %; Monocytes # (manual) 0.48 K/uL (0.11-0.59); Monocytes % (manual) 2.6 %; Myelocytes # (manual) 0.97 K/uL (0-0); Myelocytes % (manual) 5.3 %; Neutrophils # (manual) 13.05 K/uL (1.4-6.5); Polychromasia 1+
[2021-09-13] MEDS: [UNRECOGNIZED DRUG - REMARK] SCH (06:26)
--- NOTE | 2021-09-13 06:57 | Hospitalist Progress Note ---
Date of Service September 13, 2021 Assessment & Plan (1) COPD exacerbation: Plan: 56-year-old female history significant for metastatic lung cancer and COPD with a baseline oxygen requirement who was admitted for acute on chronic hypoxic respiratory failure. Acute hypoxic respiratory failure - improving - etiology likely COPD exacerbation secondary to a post-obstructive pneumonia - currently satting 97% on 2 L O2 via NC, baseline O2 requirement 2L. - Respiratory alkalosis present on admission with proper metabolic compensation COPD - in acute exacerbation, likely due to post obstructive PNA vs. progression of lung malignancy - DC Solumedrol 40mg IV q8h on 09/12 - Continue prednisone 40mg daily for 5 days (Day 2 today) and then 20mg daily for 3 days - Xopenex ordered scheduled q6h and prn q2h - Azithromycin 500mg IV daily for 3 days -- now completed - Mucinex 1200 BID - continue home inhaler regimen - Incentive spirometer and flutter alve. - Continues to have significant SOB despite improvement in O2 sat and reassuring physical exam -- she is an established patient with [facility] - Consult Pulm for further eval/recs regarding recurrent SOB - Encouraged patient to slowly increase activity level while here to try to build up tolerance but likely she will always have some level of dyspnea on exertion due to her advanced COPD and structural changes Post-obstructive PNA - CT scan chest showed narrowing of the left pulmonary veins and bronchi (secondary to necrotic subcarinal and left hilar adenopathy) with left lower lobe mucous plugging - WBC elevated to 15.4 on admission --> peaked at 26K and now downtrending to around 14-15; not surprising if it does increase somewhat given steroid treatment - blood cultures- no growth to date. sputum culture negative. - Procal not elevated - Lactate elevated to 2.1 --> 2.4 --> 2.2 - COVID-19, influenza, RSV negative. - Nasal MRSA neg, no need for MRSA coverage - Zithromax completed; Zosyn started on admission but de-escalated to Rocephin on 09/09/21 (currently total day 6) Leukocytosis - WBC trended up -- not surprising given treatment with steroids - although patients had a bumped lactate, she has not been febrile and has an improved (lower) oxygen requirement. Thus progressive infection seemingly less likely, although low threshold to escalate antibiotics back to zosyn - trend CBC Tachycardia - EKG showing sinus tach - etiology uncertain: CTA showed no evidence of PE. No evidence of dehydration on labs. Patient not in any pain. Does not seem to worsen after albuterol nebs. May be presenting sign of sepsis from PNA vs. reactive to ongoing cardiopulmonary strife vs. inhalers/steroids - She does seem to be consistently tachycardic on chart review during her previous hospitalization as well as at primary care visits - Maintain K > 4.0 - Maintain mag > 2.0 - continue cardiac monitoring - Nebulizers changed as above - Lopressor prn Metastatic lung cancer - Known history of stage IV adenocarcinoma of the lungs, on monthly maintenance Keytruda. - unclear if Chest CT results represent post-obstructive PNA vs. progression of malignancy - follows with Dr. Servin at [facility] - associated poor oral intake and malnutrition, as PEG tube in place for supplemental feeds Hypotension -History of, on daily fludrocortisone therapy. continue current dose. GERD - Continue famotidine, PPI. Depression - Continue Escitalopram. CODE STATUS: Full code FEN: PEG feedings and heart healthy diet DVT ppx: Lovenox Dispo: Med/Surg (2) Pneumonia: (3) Acute on chronic respiratory failure with hypoxia: (4) Metastatic lung cancer (metastasis from lung to other site): (5) GERD (gastroesophageal reflux disease): Admission and Anticipated Discharge Date Admission Date: September 08, 2021 Supervising Physician Co-Signing Physician Notes I personally examined the patient and verified all begum points of history and exam, discussed case, and agree with decision making with Dr. Perez. Upon examination today, the patient was initially in the bathroom and when she ambulates back to her bed, she is somewhat dyspneic following this exertion. That being said, she did recover fairly quicklyabout 3 to 5 minutesat which time she was able to converse in full and complete sentences without pause. Exam 129/79, 118, 22, 37, 95% on 2 L via nasal cannula Pleasant. Alert. No acute distress. Heart regular but mildly tachycardic Respirations nonlabored. Mid to end expiratory wheeze after exertion, reexamination about 5 minutes later, wheezing is less appreciated Data White blood cell count 18.38. Hemoglobin 11.2. BUN 32, creatinine 0.70. Impression and plan hypoxia/dyspnea Non-small cell lung cancer stage IV I think her lung exam today probably represents her baseline, and by chance today we caught her post activity; fortunately, she recovered fairly quickly. We discussed that she could increase her home oxygen from 2 to 3 to 4 L/min as needed activity; she can also use a bronchodilator prior to activity. Discussed breaking up ADL/household activities into shorter blocks to lessen her respiratory decompensation Continue p.o. prednisone, 40 mg for 5 days, 20 mg for 3 days Flutter valve along with Mucinex Zithromax 3 days/week as recommended by pulmonary medicine Tachycardia Suspect secondary to albuterol, steroids, and some element of anxiety As noted above, switch to levoalbuterol Reviewing of outpatient records shows heart rates between 80 and 118 at her 2 most recent office visits. Leukocytosis Suspect secondary steroids Continue ceftriaxone Additional per resident documentation Subjective No acute events overnight. Patient states that today she continues to feel very short of breath. She mentions that the shortness of breath feels as bad as when she came in. However, she continues to saturate adequately on her baseline 2 L nasal cannula. Physical exam is reassuring as well. Denies fever, chills, nausea, vomiting, chest pain, palpitations, cough, abdominal pain, constipation, diarrhea, neuro deficits. Review of Systems Review of Systems: per subjective Physical Exam Physical Exam: GENERAL: A&Ox3. NAD. HEENT: PERRL, EOMI. Moist mucous membranes. CHEST/LUNGS: Non-labored, no respiratory distress. CTAB, -w/r/r. HEART: Tachycardic, regular rhythm. No m/g/r. No carotid bruits. ABDOMEN: NT/ND, soft. BS+ x4 EXTREMITIES: No cyanosis, no clubbing, no edema SKIN: Warm and dry. No rashes or lesions. PSYCHIATRIC: Euthymic affect, no SI, no pressured speech, no hallucinations NEUROLOGIC: No FND. CN II-XII grossly intact. Results & Data Results & Data ([facility]) Vital Signs (Past 12 Hours) Vital Signs Temp Pulse Pulse Pulse Resp BP Pulse Ox 09/12/21 23:00 36.6 C 114 H 18 159/98 H 96 09/12/21 22:48 116 H 20 97 09/12/21 19:00 36.9 C 119 H 21 149/103 H 94 Resident Activity Tracking Resident Involvement: Resident Care Provided Care Provided: Adult [facility]
[2021-09-13] MEDS: POLYETHYLENE (MIRALAX) 17 GM PACK PO SCH (08:06)
[2021-09-13] MEDS: NICOTINE 21 MG/24 HR TDSY TD SCH (08:06)
[2021-09-13] MEDS: UMECLIDINIUM/VILANTEROL 62.5/25MCG 7 PUFFS/INHALER INH SCH (08:09)
[2021-09-13] MEDS: FOLIC ACID 1 MG TAB PO SCH (08:09)
[2021-09-13] MEDS: FLUTICASONE FUROATE 200MCG 14 PUFFS/INHALER INH SCH (08:09)
[2021-09-13] MEDS: CETIRIZINE HCL 10 MG TABLET PO SCH (08:10)
[2021-09-13] MEDS: ESCITALOPRAM OXALATE 20 MG TAB PO SCH (08:10)
[2021-09-13] MEDS: FAMOTIDINE 20 MG TAB PO SCH (08:10)
[2021-09-13] MEDS: predniSONE 20 MG TAB PO SCH (08:11)
[2021-09-13] MEDS: MAGNESIUM CHLORIDE 64MG DELAYED REL TAB PO SCH (08:11)
[2021-09-13] MEDS: FLUDROCORTISONE ACETATE 0.1 MG TAB PO SCH (08:11)
[2021-09-13] MEDS: guaiFENesin 600 MG TABCR PO SCH (08:12)
[2021-09-13] MEDS: POTASSIUM CHLORIDE CRTAB 20 MEQ TABCR PO SCH (08:17)
[2021-09-13] MEDS: LIDOCAINE 5% 1 PATCH TD SCH (09:26)
[2021-09-13] MEDS: LEVALBUTEROL HCL 0.63 MG/3 ML NEB NEB SCH ×2 (11:56→19:22)
[2021-09-13] MEDS: cefTRIAXone SODIUM 1,000 MG in DEXTROSE 5% 50 ML IV SCH (13:48)
[2021-09-13] MEDS: CYCLOBENZAPRINE HCL 10 MG TAB PO PRN ×2 (13:49→21:42)
[2021-09-13] MEDS ORDERED: DEXTROMETHORPHAN POLYMR COMPLX 30 MG/5 ML UDP PO PRN (14:29)
--- NOTE | 2021-09-13 16:04 | Pulmonology Progress Note ---
Date of Service September 13, 2021 Assessment & Plan (1) Acute on chronic respiratory failure with hypoxia: (2) COPD exacerbation: (3) Metastatic lung cancer (metastasis from lung to other site): Plan: CT chest 09/08/2021 personally reviewed: Severe centrilobular and paraseptal emphysema appreciated bilaterally especially in the right upper lobe Biapical scarring, very minimal left-sided pleural effusion Right upper lobe peripheral 1.4 cm nodule, left upper lobe spiculated 5 x 8 mm pulmonary nodule Significant subcarinal mediastinal lymphadenopathy 5 cm (significantly worsened since January 2021, unchanged since 07/2021) --Acute on chronic hypoxic respiratory failure COVID-19 PCR negative Influenza A/B negative Procalcitonin 0.06 I do not see any clear signs of pneumonia on the CT chest --Severe COPD with emphysema On triple therapy at home QTc 448, consider discharging the patient on azithromycin 250 mg Eowhyg-Bhmbllvcp-Hiwiys --History of metastatic lung cancer Non-small cell Currently on pembrolizumab Patient does have some narrowing of the left upper and starting of the left lower lobe from most likely station 7 lymphadenopathy I do not hear any rhonchi. I do not think any intervention is needed for this time Continue to monitor and see if the patient response to pembrolizumab Plan: Flutter valve along with Mucinex on a regular basis Continue tapering prednisone On discharge please add azithromycin 250 mg Kuyamk-Mmbwfrbvj-Nunbwb She will benefit from pulmonary rehab Please note the above document was generated using voice recognition software. It may contain grammatical, syntax or spelling errors.Any formal questions or concerns about the content, text or information contained within the body of this dictation should be directly addressed to the provider for clarification. Admission and Anticipated Discharge Date Admission Date: September 08, 2021 Subjective Patient seen and examined at bedside. No acute distress Still complaining of shortness of breath on minimal exertion Bringing up phlegm She was still complaining of sometimes but she is not able to bring up phlegm easily Denies any chest pain No headache, no blurry vision Fair appetite Review of Systems Review of Systems: All systems reviewed & are unremarkable except as noted in Subjective Physical Exam Physical Exam: Constitutional: No acute distress HEENT: EOMI, PERRLA Respiratory system: Decreased air entry bilaterally, no rhonchi, mild expiratory wheeze, mild crackles bilaterally CVS: S1-S2 positive, no murmurs or gallops Abdomen: Soft, nontender, nondistended, positive bowel sounds x4 Extremities: +2 pulses bilaterally radialis/ dorsalis pedis, no cyanosis, no edema Neuro: Awake alert oriented x3 Psych: Normal mood and affect G/U: No Douglas Skin: no rashes, warm and dry Lymphatic: no cervical or axillary lymphadenopathy Results & Data Results & Data ([facility]) Vital Signs (Past 12 Hours) Vital Signs Temp Pulse Resp BP Pulse Ox 09/13/21 15:51 36.5 C 124 H 20 125/83 96 09/13/21 11:57 118 H 22 95 09/13/21 07:51 37 C 111 H 16 129/79 94 Laboratory Results 09/13/21 05:15 09/13/21 05:15 PG Care Time/CCT Total # of Minutes Spent Total Time Spent with Patient: Total time spent is greater than 50% in coordination of care (as documented) at patient's floor/unit and/or counseling patient: Coding [place] [address] Subseq Hosp Care Lvl 2 Patient Type Established Diagnoses Acute on chronic respiratory failure with hypoxia J96.21 COPD exacerbation J44.1 Metastatic lung cancer (metastasis from lung to other site) C34.90
[2021-09-13] MEDS: guaiFENesin/DEXTROM SYRUP 200MG/20MG 10ML UDC PO SCH ×2 (17:43→22:49)
[2021-09-13] MEDS: ENOXAPARIN INJ 40 MG/0.4 ML SYR SQ SCH (22:48)
[2021-09-13] MEDS: PEPTAMEN 1.5 CAL 1,000 ML BAG PEG SCH (22:48)
[2021-09-14] MEDS: LEVALBUTEROL HCL 0.63 MG/3 ML NEB NEB SCH ×3 (00:04→15:16)
[2021-09-14] MEDS: guaiFENesin/DEXTROM SYRUP 200MG/20MG 10ML UDC PO SCH ×2 (06:21→12:11)
[2021-09-14] MEDS: PANTOprazole 40 MG TAB PO SCH (06:21)
[2021-09-14] MEDS: [UNRECOGNIZED DRUG - REMARK] SCH (06:25)
--- NOTE | 2021-09-14 07:21 | Hospitalist Progress Note ---
Date of Service September 14, 2021 Assessment & Plan (1) COPD exacerbation: Plan: 56-year-old female history significant for metastatic lung cancer and COPD with a baseline oxygen requirement who was admitted for acute on chronic hypoxic respiratory failure. Acute hypoxic respiratory failure - improving - etiology likely COPD exacerbation secondary to a post-obstructive pneumonia - currently satting 97% on 2 L O2 via NC, baseline O2 requirement 2L. - Respiratory alkalosis present on admission with proper metabolic compensation COPD - in acute exacerbation, likely due to post obstructive PNA vs. progression of lung malignancy - DC Solumedrol 40mg IV q8h on 09/12 - Continue prednisone 40mg daily for 5 days (Day 2 today) and then 20mg daily for 3 days - Xopenex ordered scheduled q6h and prn q2h - Azithromycin 500mg IV daily for 3 days -- now completed - Mucinex 1200 BID - continue home inhaler regimen - Incentive spirometer and flutter alve. - Continues to have significant SOB despite improvement in O2 sat and reassuring physical exam -- she is an established patient with [facility] [place] Pulmonology - Consult Pulm for further eval/recs regarding recurrent SOB - Encouraged patient to slowly increase activity level while here to try to build up tolerance but likely she will always have some level of dyspnea on exertion due to her advanced COPD and structural changes Post-obstructive PNA - CT scan chest showed narrowing of the left pulmonary veins and bronchi (secondary to necrotic subcarinal and left hilar adenopathy) with left lower lobe mucous plugging - WBC elevated to 15.4 on admission --> peaked at 26K and now downtrending to around 14-15; not surprising if it does increase somewhat given steroid treatment - blood cultures- no growth to date. sputum culture negative. - Procal not elevated - Lactate elevated to 2.1 --> 2.4 --> 2.2 - COVID-19, influenza, RSV negative. - Nasal MRSA neg, no need for MRSA coverage - Zithromax completed; Zosyn started on admission but de-escalated to Rocephin on 09/09/21 (currently total day 6) Leukocytosis - WBC trended up -- not surprising given treatment with steroids - although patients had a bumped lactate, she has not been febrile and has an improved (lower) oxygen requirement. Thus progressive infection seemingly less likely, although low threshold to escalate antibiotics back to zosyn - trend CBC Tachycardia - EKG showing sinus tach - etiology uncertain: CTA showed no evidence of PE. No evidence of dehydration on labs. Patient not in any pain. Does not seem to worsen after albuterol nebs. May be presenting sign of sepsis from PNA vs. reactive to ongoing cardiopulmonary strife vs. inhalers/steroids - She does seem to be consistently tachycardic on chart review during her previous hospitalization as well as at primary care visits - Maintain K > 4.0 - Maintain mag > 2.0 - continue cardiac monitoring - Nebulizers changed as above - Lopressor prn Metastatic lung cancer - Known history of stage IV adenocarcinoma of the lungs, on monthly maintenance Keytruda. - unclear if Chest CT results represent post-obstructive PNA vs. progression of malignancy - follows with Dr. Servin at [facility] - associated poor oral intake and malnutrition, as PEG tube in place for supplemental feeds Hypotension -History of, on daily fludrocortisone therapy. continue current dose. GERD - Continue famotidine, PPI. Depression - Continue Escitalopram. CODE STATUS: Full code FEN: PEG feedings and heart healthy diet DVT ppx: Lovenox Dispo: Med/Surg (2) Pneumonia: (3) Acute on chronic respiratory failure with hypoxia: (4) Metastatic lung cancer (metastasis from lung to other site): (5) GERD (gastroesophageal reflux disease): Admission and Anticipated Discharge Date Admission Date: September 08, 2021 Review of Systems Review of Systems: per subjective Physical Exam Physical Exam: GENERAL: A&Ox3. NAD. HEENT: PERRL, EOMI. Moist mucous membranes. CHEST/LUNGS: Non-labored, no respiratory distress. CTAB, -w/r/r. HEART: Tachycardic, regular rhythm. No m/g/r. No carotid bruits. ABDOMEN: NT/ND, soft. BS+ x4 EXTREMITIES: No cyanosis, no clubbing, no edema SKIN: Warm and dry. No rashes or lesions. PSYCHIATRIC: Euthymic affect, no SI, no pressured speech, no hallucinations NEUROLOGIC: No FND. CN II-XII grossly intact. Results & Data Results & Data ([facility]) Vital Signs (Past 12 Hours) Vital Signs Temp Pulse Resp BP Pulse Ox 09/14/21 00:17 36.8 C 119 H 20 125/82 97 09/14/21 00:06 113 H 18 97 09/13/21 19:25 115 H 20 95
[2021-09-14] MEDS: MAGNESIUM CHLORIDE 64MG DELAYED REL TAB PO SCH (08:35)
[2021-09-14] MEDS: CETIRIZINE HCL 10 MG TABLET PO SCH (08:35)
[2021-09-14] MEDS: predniSONE 20 MG TAB PO SCH (08:35)
[2021-09-14] MEDS: UMECLIDINIUM/VILANTEROL 62.5/25MCG 7 PUFFS/INHALER INH SCH (08:35)
[2021-09-14] MEDS: POTASSIUM CHLORIDE CRTAB 20 MEQ TABCR PO SCH (08:35)
[2021-09-14] MEDS: POLYETHYLENE (MIRALAX) 17 GM PACK PO SCH (08:35)
[2021-09-14] MEDS: FOLIC ACID 1 MG TAB PO SCH (08:35)
[2021-09-14] MEDS: ESCITALOPRAM OXALATE 20 MG TAB PO SCH (08:35)
[2021-09-14] MEDS: FLUTICASONE FUROATE 200MCG 14 PUFFS/INHALER INH SCH (08:35)
[2021-09-14] MEDS: FLUDROCORTISONE ACETATE 0.1 MG TAB PO SCH (08:35)
[2021-09-14] MEDS: NICOTINE 21 MG/24 HR TDSY TD SCH (08:36)
[2021-09-14] MEDS: LIDOCAINE 5% 1 PATCH TD SCH (08:37)
--- NOTE | 2021-09-14 09:24 | Pulmonology Progress Note ---
Date of Service September 14, 2021 Assessment & Plan (1) Acute on chronic respiratory failure with hypoxia: (2) COPD exacerbation: (3) Metastatic lung cancer (metastasis from lung to other site): Plan: CT chest 09/08/2021 personally reviewed: Severe centrilobular and paraseptal emphysema appreciated bilaterally especially in the right upper lobe Biapical scarring, very minimal left-sided pleural effusion Right upper lobe peripheral 1.4 cm nodule, left upper lobe spiculated 5 x 8 mm pulmonary nodule Significant subcarinal mediastinal lymphadenopathy 5 cm (significantly worsened since January 2021, unchanged since 07/2021) --Acute on chronic hypoxic respiratory failure COVID-19 PCR negative Influenza A/B negative Procalcitonin 0.06 I do not see any clear signs of pneumonia on the CT chest --Severe COPD with emphysema On triple therapy at home QTc 448, consider discharging the patient on azithromycin 250 mg Fsxxok-Pfugkickr-Memxgd --History of metastatic lung cancer Non-small cell Currently on pembrolizumab Patient does have some narrowing of the left upper and starting of the left lower lobe from most likely station 7 lymphadenopathy I do not hear any rhonchi. I do not think any intervention is needed for this time Continue to monitor and see if the patient response to pembrolizumab --Active smoker advised to quit Plan: Flutter valve along with Mucinex on a regular basis Continue tapering prednisone 40mg for 5 days followed by 20mg for 3 days. Give extra 20mg pills to the patient in case for future exacerbations On discharge please add azithromycin 250 mg Omvatf-Nvgvgobxr-Itfcbl She will benefit from pulmonary rehab as an outpatient Case was discussed with Dr Disla Please note the above document was generated using voice recognition software. It may contain grammatical, syntax or spelling errors.Any formal questions or concerns about the content, text or information contained within the body of this dictation should be directly addressed to the provider for clarification. Admission and Anticipated Discharge Date Admission Date: September 08, 2021 Subjective Patient seen and examined at bedside. No acute distress, noted with symptoms overnight. Patient states that she is feeling better compared to yesterday She is starting to bring up phlegm Denies any hemoptysis Shortness of breath is still there but improved compared to last couple of days No fever or chills Fair appetite Review of Systems Review of Systems: All systems reviewed & are unremarkable except as noted in Subjective Physical Exam Physical Exam: Constitutional: No acute distress HEENT: EOMI, PERRLA Respiratory system: Decreased air entry bilaterally, no rhonchi, positive crackles bilaterally mild, positive expiratory wheeze bilaterally CVS: S1-S2 positive, no murmurs or gallops Abdomen: Soft, nontender, nondistended, positive bowel sounds x4 Extremities: +2 pulses bilaterally radialis/ dorsalis pedis, no cyanosis, no edema Neuro: Awake alert oriented x3 Psych: Normal mood and affect G/U: No Douglas Skin: no rashes, warm and dry Lymphatic: no cervical or axillary lymphadenopathy Results & Data Results & Data ([facility]) Vital Signs (Past 12 Hours) Vital Signs Temp Pulse Resp BP Pulse Ox 09/14/21 07:58 37.3 C 96 H 16 145/83 H 100 09/14/21 07:40 100 H 20 98 09/14/21 00:17 36.8 C 119 H 20 125/82 97 09/14/21 00:06 113 H 18 97 Laboratory Results 09/13/21 05:15 09/13/21 05:15 PG Care Time/CCT Total # of Minutes Spent Total Time Spent with Patient: Total time spent is greater than 50% in coordination of care (as documented) at patient's floor/unit and/or counseling patient: C[place] [address] Subseq Hosp Care Lvl 2 Patient Type Established Diagnoses Acute on chronic respiratory failure with hypoxia J96.21 COPD exacerbation J44.1 Metastatic lung cancer (metastasis from lung to other site) C34.90
[2021-09-14] MEDS: FAMOTIDINE 20 MG TAB PO SCH (09:25)
--- NOTE | 2021-09-14 10:00 | Discharge Summary ---
Date of Service September 14, 2021 Admission HPI Per Admitting Provider 56-year-old female history significant for metastatic lung cancer, GERD, poor oral intake with PEG tube in place, hypotension, depression, migraine headaches presented to the ER for several days of worsening shortness of breath. She attempted to get an appointment with her pulmonology provider through [facility] [place] was unable to get an appointment. Over the last several days she has been using 4 L nasal cannula (her baseline is 2 L), and despite this she was having worsening symptoms which prompted her ER evaluation. She notes frequent cough and wheezing with sputum production and chest congestion. She denies chest pain, nausea or vomiting, diarrhea. She has been using her daily inhalers as prescribed, and notes that she has been reaching for her albuterol inhaler with relative frequency over the last several days. In the ER patient was noted to be saturating well on 6 L nasal cannula and was able to be deescalated to 4 L nasal cannula. She received Solu-Medrol 125 mg IV x1. Lab work revealed l eukocytosis with left shift, VBG without evidence of hypercapnia, COVID-19, influenza, RSV negative. Chest CTA with evidence of left-sided mucous plugging and evidence of lung masses unchanged from CT 1 month ago. On my interview patient reports that she feels significantly better on increased nasal cannula and after getting a breathing treatment in the ER. Interestingly, Anat notes that her symptoms started to worsen after stopping the long steroid taper that she was prescribed on discharge in July. Principal Diagnosis COPD exacerbation Discharge Exam GENERAL: A&Ox3. NAD. HEENT: PERRL, EOMI. Moist mucous membranes. CHEST/LUNGS: Non-labored, no respiratory distress. CTAB, -w/r/r. HEART: Tachycardic, regular rhythm. No m/g/r. No carotid bruits. ABDOMEN: NT/ND, soft. BS+ x4 EXTREMITIES: No cyanosis, no clubbing, no edema SKIN: Warm and dry. No rashes or lesions. PSYCHIATRIC: Euthymic affect, no SI, no pressured speech, no hallucinations NEUROLOGIC: No FND. CN II-XII grossly intact. Discharge Data Allergies Allergy/AdvReac Type Severity Reaction Status Date / Time hornet venom Allergy Severe Anaphylaxis Verified 09/08/21 22:24 mold Allergy Severe Sinus Verified 09/08/21 22:24 swelling morphine Allergy Severe decreases Verified 09/08/21 22:24 respirations sulfasalazine Allergy Severe Rash, Verified 09/08/21 22:24 swelling, dyspnea codeine Allergy Mild Pruritus Verified 09/08/21 22:24 house dust Allergy Mild Dry Eye Verified 09/08/21 22:24 Consultations 09/08/21 19:56 ED Decision to Admit Stat 09/12/21 10:10 Consult Pulmonology Routine 09/14/21 09:21 Consult Pulmonary Rehabilitation Routine Ordered Studies 09/08/21 20:10 CT angio chest PE protocol Stat Hospital Course (1) COPD exacerbation: 56-year-old female history significant for metastatic lung cancer and COPD with a baseline oxygen requirement who was admitted for acute on chronic hypoxic respiratory failure. COPD - with acute exacerbation, likely due to post obstructive PNA vs. progression of lung malignancy - DC Solumedrol 40mg IV q8h on 09/12 - Continue prednisone 40mg daily for 5 days (Day 3 today) and then 20mg daily for 3 days - Continue prn nebulizers at home - Azithromycin 500mg IV daily for 3 days -- now completed - Mucinex 1200 BID - continue home inhaler regimen - Incentive spirometer and flutter alve. - Continues to have significant SOB despite improvement in O2 sat and reassuring physical exam -- she is an established patient with [facility] [place] - Consult Pulm for further eval/recs regarding recurrent SOB Flutter valve along with Mucinex on a regular basis Continue tapering prednisone 40mg for 5 days followed by 20mg for 3 days. Give extra 20mg pills to the patient in case for future exacerbations On discharge please add azithromycin 250 mg Lyigil-Hmptblyis-Zfkwzq She will benefit from pulmonary rehab - Encouraged patient to slowly increase activity level while here to try to build up tolerance but likely she will always have some level of dyspnea on exertion due to her advanced COPD and structural changes Acute hypoxic respiratory failure - resolved, back to baseline O2 requirement - etiology likely COPD exacerbation secondary to a post-obstructive pneumonia - currently satting 97% on 2 L O2 via NC, baseline O2 requirement 2L. - Respiratory alkalosis present on admission with proper metabolic compensation Post-obstructive PNA - CT scan chest showed narrowing of the left pulmonary veins and bronchi (sec ondary to necrotic subcarinal and left hilar adenopathy) with left lower lobe mucous plugging - WBC elevated to 15.4 on admission --> peaked at 26K and now downtrending to around 14-15; not surprising if it does increase somewhat given steroid treatment - blood cultures- no growth to date. sputum culture negative. - Procal not elevated - Lactate elevated to 2.1 --> 2.4 --> 2.2 - COVID-19, influenza, RSV negative. - Nasal MRSA neg, no need for MRSA coverage - Zithromax completed; Zosyn started on admission but de-escalated to Rocephin on 09/09/21 --treated through discharge Leukocytosis - WBC trended up -- not surprising given treatment with steroids - although patients had a bumped lactate, she has not been febrile and has an improved (lower) oxygen requirement. Thus progressive infection seemingly less likely Tachycardia - EKG showing sinus tach - etiology uncertain: CTA showed no evidence of PE. No evidence of dehydration on labs. Patient not in any pain. Does not seem to worsen after albuterol nebs. May be presenting sign of sepsis from PNA vs. reactive to ongoing cardiopulmonary strife vs. inhalers/steroids - She does seem to be consistently tachycardic on chart review during her previous hospitalization as well as at primary care visits Metastatic lung cancer - Known history of stage IV adenocarcinoma of the lungs, on monthly maintenance Keytruda. - unclear if Chest CT results represent post-obstructive PNA vs. progression of malignancy - follows with Dr. Servin at [facility] - associated poor oral intake and malnutrition, as PEG tube in place for supplemental feeds Hypotension -History of, on daily fludrocortisone therapy. continue current dose. GERD - Continue famotidine, PPI. Depression - Continue Escitalopram. Dispo: Home, self-care (2) Pneumonia: (3) Acute on chronic respiratory failure with hypoxia: (4) Metastatic lung cancer (metastasis from lung to other site): (5) GERD (gastroesophageal reflux disease): Total Time Total Time Spent Total Time Spent (In Minutes): 30 mins Discharge Plan Discharge Items Patient Disposition: Home - Self-Care Reason For Visit: ACUTE HYPOXIC RESPIRATORY FAILURE Discharge Diagnosis: COPD exacerbation Activity: Resume your previous activity Non-emergency contact: Primary Care Provider and Lead Java Software Engineer Call non-emergency contact if: your symptoms worsen Follow-up/Referrals: Darya Chiu MD [Primary Care Provider] - 09/21/21 2:00 pm Diet: Regular Addtl Attending Provider Instructions: You were hospitalized at [facility] for acute worsening of your chronic obstructive pulmonary disease. This is known as a COPD exacerbation. The cause of your COPD exacerbation was likely due to the devel opment of a pneumonia or infection in your lung. Due to your history of lung cancer, the architecture of your lungs have been altered such that tissue has become collapsed - and has inadvertently 'cut off' parts of the lung.. This 'cut off' lung tissue is somewhat stagnant, which similar to the part of a stream where moving water does not flow. As a result this area can become easily infiltrated with bacteria, resulting in an infection. We treated your pneumonia with IV antibiotics. You were also given IV steroids and breathing treatments. Your respiratory status improved while under our care. At discharge, you will take an oral prednisone taper for the next few days--specifically you will take 40mg (2 pills) for the next 2 days, and then 1 pill for 3 days. You will have some pills left over in case you were to need them in the future--please contact Pulmonology before taking any further doses of prednisone. Please finish this treatment fully as instructed. Additionally, pulmonology recommended that you take azithromycin orally on Mondays, Wednesdays, and Fridays. Both of these medications have been sent to your pharmacy. You will also be set up for pulmonary rehabilitation as per pulmonology recommendations. Currently pulmonary rehab is closed due to COVID-19 but you will be referred and there are plans to reopen soon. Please continue your home inhaler regimen at discharge. We highly encourage you to become tobacco free - please continue to work with your PCP and/or geographic information system surveyor on doing so. Pending Studies at Discharge: No Stand-Alone Forms: [facility], Smoking Cessation Medications and DC Order Prescriptions: New prednisone 20 mg tablet See Rx Instructions .ROUTE .COMPLEX Qty: 20 RF: 0 azithromycin 250 mg tablet See Rx Instructions .ROUTE .COMPLEX Qty: 36 RF: 0 Continued epinephrine 0.3 mg/0.3 mL auto-injector 0.3 mg IM Q10M MDD 2 doses PRN (Reason: anaphylaxis) Qty: 1 RF: 3 rizatriptan 10 mg tablet 10 mg PO .COMPLEX PRN (Reason: migraine headache) Qty: 9 RF: 5 cetirizine 10 mg tablet 10 mg PO QAM Qty: 90 RF: 3 (DME) BD SafetyGlide Syringe 3 mL 25 gauge x 1" syringe See Rx Instructions .Route Qty: 4 RF: 6 famotidine 20 mg tablet 20 mg PO QAM Qty: 90 RF: 3 benzonatate 100 mg capsule 100 mg PO TID PRN (Reason: cough) Qty: 90 RF: 1 ipratropium-albuterol 0.5 mg-3 mg(2.5 mg base)/3 mL solution for nebulization 3 ml INH QID PRN (Reason: wheezing) Qty: 90 RF: 5 Emgality Pen 120 mg/mL pen injector 120 mg subcut Q30D Qty: 1 RF: 5 Bevespi Aerosphere 9-4.8 mcg HFA aerosol inhaler 2 inh inhalation BID Qty: 10.7 RF: 5 potassium chloride 20 mEq tablet extended release 20 meq PO QID PRN (Reason: .SUPPLEMENT) RF: 0 folic acid 1 mg Tablet 1 mg PO QAM RF: 0 pantoprazole 40 mg tablet,delayed release (DR/EC) 40 mg PO DAILYBB RF: 0 fludrocortisone 0.1 mg tablet 0.2 mg PO QAM RF: 0 escitalopram oxalate 20 mg tablet 20 mg PO QAM RF: 0 albuterol sulfate 90 mcg/actuation HFA aerosol inhaler 2 puff inhalation Q6H PRN (Reason: Shortness Of Breath Or Wheezing) RF: 0 cyclobenzaprine 10 mg tablet 10 mg PO TID RF: 0 Flovent HFA 220 mcg/actuation HFA aerosol inhaler 2 inh inhalation TID RF: 0 ondansetron HCl 4 mg tablet 8 mg PO Q8H PRN (Reason: Nausea And Vomiting) RF: 0 lidocaine 5 % adhesive patch,medicated 1 patch topical DAILY PRN (Reason: Pain) RF: 0 cyanocobalamin (vitamin B-12) 1,000 mcg/mL solution 1,000 mcg subcut MONTHLY RF: 0 nicotine 21 mg/24 hr patch 24 hour 21 mg topical DAILY RF: 0 Discharge Orders: Discharge Order (Routine); Ordered 09/14/21 Ordered By: Ramiro Trujillo/Other Patient Handouts: COPD: Wheezing and Chest Tightness Admission Data Admit Date/Time: 09/08/21 20:33 Attending Provider: Gagan Durant Admit Provider: Karen Brtit Primary Care Provider: Darya Chiu Other Providers: Bill Jones ; Shen Mcclain Other Interventions: Discharge Summary Assessment (RN) Last Done: 09/14/21 14:01 Supervising Physician Co-Signing Physician Notes I personally examined the patient and verified all begum points of history and exam, discussed case, and agree with decision making with Dr. Perez. Upon examination today, the patient is sleeping but easily awakens. She reports being able to manage all of her ADLs in the room without significant dyspnea. Exam 145/83, 120, 20, 37.3, 90% on nasal cannula 3 L/min Pleasant. Alert. No acute distress. Heart regular but mildly tachycardic Respirations nonlabored. Mid and expiratory wheezing, though good air exchange. Data White blood cell count 23.1 Hemoglobin 11.6. Potassium 3.2 Impression and plan hypoxia/dyspnea Non-small cell lung cancer stage IV Lung exam today is consistent with her baseline We discussed that she could increase her home oxygen from 2 to 3 to 4 L/min as needed activity; she can also use a bronchodilator prior to activity. Discussed breaking up ADL/household activities into shorter blocks to lessen her respiratory decompensation Continue p.o. prednisone, 40 mg for 5 days, 20 mg for 3 days Flutter valve along with Mucinex Zithromax 3 days/week as recommended by pulmonary medicine Pulmonary rehabilitation when the program reopens Tachycardia Suspect secondary to albuterol, steroids, and some element of anxiety As noted above, switch to levoalbuterol Reviewing of outpatient records shows heart rates between 80 and 118 at her two most recent office visits. Leukocytosis Suspect secondary steroids Additional per resident documentation Resident Activity Tracking Resident Involvement: Resident Care Provided Care Provided: Adult Hospital Medicine
[2021-09-14 10:14] LABS: Hematocrit (blood only) 36.4 % (37-47); Hemoglobin 11.6 g/dL (12.0-16.0); Mean Corpuscular Hemoglobin 31.6 pg (25-34); Mean Corpuscular Hgb Conc 31.9 g/dL (32-36); Mean Corpuscular Volume 99.2 fL (80-100); Mean Platelet Volume 8.7 fL (7.4-10.4); Nucleated RBC # (auto) 0.02 K/uL (0-0); Nucleated RBC % (auto) 0.1 %; Platelet Count 403 K/uL (130-400); RDW Coefficient of Variation 15.8 % (11.5-14.5); RDW Standard Deviation 56.4 fL (36.4-46.3); Red Blood Count 3.67 M/uL (4.2-5.4); White Blood Count 23.16 K/uL (4.8-10.8)
[2021-09-14 10:33] LABS: ALC (manual) 4.05 K/uL (1.2-3.4); ANC (manual) 17.88 K/uL (1.4-6.5); Lymphocytes # (manual) 4.05 K/uL (1.2-3.4); Lymphocytes % (manual) 17.5 %; Metamyelocytes # (manual) 0.21 K/uL (0-0); Metamyelocytes % (manual) 0.9 %; Monocytes # (manual) 0.42 K/uL (0.11-0.59); Monocytes % (manual) 1.8 %; Myelocytes % (manual) 2.6 %; Neutrophils # (manual) 17.88 K/uL (1.4-6.5); Neutrophils % (manual) 77.2 %; RBC Morphology Unremarkable
[2021-09-14 10:39] LABS: Calcium 8.7 mg/dl (8.5-10.1); Creatinine Clr Calc Pharmacy 79.5 ml/min; Est GFR (African American) 115.8 ml/min; Est GFR (Non-African American) 99.9 ml/min; Magnesium 1.7 mg/dl (1.7-2.4); Phosphorus 2.8 mg/dl (2.5-4.9); Potassium 3.2 mmol/L (3.5-5.1)
[2021-09-14] MEDS: LEVALBUTEROL HCL 0.63 MG/3 ML NEB NEB PRN (11:20)
== END 2021-09-14 15:43 | disposition home or self-care (01) | DRG 193 ==
LOC: ED 17:48 → EDINP 20:33 → SUATTDRO 20:33 → 1E 23:12 → 3N 09-12 22:21

== ENCOUNTER 2021-10-12 16:17 | Inpatient (IN) ==
[2021-10-12] MEDS ORDERED: ALBUT/IPRATROP 3MG/0.5MG NEB 3 ML VIAL NEB STA (16:49)
[2021-10-12] MEDS ORDERED: SODIUM CHLORIDE 0.9% 1000ML 500 ML IV ONE ×2 (16:49→18:41)
[2021-10-12] MEDS ORDERED: cefTRIAXone SODIUM 1,000 MG/50 ML BAG IV STA (16:49)
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
[2021-10-12 17:24] LABS: Hematocrit (blood only) 37.5 % (37-47); Hemoglobin 12.7 g/dL (12.0-16.0); Mean Corpuscular Hemoglobin 31.5 pg (25-34); Mean Corpuscular Hgb Conc 33.9 g/dL (32-36); Mean Corpuscular Volume 93.1 fL (80-100); Mean Platelet Volume 8.9 fL (7.4-10.4); Platelet Count 392 K/uL (130-400); RDW Coefficient of Variation 16.8 % (11.5-14.5); RDW Standard Deviation 57.1 fL (36.4-46.3); Red Blood Count 4.03 M/uL (4.2-5.4); White Blood Count 29.81 K/uL (4.8-10.8)
[2021-10-12 17:35] LABS: INR 1.1 (0.9-1.1); Partial Thromboplastin Time 28.7 Seconds (21.0-31.0); Prothrombin Time 11.4 Seconds (9.0-12.0)
--- NOTE | 2021-10-12 17:35 | XRay Report ---
XR chest 1V portable CLINICAL HISTORY: SOB. COMPARISON STUDY: 09/12/[address] chest from 10/09/2021 TECHNIQUE: 1 view of the chest FINDINGS: Single frontal view of the chest demonstrates the heart size to again be within normal limits with as ymmetric prominence of the left hilum. The patient has known hilar lymphadenopathy. A Port-A-Cath is in place. There is associated left lower lobe atelectasis related to the hilar adenopathy as seen on the recent CT. There is a decreased inspiratory effort with elevation of the hemidiaphragms and crowd ing of the bronchovascular markings at the lung bases and centrally. No confluent alveolar opacities are seen. There is no evidence for pleural effusion. There is no evidence for vascular congestion. Th ere is no acute osseous pathology. IMPRESSION: 1. No left hilar adenopathy with left lower lobe atelectasis. 2. There is a decreased inspiratory effort with no confluent alveolar opacities. ACT 112: Negative or not required by law. Electronically signed by: Jacques Diaz M.D. 10/12/2021 5:32 PM
[2021-10-12 17:41] LABS: ALC (manual) 2.09 K/uL (1.2-3.4); ANC (manual) 26.41 K/uL (1.4-6.5); Lymphocytes # (manual) 2.09 K/uL (1.2-3.4); Monocytes # (manual) 1.04 K/uL (0.11-0.59); Monocytes % (manual) 3.5 %; Myelocytes # (manual) 0.27 K/uL (0-0); Myelocytes % (manual) 0.9 %; Neutrophils # (manual) 26.41 K/uL (1.4-6.5); Neutrophils % (manual) 88.6 %; Polychromasia 1+
[2021-10-12] MEDS ORDERED: fentaNYL citrate 100 MCG/2 ML VIAL IV STA (17:47)
[2021-10-12] MEDS ORDERED: ACETAMINOPHEN 1,000 MG/100 ML VIAL IV STA (17:48)
[2021-10-12 17:51] LABS: Troponin I 0.05 ng/ml (0-0.04)
[2021-10-12 17:57] LABS: Albumin Level 3.7 gm/dl (3.4-5.0); BUN Creatinine Ratio 33.3 (10-20); Bilirubin,Total 0.6 mg/dl (0.2-1.0); Calcium 9.5 mg/dl (8.5-10.1); Creatinine Clr Calc Pharmacy 59.6 ml/min; Est GFR (African American) 97.1 ml/min; Est GFR (Non-African American) 83.8 ml/min; Globulin 3.7 gm/dl (2.5-4.0); Magnesium 1.5 mg/dl (1.7-2.4); Potassium 2.7 mmol/L (3.5-5.1); Total Protein 7.4 gm/dl (6.0-8.3)
[2021-10-12] MEDS ORDERED: POTASSIUM CHLORIDE / WTR 10 MEQ/100 ML PLCT IV ONE (17:58)
[2021-10-12] MEDS ORDERED: MAGNESIUM SULFATE / D5W 1 GM/100 ML BAG IV STA ×2 (17:58→20:03)
[2021-10-12 18:07] LABS: Influenza A virus by PCR Negative (Negative); Influenza B virus by PCR Negative (Negative)
[2021-10-12] MEDS ORDERED: OPTIRAY 320 125ml IV ONE (20:01)
[2021-10-12] MEDS ORDERED: AZITHROMYCIN 500 MG in DEXTROSE 5% 250 ML IV STA (20:03)
[2021-10-12] MEDS ORDERED: POTASSIUM CHLORIDE 20 MEQ/15 ML UDC PO STA ×2 (20:03)
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
--- NOTE | 2021-10-12 20:41 | CT Scan Report ---
CT angio chest PE protocol CLINICAL HISTORY: Shortness of breath and chest pain COMPARISON STUDY: Portable chest from 10/12/[address] of the chest without contrast from 10/09/2021 CT DOSE: 249.69 mGy.cm TECHNIQUE: CT Angio of the chest was performed.followed by image post processing with coronal, and s agittal MIP reformats. Contrast Volume: Optiray 320, 120 ml FINDINGS: Vasculature: There is homogeneous perfusion of the pulmonary vasculature bilaterally. No intraluminal filling defects or evidence for pulmonary embolus is seen. It should be noted that there is partial encasement of the left main pulmonary artery due to the marked adenopathy present. Airway: The airway is clear. No endobronchial lesion is identified. However, there is again encaseme nt of the left lower lobe bronchi related to marked adenopathy. Lungs: Extensive centrilobular emphysematous changes are again seen bilaterally. Compared to the rece nt CT, postobstructive atelectasis and mucous plugging are again seen involving the left lower lobe. This is unchanged. Pleura: There is no evidence for pleural effusion. There is no evidence for pneumothorax. Mediastinum: Marked left hilar and subcarinal adenopathy is again seen. There is also extensive AP wi ndow adenopathy. The heart size is within normal limits. The thoracic aorta is within normal limits. There is no evidence for pericardial effusion. Upper abdomen:The adrenal glands are normal bilaterally. Osseous structures: There is no acute osseous pathology. Impression: 1. No CTA evidence for pulmonary embolus. 2. Compared to the previous CT, marked left hilar and subcarinal adenopathy are again seen in cases s een in the left lower lobe bronchi. 3. Additional AP window adenopathy is also present. 4. There is partial encasement of the left main pulmonary artery related to the marked left hilar miguel nopathy. 5. Postobstructive atelectasis and bronchiectasis are again seen along the left lower lobe, unchanged . 6. Extensive centrilobular emphysematous changes are present bilaterally with no other acute chest di sease. ACT 112: Negative or not required by law. Electronically signed by: Jacques Diaz M.D. 10/12/2021 8:39 PM
[2021-10-12] MEDS ORDERED: BENZONATATE 100 MG CAPSULE PO PRN (21:22)
[2021-10-12] MEDS ORDERED: ONDANSETRON INJ 2 MG/ML 2 ML VIAL IV PRN (21:22)
[2021-10-12] MEDS ORDERED: LEVALBUTEROL HCL 1.25 MG/3 ML NEB INH PRN (21:22)
[2021-10-12] MEDS ORDERED: ALBUT/IPRATROP 3MG/0.5MG NEB 3 ML VIAL INH SCH (21:22)
[2021-10-12] MEDS: guaiFENesin 600 MG TABCR PO SCH (22:22)
[2021-10-12] MEDS: ENOXAPARIN INJ 30 MG/0.3 ML SYR SQ SCH (22:22)
[2021-10-12] MEDS: ALBUT/IPRATROP 3MG/0.5MG NEB 3 ML VIAL INH SCH (23:12)
[2021-10-12 23:34] LABS: Troponin I 0.05 ng/ml (0-0.04)
[2021-10-12 23:45] LABS: Phosphorus 3.1 mg/dl (2.5-4.9)
[2021-10-13] MEDS: ALBUT/IPRATROP 3MG/0.5MG NEB 3 ML VIAL INH SCH ×6 (03:24→23:12)
[2021-10-13] MEDS: ACETAMINOPHEN 325 MG TAB PO PRN ×3 (03:50→18:25)
[2021-10-13] MEDS: LIDOCAINE 5% 1 PATCH TD PRN (03:51)
[2021-10-13 05:15] LABS: Hematocrit (blood only) 31.9 % (37-47); Hemoglobin 10.4 g/dL (12.0-16.0); Mean Corpuscular Hemoglobin 30.7 pg (25-34); Mean Corpuscular Hgb Conc 32.6 g/dL (32-36); Mean Corpuscular Volume 94.1 fL (80-100); Mean Platelet Volume 8.7 fL (7.4-10.4); Platelet Count 335 K/uL (130-400); RDW Coefficient of Variation 16.8 % (11.5-14.5); RDW Standard Deviation 57.5 fL (36.4-46.3); Red Blood Count 3.39 M/uL (4.2-5.4); White Blood Count 22.84 K/uL (4.8-10.8)
[2021-10-13 05:56] LABS: RBC Morphology Unremarkable
[2021-10-13 05:58] LABS: ALC (manual) 3.43 K/uL (1.2-3.4); ANC (manual) 18.27 K/uL (1.4-6.5); Calcium 8.2 mg/dl (8.5-10.1); Creatinine Clr Calc Pharmacy 74.7 ml/min; Est GFR (African American) 116.4 ml/min; Est GFR (Non-African American) 100.5 ml/min; Lymphocytes # (manual) 3.43 K/uL (1.2-3.4); Magnesium 1.9 mg/dl (1.7-2.4); Monocytes # (manual) 0.91 K/uL (0.11-0.59); Myelocytes # (manual) 0.23 K/uL (0-0); Neutrophils # (manual) 18.27 K/uL (1.4-6.5); Potassium 3.6 mmol/L (3.5-5.1)
[2021-10-13] MEDS: PANTOprazole 40 MG TAB PO SCH (06:24)
[2021-10-13] MEDS: NICOTINE 14 MG/24 HR PATCH TD SCH (07:56)
[2021-10-13] MEDS: FLUTICASONE FUROATE 200MCG 14 PUFFS/INHALER INH SCH (07:56)
[2021-10-13] MEDS: FOLIC ACID 1 MG TAB PO SCH (07:57)
[2021-10-13] MEDS: FLUDROCORTISONE ACETATE 0.1 MG TAB PO SCH (07:57)
[2021-10-13] MEDS: guaiFENesin 600 MG TABCR PO SCH ×2 (07:57→20:04)
[2021-10-13] MEDS: ESCITALOPRAM OXALATE 20 MG TAB PO SCH (07:57)
[2021-10-13] MEDS: FAMOTIDINE 20 MG TAB PO SCH (07:57)
[2021-10-13] MEDS: CYCLOBENZAPRINE HCL 10 MG TAB PO PRN (07:57)
[2021-10-13] MEDS: CETIRIZINE HCL 10 MG TABLET PO SCH (07:58)
[2021-10-13] MEDS ORDERED: methylPREDNISolone 20 MG in SYRINGE 0 ML IV SCH (08:00)
[2021-10-13] MEDS: methylPREDNISolone 40 MG in SYRINGE 0 ML IV SCH ×2 (09:29→18:25)
[2021-10-13] MEDS: AZITHROMYCIN 500 MG in DEXTROSE 5% 250 ML IV SCH (09:29)
[2021-10-13] MEDS: HYDROmorphone INJ 1 MG/ML SYRINGE IV PRN ×2 (10:37→21:11)
--- NOTE | 2021-10-13 11:27 | Hospitalist Progress Note ---
Date of Service October 13, 2021 Assessment & Plan (1) COPD (chronic obstructive pulmonary disease): Plan: Acute exacerbation. Parenteral steroids have been up titrated along with a azithromycin. Continued scheduled DuoNebs. CTA is NEGATIVE for PE. Continue nebulizer treatments. (2) Non-small cell lung cancer with metastasis: Plan: Patient with Stage IV adenocarcinoma of the lung. She follows with Oncology - last seen prior to arrival to hospital. She states that a medication is to be discontinued but she is unsure which medication. Oumar Hendrix. Hematology/Oncology followup outpatient (3) GERD (gastroesophageal reflux disease): Plan: Chronic. Continue Pepcid 20mg po qAM and Protonix . (4) Depression: Plan: Chronic. Continue Escitalopram 20mg po qAM (5) Hypokalemia: Plan: Corrected with replacement. Serial labs (6) Hypomagnesemia: Plan: Corrected with replacement. Serial labs (7) Elevated troponin: Plan: Troponin is minimally elevated and downtrending. It does not appear that her current chest pain is from cardiac etiology. Repeat EKG pending. Continue telemetry. Plan: DVT Ppx - Lovenox SQ Code - Full Dispo - eventual discharge to home. Admission and Anticipated Discharge Date Admission Date: October 12, 2021 Subjective The patient is alert and respiratory status is somewhat better but Solu-Medrol and azithromycin need to be uptitrated. She is having chest pain that does not appear to be of cardiac etiology but EKG will be rechecked nonetheless. Troponin is trending down and minimally elevated. I do not believe she has acute coronary syndrome. She states Dilaudid intravenous has helped with her c hest pain symptoms in the past. Chest CTA negative for PE. Hypokalemia and hypomagnesemia on admission have been corrected. Review of Systems Review of Systems: Constitutional-no fever or chills ENT-no blurred vision, no double vision, no epistaxis, no sore throat Respiratory-nonproductive cough, shortness of breath, wheezing. No hemoptysis. Cardiac-no palpitations, no syncope. Current anterior chest pain does not appear to be of cardiac etiology GI-no nausea, vomiting, diarrhea, melena, hematochezia -no urinary retention, no urinary incontinence, no dysuria, no hematuria Musculoskeletal-no joint pain, no muscle tenderness Skin-no bruising, no rashes, no pruritus Neuro-no isolated weakness, no paresthesia, no weakness Psych-no depression, no anxiety Physical Exam Physical Exam: General-alert and oriented x3, no fevers, no chills HEENT-head atraumatic and normocephalic, TMs intact bilaterally, pupils equal and reactive to light, extraocular muscles intact Neck-no lymphadenopathy or thyromegaly, trachea midline Chest-diminished breath sounds bilaterally. Scattered rhonchi. Bilateral and expiratory wheezes. No dullness to percussion Cardiac-regular rate and rhythm, normal S1 and S2, no murmurs Abdomen-normal bowel sounds, nontender, no hepatosplenomegaly Extremities-no cyanosis, clubbing, or edema Neuro-cranial nerves II through XII intact, motor and sensory function within normal limits, strength symmetrical 5/5, no focal deficits Psych-normal affect, normal mood Results & Data Results & Data ([facility]) Vital Signs (Past 12 Hours) Vital Signs Temp Pulse Pulse Resp BP BP Pulse Ox 10/13/21 08:00 110 H 10/13/21 07:49 36.6 C 10/13/21 07:45 115 H 23 98 10/13/21 07:30 117 H 25 H 98 10/13/21 07:29 117 H 21 141/91 H 98 10/13/21 07:15 111 H 21 99 10/13/21 07:00 113 H 19 180/106 H 100 10/13/21 03:47 36.7 C 113 H 20 131/73 99 10/13/21 03:25 110 H 21 99 10/13/21 00:00 116 H Laboratory Results 10/13/21 04:53 10/13/21 04:53 PG Care Time/CCT Total # of Minutes Spent Total Time Spent with Patient: Total time spent is greater than 50% in coordination of care (as documented) at patient's floor/unit and/or counseling patient: Coding Level of Care Code 06314 Subseq Hosp Care Lvl 3 Diagnoses COPD (chronic obstructive pulmonary disease) J44.1 COPD type: COPD with acute exacerbation Non-small cell lung cancer with metastasis C34.90 GERD (gastroesophageal reflux disease) K21.9 Esophagitis presence: esophagitis presence not specified Depression F32.9 Hypokalemia E87.6 Hypomagnesemia E83.42 Elevated troponin R77.8 (1) COPD (chronic obstructive pulmonary disease) COPD type: COPD with acute exacerbation Qualified Code(s): J44.1 - Chronic obstructive pulmonary disease with (acute) exacerbation (2) GERD (gastroesophageal reflux disease) Esophagitis presence: esophagitis presence not specified Qualified Code(s): K21.9 - Gastro-esophageal reflux disease without esophagitis
--- NOTE | 2021-10-13 13:28 | Electrocardiogram Report ---
Test Reason : Blood Pressure : / mmHG Vent. Rate : 137 BPM Atrial Rate : 137 BPM P-R Int : 124 ms QRS Dur : 072 ms QT Int : 302 ms P-R-T Axes : 082 007 086 degrees QTc Int : 456 ms Sinus tachycardia with Premature atrial complexes Right atrial enlargement Abnormal ECG When compared with ECG of 10-SEP-2021 07:59, Premature atrial complexes are now Present Confirmed by Jeremias Leonard ([id number]) on 10/13/2021 1:28:50 PM Referred By: REFERRED SELF Confirmed By:Dino Leonard
[2021-10-13] MEDS: HEPARIN 100 UNIT/ML 5ML FLUSH FLUSH PRN (14:09)
[2021-10-13] MEDS: dilTIAZem HCl 60 MG TAB PO SCH ×2 (14:35→20:08)
[2021-10-13] MEDS: RIZATRIPTAN BENZOATE 10 MG TAB PO PRN (19:13)
[2021-10-13] MEDS: ENOXAPARIN INJ 30 MG/0.3 ML SYR SQ SCH (20:04)
[2021-10-13] MEDS ORDERED: AZITHROMYCIN 250 MG in DEXTROSE 5% 250 ML IV SCH (21:00)
[2021-10-14] MEDS: methylPREDNISolone 40 MG in SYRINGE 0 ML IV SCH ×3 (00:21→17:53)
[2021-10-14] MEDS: ALBUT/IPRATROP 3MG/0.5MG NEB 3 ML VIAL INH SCH ×6 (03:08→22:35)
[2021-10-14] MEDS: HYDROmorphone INJ 1 MG/ML SYRINGE IV PRN ×3 (03:59→17:53)
[2021-10-14] MEDS: PANTOprazole 40 MG TAB PO SCH (06:02)
[2021-10-14 06:40] LABS: Basophils # (auto) 0.01 K/uL (0-0.2); Basophils % (auto) 0.1 %; Hematocrit (blood only) 32.1 % (37-47); Hemoglobin 10.3 g/dL (12.0-16.0); Immature Granulocytes # (auto) 0.21 K/uL (0.00-0.02); Immature Granulocytes % (auto) 1.2 %; Lymphocytes # (auto) 0.72 K/uL (1.2-3.4); Lymphocytes % (auto) 3.9 %; Mean Corpuscular Hemoglobin 30.4 pg (25-34); Mean Corpuscular Hgb Conc 32.1 g/dL (32-36); Mean Corpuscular Volume 94.7 fL (80-100); Mean Platelet Volume 8.8 fL (7.4-10.4); Monocytes # (auto) 0.31 K/uL (0.11-0.59); Monocytes % (auto) 1.7 %; Neutrophils # (auto) 17.01 K/uL (1.4-6.5); Neutrophils % (auto) 93.1 %; Platelet Count 327 K/uL (130-400); RDW Coefficient of Variation 16.6 % (11.5-14.5); RDW Standard Deviation 57.6 fL (36.4-46.3); Red Blood Count 3.39 M/uL (4.2-5.4); White Blood Count 18.26 K/uL (4.8-10.8)
[2021-10-14 07:02] LABS: BUN Creatinine Ratio 33.3 (10-20); Calcium 8.6 mg/dl (8.5-10.1); Creatinine Clr Calc Pharmacy 97.8 ml/min; Est GFR (African American) 125.3 ml/min; Est GFR (Non-African American) 108.1 ml/min; Potassium 3.7 mmol/L (3.5-5.1)
[2021-10-14] MEDS: dilTIAZem HCl 60 MG TAB PO SCH (07:11)
[2021-10-14] MEDS: guaiFENesin 600 MG TABCR PO SCH ×2 (07:11→20:29)
[2021-10-14] MEDS: FAMOTIDINE 20 MG TAB PO SCH (07:11)
[2021-10-14] MEDS: CETIRIZINE HCL 10 MG TABLET PO SCH (07:12)
[2021-10-14] MEDS: FOLIC ACID 1 MG TAB PO SCH (07:12)
[2021-10-14] MEDS: FLUDROCORTISONE ACETATE 0.1 MG TAB PO SCH (07:13)
[2021-10-14] MEDS: FLUTICASONE FUROATE 200MCG 14 PUFFS/INHALER INH SCH (07:13)
[2021-10-14] MEDS: ESCITALOPRAM OXALATE 20 MG TAB PO SCH (07:13)
[2021-10-14] MEDS: guaiFENesin/CODEINE 100MG/10MG 5ML UDC PO PRN (08:29)
[2021-10-14] MEDS: NICOTINE 14 MG/24 HR PATCH TD SCH (09:38)
[2021-10-14] MEDS: METOPROLOL TARTRATE 25 MG TAB PO SCH ×2 (09:39→20:28)
[2021-10-14] MEDS: AZITHROMYCIN 500 MG in DEXTROSE 5% 250 ML IV SCH (09:39)
--- NOTE | 2021-10-14 12:05 | Hospitalist Progress Note ---
Date of Service October 14, 2021 Assessment & Plan (1) COPD (chronic obstructive pulmonary disease): Plan: Acute exacerbation. Parenteral steroids have been up titrated along with a azithromycin. Continued scheduled DuoNebs. CTA is NEGATIVE for PE. Continue nebulizer treatments. Improved overall. Repeat chest x-ray today, October 14 (2) Non-small cell lung cancer with metastasis: Plan: Patient with Stage IV adenocarcinoma of the lung. She follows with Oncology - last seen prior to arrival to hospital. She states that a medication is to be discontinued but she is unsure which medication. Oumar Hendrix. Hematology/Oncology followup outpatient (3) GERD (gastroesophageal reflux disease): Plan: Chronic. Continue Pepcid 20mg po qAM and Protonix . (4) Depression: Plan: Chronic. Continue Escitalopram 20mg po qAM (5) Hypokalemia: Plan: Corrected with replacement. Serial labs (6) Hypomagnesemia: Plan: Corrected with replacement. Serial labs (7) Elevated troponin: Plan: Troponin is minimally elevated and downtrending. It does not appear that her current chest pain is from cardiac etiology. Repeat EKG pending. Continue telemetry. Plan: DVT Ppx - Lovenox SQ Code - Full Dispo - eventual discharge to home. Possibly tomorrow, October 15 Admission and Anticipated Discharge Date Admission Date: October 12, 2021 Subjective Alert and oriented. She is flushed from steroid therapy. Overall she is improved. Diltiazem switched to metoprolol for heart rate but controlled. Diltiazem was not working well. Mild hypokalemia corrected. She is 95% on 2 L oxygen. Review of Systems 2 Review of Systems: Constitutional-no fever or chills ENT-no blurred vision, no double vision, no epistaxis, no sore throat Respiratory-nonproductive cough. Wheezing has resolved. Respiratory status has improved since admission Cardiac-no palpitations, no chest pain, no syncope GI-no nausea, vomiting, diarrhea, melena, hematochezia -no urinary retention, no urinary incontinence, no dysuria, no hematuria Musculoskeletal-no joint pain, no muscle tenderness Skin-no bruising, no rashes, no pruritus Neuro-no isolated weakness, no paresthesia, no weakness Psych-no depression, no anxiety Physical Exam Physical Exam: General-alert and oriented x3, no fevers, no chills HEENT-head atraumatic and normocephalic, TMs intact bilaterally, pupils equal and reactive to light, extraocular muscles intact Neck-no lymphadenopathy or thyromegaly, trachea midline Chest-iminished breath sounds bilaterally. Wheezing has markedly improved. Midline rhonchi with forced cough. No dullness to percussion. Cardiac-regular rate and rhythm, normal S1 and S2, no murmurs Abdomen-normal bowel sounds, nontender, no hepatosplenomegaly Extremities-no cyanosis, clubbing, or edema Neuro-cranial nerves II through XII intact, motor and sensory function within normal limits, strength symmetrical , no focal deficits Psych-normal affect, normal mood Results & Data Results & Data ([facility]) Vital Signs (Past 12 Hours) Vital Signs Temp Pulse Pulse Resp BP BP Pulse Ox 10/14/21 11:15 36.8 C 88 20 138/83 97 10/14/21 10:46 88 19 97 10/14/21 08:00 103 H 10/14/21 07:18 115 H 20 95 10/14/21 07:09 36.8 C 107 H 17 170/91 H 98 10/14/21 04:06 143/78 H 10/14/21 03:30 36.7 C 115 H 18 166/93 H 92 10/14/21 03:09 100 H 18 98 10/14/21 00:46 107 H Laboratory Results 10/14/21 05:32 10/14/21 05:32 PG Care Time/CCT Total # of Minutes Spent Total Time Spent with Patient: Total time spent is greater than 50% in coordination of care (as documented) at patient's floor/unit and/or counseling patient: Coding Level of Care Code 76266 Subseq Hosp Care Lvl 3 Diagnoses COPD (chronic obstructive pulmonary disease) J44.1 COPD type: COPD with acute exacerbation Non-small cell lung cancer with metastasis C34.90 GERD (gastroesophageal reflux disease) K21.9 Esophagitis presence: esophagitis presence not specified Depression F32.9 Hypokalemia E87.6 Hypomagnesemia E83.42 Elevated troponin R77.8 (1) COPD (chronic obstructive pulmonary disease) COPD type: COPD with acute exacerbation Qualified Code(s): J44.1 - Chronic obstructive pulmonary disease with (acute) exacerbation (2) GERD (gastroesophageal reflux disease) Esophagitis presence: esophagitis presence not specified Qualified Code(s): K21.9 - Gastro-esophageal reflux disease without esophagitis
--- NOTE | 2021-10-14 12:10 | XRay Report ---
XR chest 2V PA/lateral CLINICAL HISTORY: exacerbation COPD, lung cancer. COMPARISON STUDY: 10/12/2021 TECHNIQUE: 2 views of the chest FINDINGS: Frontal and lateral radiographs of the chest demonstrate the heart size to be within normal limits. L eft hilar fullness corresponding to known left hilar mass is again seen. There is again left lower lo be atelectasis/collapse. The remainder of the lungs are clear of alveolar opacities. There is interva l development of small to moderate size left pleural effusion. There is no evidence for right pleural effusion. There is no evidence for vascular congestion. There is no acute osseous pathology. IMPRESSION: 1. Left hilar mass with left lower lobe atelectasis/collapse is again seen. 2. There is interval development of a small to moderate-sized left pleural effusion. ACT 112: Negative or not required by law. Electronically signed by: Jacques Diaz M.D. 10/14/2021 12:07 PM
[2021-10-14] MEDS: HEPARIN 100 UNIT/ML 5ML FLUSH FLUSH PRN (12:14)
[2021-10-14] MEDS: LORazepam 0.5 MG TAB PO PRN (17:05)
[2021-10-14] MEDS: ENOXAPARIN INJ 30 MG/0.3 ML SYR SQ SCH (20:46)
[2021-10-15] MEDS: methylPREDNISolone 40 MG in SYRINGE 0 ML IV SCH ×3 (00:03→16:04)
[2021-10-15] MEDS: HYDROmorphone INJ 1 MG/ML SYRINGE IV PRN ×4 (00:07→20:16)
[2021-10-15] MEDS: LORazepam 0.5 MG TAB PO PRN ×3 (01:45→22:57)
[2021-10-15] MEDS: ALBUT/IPRATROP 3MG/0.5MG NEB 3 ML VIAL INH SCH ×6 (02:56→23:26)
[2021-10-15] MEDS: CYCLOBENZAPRINE HCL 10 MG TAB PO PRN ×3 (03:27→16:02)
[2021-10-15] MEDS: PANTOprazole 40 MG TAB PO SCH (05:38)
[2021-10-15] MEDS: FLUTICASONE FUROATE 200MCG 14 PUFFS/INHALER INH SCH (07:21)
[2021-10-15] MEDS: CETIRIZINE HCL 10 MG TABLET PO SCH (07:22)
[2021-10-15] MEDS: ESCITALOPRAM OXALATE 20 MG TAB PO SCH (07:22)
[2021-10-15] MEDS: FOLIC ACID 1 MG TAB PO SCH (07:22)
[2021-10-15] MEDS: RIZATRIPTAN BENZOATE 10 MG TAB PO PRN (07:23)
[2021-10-15] MEDS: FAMOTIDINE 20 MG TAB PO SCH (07:23)
[2021-10-15] MEDS: guaiFENesin 600 MG TABCR PO SCH ×2 (07:23→20:04)
[2021-10-15] MEDS: FLUDROCORTISONE ACETATE 0.1 MG TAB PO SCH (07:23)
[2021-10-15 07:26] LABS: Hematocrit (blood only) 30.9 % (37-47); Hemoglobin 10.3 g/dL (12.0-16.0); Mean Corpuscular Hemoglobin 31.3 pg (25-34); Mean Corpuscular Hgb Conc 33.3 g/dL (32-36); Mean Corpuscular Volume 93.9 fL (80-100); Mean Platelet Volume 8.7 fL (7.4-10.4); Platelet Count 326 K/uL (130-400); RDW Coefficient of Variation 16.4 % (11.5-14.5); RDW Standard Deviation 57.5 fL (36.4-46.3); Red Blood Count 3.29 M/uL (4.2-5.4); White Blood Count 23.06 K/uL (4.8-10.8)
[2021-10-15 07:51] LABS: BUN Creatinine Ratio 31.4 (10-20); Calcium 8.5 mg/dl (8.5-10.1); Creatinine Clr Calc Pharmacy 90.5 ml/min; Est GFR (African American) 122.8 ml/min; Potassium 3.2 mmol/L (3.5-5.1)
[2021-10-15 08:02] LABS: Basophils # (auto) 0.01 K/uL (0-0.2); Immature Granulocytes # (auto) 0.22 K/uL (0.00-0.02); Lymphocytes # (auto) 0.77 K/uL (1.2-3.4); Lymphocytes % (auto) 3.3 %; Monocytes # (auto) 0.96 K/uL (0.11-0.59); Monocytes % (auto) 4.2 %; Neutrophils % (auto) 91.5 %
[2021-10-15] MEDS ORDERED: LOPERAMIDE HCL 2 MG CAP PO PRN (08:10)
[2021-10-15] MEDS: NICOTINE 14 MG/24 HR PATCH TD SCH (08:47)
[2021-10-15] MEDS: AZITHROMYCIN 500 MG in DEXTROSE 5% 250 ML IV SCH (08:47)
[2021-10-15] MEDS: POTASSIUM CHLORIDE CRTAB 20 MEQ TABCR PO SCH ×2 (10:16→20:04)
[2021-10-15] MEDS: METOPROLOL TARTRATE 50 MG TAB PO SCH ×2 (10:17→20:03)
[2021-10-15] MEDS: ACETAMINOPHEN 325 MG TAB PO PRN ×2 (11:09→22:57)
--- NOTE | 2021-10-15 12:13 | Hospitalist Progress Note ---
Date of Service October 15, 2021 Assessment & Plan (1) COPD (chronic obstructive pulmonary disease): Plan: Acute exacerbation. Much improved with parenteral steroids. Flushing noted from steroid therapy. Continue azithromycin. Continued scheduled DuoNebs. CTA is negative for PE. Repeat chest x-ray done October 14 results noted (2) Non-small cell lung cancer with metastasis: Plan: Patient with Stage IV adenocarcinoma of the lung. She follows with Oncology - last seen prior to arrival to hospital. She states that a medication is to be discontinued but she is unsure which medication. Oumar Hendrix. Hematology/Oncology followup as outpatient (3) GERD (gastroesophageal reflux disease): Plan: Chronic. Continue Pepcid and Protonix . (4) Depression: Plan: Chronic. Continue Escitalopram (5) Hypokalemia: Plan: oral replacement. Serial labs (6) Hypomagnesemia: Plan: Corrected with replacement. Serial labs (7) Elevated troponin: Plan: Troponin is minimally elevated and downtrending. It does not appear that her current chest pain is from cardiac etiology. EKG is negative for acute changes. Continue telemetry. Plan: DVT Ppx - Lovenox SQ Code - Full Dispo - eventual discharge to home. Hopefully within the next day or 2. Admission and Anticipated Discharge Date Admission Date: October 12, 2021 Subjective Alert and oriented. She is close to going home I think. Metoprolol further uptitrated for better heart rate and blood pressure control. Beta agonists is probably driving her heart rate from the nebulizer treatments. Potassium replacement ordered. She has requested loperamide as needed for chronic diarrhea. She takes this at home. She remains flushed from steroid therapy. Review of Systems Review of Systems: Constitutional-no fever or chills ENT-no blurred vision, no double vision, no epistaxis, no sore throat Respiratory-less wheezing, less shortness of breath. No hemoptysis. Cardiac-no palpitations, no chest pain, no syncope GI-no nausea, vomiting, diarrhea, melena, hematochezia -no urinary retention, no urinary incontinence, no dysuria, no hematuria Musculoskeletal-no joint pain, no muscle tenderness Skin-no bruising, no rashes, no pruritus Neuro-no isolated weakness, no paresthesia, no weakness Psych-no depression, no anxiety Physical Exam Physical Exam: General-alert and oriented x3, no fevers, no chills HEENT-head atraumatic and normocephalic, pupils equal and reactive to light, extraocular muscles intact Neck-no lymphadenopathy or thyromegaly, trachea midline Chest-diminished breath sounds bilaterally. Wheezing has resolved. Audible rhonchi in the midline with forced cough Cardiac-tachycardic regular rate. Normal S1 and S2 Abdomen-normal bowel sounds, nontender, no hepatosplenomegaly Extremities-no cyanosis, clubbing, or edema Skinflushed from steroid therapy Neuro-cranial nerves II through XII intact, motor and sensory function within normal limits, strength symmetrical , no focal deficits Psych-normal affect, normal mood Results & Data Results & Data ([facility]) Vital Signs (Past 12 Hours) Vital Signs Temp Pulse Pulse Resp BP Pulse Ox 10/15/21 11:12 36.9 C 114 H 18 168/105 H 97 10/15/21 10:51 118 H 22 94 10/15/21 07:55 121 H 10/15/21 07:16 36.9 C 126 H 22 160/107 H 95 10/15/21 07:09 121 H 20 97 10/15/21 05:15 127 H 28 H 93 10/15/21 03:49 36.6 C 111 H 16 165/84 H 10/15/21 02:58 109 H 18 98 Laboratory Results 10/15/21 07:04 10/15/21 07:04 PG Care Time/CCT Total # of Minutes Spent Total Time Spent with Patient: Total time spent is greater than 50% in coordination of care (as documented) at patient's floor/unit and/or counseling patient: Coding Level of Care Code 76568 Subseq Hosp Care Lvl 3 Diagnoses COPD (chronic obstructive pulmonary disease) J44.1 COPD type: COPD with acute exacerbation Non-small cell lung cancer with metastasis C34.90 GERD (gastroesophageal reflux disease) K21.9 Esophagitis presence: esophagitis presence not specified Depression F32.9 Hypokalemia E87.6 Hypomagnesemia E83.42 Elevated troponin R77.8 (1) COPD (chronic obstructive pulmonary disease) COPD type: COPD with acute exacerbation Qualified Code(s): J44.1 - Chronic obstructive pulmonary disease with (acute) exacerbation (2) GERD (gastroesophageal reflux disease) Esophagitis presence: esophagitis presence not specified Qualified Code(s): K21.9 - Gastro-esophageal reflux disease without esophagitis
[2021-10-15] MEDS: guaiFENesin/CODEINE 100MG/10MG 5ML UDC PO PRN (16:02)
[2021-10-15] MEDS: ENOXAPARIN INJ 30 MG/0.3 ML SYR SQ SCH (20:02)
[2021-10-15 21:42] LABS: Basophils # (auto) 0.02 K/uL (0-0.2); Basophils % (auto) 0.1 %; Hematocrit (blood only) 32.2 % (37-47); Hemoglobin 10.4 g/dL (12.0-16.0); Immature Granulocytes # (auto) 0.34 K/uL (0.00-0.02); Immature Granulocytes % (auto) 1.5 %; Lymphocytes # (auto) 0.85 K/uL (1.2-3.4); Lymphocytes % (auto) 3.9 %; Mean Corpuscular Hemoglobin 30.8 pg (25-34); Mean Corpuscular Hgb Conc 32.3 g/dL (32-36); Mean Corpuscular Volume 95.3 fL (80-100); Mean Platelet Volume 8.7 fL (7.4-10.4); Monocytes # (auto) 1.55 K/uL (0.11-0.59); Neutrophils # (auto) 19.23 K/uL (1.4-6.5); Neutrophils % (auto) 87.5 %; Platelet Count 328 K/uL (130-400); RDW Coefficient of Variation 16.5 % (11.5-14.5); Red Blood Count 3.38 M/uL (4.2-5.4); White Blood Count 21.99 K/uL (4.8-10.8)
[2021-10-15] MEDS ORDERED: PIPERACILL/TAZOBAC CONSULT ACTIVE PRN (22:18)
[2021-10-15] MEDS ORDERED: VANCOMYCIN CONSULT ACTIVE PRN (22:18)
--- NOTE | 2021-10-15 22:18 | Communication Note ---
Date of Service: October 15, 2021 S: At approximately 9:00 PM was notified by nursing during dressing changes a foul purulent drainage was noted from the PEG tube. Patient is otherwise asy mptomatic A/P: Obtain stat labs elevated white count on CBC could be secondary to steroid usage, lactate 1.6, sample of purulent fluid sent for culture. Given risk for MRSA will initiate coverage with vancomycin will defer to day team for further antibiotic management. Ordered repeat lactate and PCT with a.m. lab
[2021-10-15] MEDS ORDERED: PIPERACILLIN/TAZOBACTAM 3.375 GM in DEXTROSE 5% 100 ML IV ONE (22:45)
[2021-10-15] MEDS ORDERED: VANCOMYCIN HCL 1,000 MG in SODIUM CHLORIDE 0.9% 250 ML IV ONE (23:30)
[2021-10-15] MEDS ORDERED: VANCOMYCIN HCL 1,000 MG in SODIUM CHLORIDE 0.9% 500 ML IV ONE (23:30)
[2021-10-16] MEDS: methylPREDNISolone 40 MG in SYRINGE 0 ML IV SCH ×3 (00:40→16:00)
[2021-10-16] MEDS: CYCLOBENZAPRINE HCL 10 MG TAB PO PRN ×2 (01:00→12:30)
--- NOTE | 2021-10-16 01:10 | Pharmacy Report ---
Pharmacy Vanc AUC Short Note - Date of Service October 16, 2021 - Assessment & Plan Assessment 56 year old F receiving VANCOMYCIN + ZOSYN for treatment of empiric treatment of sepsis x 48 hrs, possibly secondary to purulent PEG tube drainage. Pertinent microbiologic data includes: cx of PEG tube drainage pending, no growth to date in BLCXs from 10/12 Plan Vancomycin * AUC/CAROLYNN is the preferred PK/PD target for vancomycin * AUC guided dosing is effective and associated with decreased risk of nephrotoxicity compared to traditional trough targets * 1000mg IV Q 12 hrs is predicted to achieve target AUC/CAROLYNN of 400-600 mg/L.hr and may be associated with a 11 % risk of nephrotoxicity * 2nd dose of vanco will be given 10 hrs after the 1st in order to obtain AUC/CAROLYNN target quicker * No level has yet been ordered due to 48 hr duration of abx therapy Zosyn: * eCrCl > 20, BMI < 35, 3.375gm EI Q 8 hrs indicated Pharmacy will continue to follow and will adjust dose/frequency as necessary. Thank you.
[2021-10-16] MEDS: ALBUT/IPRATROP 3MG/0.5MG NEB 3 ML VIAL INH SCH ×6 (02:37→22:09)
[2021-10-16] MEDS: PIPERACILLIN/TAZOBACTAM 3.375 GM in DEXTROSE 5% 100 ML IV SCH ×3 (04:03→20:28)
[2021-10-16] MEDS: HYDROmorphone INJ 1 MG/ML SYRINGE IV PRN ×4 (04:10→22:00)
[2021-10-16] MEDS: PANTOprazole 40 MG TAB PO SCH (05:49)
[2021-10-16 06:28] LABS: Basophils # (auto) 0.02 K/uL (0-0.2); Basophils % (auto) 0.1 %; Hematocrit (blood only) 31.4 % (37-47); Hemoglobin 10.2 g/dL (12.0-16.0); Immature Granulocytes % (auto) 1.9 %; Lymphocytes # (auto) 1.11 K/uL (1.2-3.4); Lymphocytes % (auto) 5.3 %; Mean Corpuscular Hgb Conc 32.5 g/dL (32-36); Mean Corpuscular Volume 95.4 fL (80-100); Mean Platelet Volume 8.7 fL (7.4-10.4); Monocytes # (auto) 0.94 K/uL (0.11-0.59); Monocytes % (auto) 4.4 %; Neutrophils # (auto) 18.66 K/uL (1.4-6.5); Neutrophils % (auto) 88.3 %; Platelet Count 365 K/uL (130-400); RDW Coefficient of Variation 16.4 % (11.5-14.5); RDW Standard Deviation 57.1 fL (36.4-46.3); Red Blood Count 3.29 M/uL (4.2-5.4); White Blood Count 21.13 K/uL (4.8-10.8)
[2021-10-16 06:55] LABS: BUN Creatinine Ratio 29.1 (10-20); Calcium 8.7 mg/dl (8.5-10.1); Creatinine Clr Calc Pharmacy 84.7 ml/min; Est GFR (African American) 119.8 ml/min; Est GFR (Non-African American) 103.4 ml/min; Potassium 3.6 mmol/L (3.5-5.1)
[2021-10-16] MEDS: AZITHROMYCIN 500 MG in DEXTROSE 5% 250 ML IV SCH (07:48)
[2021-10-16] MEDS: CETIRIZINE HCL 10 MG TABLET PO SCH (07:49)
[2021-10-16] MEDS: POTASSIUM CHLORIDE CRTAB 20 MEQ TABCR PO SCH ×2 (07:51→20:24)
[2021-10-16] MEDS: guaiFENesin 600 MG TABCR PO SCH ×2 (07:52→20:23)
[2021-10-16] MEDS: NICOTINE 14 MG/24 HR PATCH TD SCH (07:52)
[2021-10-16] MEDS: METOPROLOL TARTRATE 50 MG TAB PO SCH ×2 (07:54→20:23)
[2021-10-16] MEDS: FLUDROCORTISONE ACETATE 0.1 MG TAB PO SCH ×2 (07:55→07:57)
[2021-10-16] MEDS: ESCITALOPRAM OXALATE 20 MG TAB PO SCH (07:56)
[2021-10-16] MEDS: FOLIC ACID 1 MG TAB PO SCH (07:56)
[2021-10-16] MEDS: FAMOTIDINE 20 MG TAB PO SCH (07:57)
[2021-10-16] MEDS: FLUTICASONE FUROATE 200MCG 14 PUFFS/INHALER INH SCH (07:58)
[2021-10-16] MEDS: LORazepam 0.5 MG TAB PO PRN ×2 (08:04→20:29)
[2021-10-16] MEDS: VANCOMYCIN HCL 1,000 MG in SODIUM CHLORIDE 0.9% 250 ML IV SCH ×2 (10:08→21:55)
[2021-10-16] MEDS: HEPARIN 100 UNIT/ML 5ML FLUSH FLUSH PRN (14:04)
[2021-10-16] MEDS: ACETAMINOPHEN 325 MG TAB PO PRN ×2 (15:03→20:28)
[2021-10-16] MEDS: ENOXAPARIN INJ 30 MG/0.3 ML SYR SQ SCH (20:22)
[2021-10-16] MEDS: LIDOCAINE 5% 1 PATCH TD PRN (21:16)
--- NOTE | 2021-10-16 21:32 | Hospitalist Progress Note ---
Date of Service October 16, 2021 Assessment & Plan (1) COPD (chronic obstructive pulmonary disease): Plan: Acute exacerbation. Much improved with parenteral steroids. Flushing noted from steroid therapy. Continue azithromycin. Continued scheduled DuoNebs. CTA is negative for PE. Repeat chest x-ray done October 14 results noted Patient remians on oxygen, patient continues to wheeze. (2) Leaking PEG tube: Plan: will consult GI. Overnight resident ordered antibiotics. will continue for today (3) Non-small cell lung cancer with metastasis: Plan: Patient with Stage IV adenocarcinoma of the lung. She follows with Oncology - last seen prior to arrival to hospital. She states that a medication is to be discontinued but she is unsure which medication. Conitnue Keytruda. Hematology/Oncology followup as outpatient (4) GERD (gastroesophageal reflux disease): Plan: Chronic. Continue Pepcid and Protonix . (5) Depression: Plan: Chronic. Continue Escitalopram (6) Hypokalemia: Plan: oral replacement. Serial labs (7) Hypomagnesemia: Plan: Corrected with replacement. Serial labs (8) Elevated troponin: Plan: Troponin is minimally elevated and downtrending. It does not appear that her current chest pain is from cardiac etiology. EKG is negative for acute changes. Continue telemetry. Plan: DVT Ppx - Lovenox SQ Code - Full Dispo - eventual discharge to home. Hopefully within the next day or 2. Admission and Anticipated Discharge Date Admission Date: October 12, 2021 Subjective Patient reports no new symptoms. She states that she is breathing better. She continues to have leaking from her peg tube. Review of Systems Review of Systems: All systems reviewed & are unremarkable except as noted in HPI & below Physical Exam Physical Exam: General-alert and oriented x3, no fevers, no chills HEENT-head atraumatic and normocephalic, pupils equal and reactive to light, extraocular muscles intact Neck-no lymphadenopathy or thyromegaly, trachea midline Chest-diminished breath sounds bilaterally. Wheezing has resolved. Audible rhonchi in the midline with forced cough Cardiac-tachycardic regular rate. Normal S1 and S2 Abdomen-normal bowel sounds, nontender, no hepatosplenomegaly Extremities-no cyanosis, clubbing, or edema Skinflushed from steroid therapy Neuro-cranial nerves II through XII intact, motor and sensory function within normal limits, strength symmetrical , no focal deficits Psych-normal affect, normal mood Results & Data Results & Data ([facility]) Vital Signs (Past 12 Hours) Vital Signs Temp Pulse Pulse Resp BP Pulse Ox 10/16/21 19:43 36.8 C 114 H 18 166/98 H 96 10/16/21 19:38 116 H 18 99 10/16/21 15:14 36.7 C 103 H 17 160/91 H 99 10/16/21 14:58 94 H 18 95 10/16/21 11:26 83 20 92 10/16/21 10:54 37.0 C 99 H 17 150/92 H 92 10/16/21 09:34 102 H PG Care Time/CCT Total # of Minutes Spent Total Time Spent with Patient: Total time spent is greater than 50% in coordination of care (as documented) at patient's floor/unit and/or counseling patient: Coding Level of Care Code 64474 Subseq Hosp Care Lvl 3 Diagnoses COPD (chronic obstructive pulmonary disease) J44.1 COPD type: COPD with acute exacerbation Non-small cell lung cancer with metastasis C34.90 GERD (gastroesophageal reflux disease) K21.9 Esophagitis presence: esophagitis presence not specified Depression F32.9 Hypokalemia E87.6 Hypomagnesemia E83.42 Elevated troponin R77.8 Leaking PEG tube K94.23 Time Spent (min) 35 (1) COPD (chronic obstructive pulmonary disease) COPD type: COPD with acute exacerbation Qualified Code(s): J44.1 - Chronic obstructive pulmonary disease with (acute) exacerbation (2) GERD (gastroesophageal reflux disease) Esophagitis presence: esophagitis presence not specified Qualified Code(s): K21.9 - Gastro-esophageal reflux disease without esophagitis
[2021-10-16] MEDS: guaiFENesin/CODEINE 100MG/10MG 5ML UDC PO PRN (22:43)
[2021-10-17] MEDS: methylPREDNISolone 40 MG in SYRINGE 0 ML IV SCH ×3 (01:19→16:09)
[2021-10-17] MEDS: CYCLOBENZAPRINE HCL 10 MG TAB PO PRN (01:43)
[2021-10-17] MEDS: ALBUT/IPRATROP 3MG/0.5MG NEB 3 ML VIAL INH SCH ×6 (03:08→22:39)
[2021-10-17] MEDS: ACETAMINOPHEN 325 MG TAB PO PRN (03:42)
[2021-10-17] MEDS: PIPERACILLIN/TAZOBACTAM 3.375 GM in DEXTROSE 5% 100 ML IV SCH ×3 (03:42→20:48)
[2021-10-17] MEDS: HYDROmorphone INJ 1 MG/ML SYRINGE IV PRN ×4 (04:21→23:38)
[2021-10-17] MEDS: PANTOprazole 40 MG TAB PO SCH (06:13)
[2021-10-17] MEDS: LORazepam 0.5 MG TAB PO PRN ×2 (07:54→20:48)
[2021-10-17] MEDS: METOPROLOL TARTRATE 50 MG TAB PO SCH ×2 (07:54→20:36)
[2021-10-17] MEDS: CETIRIZINE HCL 10 MG TABLET PO SCH (08:59)
[2021-10-17] MEDS: ESCITALOPRAM OXALATE 20 MG TAB PO SCH (08:59)
[2021-10-17] MEDS: FOLIC ACID 1 MG TAB PO SCH (09:00)
[2021-10-17] MEDS: guaiFENesin 600 MG TABCR PO SCH ×2 (09:00→20:37)
[2021-10-17] MEDS: FLUTICASONE FUROATE 200MCG 14 PUFFS/INHALER INH SCH (09:00)
[2021-10-17] MEDS: POTASSIUM CHLORIDE CRTAB 20 MEQ TABCR PO SCH ×2 (09:02→20:37)
[2021-10-17] MEDS: NICOTINE 14 MG/24 HR PATCH TD SCH (09:02)
[2021-10-17] MEDS: AZITHROMYCIN 500 MG in DEXTROSE 5% 250 ML IV SCH (09:03)
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
[2021-10-17] MEDS: FAMOTIDINE 20 MG TAB PO SCH (09:59)
[2021-10-17] MEDS: VANCOMYCIN HCL 1,000 MG in SODIUM CHLORIDE 0.9% 250 ML IV SCH (10:57)
[2021-10-17] MEDS: oxyCODONE HCL 15 MG TABCR (OxyCONTIN) PO SCH (16:08)
[2021-10-17] MEDS: LIDOCAINE 5% 1 PATCH TD PRN (17:18)
[2021-10-17] MEDS: ENOXAPARIN INJ 30 MG/0.3 ML SYR SQ SCH (20:37)
--- NOTE | 2021-10-17 21:11 | Hospitalist Progress Note ---
Date of Service October 17, 2021 Assessment & Plan (1) COPD (chronic obstructive pulmonary disease): Plan: Acute exacerbation. Much improved with parenteral steroids. Flushing noted from steroid therapy. Continue azithromycin. Continued scheduled DuoNebs. CTA is negative for PE. Repeat chest x-ray done October 14 results noted Patient remians on oxygen, wheezing is improving. (2) Leaking PEG tube: Plan: will consult GI. Overnight resident ordered antibiotics. will stop as no signs of infection. peg tube will need to be removed. (3) Non-small cell lung cancer with metastasis: Plan: Patient with Stage IV adenocarcinoma of the lung. She follows with Oncology - last seen prior to arrival to hospital. She states that a medication is to be discontinued but she is unsure which medication. Conitnue Keytruda. Hematology/Oncology followup as outpatient added oxycontin for better pain control (4) GERD (gastroesophageal reflux disease): Plan: Chronic. Continue Pepcid and Protonix . (5) Depression: Plan: Chronic. Continue Escitalopram (6) Hypokalemia: Plan: oral replacement. Serial labs (7) Hypomagnesemia: Plan: Corrected with replacement. Serial labs (8) Elevated troponin: Plan: Troponin is minimally elevated and downtrending. It does not appear that her current chest pain is from cardiac etiology. EKG is negative for acute changes. Continue telemetry. Plan: DVT Ppx - Lovenox SQ Code - Full Dispo - eventual discharge to home. Hopefully within the next day or 2. Admission and Anticipated Discharge Date Admission Date: October 12, 2021 Subjective 56 yo female reports having back pain She reports the lidcoaine patch is not helping. Patient also reports that she would like the peg tube removed. Review of Systems Review of Systems: All systems reviewed & are unremarkable except as noted in HPI & below Physical Exam Physical Exam: General-alert and oriented x3, no fevers, no chills HEENT-head atraumatic and normocephalic, pupils equal and reactive to light, extraocular muscles intact Neck-no lymphadenopathy or thyromegaly, trachea midline Chest-diminished breath sounds bilaterally. Wheezing has resolved. Audible rhonchi in the midline with forced cough Cardiac-tachycardic regular rate. Normal S1 and S2 Abdomen-normal bowel sounds, nontender, no hepatosplenomegaly Extremities-no cyanosis, clubbing, or edema Skinflushed from steroid therapy Neuro-cranial nerves II through XII intact, motor and sensory function within normal limits, strength symmetrical , no focal deficits Psych-normal affect, normal mood Results & Data Results & Data ([facility]) Vital Signs (Past 12 Hours) Vital Signs Temp Pulse Pulse Resp BP BP Pulse Ox 10/17/21 19:27 36.6 C 24 160/107 H 94 10/17/21 18:40 115 H 161/99 H 10/17/21 16:00 119 H 10/17/21 15:34 36.7 C 117 H 19 171/103 H 93 10/17/21 15:20 115 H 20 98 10/17/21 11:42 36.8 C 106 H 19 145/82 H 91 10/17/21 10:50 106 H 28 H 89 L PG Care Time/CCT Total # of Minutes Spent Total Time Spent with Patient: Total time spent is greater than 50% in coordination of care (as documented) at patient's floor/unit and/or counseling patient: Coding Level of Care Code 93774 Subseq Hosp Care Lvl 3 Diagnoses COPD (chronic obstructive pulmonary disease) J44.1 COPD type: COPD with acute exacerbation Leaking PEG tube K94.23 Non-small cell lung cancer with metastasis C34.90 GERD (gastroesophageal reflux disease) K21.9 Esophagitis presence: esophagitis presence not specified Depression F32.9 Hypokalemia E87.6 Hypomagnesemia E83.42 Elevated troponin R77.8 Time Spent (min) 35 (1) COPD (chronic obstructive pulmonary disease) COPD type: COPD with acute exacerbation Qualified Code(s): J44.1 - Chronic obstructive pulmonary disease with (acute) exacerbation (2) GERD (gastroesophageal reflux disease) Esophagitis presence: esophagitis presence not specified Qualified Code(s): K21.9 - Gastro-esophageal reflux disease without esophagitis
[2021-10-17] MEDS: guaiFENesin/CODEINE 100MG/10MG 5ML UDC PO PRN (23:38)
[2021-10-18] MEDS: methylPREDNISolone 40 MG in SYRINGE 0 ML IV SCH ×3 (01:19→16:23)
[2021-10-18] MEDS: oxyCODONE HCL IR 5 MG TAB (IMMEDIATE RELEASE) PO PRN ×4 (01:27→21:55)
[2021-10-18] MEDS: ALBUT/IPRATROP 3MG/0.5MG NEB 3 ML VIAL INH SCH ×6 (03:24→22:24)
[2021-10-18] MEDS: oxyCODONE HCL 15 MG TABCR (OxyCONTIN) PO SCH ×2 (04:01→15:32)
[2021-10-18] MEDS: CYCLOBENZAPRINE HCL 10 MG TAB PO PRN (06:01)
[2021-10-18] MEDS: PANTOprazole 40 MG TAB PO SCH (06:01)
[2021-10-18] MEDS: AZITHROMYCIN 500 MG in DEXTROSE 5% 250 ML IV SCH (07:36)
[2021-10-18] MEDS: ACETAMINOPHEN 325 MG TAB PO PRN (07:36)
[2021-10-18] MEDS: NICOTINE 14 MG/24 HR PATCH TD SCH (07:38)
[2021-10-18] MEDS: guaiFENesin 600 MG TABCR PO SCH ×2 (07:39→21:12)
[2021-10-18] MEDS: POTASSIUM CHLORIDE CRTAB 20 MEQ TABCR PO SCH ×2 (07:39→21:12)
[2021-10-18] MEDS: RIZATRIPTAN BENZOATE 10 MG TAB PO PRN (07:40)
[2021-10-18] MEDS: FAMOTIDINE 20 MG TAB PO SCH (07:41)
[2021-10-18] MEDS: METOPROLOL TARTRATE 50 MG TAB PO SCH ×2 (07:41→21:11)
[2021-10-18] MEDS: FLUDROCORTISONE ACETATE 0.1 MG TAB PO SCH (07:42)
[2021-10-18] MEDS: FOLIC ACID 1 MG TAB PO SCH (07:42)
[2021-10-18] MEDS: CETIRIZINE HCL 10 MG TABLET PO SCH (07:43)
[2021-10-18] MEDS: ESCITALOPRAM OXALATE 20 MG TAB PO SCH (07:43)
[2021-10-18] MEDS: FLUTICASONE FUROATE 200MCG 14 PUFFS/INHALER INH SCH (07:44)
[2021-10-18] MEDS: HYDROmorphone INJ 1 MG/ML SYRINGE IV PRN ×3 (09:02→21:11)
--- NOTE | 2021-10-18 19:21 | Progress Notes ---
GASTROENTEROLOGY PROGRESS NOTE AND PROCEDURE REPORT DATE OF SERVICE: 10/18/2021 AGE: 56. SEX: Female. RACE: . I had the pleasure of seeing the patient at her bedside today. She reports to me that she is continu ing to have drainage from around her PEG tube in the left upper quadrant. She states that she has mccoy d no pain and has not been using her PEG tube for approximately 4-5 weeks. She has noted persistent l eakage around the PEG tube site and states that she is able to eat and has in fact gained approximate ly 25 pounds due to p.o. intake. She attributes her increased appetite to proper pain control as she is seeing pain management and denies any current symptoms including fevers, chills, nausea, vomiting , diarrhea, chest pain, palpitation, shortness of breath, cough, dysuria, hematuria, arthralgias, miguel lgias, numbness or tingling in her extremities, skin rash or any further complaints. REVIEW OF SYSTEMS: Negative x12 system review other than pertinent positives listed in HPI. PHYSICAL EXAMINATION: VITAL SIGNS: Include a temperature of 36.7, pulse 100, respirations 20, blood pressure 156/99, pulse ox 98% on 3 liters via nasal cannula. GENERAL: Awake, cooperative, chronic ill-appearing, no acute distress. HEAD: Normocephalic, atraumatic. EYES: Pupils are equal and round. Extraocular muscles are intact. ENT: External evaluation of ears and nose are normal. Oropharynx is clear. NECK: Soft, supple. CHEST: Clear to auscultation in the anterior lung [place] bilaterally. CARDIOVASCULAR: Regular rate and rhythm. ABDOMEN: Soft, tender at the site of her PEG tube in the left upper quadrant. The PEG site is leaki ng with a yellow gastric contents. There is erythema around the site of the PEG tube. EXTREMITIES: No clubbing, cyanosis, or edema. IMPRESSION: A 56-year-old female with metastatic non-small cell lung cancer with leaking P EG tube. I asked the patient's nurse to assist me in performing a PEG tube removal at the patient's bedside. The patient was lying in the supine position and with gentle traction, the PEG tube was gently pulled through the stoma with minimal resistance. A pressure dressing was placed over the PEG tube site. There was no bleeding during the procedure, and the patient tolerated the procedure well. There were no complications. PLAN: At the present time, I would recommend a pressure dressing over the PEG tube site for the next 24 hours. I did ask her not to submerge in a bathtub or swimming pool over the next 24 hours and I asked her to eat a regular diet as she normally has been with no specific limitations. She is to con tact us or the nursing staff is to contact us if the patient develops any worsening pain or other abn ormalities including fevers or chills. I would recommend contacting us for any further questions or concerns. Once again, thanks for allowing me to participate in the care of this patient. If you have any furth er questions, please do not hesitate in contacting me. Job ID: [id number]
--- NOTE | 2021-10-18 20:18 | Hospitalist Progress Note ---
Date of Service October 18, 2021 Assessment & Plan (1) COPD (chronic obstructive pulmonary disease): Plan: Acute exacerbation. Much improved with parenteral steroids. Flushing noted from steroid therapy. Continue azithromycin. Continued scheduled DuoNebs. CTA is negative for PE. Repeat chest x-ray done October 14 results noted Patient remians on oxygen, 2 L No longer wheezing, ambulating well in the room. tapering steroid. (2) Leaking PEG tube: Plan: will consult GI. Overnight resident ordered antibiotics. will stop as no signs of infection. peg tube will need to be removed. this francis be done later today. (3) Non-small cell lung cancer with metastasis: Plan: Patient with Stage IV adenocarcinoma of the lung. She follows with Oncology - last seen prior to arrival to hospital. She states that a medication is to be discontinued but she is unsure which medication. Conitnue Keytruda. Hematology/Oncology followup as outpatient added oxycontin for better pain control. This appears to be working. (4) GERD (gastroesophageal reflux disease): Plan: Chronic. Continue Pepcid and Protonix . (5) Depression: Plan: Chronic. Continue Escitalopram (6) Hypokalemia: Plan: oral replacement. Serial labs (7) Hypomagnesemia: Plan: Corrected with replacement. Serial labs (8) Elevated troponin: Plan: Troponin is minimally elevated and downtrending. It does not appear that her current chest pain is from cardiac etiology. EKG is negative for acute changes. Continue telemetry. Plan: DVT Ppx - Lovenox SQ Code - Full Dispo - eventual discharge to home. Hopefully within the next day or 2. Admission and Anticipated Discharge Date Admission Date: October 12, 2021 Subjective Patient reports she is breathing better. She also states that her pain has improved. She states she continues to have drainage in the peg tube site. Review of Systems Review of Systems: All systems reviewed & are unremarkable except as noted in HPI & below Physical Exam Physical Exam: General-alert and oriented x3, no fevers, no chills HEENT-head atraumatic and normocephalic, pupils equal and reactive to light, extraocular muscles intact Neck-no lymphadenopathy or thyromegaly, trachea midline Chest-diminished breath sounds bilaterally. Wheezing has resolved. Audible rhonchi in the midline with forced cough Cardiac-tachycardic regular rate. Normal S1 and S2 Abdomen-normal bowel sounds, nontender, no hepatosplenomegaly Extremities-no cyanosis, clubbing, or edema Skinflushed from steroid therapy Neuro-cranial nerves II through XII intact, motor and sensory function within normal limits, strength symmetrical , no focal deficits Psych-normal affect, normal mood Results & Data Results & Data ([facility]) Vital Signs (Past 12 Hours) Vital Signs Temp Pulse Pulse Resp BP Pulse Ox 10/18/21 19:16 36.7 C 109 H 20 179/110 H 94 10/18/21 15:34 36.7 C 100 H 20 156/99 H 98 10/18/21 14:58 95 H 99 H 23 100 10/18/21 14:56 72 10/18/21 11:04 98 H 16 99 10/18/21 11:01 36.6 C 92 H 20 168/100 H 99 PG Care Time/CCT Total # of Minutes Spent Total Time Spent with Patient: Total time spent is greater than 50% in coordination of care (as documented) at patient's floor/unit and/or counseling patient: Coding Level of Care Code 22833 Subseq Hosp Care Lvl 3 Diagnoses COPD (chronic obstructive pulmonary disease) J44.1 COPD type: COPD with acute exacerbation Leaking PEG tube K94.23 Non-small cell lung cancer with metastasis C34.90 GERD (gastroesophageal reflux disease) K21.9 Esophagitis presence: esophagitis presence not specified Depression F32.9 Hypokalemia E87.6 Hypomagnesemia E83.42 Elevated troponin R77.8 Time Spent (min) 35 (1) COPD (chronic obstructive pulmonary disease) COPD type: COPD with acute exacerbation Qualified Code(s): J44.1 - Chronic obstructive pulmonary disease with (acute) exacerbation (2) GERD (gastroesophageal reflux disease) Esophagitis presence: esophagitis presence not specified Qualified Code(s): K21.9 - Gastro-esophageal reflux disease without esophagitis
[2021-10-18] MEDS: LORazepam 0.5 MG TAB PO PRN (21:11)
[2021-10-18] MEDS: ENOXAPARIN INJ 30 MG/0.3 ML SYR SQ SCH (21:11)
[2021-10-18] MEDS: LIDOCAINE 5% 1 PATCH TD PRN (21:50)
[2021-10-19] MEDS: ACETAMINOPHEN 325 MG TAB PO PRN (01:11)
[2021-10-19] MEDS: CYCLOBENZAPRINE HCL 10 MG TAB PO PRN (01:11)
[2021-10-19] MEDS: oxyCODONE HCL 15 MG TABCR (OxyCONTIN) PO SCH ×2 (03:17→15:17)
[2021-10-19] MEDS: ALBUT/IPRATROP 3MG/0.5MG NEB 3 ML VIAL INH SCH ×4 (03:27→15:14)
[2021-10-19] MEDS: HYDROmorphone INJ 1 MG/ML SYRINGE IV PRN ×2 (04:06→10:27)
[2021-10-19 06:19] LABS: Hematocrit (blood only) 33.2 % (37-47); Hemoglobin 10.8 g/dL (12.0-16.0); Mean Corpuscular Hemoglobin 30.9 pg (25-34); Mean Corpuscular Hgb Conc 32.5 g/dL (32-36); Mean Corpuscular Volume 95.1 fL (80-100); Mean Platelet Volume 8.6 fL (7.4-10.4); Platelet Count 350 K/uL (130-400); RDW Coefficient of Variation 16.8 % (11.5-14.5); RDW Standard Deviation 58.1 fL (36.4-46.3); Red Blood Count 3.49 M/uL (4.2-5.4); White Blood Count 20.26 K/uL (4.8-10.8)
[2021-10-19 06:34] LABS: BUN Creatinine Ratio 39.3 (10-20); Calcium 8.6 mg/dl (8.5-10.1); Creatinine Clr Calc Pharmacy 85.9 ml/min; Est GFR (African American) 119.1 ml/min; Est GFR (Non-African American) 102.8 ml/min; Potassium 3.6 mmol/L (3.5-5.1)
[2021-10-19] MEDS: guaiFENesin 600 MG TABCR PO SCH (08:10)
[2021-10-19] MEDS: NICOTINE 14 MG/24 HR PATCH TD SCH (08:11)
[2021-10-19] MEDS: METOPROLOL TARTRATE 50 MG TAB PO SCH (08:12)
[2021-10-19] MEDS: FAMOTIDINE 20 MG TAB PO SCH (08:12)
[2021-10-19] MEDS: FLUTICASONE FUROATE 200MCG 14 PUFFS/INHALER INH SCH (08:13)
[2021-10-19] MEDS: PANTOprazole 40 MG TAB PO SCH (08:14)
[2021-10-19] MEDS: FOLIC ACID 1 MG TAB PO SCH (08:14)
[2021-10-19] MEDS: CETIRIZINE HCL 10 MG TABLET PO SCH (08:14)
[2021-10-19] MEDS: FLUDROCORTISONE ACETATE 0.1 MG TAB PO SCH (08:14)
[2021-10-19] MEDS: ESCITALOPRAM OXALATE 20 MG TAB PO SCH (08:15)
[2021-10-19] MEDS: POTASSIUM CHLORIDE CRTAB 20 MEQ TABCR PO SCH (08:15)
[2021-10-19] MEDS: AZITHROMYCIN 500 MG in DEXTROSE 5% 250 ML IV SCH (08:26)
[2021-10-19] MEDS: oxyCODONE HCL IR 5 MG TAB (IMMEDIATE RELEASE) PO PRN (08:30)
[2021-10-19] MEDS ORDERED: methylPREDNISolone 40 MG in SYRINGE 0 ML IV SCH (09:00)
[2021-10-19] MEDS: guaiFENesin/CODEINE 100MG/10MG 5ML UDC PO PRN (12:42)
--- NOTE | 2021-10-24 22:42 | Discharge Summary ---
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 Patient has been following with Oncology. She started salvage Carbo/Alimata/Pembrolizumab therapy 08/11/20. She had some side effects of chemotherapy to include significant weight loss, persistent diarrhea with colitis and typhlitis. She was then transitioned to single agent Pembrolizumab therapy monthly which she continues to receive. Patient with severe COPD on triple therapy at home, home O2 2L by NH and Azithromycin q M/W/F. She was hospitalized at [facility] form 09/08/21 - 09/14/21 with acute hypoxic respiratory failure secondary to COPD exacerbation and mucus plugging. She reports that her breathing has not improved since then. She has persistent dyspnea, chronic dry cough and limited exercise capacity. Difficulty resting due to persistent cough She has received short relief with steroid use but symptoms return upon steroid taper. Patient presents today with persistent cough and worsening shortness of breath. She reports markedly elevated heart rate with exertion. Subjective chills and nausea today as well as chest tightness, wheeze She denies fever, chest pain, abdominal pain, constipation. No additional complaints at this time. Upon arrival to the ER patient tachycardic with HR of 146, BP of 88/59, tachypneic. She was started on CPAP 8cm H2O, 30% FiO2 with improvement. ER Course; Acetaminophen, Albuterol 3mL neb, Ceftriaxone x 1 gm, Fentanyl x 25mcg, NSS x 1L, Mg x 1 gm, and KCL 10mEq Principal Diagnosis COPD Discharge Exam General-alert and oriented x3, no fevers, no chills HEENT-head atraumatic and normocephalic, pupils equal and reactive to light, extraocular muscles intact Neck-no lymphadenopathy or thyromegaly, trachea midline Chest-diminished breath sounds bilaterally. Wheezing has resolved. Audible rhonchi in the midline with forced cough Cardiac-tachycardic regular rate. Normal S1 and S2 Abdomen-normal bowel sounds, nontender, no hepatosplenomegaly Extremities-no cyanosis, clubbing, or edema Skinflushed from steroid therapy Neuro-cranial nerves II through XII intact, motor and sensory function within normal limits, strength symmetrical , no focal deficits Psych-normal affect, normal mood Discharge Data Allergies Allergy/AdvReac Type Severity Reaction Status Date / Time hornet venom Allergy Severe Anaphylaxis Verified 10/12/21 09:35 mold Allergy Severe Sinus Verified 10/12/21 09:35 swelling morphine Allergy Severe decreases Verified 10/12/21 09:35 respirations sulfasalazine Allergy Severe Rash, Verified 10/12/21 09:35 swelling, dyspnea codeine Allergy Mild Pruritus Verified 10/12/21 09:35 house dust Allergy Mild Dry Eye Verified 10/12/21 09:35 Consultations 10/12/21 19:19 ED Decision to Admit Stat 10/16/21 16:34 Consult Gastroenterology Routine Ordered Studies 10/12/21 17:58 CT angio chest PE protocol Stat Hospital Course (1) COPD (chronic obstructive pulmonary disease): Acute exacerbation. Much improved with parenteral steroids. Flushing noted from steroid therapy. Continue azithromycin. Continued scheduled DuoNebs. CTA is negative for PE. Repeat chest x-ray done October 14 results noted Patient remains on oxygen No longer wheezing, ambulating well in the room. tapering steroid. Patient is interested in going home and focusing on being comfortable. She is currently not ready for hopsice at this moment, and is unsure if she would like to return to the hopsital. Currently she feels better and her pain is under control. (2) Leaking PEG tube: will consult GI. Overnight resident ordered antibiotics. will stop as no signs of infection. peg tube was removed. (3) Non-small cell lung cancer with metastasis: Patient with Stage IV adenocarcinoma of the lung. She follows with Oncology - last seen prior to arrival to hospital. She states that a medication is to be discontinued but she is unsure which medication. Oumar Hendrix. Hematology/Oncology followup as outpatient added oxycontin for better pain control. This appears to be working. Pain medication noted in discharge instructions. she will f/u with hem/onc as an outpatient. (4) GERD (gastroesophageal reflux disease): Chronic. Continue Pepcid and Protonix . (5) Depression: Chronic. Continue Escitalopram (6) Hypokalemia: oral replacement. Serial labs (7) Hypomagnesemia: Corrected with replacement. Serial labs (8) Elevated troponin: Troponin is minimally elevated and downtrending. It does not appear that her current chest pain is from cardiac etiology. EKG is negative for acute changes. Continue telemetry. Progressive non-small cell lung cancer causing COPD exacerbation and acute on chronic hypoxic respiratory failure 56-year-old female with a history of grossly metastatic non-small cell lung cancer. She presents in obvious respiratory distress and is documented having COPD exacerbation. Coders are unable to assume any links and chronic illnesses that may exacerbate acute ones. If the underlying cancer is causing the presented COPD exacerbation please state such. Severe malnutrition T Patient weight during a August 2021 admission was 53.1 kg. Weight this admission 48.2 kg. This is a loss of 4.9 kg or 9.2% of her body weight in approximately 3 weeks. Risk Factor(s): Age, Metastatic non-small cell cancer, History of significant weight loss, persistent diarrhea with colitis and typhilitis, PEG placement Treatment: RD consultation, regular diet, nighttime snack, Acute and chronic respiratory failure with hypoxia 56-year-old female presents to ER tachycardic, tachypneic, and in respiratory distress per ER physician. : Per ER physician this patient was in mild respiratory stress having an increased respiratory rate and using accessory muscles. Vital signs revealed a heart rate of 146, respiration rate of 30, Calculated PF ratio based on 30% FiO2 via BiPAP is 286 Risk Factor(s): Metastatic non-small cell lung cancer, home O2 dependent, COPD exacerbation, Treatment: 30% FiO2 via BiPAP, IV vancomycin, 2 L IV NS bolus, IV Zosyn, IV methylprednisone, IV magnesium, Xopenex nebs, Mucinex, Robitussin, Tessalon Perle, IV ceftriaxone, IV azithromycin, DuoNeb's, Currently improved. DVT Ppx - Lovenox SQ Code - Full Total Time Total Time Spent Total Time Spent (In Minutes): 32 Discharge Plan Discharge Items Patient Disposition: Home - Home Health Services Reason For Visit: SOB Discharge Diagnosis: SOB Condition on Discharge: Serious Activity: Resume your previous activity Non-emergency contact: Primary Care Provider Call non-emergency contact if: you have any medication questions Follow-up/Referrals: Darya Chiu MD [Primary Care Provider] - Diet: Regular Addtl Attending Provider Instructions: You have been hospitalized for an acute medical problem. During your stay at [facility], we have made an effort to correct the problem that brought you to the hospital while keeping you as comfortable as possible. Medications were used to bring your condition under control and your discharge instructions will include directions for any medications you should take after leaving the hospital. Please make sure you see your Primary Care Provider as part of your follow up plan. Recommend folllowup in 1-2 weeks with PCP. Home health will be seeing you within next 2 days. Pending Studies at Discharge: No Stand-Alone Forms: My [facility] [employer], Smoking Cessation Medications and DC Order Prescriptions: New guaifenesin [Mucinex] 600 mg Tablet Extended Release 12hr 1,200 mg PO Q12 Qty: 30 RF: 0 prednisone 5 mg tablet See Rx Instructions .ROUTE .COMPLEX Qty: 36 RF: 0 oxycodone [OxyContin] 15 mg tablet,oral only,ext.rel.12 hr 15 mg PO BID Qty: 60 RF: 0 Continued epinephrine 0.3 mg/0.3 mL auto-injector 0.3 mg IM Q10M MDD 2 doses PRN (Reason: anaphylaxis) Qty: 1 RF: 3 rizatriptan 10 mg tablet 10 mg PO .COMPLEX PRN (Reason: migraine headache) Qty: 9 RF: 5 cetirizine 10 mg tablet 10 mg PO QAM Qty: 90 RF: 3 (DME) BD SafetyGlide Syringe 3 mL 25 gauge x 1" syringe See Rx Instructions .Route Qty: 4 RF: 6 famotidine 20 mg tablet 20 mg PO QAM Qty: 90 RF: 3 benzonatate 100 mg capsule 100 mg PO TID PRN (Reason: cough) Qty: 90 RF: 1 ipratropium-albuterol 0.5 mg-3 mg(2.5 mg base)/3 mL solution for nebulization 3 ml INH QID PRN (Reason: wheezing) Qty: 90 RF: 5 Emgality Pen 120 mg/mL pen injector 120 mg subcut Q30D Qty: 1 RF: 5 Bevespi Aerosphere 9-4.8 mcg HFA aerosol inhaler 2 inh inhalation BID Qty: 10.7 RF: 5 levalbuterol tartrate [Xopenex HFA] 45 mcg/actuation HFA aerosol inhaler 2 inh inhalation Q6H PRN (Reason: shortness of breath or wheezing) Qty: 15 RF: 5 hydrocodone-acetaminophen 7.5-325 mg/15 mL solution 5 ml PO Q6H PRN (Reason: cough) Qty: 200 RF: 0 cyclobenzaprine 10 mg tablet See Rx Instructions .ROUTE .COMPLEX Qty: 90 RF: 1 potassium chloride 20 mEq tablet extended release 20 meq PO BID PRN (Reason: .SUPPLEMENT) RF: 0 levalbuterol HCl 1.25 mg/3 mL solution for nebulization 1.25 mg inhalation Q4H PRN (Reason: shortness of breath or wheezing) Qty: 90 RF: 11 azithromycin 250 mg tablet See Rx Instructions .ROUTE .COMPLEX Qty: 36 RF: 5 folic acid 1 mg Tablet 1 mg PO QAM RF: 0 fludrocortisone 0.1 mg tablet 0.2 mg PO QAM RF: 0 escitalopram oxalate 20 mg tablet 20 mg PO QAM RF: 0 Flovent HFA 220 mcg/actuation HFA aerosol inhaler 2 inh inhalation TID RF: 0 lidocaine 5 % adhesive patch,medicated 1 patch topical DAILY PRN (Reason: Pain) RF: 0 cyanocobalamin (vitamin B-12) 1,000 mcg/mL solution 1,000 mcg subcut MONTHLY RF: 0 nicotine 21 mg/24 hr patch 24 hour 21 mg topical QAM RF: 0 Medical Marijuana 1 dose inhalation QID RF: 0 Discontinued prednisone 20 mg tablet See Rx Instructions PO DAILY Qty: 18 RF: 0 No Action pantoprazole 40 mg tablet,delayed release (DR/EC) See Rx Instructions .ROUTE .COMPLEX Qty: 30 RF: 2 ondansetron HCl 4 mg tablet See Rx Instructions .ROUTE .COMPLEX Qty: 180 RF: 0 nystatin 100,000 unit/gram ointment 1 applic topical BID Qty: 15 RF: 1 lorazepam 0.5 mg tablet 0.5 mg PO TID PRN (Reason: anxiety) Qty: 90 RF: 0 Discharge Orders: Discharge Order (Routine); Ordered 10/19/21 Ordered By: Aquiles Mckeon Admission Data Admit Date/Time: 10/12/21 20:03 Attending Provider: Aquiles Mckeon Admit Provider: aMgdalena Jaime Primary Care Provider: Darya Chiu Other Providers: Magdalena Jaime ; Hernán Corrigan ; [facility] Other Interventions: Discharge Summary Assessment (RN) Last Done: 10/19/21 17:00 Coding Level of Care Code D/C DAY MANAGEMENT >30 MINS Diagnoses COPD (chronic obstructive pulmonary disease) J44.1 COPD type: COPD with acute exacerbation Leaking PEG tube K94.23 Non-small cell lung cancer with metastasis C34.90 GERD (gastroesophageal reflux disease) K21.9 Esophagitis presence: esophagitis presence not specified Depression F32.9 Hypokalemia E87.6 Hypomagnesemia E83.42 Elevated troponin R77.8
== END 2021-10-19 18:35 | disposition home health service (06) | DRG 180 ==
LOC: ED 16:17 → 1E 20:03 → SUATTDRO 20:03 → 1E 20:28 → 2E 10-13 15:11
DX: Z88.5 Allergy status to narcotic agent; E43 Unspecified severe protein-calorie malnutrition; J45.909 Unspecified asthma, uncomplicated; K94.29 Other complications of gastrostomy; R79.89 Other specified abnormal findings of blood chemistry; C79.51 Secondary malignant neoplasm of bone; K21.9 Gastro-esophageal reflux disease without esophagitis; Z88.2 Allergy status to sulfonamides; Y92.009 Unspecified place in unspecified non-institutional (private) residence as the place of occurrence of the external cause; F17.210 Nicotine dependence, cigarettes, uncomplicated; E86.0 Dehydration; E83.42 Hypomagnesemia; R07.89 Other chest pain; C78.2 Secondary malignant neoplasm of pleura; K94.23 Gastrostomy malfunction; C79.89 Secondary malignant neoplasm of other specified sites; Z99.81 Dependence on supplemental oxygen; J44.1 Chronic obstructive pulmonary disease with (acute) exacerbation; F32.A Depression, unspecified; F10.21 Alcohol dependence, in remission; E87.6 Hypokalemia; J96.21 Acute and chronic respiratory failure with hypoxia; C34.90 Malignant neoplasm of unspecified part of unspecified bronchus or lung